=== PATIENT | male | born 1945 | race Caucasian/White ===

== ENCOUNTER → 2016-05-10 | Outpatient (CLI) | payer MEDICARE, MEDICAID ==
[~2016-05-10] MED LIST: BUDE0.5A AEROSOL; DEXT1DRO7 RIGHT EYE; DIVA500T31 PO; DIVA500T4 PO; FLUT16SP EA NOSTRIL; FURO-154 PO; GABA-336 PO; GUAI120015 PO; HYDR-4246 PO; IPRA3AMP AEROSOL; LISI-127 PO; LORA0.5T86 PO; MAGN400O6 DOB; MULT-806 PO; OSEL75CA PO; PROP40TA PO; RISP4TAB PO; ROPI0.252 PO; SERT50TA PO; SIMV40TA73 PO; TRIA-15 PO; WARF4TAB41 PO; [UNRECOGNIZED DRUG - OTHER] PO
[2016-05-10 06:37] LABS: BASOPHILS % (AUTO) 0.4 % (0-2); EOSINOPHILS # (AUTO) 0.1 T/MM3 (0-0.5); EOSINOPHILS % (AUTO) 2.4 % (0-4); HCT - HEMATOCRIT 40.1 % (41-53); HGB - HEMOGLOBIN 12.7 GM/DL (13.5-17.5); IMMATURE GRANULOCYTE # (AUTO) 0.04 T/MM3 (0.00-0.03); IMMATURE GRANULOCYTE % (AUTO) 0.8 % (0.0-0.5); LYMPHOCYTES # (AUTO) 2.3 T/MM3 (1-4.8); LYMPHOCYTES % (AUTO) 46.1 % (23-45); MEAN CORPUSCULAR HGB 29.3 UUG (26-34); MEAN CORPUSCULAR HGB CONC(MCHC 31.7 GM/DL (31-37); MEAN CORPUSCULAR VOLUME 92.6 UM3 (80-100); MEAN PLATELET VOLUME 10.9 UM3 (9.4-12.4); MONOCYTES # (AUTO) 0.5 T/MM3 (0-0.8); MONOCYTES % (AUTO) 9.9 % (0-9.0); NEUTROPHILS % (AUTO) 40.4 % (33-66); RED BLOOD COUNT 4.33 M/MM3 (4.50-5.90)
[2016-05-10 06:41] LABS: INR 3.76 (0.76-1.04)
[2016-05-11 00:42] LABS: LDL CHOLESTEROL,CALCULATED 68.2 (66-159); RISK FACTOR 3.2 RATIO (0-5.0); VLDL CHOLESTEROL 26.8 MG/DL (0-28)
== END ==
LOC: LABNH.AP 00:27
PROVIDERS: ATTEND Family Medicine
DX: I10 Essential (primary) hypertension (principal); E78.5 Hyperlipidemia, unspecified; G40.909 Epilepsy, unspecified, not intractable, without status epilepticus; I48.91 Unspecified atrial fibrillation; Z79.01 Long term (current) use of anticoagulants; Z79.899 Other long term (current) drug therapy
CPT/HCPCS: 36415; 80061; 80164; 85025; 85610; P9604

== ENCOUNTER → 2016-05-11 | Outpatient (CLI) | payer MEDICARE, MEDICAID ==
[2016-05-11 07:19] LABS: INR 3.71 (0.76-1.04); PROTHROMBIN TIME 40.4 SEC (9.31-12.49)
== END ==
LOC: LABNH.AP 00:17
PROVIDERS: ATTEND Nurse Practitioner
DX: I48.91 Unspecified atrial fibrillation (principal); Z79.01 Long term (current) use of anticoagulants
CPT/HCPCS: 36415; 85610; P9604

== ENCOUNTER → 2016-05-12 | Outpatient (CLI) | payer MEDICARE, MEDICAID ==
[2016-05-12 05:57] LABS: INR 2.11 (0.76-1.04)
== END ==
LOC: LABNH.AP 00:32
PROVIDERS: ATTEND Nurse Practitioner
DX: Z79.01 Long term (current) use of anticoagulants (principal); I48.91 Unspecified atrial fibrillation
CPT/HCPCS: 36415; 85610; P9604

== ENCOUNTER → 2016-05-17 | Outpatient (CLI) | payer MEDICARE, MEDICAID ==
[2016-05-17 08:29] LABS: INR 1.85 (0.76-1.04); PROTHROMBIN TIME 20.2 SEC (9.31-12.49)
== END ==
LOC: LABNH.AP 01:45
PROVIDERS: ATTEND Nurse Practitioner
DX: Z79.01 Long term (current) use of anticoagulants (principal); I48.91 Unspecified atrial fibrillation
CPT/HCPCS: 36415; 85610; P9604

== ENCOUNTER → 2016-05-24 | Outpatient (CLI) | payer MEDICARE, MEDICAID ==
[2016-05-24 07:40] LABS: INR 2.61 (0.76-1.04); PROTHROMBIN TIME 28.5 SEC (9.31-12.49)
[2016-05-24 07:51] LABS: ALBUMIN 3.6 G/DL (3.5-5.0); ALBUMIN/GLOBULIN RATIO 1.1 RATIO (1.1-2.2); ALKALINE PHOSPHATASE 90 U/L (38-126); ALT (SGPT) 18 U/L (21-72); ANION GAP 14 MEQ/L (5-15); AST (SGOT) 17 U/L (17-59); BUN/CREATININE RATIO 27 RATIO (6-26); CALCIUM 9.5 MG/DL (8.4-10.2); CHLORIDE 104 MEQ/L (98-107); CO2 - CARBON DIOXIDE 26 MEQ/L (22-30); CREATININE 0.6 MG/DL (0.8-1.5); GLOMERULAR FILTRATION RATE 132; GLUCOSE 171 MG/DL (75-110); POTASSIUM 4.3 MEQ/L (3.6-5); SODIUM 144 MEQ/L (134-144)
[2016-05-24 08:19] LABS: HEMOGLOBIN A1C 8.7 % (6.1-7.9)
== END ==
LOC: LABNH.AP 00:39
PROVIDERS: ATTEND Family Medicine
DX: I48.91 Unspecified atrial fibrillation (principal); E78.5 Hyperlipidemia, unspecified; F20.9 Schizophrenia, unspecified; G40.909 Epilepsy, unspecified, not intractable, without status epilepticus; I10 Essential (primary) hypertension; R60.9 Edema, unspecified; Z79.01 Long term (current) use of anticoagulants; Z79.899 Other long term (current) drug therapy
CPT/HCPCS: 36415; 80053; 83036; 85610; P9604

== ENCOUNTER → 2016-06-21 | Outpatient (CLI) | payer MEDICARE, MEDICAID ==
[2016-06-21 09:33] LABS: INR 3.6 (0.76-1.04); PROTHROMBIN TIME 39.2 SEC (9.31-12.49)
== END ==
LOC: LABNH.AP 00:23
PROVIDERS: ATTEND Family Medicine
DX: Z79.01 Long term (current) use of anticoagulants (principal); I48.91 Unspecified atrial fibrillation
CPT/HCPCS: 36415; 85610; P9604

== ENCOUNTER → 2016-06-22 | Outpatient (CLI) | payer MEDICARE, MEDICAID ==
[2016-06-22 06:21] LABS: INR 3.09 (0.76-1.04); PROTHROMBIN TIME 33.7 SEC (9.31-12.49)
== END ==
LOC: LABNH.AP 00:30
PROVIDERS: ATTEND Nurse Practitioner
DX: I48.91 Unspecified atrial fibrillation (principal); Z79.01 Long term (current) use of anticoagulants
CPT/HCPCS: 36415; 85610; P9604

== ENCOUNTER → 2016-06-28 | Outpatient (CLI) | payer MEDICARE, MEDICAID ==
[2016-06-28 12:56] LABS: INR 1.85 (0.76-1.04); PROTHROMBIN TIME 20.2 SEC (9.31-12.49)
== END ==
LOC: LABNH.AP 00:09
PROVIDERS: ATTEND Nurse Practitioner
DX: I48.91 Unspecified atrial fibrillation (principal); Z79.01 Long term (current) use of anticoagulants
CPT/HCPCS: 36415; 85610; P9604

== ENCOUNTER → 2016-07-05 | Outpatient (CLI) | payer MEDICARE, MEDICAID ==
[2016-07-05 08:29] LABS: INR 1.92 (0.76-1.04); PROTHROMBIN TIME 20.9 SEC (9.31-12.49)
== END ==
LOC: LABNH.AP 00:32
PROVIDERS: ATTEND Family Medicine
DX: I48.91 Unspecified atrial fibrillation (principal); Z79.01 Long term (current) use of anticoagulants
CPT/HCPCS: 36415; 85610; P9604

== ENCOUNTER → 2016-07-12 | Outpatient (CLI) | payer MEDICARE, MEDICAID ==
[2016-07-12 08:04] LABS: INR 1.6 (0.77-1.03); PROTHROMBIN TIME 17.5 SEC (9.48-12.52)
== END ==
LOC: LABNH.AP 00:36
PROVIDERS: ATTEND Family Medicine
DX: I48.91 Unspecified atrial fibrillation (principal); Z79.01 Long term (current) use of anticoagulants
CPT/HCPCS: 36415; 85610

== ENCOUNTER 2016-09-26 14:52 | Inpatient (IN) ==
--- NOTE | 2016-09-26 15:07 | Emergency Department Report ---
General Adult HPI - General Chief complaint: Medical Emergency Stated complaint: Possible Sepsis Time Seen by Provider: 09/26/16 15:07 Source: patient Mode of arrival: EMS Limitations: no limitations - History of Present Illness HPI narrative: 71 YO M brought to ED by EMS with report of "having trouble breathing" per EMS. Patient is a resident at [facility] and nursing staff told EMS patient has not been feeling well for approx. 1 week. Patient had a fever of 103 today. Patient was placed on 3L/NC of O2 by nursing staff at [facility]. Fever was treated with 1000mg of Tylenol this morning. Patient has had generalized weakness, diarrhea and vomiting in the last week. Patient states he developed a cough this morning. Denies chills, nausea, CP or diaphoresis. Patient reports chronic bilateral lower extremity pain with walking. - Related Data Home Medications Medication Instructions Recorded Confirmed Divalproex Sodium [Depakote] 500 mg PO DAILY #3 03/22/11 09/26/16 Lisinopril 10 mg PO DAILY #0 03/22/11 09/26/16 Dextran 70/Hypromellose 1 drop RIGHT EYE TID PRN #0 bottle 03/18/14 09/26/16 [Artificial Tears] Divalproex Sodium [Depakote ER] 500 mg PO HS #0 tab 03/18/14 09/26/16 Furosemide [Lasix] 20 mg PO BID #0 tab 03/18/14 09/26/16 LORazepam [Ativan] 0.5 mg PO Q6H PRN #0 tab 03/18/14 09/26/16 Ropinirole HCl 0.25 mg PO HS #0 tab 03/18/14 09/26/16 Warfarin Sodium [Coumadin] 4 mg PO WS #0 tab 03/18/14 09/26/16 ARIPiprazole [Aripiprazole] 30 mg PO DAILY 09/26/16 09/26/16 Acetaminophen [Acetaminophen Extra 500 mg PO Q6H PRN 09/26/16 09/26/16 Strength] Gabapentin [Gabapentin] 300 mg PO TID 09/26/16 09/26/16 Hydrocodone/Acetaminophen 1 tab PO BID 09/26/16 09/26/16 [Hydrocodon-Acetaminophen 5-325] Insulin Lispro [Humalog Kwikpen 5 unit SQ TIDWM PRN 09/26/16 09/26/16 U-100] Ketotifen Fumarate [Zaditor] 1 drop EACH EYE Q12H PRN 09/26/16 09/26/16 Liraglutide [Victoza 3-Otto] 1.2 mg SQ DAILY 09/26/16 09/26/16 Loperamide [Imodium] 2 mg PO QID PRN 09/26/16 09/26/16 Lurasidone HCl [Latuda] 20 mg PO WS 09/26/16 09/26/16 Magnesium Hydroxide [Milk of 30 ml PO Q12H PRN 09/26/16 09/26/16 Magnesia] Metformin [Glucophage] 500 mg PO WB 09/26/16 09/26/16 Metoprolol Succinate 50 mg PO DAILY 09/26/16 09/26/16 Miconazole Nitrate [Miconazorb AF] 1 applic TP BID 09/26/16 09/26/16 Nystatin Cream [Mycostatin] 1 applic TOP BID 09/26/16 09/26/16 Prazosin HCl [Minipress] 2 mg PO HS 09/26/16 09/26/16 Simvastatin [Simvastatin] 20 mg PO HS 09/26/16 09/26/16 guaiFENesin [Guaifenesin] 100 mg PO Q4H PRN 09/26/16 09/26/16 guaiFENesin [Mucinex] 1,200 mg PO Q12H PRN 09/26/16 09/26/16 Allergies Allergy/AdvReac Type Severity Reaction Status Date / Time No Known Allergies Allergy Verified 09/26/16 17:47 Review of Systems All systems: reviewed and negative except as stated Constitutional: Reports: fever Respiratory: Reports: as per HPI, cough, dyspnea PFSH Patient Stated Medical History Cardiac Arrhythmia Yes: A-FIB Hypertension Yes Diabetes Mellitus Type 2 Yes Hx Incontinence Yes Osteoarthritis Yes Bipolar Disorder Yes Depression Yes CAD Anxiety Atrial fibrillation Per lipidemia Epilepsy Hypothyroidism Morbid obesity Osteoarthritis Psoriasis Restless leg syndrome Lower extremity edema Surgical History: Tonsillectomy Family History: Noncontributory - Social History Housing: skilled nursing Current occupational status: retired Physical Exam - Limitations Limitations: no limitations - General General appearance: alert, in no apparent distress, obese - Normal Exams: Head:: Normocephalic without trauma Eyes:: Pupils are PERRLA w/ EOMI, No scleral icterus ENMT:: No facial trauma, nasal exudates, pharyngeal erythema Neck:: Full range of motion, without adenopathy Abdomen:: Bowel sounds positive, soft, non-tender Neurological:: Patient is alert, and oriented, cranial nerves, motor/sensory/ cerebellar, exams w/o gross deficits, to observation Psychiatric:: Patient exhibits, appropriate attention, emotion and affect - Respiratory Respiratory exam: Present: other (bilbasilar crackles, upper lobes clear) - Cardiovascular Cardiovascular exam: Present: other (regular-irrgular at 120, bilateral lower extremity edema) - Extremities Exam Extremities exam: Present: pedal edema Course - Consultations Consultation #1: I discussed patient's HPI, PMH, labs, VS, EKG, CXR, exam findings and fluids given in the ED. Dr. Razo will accept patient. Time: 16:55 Vital Signs Temperature 101.5 F H 09/26/16 14:55 Pulse Rate 130 H 09/26/16 14:55 Respiratory Rate 20 09/26/16 14:55 Blood Pressure 115/57 09/26/16 14:55 Pulse Oximetry 93 09/26/16 14:55 Temperature 98.3 F 09/29/16 15:17 Pulse Rate 72 09/29/16 15:24 Respiratory Rate 16 09/29/16 19:50 Blood Pressure 152/75 H 09/29/16 15:17 Pulse Oximetry 96 09/29/16 19:50 Medical Decision Making - [facility] Narrative Medical decision making narrative: WBC12.4, Neut 81.4 Chemistries unremarkable except for glucose 216 Troponin 0.053 ProBNP 1240 Lactate 3.8 Procalcitonin 2.34 UA trace ketones, no indication of infection Patient was given 1 liter of fluid with additional NS running. Cefepime started when sepsis established. Radiologist reports stable chest. Patient is admitted in patient for severe sepsis (unknown source) with improving vital signs. - Differential Diagnosis Pneumonia, UTI, Bronchitis, Sepsis - Medical Records Medical records reviewed: Yes: I reviewed the patient's medical records. - Lab Data Result diagrams: 09/29/16 05:07 09/29/16 05:07 Lab Results 09/26/16 09/26/16 09/26/16 Range/Units 15:31 15:31 15:31 WBC 12.4 H (4.5-11.0) T/MM3 RBC 4.75 (4.50-5.90) M/MM3 Hgb 13.9 (13.5-17.5) GM/DL Hct 42.9 (41-53) % MCV 90.3 (80-100) UM3 MCH 29.3 (26-34) UUG MCHC 32.4 (31-37) GM/DL RDW Std Deviation 46.9 (36.9-50.2) FL Plt Count 157 (130-400) T/MM3 MPV 10.3 (9.4-12.4) UM3 Immature Gran % (Auto) 0.4 (0.0-0.5) % Neut % (Auto) 81.4 H (33-66) % Lymph % (Auto) 7.3 L (23-45) % [place]edar % (Auto) 10.6 H (0-9.0) % Eos % (Auto) 0.2 (0-4) % Baso % (Auto) 0.1 (0-2) % Neut # 10.1 H (1.8-7.7) T/MM3 Lymph # 0.9 L (1-4.8) T/MM3 Cedar # 1.3 H (0-0.8) T/MM3 Eos # 0.0 (0-0.5) T/MM3 Baso # 0.0 (0-0.2) T/MM3 Abs Immat Gran (auto) 0.05 H (0.00-0.03) T/MM3 INR (0.99-1.21) Turbidity < 20 (0-20) Sodium 141 (134-144) MEQ/L Potassium 4.0 (3.6-5) MEQ/L Chloride 105 (98-107) MEQ/L Carbon Dioxide 24 (22-30) MEQ/L Anion Gap 12 (5-15) MEQ/L BUN 16.0 (9-20) MG/DL Creatinine 0.9 (0.8-1.5) MG/DL GFR Calculation 83 BUN/Creatinine Ratio 18 (6-26) RATIO Glucose 216 H (75-110) MG/DL Calculated Osmolality 279 (261-280) MOSM/KG Calcium 9.8 (8.4-10.2) MG/DL Total Bilirubin 0.90 (0.20-1.30) MG/DL Icterus Index < 2 (0-7) AST 26 (17-59) U/L ALT 32 (21-72) U/L Alkaline Phosphatase 82 (38-126) U/L Troponin I 0.030 (0-0.12) ng/ml B-Natriuretic Peptide 1240 H (0-175) pg/mL Total Protein 6.9 (6.3-8.2) G/DL Albumin 3.8 (3.5-5.0) G/DL Globulin 3.1 (2.4-3.6) G/DL Albumin/Globulin Ratio 1.2 (1.1-2.2) RATIO Plasma Lactate 3.2 H (0.6-2.2) MMOL/L Procalcitonin 2.34 H* NG/ML Specimen Hemolysis < 15 (0-25) Ur Collection Type Urine Color (YELLOW) Urine Clarity Urine pH (5.0-8.0) Ur Specific [place] (1.015-1.025) Urine Protein (NEGATIVE) Urine Glucose (UA) (NEGATIVE) Urine Ketones (NEGATIVE) Urine Occult Blood (NEGATIVE) Urine Nitrate (NEGATIVE) Urine Bilirubin (NEGATIVE) Urine Urobilinogen (NORMAL) EU/DL Ur Leukocyte Esterase (NEGATIVE) Urinalysis Comment Valproic Acid (50-120) UG/ML 09/26/16 09/26/16 09/26/16 Range/Units 15:31 15:31 17:07 WBC (4.5-11.0) T/MM3 RBC (4.50-5.90) M/MM3 Hgb (13.5-17.5) GM/DL Hct (41-53) % MCV (80-100) UM3 MCH (26-34) UUG MCHC (31-37) GM/DL RDW Std Deviation (36.9-50.2) FL Plt Count (130-400) T/MM3 MPV (9.4-12.4) UM3 Immature Gran % (Auto) (0.0-0.5) % Neut % (Auto) (33-66) % Lymph % (Auto) (23-45) % Cedar % (Auto) (0-9.0) % Eos % (Auto) (0-4) % Baso % (Auto) (0-2) % Neut # (1.8-7.7) T/MM3 Lymph # (1-4.8) T/MM3 Cedar # (0-0.8) T/MM3 Eos # (0-0.5) T/MM3 Baso # (0-0.2) T/MM3 Abs Immat Gran (auto) (0.00-0.03) T/MM3 INR 3.18 H (0.99-1.21) Turbidity (0-20) Sodium (134-144) MEQ/L Potassium (3.6-5) MEQ/L Chloride (98-107) MEQ/L Carbon Dioxide (22-30) MEQ/L Anion Gap (5-15) MEQ/L BUN (9-20) MG/DL Creatinine (0.8-1.5) MG/DL GFR Calculation BUN/Creatinine Ratio (6-26) RATIO Glucose (75-110) MG/DL Calculated Osmolality (261-280) MOSM/KG Calcium (8.4-10.2) MG/DL Total Bilirubin (0.20-1.30) MG/DL Icterus Index (0-7) AST (17-59) U/L ALT (21-72) U/L Alkaline Phosphatase (38-126) U/L Troponin I (0-0.12) ng/ml B-Natriuretic Peptide (0-175) pg/mL Total Protein (6.3-8.2) G/DL Albumin (3.5-5.0) G/DL Globulin (2.4-3.6) G/DL Albumin/Globulin Ratio (1.1-2.2) RATIO Plasma Lactate (0.6-2.2) MMOL/L Procalcitonin NG/ML Specimen Hemolysis (0-25) Ur Collection Type Urine, clean catch Urine Color Yellow (YELLOW) Urine Clarity Clear Urine pH 7.5 (5.0-8.0) Ur Specific [place] 1.015 (1.015-1.025) Urine Protein Negative (NEGATIVE) Urine Glucose (UA) Negative (NEGATIVE) Urine Ketones Trace A (NEGATIVE) Urine Occult Blood Trace-intact (NEGATIVE) Urine Nitrate Negative (NEGATIVE) Urine Bilirubin Negative (NEGATIVE) Urine Urobilinogen 0.2 (NORMAL) EU/DL Ur Leukocyte Esterase Negative (NEGATIVE) Urinalysis Comment Microscopic not ind. Valproic Acid 61.8 (50-120) UG/ML - Radiology Data Radiology results reviewed: Yes: I reviewed the patient's radiology results. Impression: Relatively stable appearance the chest with no acute cardiopulmonary findings. This was called to the ordering ER clinician when study provided. . - EKG Data EKG #1 EKG attestation: Yes: I reviewed and interpreted this EKG. EKG results narrative: Atrial fibrillation with RVR, no STEMI (Dr. Cunningham). Disposition Clinical Impression: Severe sepsis, Chronic atrial fibrillation Disposition: 02 To [facility] Acute Care Condition: Improved - Seen By: midlevel
[2016-09-26] MEDS ORDERED: NS 750 ML IV ONE (15:28)
[2016-09-26] MEDS ORDERED: ACETAMINOPHEN 325 MG TABLET PO ONE (15:29)
[2016-09-26] MEDS ORDERED: SALINE FLUSH 10ml SYRINGE IVF PRN (16:01)
[2016-09-26] MEDS ORDERED: CEFEPIME 1 GM in NS 100 ML IV ONE (16:01)
[2016-09-26] MEDS ORDERED: NS 1,000 ML IV ONE (16:48)
--- NOTE | 2016-09-26 17:02 | XRay Report ---
Indication: cough with fever XR chest 2V: Comparison: 03/17/2014 Technique: Two view chest Findings: Patient should similar cardiac appearance and pulmonary appearance to the old study. The heart is not significantly changed and remains at the upper range of normal. Mildly increased interstitial pulmonary prominence is also stable with no focal parenchymal consolidations or effusions. Patient demonstrates multiple bridging osteophytes throughout the mid and lower thoracic spine which is also stable. No acute new fractures are seen. Impression: Relatively stable appearance the chest with no acute cardiopulmonary findings. This was called to the ordering ER clinician when study provided. .
[2016-09-26 18:22] VITALS: BMI 50.1
[2016-09-26] MEDS ORDERED: GUAIFENESIN 200mg/10ml ORAL LIQUID PO PRN (19:07)
[2016-09-26] MEDS ORDERED: LORazepam 0.5 MG TABLET PO PRN (19:07)
[2016-09-26] MEDS: ALBUTEROL/IPRATROPIUM 2.5mg-0.5mg/3ml NEB AEROSOL SCH (19:12)
[2016-09-26] MEDS: LEVOFLOXACIN PB 750 MG/150 ML BAG IV SCH (19:22)
--- NOTE | 2016-09-26 19:25 | History & Physical Report ---
History of Present Illness Date: 09/26/16 Chief complaint: Difficulty breathing, temperature elevation HPI: 71 y/o male presents to [facility] ED via EMS from [facility] secondary to difficulty breathing and temp elevation. Patient has not been feeling well for the past weak. Yesterday started feeling more SOA. Developed cough this am, productive of this yellow sputum. No pain with breathing. Does note his chest feels uncomfortable and that his hard is beating funny. Temp elevate at 103 at [facility] and given Tylenol 1000mg and EMS activated for transport to ED. Notes his appetite has been stable-denies nausea or vomiting. Reports a loose stool yesterday. Has mild diffuse ab discomfort. Urinating without pain or discomfort. Does feel more tire and weak since he has been feeling ill. Review of Systems Comprehensive ROS: completed and no additional positive findings except those as stated - Constitutional Constitutional: Present: fatigue, weakness - Cardiovascular Cardiovascular: Present: as per HPI - Respiratory Respiratory: Present: as per HPI - Gastrointestinal Gastrointestinal: Present: as per HPI - Genitourinary Genitourinary: Present: as per HPI PFS Patient Stated Medical History Cardiac Arrhythmia Yes: A-FIB Hypertension Yes Diabetes Mellitus Type 2 Yes: pills Hx Incontinence Yes Osteoarthritis Yes Other Musculoskeletal Yes: walker and gait belt up with 1 assist Cellulitis Yes: thinks he has Sepsis Yes: currently Bipolar Disorder Yes Depression Yes Surgical History: Hx Tonsillectomy Family History: Father of heart disease. Mother of stroke. 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 Sees Dr Stafford for PCP Medications Home Medications Medication Instructions Recorded Confirmed Type Divalproex Sodium [Depakote] 500 mg PO DAILY #3 03/22/11 09/26/16 History Lisinopril 10 mg PO DAILY #0 03/22/11 09/26/16 History Dextran 70/Hypromellose 1 drop RIGHT EYE TID PRN #0 bottle 03/18/14 09/26/16 History [Artificial Tears] Divalproex Sodium [Depakote ER] 500 mg PO HS #0 tab 03/18/14 09/26/16 History Furosemide [Lasix] 20 mg PO BID #0 tab 03/18/14 09/26/16 History LORazepam [Ativan] 0.5 mg PO Q6H PRN #0 tab 03/18/14 09/26/16 History Ropinirole HCl 0.25 mg PO HS #0 tab 03/18/14 09/26/16 History Warfarin Sodium [Coumadin] 4 mg PO WS #0 tab 03/18/14 09/26/16 History ARIPiprazole [Aripiprazole] 30 mg PO DAILY 09/26/16 09/26/16 History Acetaminophen [Acetaminophen Extra 500 mg PO Q6H PRN 09/26/16 09/26/16 History Strength] Gabapentin [Gabapentin] 300 mg PO TID 09/26/16 09/26/16 History Hydrocodone/Acetaminophen 1 tab PO BID 09/26/16 09/26/16 History [Hydrocodon-Acetaminophen 5-325] Insulin Lispro [Humalog Kwikpen 5 unit SQ TIDWM PRN 09/26/16 09/26/16 History U-100] Ketotifen Fumarate [Zaditor] 1 drop EACH EYE Q12H PRN 09/26/16 09/26/16 History Liraglutide [Victoza 3-Otto] 1.2 mg SQ DAILY 09/26/16 09/26/16 History Loperamide [Imodium] 2 mg PO QID PRN 09/26/16 09/26/16 History Lurasidone HCl [Latuda] 20 mg PO WS 09/26/16 09/26/16 History Magnesium Hydroxide [Milk of 30 ml PO Q12H PRN 09/26/16 09/26/16 History Magnesia] Metformin [Glucophage] 500 mg PO WB 09/26/16 09/26/16 History Metoprolol Succinate 50 mg PO DAILY 09/26/16 09/26/16 History Miconazole Nitrate [Miconazorb AF] 1 applic TP BID 09/26/16 09/26/16 History Nystatin Cream [Mycostatin] 1 applic TOP BID 09/26/16 09/26/16 History Prazosin HCl [Minipress] 2 mg PO HS 09/26/16 09/26/16 History Simvastatin [Simvastatin] 20 mg PO HS 09/26/16 09/26/16 History guaiFENesin [Guaifenesin] 100 mg PO Q4H PRN 09/26/16 09/26/16 History guaiFENesin [Mucinex] 1,200 mg PO Q12H PRN 09/26/16 09/26/16 History Allergies Allergy/AdvReac Type Severity Reaction Status Date / Time No Known Allergies Allergy Verified 09/26/16 17:47 Exam Vital Signs: Temperature 100.2 F 09/26/16 18:12 Pulse Rate 97 09/26/16 18:12 Respiratory Rate 20 09/26/16 18:12 Blood Pressure 104/62 09/26/16 18:12 Pulse Oximetry 92 09/26/16 18:12 Oxygen Delivery Method Nasal Cannula Oxygen Flow Rate 2 Telemetry Rhythm: A-fib Height: 1.85 m Weight: 172.3 kg Body Mass Index: 50.1 - Constitutional Present: mild distress, well nourished, well developed, morbidly obese, somnolent (But will answer questions) - Routine HEENT Exam Head: Present: normocephalic, atraumatic Eye: Present: EOMI, PERRL. Absent: conjunctival icterus ENT: Present: mucous membranes dry. Absent: dentition normal (Poor dentition) - Routine Neck Exam Present: supple. Absent: JVD - Routine Chest/Breast/Axilla Exam Chest wall: Absent: tenderness - Routine Respiratory Exam Present: distant breath sounds, diminished air movement. Absent: wheezes, crackles - Routine Cardiovascular Exam Present: tachycardia, irregular rhythm, irregularly irregular - Routine Abdominal Exam Present: soft, non distended, non tender. Absent: normoactive bowel sounds ( Decreased ), rebound, guarding - Routine Extremities Exam Present: edema (+3 chronic LE lymphedema). Absent: cyanosis, clubbing - Routine Skin Exam Present: warm, normal turgor. Absent: pallor, mottling - Routine Neurological Exam Present: oriented X3, CN II-XII intact, vision grossly intact, hearing grossly intact. Absent: motor deficit - Routine Psychiatric Exam Present: normal affect, cooperative. Absent: anxious, agitated Results - Labs CBC & Chem 7: 09/26/16 15:31 09/26/16 15:31 Labs: Laboratory Tests 09/26/16 15:31 INR 3.18 H Laboratory Tests 09/26/16 09/26/16 15:31 15:31 Troponin I 0.030 B-Natriuretic Peptide 1240 H Plasma Lactate 3.2 H Procalcitonin 2.34 H* Assessment and Plan (1) Severe sepsis Current visit: Yes Status: Acute (2) Chronic a-fib Current visit: Yes Status: Chronic (3) Anticoagulated on Coumadin Current visit: Yes Status: Chronic (4) Essential hypertension Current visit: Yes Status: Chronic (5) Hyperlipidemia Current visit: Yes Status: Chronic (6) Type II diabetes mellitus Current visit: Yes Status: Chronic (7) Morbid obesity with BMI of 50.0-59.9, adult Current visit: Yes Status: Chronic DVT Prophylaxis: Coumadin Resuscitation Status: Full Code Assessment and Plan: Will admit to inpatient at [facility] for treatment of severe sepsis. Initiate antimicrobial therapy with cefepime, vancomycin, and levofloxacin. Recheck Lactate this evening. IVF bolus of 30ml/kg not given in ED as lactate less than 4. Start 1/2NS at 75cc/hr due to sepsis - monitor for volume overload. Check Respiratory ALLERGIST/PEDIATRIC PULMONOLOGIST panel and MRSA swab. Hold antihypertensives (except Metoprolol due to his afib) due to sepsis. Hold Metformin due to elevated lactic acid. Hold Coumadin due to antibiotic use and INR above three - monitor INR daily and reinstitute as indicated. Supplement O2 to help respiratory status. Initiate Acapella and Mucinex DM to help decrease secretions. Start Neb treatments of DuoNeb-monitoring HR. Monitor blood sugars due to diabetes. Recheck CBC in am due to sepsis. Will check BMP in am due to IVF and medication use. INR repeat warranted due to potential elevation with levofloxacin. Discussed code status with patient - request full resuscitation. Order is written. Care to return to Dr Stafford at time of discharge from [facility]. - Time spent with patient greater than 35 minutes Sepsis Assessment - Evaluation Sepsis screening result: Sepsis Risk Possible source: pulmonary SIRS Criteria: temperature > or equal to 100.4, pulse > or equal to 90 beats/ minute, WBC > or equal to 12,000 Severe Sepsis: lactate > or equal to 2.0 mg/dl Hospital Course Summary Disclaimer: The visit summary below is not to be considered part of the above Progress Note. Hospital Course: 09/26/16 Admit Will admit to inpatient at [facility] for treatment of severe sepsis. Initiate antimicrobial therapy with cefepime, vancomycin, and levofloxacin. Recheck Lactate this evening. IVF bolus of 30ml/kg not given in ED as lactate less than 4. Start 1/2NS at 75cc/hr due to sepsis - monitor for volume overload. Check Respiratory ALLERGIST/PEDIATRIC PULMONOLOGIST panel and MRSA swab. Hold antihypertensives (except Metoprolol due to his afib) due to sepsis. Hold Metformin due to elevated lactic acid. Hold Coumadin due to antibiotic use and INR above three - monitor INR daily and reinstitute as indicated. Supplement O2 to help respiratory status. Initiate Acapella and Mucinex DM to help decrease secretions. Start Neb treatments of DuoNeb-monitoring HR. Monitor blood sugars due to diabetes. Recheck CBC in am due to sepsis. Will check BMP in am due to IVF and medication use. INR repeat warranted due to potential elevation with levofloxacin. Discussed code status with patient - request full resuscitation. Order is written. Care to return to Dr Stafford at time of discharge from [facility].
[2016-09-26] MEDS: 1/2 NS 1,000 ML IV SCH (19:26)
[2016-09-26] MEDS: CEFEPIME 1 GM in NS 100 ML IV SCH (21:36)
[2016-09-26] MEDS: HYDROCODONE/APAP 5mg/325mg TABLET PO SCH (21:46)
[2016-09-26] MEDS: SIMVASTATIN 20 MG TABLET PO SCH (22:11)
[2016-09-26] MEDS: MICONAZOLE 2% POWDER 45gm TP SCH (22:13)
[2016-09-26] MEDS: GABAPENTIN 300 MG CAPSULE PO SCH (22:13)
[2016-09-26] MEDS: ROPINIROLE 0.25 MG TABLET PO SCH (22:14)
[2016-09-26] MEDS: GUAIFENESIN/D-METHORPHAN 600mg/30mg TABLET PO SCH ×2 (23:17)
[2016-09-27] MEDS: CEFEPIME 1 GM in NS 100 ML IV SCH ×4 (03:06→21:39)
[2016-09-27] MEDS: ALBUTEROL/IPRATROPIUM 2.5mg-0.5mg/3ml NEB AEROSOL SCH ×4 (07:58→21:14)
[2016-09-27] MEDS: DIVALPROEX 500 MG TABLET PO SCH (08:50)
[2016-09-27] MEDS: ARIPiprazole 15 MG TABLET PO SCH (08:50)
[2016-09-27] MEDS: GUAIFENESIN/D-METHORPHAN 600mg/30mg TABLET PO SCH ×2 (08:50→21:40)
[2016-09-27] MEDS: GABAPENTIN 300 MG CAPSULE PO SCH ×3 (08:50→21:40)
[2016-09-27] MEDS: LIRAGLUTIDE INJECTABLE PEN SQ SCH (08:52)
[2016-09-27] MEDS: HYDROCODONE/APAP 5mg/325mg TABLET PO SCH ×2 (08:54→21:40)
[2016-09-27] MEDS: MICONAZOLE 2% POWDER 45gm TP SCH ×2 (08:54→21:45)
[2016-09-27] MEDS: 1/2 NS 1,000 ML IV SCH ×2 (08:55→17:51)
--- NOTE | 2016-09-27 13:47 | Pharmacy Consult-Antibiotics ---
Pharmacy Consult-Vancomycin - Laboratory Information WBC 15.2 T/MM3 (4.5-11.0) H 09/27/16 04:28 BUN 26.0 MG/DL (9-20) H D 09/27/16 04:28 Creatinine 1.8 MG/DL (0.8-1.5) H D 09/27/16 04:28 Procalcitonin 8.65 NG/ML H* 09/27/16 04:28 - Consult Information Serum creatinine has jumped since yesterday. Will change vancomycin from 1.5gm q8h to vancomycin 1 gram IV q12h. Will continue to monitor. Thank you.
[2016-09-27] MEDS ORDERED: WARFARIN 4 MG TABLET PO ONE (15:24)
--- NOTE | 2016-09-27 15:29 | Pharmacy Consult ---
Pharmacy Consult-Warfarin - Laboratory Information 09/27/16 04:28 INR 2.64 H - Consult Information COUMADIN CONSULT (Initial): Dx: A. FIB. Baseline INR = 2.64. Will give Warfarin 4mg today. Will continue to monitor and make adjustments accordingly. Thank you.
--- NOTE | 2016-09-27 16:31 | Progress Note ---
Subjective: F/U: Severe sepsis Doing okay today. Notes appetite decreased-not hungry. No ab pain or nausea. Has cough with yellow sputum-thick and hard to clear. Cough not excessive. No sore to chest wall from coughing or having pain with breathing. On O2 at 2L- denies feeling SOA. No chest pressure or pain. Decrease urine output. Feels some chills. Objective Vital signs: Temperature 98.0 F 09/27/16 11:00 Pulse Rate 67 09/27/16 15:52 Respiratory Rate 18 09/27/16 16:04 Blood Pressure 106/63 09/27/16 11:00 Pulse Oximetry 97 09/27/16 16:04 Oxygen Delivery Method Nasal Cannula Oxygen Flow Rate 2 Weight: 176.9 kg - Constitutional Present: mild distress, well nourished, well developed, morbidly obese, cooperative, other (Much more alert than yesterday. ) - Routine HEENT Exam Head: Present: normocephalic, atraumatic Eye: Present: EOMI, PERRL. Absent: conjunctival icterus ENT: Present: mucous membranes moist (No thrush). Absent: dentition normal - Routine Respiratory Exam Present: distant breath sounds, diminished air movement. Absent: respiratory distress, rhonchi, wheezes, crackles - Routine Cardiovascular Exam Present: irregular rhythm, irregularly irregular - Routine Abdominal Exam Present: soft, non distended, non tender. Absent: normoactive bowel sounds ( Decreased bowel sounds) - Routine Extremities Exam Present: cyanosis, clubbing, edema (+3 chronic LE edema ) - Routine Musculoskeletal Exam Musculoskeletal: Present: no clubbing or cyanosis - Routine Skin Exam Present: intact, warm, normal turgor. Absent: mottling - Routine Neurological Exam Present: alert, oriented X3, CN II-XII intact, vision grossly intact, hearing grossly intact, tremors (Upper ext ). Absent: motor deficit - Routine Psychiatric Exam Present: normal affect, normal thought process (Thoughts linear, communicates well. ), cooperative. Absent: anxious, agitated Results - Labs CBC & Chem 7: 09/27/16 04:28 09/27/16 04:28 Assessment and Plan (1) Severe sepsis Current visit: Yes Status: Acute (2) Acute kidney injury Current visit: Yes Status: Acute (3) Chronic a-fib Current visit: Yes Status: Chronic (4) Anticoagulated on Coumadin Current visit: Yes Status: Chronic (5) Essential hypertension Current visit: Yes Status: Chronic (6) Hyperlipidemia Current visit: Yes Status: Chronic (7) Type II diabetes mellitus Current visit: Yes Status: Chronic (8) Morbid obesity with BMI of 50.0-59.9, adult Current visit: Yes Status: Chronic Assessment and Plan: Severe sepsis - source uncertain, suspect pulmonary. Acute kidney injury Chronic a-fib Anticoagulated on Coumadin Essential hypertension Hyperlipidemia Type II diabetes mellitus Morbid obesity with BMI of 50.0-59.9, adult With WBC increasing, will continue cefepime, vancomycin, and levofloxacin. Suspect pulmonary source. Recheck CXR in am. Place PICC line for IV access. IVF bolus given this morning as urine output decreased. Will place almanza to monitor urine output in light of MARY. Continue with 1/2NS at 75. BP in low 100s. Blood pressure medications (Except Metoprolol) on hold. Continue to hold Metformin due to severe sepsis. Coumadin to continue per Pharm protocol-monitor INR. Recheck CBC in am due to sepsis. Recheck BMP in am due to MARY. Case discussed with CM. Time spent with patient care 25 minutes. Sepsis Assessment - Evaluation Sepsis screening result: No Definite Risk Hospital Course Summary Disclaimer: The visit summary below is not to be considered part of the above Progress Note. Hospital Course: 09/26/16 Admit [place] admit [place] [facility] [place]. Initiate antimicrobial therapy with cefepime, vancomycin, and levofloxacin. Recheck Lactate this evening. IVF bolus of 30ml/kg not given in ED as lactate less than 4. Start 1/2NS at 75cc/hr due to sepsis - monitor for volume overload. Check Respiratory PRIVATE DETECTIVE panel and MRSA swab. Hold antihypertensives (except Metoprolol due to his afib) due to sepsis. Hold Metformin due to elevated lactic acid. Hold Coumadin due to antibiotic use and INR above three - monitor INR daily and reinstitute as indicated. Supplement O2 to help respiratory status. Initiate Acapella and Mucinex DM to help decrease secretions. Start Neb treatments of DuoNeb-monitoring HR. Monitor blood sugars due to diabetes. Recheck CBC in am due to sepsis. Will check BMP in am due to IVF and medication use. INR repeat warranted due to potential elevation with levofloxacin. Discussed code status with patient - request full resuscitation. Order is written. Care to return to Dr Stafford at time of discharge from [facility] 09/27/16 With WBC increasing, will continue cefepime, vancomycin, and levofloxacin. Suspect pulmonary source. Recheck CXR in am. Place PICC line for IV access. IVF bolus given this morning as urine output decreased. Will place almanza to monitor urine output in light of MARY. Continue with 1/2NS at 75. BP in low 100s. Blood pressure medications (Except Metoprolol) on hold. Continue to hold Metformin due to severe sepsis. Coumadin to continue per Pharm protocol-monitor INR. Recheck CBC in am due to sepsis. Recheck BMP in am due to MARY.
--- NOTE | 2016-09-27 16:50 | XRay Report ---
Indication: post picc insertion PROCEDURE: XR chest post-procedure 1V: Encounter: Initial Comparison: 09/26/2016 Findings: Frontal chest radiograph is submitted. There is mild hypoventilation. No definite confluent infiltrate or pleural fluid. Trachea midline. No pulmonary vascular engorgement. Right-sided PICC line with its tip in the lower superior vena cava in good position. Degenerative changes of bony elements. Impression: Hypoventilation without acute chest disease. .
[2016-09-27] MEDS: INSULIN ASPART 100unit/ml INJECTION SQ PRN (17:06)
[2016-09-27] MEDS: LURASIDONE 40mg TABLET PO SCH (17:06)
[2016-09-27] MEDS: LEVOFLOXACIN PB 750 MG/150 ML BAG IV SCH (19:17)
[2016-09-27] MEDS: SIMVASTATIN 20 MG TABLET PO SCH (21:40)
[2016-09-27] MEDS: ROPINIROLE 0.25 MG TABLET PO SCH (21:42)
[2016-09-28] MEDS: ACETAMINOPHEN 500 MG TABLET PO PRN (02:57)
[2016-09-28] MEDS: SALINE FLUSH 10ml SYRINGE IVF PRN ×3 (02:58→15:33)
[2016-09-28] MEDS: CEFEPIME 1 GM in NS 100 ML IV SCH ×4 (02:58→21:26)
[2016-09-28] MEDS: ALBUTEROL/IPRATROPIUM 2.5mg-0.5mg/3ml NEB AEROSOL SCH ×4 (07:15→18:52)
[2016-09-28] MEDS: HYDROCODONE/APAP 5mg/325mg TABLET PO SCH ×2 (09:46→21:31)
[2016-09-28] MEDS: GUAIFENESIN/D-METHORPHAN 600mg/30mg TABLET PO SCH ×2 (09:46→21:29)
[2016-09-28] MEDS: ARIPiprazole 15 MG TABLET PO SCH (09:46)
[2016-09-28] MEDS: DIVALPROEX 500 MG TABLET PO SCH (09:47)
[2016-09-28] MEDS: GABAPENTIN 300 MG CAPSULE PO SCH ×3 (09:47→21:29)
[2016-09-28] MEDS: MICONAZOLE 2% POWDER 45gm TP SCH ×2 (09:48→21:28)
[2016-09-28] MEDS: LIRAGLUTIDE INJECTABLE PEN SQ SCH (09:48)
[2016-09-28] MEDS ORDERED: WARFARIN 5 MG TABLET PO SCH (12:00)
[2016-09-28] MEDS: 1/2 NS 1,000 ML IV SCH ×2 (13:16→18:30)
[2016-09-28] MEDS: INSULIN ASPART 100unit/ml INJECTION SQ PRN (13:18)
--- NOTE | 2016-09-28 13:27 | Progress Note ---
<StepahnieMicaela D - Last Filed: 09/28/16 13:24> Subjective: sOcar is feeling better compared to yesterday. He's been working with PT and walked 26 feet with a walker today. He is still weak and does have chronic tremors. No SOA but he is coughing and bringing up clear sputum. No abdominal pain or nausea but doesn't have much of an appetite. He hasn't had a bowel movement for at least a few days - typically has loose stools or diarrhea. Objective Vital signs: Temperature 97.8 F 09/28/16 12:08 Pulse Rate 82 09/28/16 12:08 Respiratory Rate 20 09/28/16 12:08 Blood Pressure 157/81 H 09/28/16 12:08 Pulse Oximetry 94 09/28/16 12:08 Oxygen Delivery Method Room Air Oxygen Flow Rate 2 Rhythm: Atrial Fibrillation with Normal Ventricular Rate Weight: 177.2 kg - Constitutional Present: no acute distress, well nourished, well developed, morbidly obese - Routine HEENT Exam ENT: Present: mucous membranes moist. Absent: dentition normal (decay and mult missing teeth) - Routine Respiratory Exam Present: CTA bilaterally - Routine Cardiovascular Exam Present: S1, S2, irregularly irregular - Routine Abdominal Exam Present: soft, normoactive bowel sounds, non distended, non tender - Routine Extremities Exam Present: edema (3+ b/l) - Routine Skin Exam Present: intact, dry, warm - Routine Neurological Exam Present: alert, oriented X3 - Routine Psychiatric Exam Present: normal affect, normal thought process, cooperative Results - Labs CBC & Chem 7: 09/28/16 04:43 09/28/16 04:43 Labs: Laboratory Tests 09/26/16 09/27/16 15:31 04:28 Procalcitonin 2.34 H* 8.65 H* - Imaging and Cardiology Chest x-ray Status: image reviewed by me (no infiltrates or failure) Assessment and Plan (1) Severe sepsis Current visit: Yes Status: Acute (2) Acute kidney injury Current visit: Yes Status: Acute DVT Prophylaxis: Lovenox, Coumadin Resuscitation Status: Full Code Assessment and Plan: Assessment Severe sepsis - source uncertain, suspect pulmonary. Acute kidney injury and oliguria - resolved. Almanza placed on 09/27/16. Hypotension with underlying essential HTN - hypotension resolved with IVF Thrombocytopenia, not POA Chronic a-fib ; Anticoagulated on Coumadin Hyperlipidemia Type II diabetes mellitus Morbid obesity with BMI of 50.0-59.9, adult Plan Severe sepsis (unknown origin) - WBC decreased to 10.2, but procalcitonin increased to 8.65, raising suspicion for bacterial etiology. Chart reviewed - UA and resp panel were neg. CXR clear. 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 Per RN, unable to get a good sputum spec b/c of saliva mixed with sputum. No BC ordered - will check those now. Another possibility is GI - pt usually has loose stools/diarrhea but has been constipated. However, his abdominal exam was benign, which doesn't quite correlate with GI pathology. Start Senna+ BID and will have PRN MOM and dulcolax supp available. MARY with hypotension - BP and UO have both improved after IVF bolus and then continuous IVF. He's had 900 mL output so far today. Almanza was placed on 09/27/16 to monitor UO. Renal status markedly improved with both BUN and creatinine returning to baseline. Will continue with IVF, but may be able to dc them soon. Monitor for overload. Start bladder retraining; likely DC Almanza tomorrow. Hypoxia improving. Now on room air. Activity level is increasing, which is helpful in many regards towards recovery. BGM elevated (metformin on hold). Schedule insulin 5U with meals & continue Victoza. INR subtherapeutic today - give Lovenox. Thrombocytopenia - plt down to 123 - suspect reactive - recheck in am. Sepsis Assessment - Evaluation Sepsis screening result: No Definite Risk Hospital Course Summary Disclaimer: The visit summary below is not to be considered part of the above Progress Note. Hospital Course: 09/26/16 Admit Will admit to inpatient at [facility] [place] for treatment of severe sepsis. Initiate antimicrobial therapy with cefepime, vancomycin, and levofloxacin. Recheck Lactate this evening. IVF bolus of 30ml/kg not given in ED as lactate less than 4. Start 1/2NS at 75cc/hr due to sepsis - monitor for volume overload. Check Respiratory FUNERAL HOME GENERAL MANAGER panel and MRSA swab. Hold antihypertensives (except Metoprolol due to his afib) due to sepsis. Hold Metformin due to elevated lactic acid. Hold Coumadin due to antibiotic use and INR above three - monitor INR daily and reinstitute as indicated. Supplement O2 to help respiratory status. Initiate Acapella and Mucinex DM to help decrease secretions. Start Neb treatments of DuoNeb-monitoring HR. Monitor blood sugars due to diabetes. Recheck CBC in am due to sepsis. Will check BMP in am due to IVF and medication use. INR repeat warranted due to potential elevation with levofloxacin. Discussed code status with patient - request full resuscitation. Order is written. Care to return to Dr Stafford at time of discharge from [facility]. 09/27/16 With WBC increasing, will continue cefepime, vancomycin, and levofloxacin. Suspect pulmonary source. Recheck CXR in am. Place PICC line for IV access. IVF bolus given this morning as urine output decreased. Will place almanza to monitor urine output in light of MARY. Continue with 1/2NS at 75. BP in low 100s. Blood pressure medications (Except Metoprolol) on hold. Continue to hold Metformin due to severe sepsis. Coumadin to continue per Pharm protocol-monitor INR. Recheck CBC in am due to sepsis. Recheck BMP in am due to MARY. 09/28/16 Severe sepsis (unknown origin) - WBC decreased to 10.2, but procalcitonin increased to 8.65, raising suspicion for bacterial etiology. Chart reviewed - UA and resp panel were neg. CXR clear. 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 Per RN, unable to get a good sputum spec b/c of saliva mixed with sputum. No BC ordered - will check those now. Another possibility is GI - pt usually has loose stools/diarrhea but has been constipated. However, his abdominal exam was benign, which doesn't quite correlate with GI pathology. MARY with hypotension - BP and UO have both improved after IVF bolus and then continuous IVF. He's had 900 mL output so far today. Almanza was placed on 09/27/16 to monitor UO. Renal status markedly improved with both BUN and creatinine returning to baseline. Will continue with IVF, but may be able to dc them soon. Monitor for overload. Start bladder retraining; likely DC Almanza tomorrow. Hypoxia improving. Now on room air. Activity level is increasing, which is helpful in many regards towards recovery. BGM elevated (metformin on hold). Schedule insulin 5U with meals & continue Victoza. INR subtherapeutic today - give Lovenox. Thrombocytopenia - plt down to 123 - suspect reactive <uYriDaysi Mary - Last Filed: 09/28/16 19:21> Objective Vital signs: Temperature 98.6 F 09/28/16 15:33 Pulse Rate 66 09/28/16 16:00 Respiratory Rate 20 09/28/16 18:52 Blood Pressure 135/74 09/28/16 15:33 Pulse Oximetry 94 09/28/16 18:52 Oxygen Delivery Method Nasal Cannula Oxygen Flow Rate 2 Results - Labs CBC & Chem 7: 09/28/16 04:43 09/28/16 04:43 Microbiology Results: Microbiology 09/28/16 14:50 Sputum, Expectorated Gram Stain - Final 09/28/16 14:50 Sputum, Expectorated Sputum Culture - Preliminary Culture Initiated - Results Pending 09/28/16 14:03 Cath/Port/Line/Picc Blood Culture - Preliminary Culture Initiated - Results Pending 09/28/16 14:06 Peripheral/Iv Start Blood Culture - Preliminary Culture Initiated - Results Pending Assessment and Plan (1) Severe sepsis Current visit: Yes Status: Acute (2) Acute kidney injury Current visit: Yes Status: Acute Assessment and Plan: I have independently evaluated and examined this patient. I reviewed the chart, the patient's history, and the CAGE/VAULT SUPERVISOR/PA's documented findings as above. We discussed and formulated the assessment and plan as above with additions as below: Mr. Lee reports that he is feeling better and denied dyspnea or dysuria. He went on to deny any abdominal pain, recent diarrhea, or dysuria. The patient is alert and cooperative. Respirations are nonlabored with good airflow and clear breath sounds Cardiac rhythm regular Abdomen is soft and nontender Bilateral lymphedema lower extremities but no evidence of cellulitis or skin breakdown. Blood cultures pending, sputum culture obtained/pending Data points to sepsis although source unclear. Clinically improving-continue the same pending additional data. Chest x-ray reviewed-no focal infiltrate. Hospital Course Summary Disclaimer: The visit summary below is not to be considered part of the above Progress Note.
[2016-09-28] MEDS ORDERED: BISACODYL 10 MG SUPPOSITORY RECTALLY PRN (13:44)
--- NOTE | 2016-09-28 13:54 | XRay Report ---
Indication: F/U: ? Pneumonia PROCEDURE: XR chest 2V: Encounter: Initial Comparison: 09/27/2016 Findings: There is cardiac megaly and pulmonary vascular congestion with perhaps mild thickening of the minor fissure which suggests some developing interstitial pulmonary edema. There may be a trace left pleural effusion. Trachea is midline. No subdiaphragmatic free air. There is a right arm PICC line in place with its tip in good position. Impression: Possible developing CHF with trace left pleural effusion. .
[2016-09-28] MEDS: ENOXAPARIN 40 MG/0.4 ML INJECTION SQ SCH (14:28)
[2016-09-28] MEDS: LURASIDONE 40mg TABLET PO SCH (17:58)
[2016-09-28] MEDS: INSULIN ASPART 100unit/ml INJECTION SQ SCH (17:59)
[2016-09-28] MEDS ORDERED: FALL RISK - PHARMACY CONSULT MC PRN (18:32)
[2016-09-28] MEDS: LEVOFLOXACIN PB 750 MG/150 ML BAG IV SCH (18:44)
[2016-09-28] MEDS: SIMVASTATIN 20 MG TABLET PO SCH (21:29)
[2016-09-28] MEDS: SENNA + DOCUSATE TABLET PO SCH (21:29)
[2016-09-28] MEDS: ROPINIROLE 0.25 MG TABLET PO SCH (21:30)
[2016-09-29] MEDS: CEFEPIME 1 GM in NS 100 ML IV SCH ×4 (04:11→21:03)
[2016-09-29] MEDS: 1/2 NS 1,000 ML IV SCH (05:15)
--- NOTE | 2016-09-29 07:23 | Pharmacy Consult ---
Pharmacy Consult-Warfarin - Laboratory Information 09/27/16 09/28/16 09/29/16 04:28 04:33 05:07 INR 2.64 H 1.68 H 1.77 H SB is a 71yo M admitted with severe sepsis. Has hx of A. Fib. Home dose of warfarin reported as 4mg po daily. Warfarin therapy continuing while in hospital. Today's INR = 1.77, up from 1.68 yesterday. Will give Warfarin 5mg again today. On Enoxaparin 40mg SQ daily until INR back to therapeutic range again. Thank you
[2016-09-29] MEDS: DIVALPROEX 500 MG TABLET PO SCH (09:00)
[2016-09-29] MEDS: GUAIFENESIN/D-METHORPHAN 600mg/30mg TABLET PO SCH ×2 (09:00→20:55)
[2016-09-29] MEDS: GABAPENTIN 300 MG CAPSULE PO SCH ×3 (09:00→20:54)
[2016-09-29] MEDS: ARIPiprazole 15 MG TABLET PO SCH (09:00)
[2016-09-29] MEDS: MICONAZOLE 2% POWDER 45gm TP SCH ×2 (09:01→21:00)
[2016-09-29] MEDS: ENOXAPARIN 40 MG/0.4 ML INJECTION SQ SCH (09:01)
[2016-09-29] MEDS: HYDROCODONE/APAP 5mg/325mg TABLET PO SCH ×2 (09:10→20:53)
[2016-09-29] MEDS: LIRAGLUTIDE INJECTABLE PEN SQ SCH (09:10)
[2016-09-29] MEDS: SYSTANE EYE DROPS 0.7ml EACH EYE PRN ×2 (09:11→11:57)
[2016-09-29] MEDS: SENNA + DOCUSATE TABLET PO SCH ×2 (09:11→20:58)
[2016-09-29] MEDS: INSULIN ASPART 100unit/ml INJECTION SQ SCH ×3 (09:12→17:34)
[2016-09-29] MEDS: ALBUTEROL/IPRATROPIUM 2.5mg-0.5mg/3ml NEB AEROSOL SCH ×4 (11:05→19:50)
--- NOTE | 2016-09-29 11:14 | Progress Note ---
<StephanieMicaela D - Last Filed: 09/29/16 11:10> Subjective: Oscar was seen resting in bed, he fell asleep waiting on his morning pills to arrive. He awakened easily, and states he feels well today. He rested well last night. He denies any pain. He denies any shortness of breath. He is looking forward to working with physical therapy again today. Objective Vital signs: Temperature 98.5 F 09/29/16 08:00 Pulse Rate 69 09/29/16 08:00 Respiratory Rate 16 09/29/16 08:00 Blood Pressure 140/94 H 09/29/16 08:00 Pulse Oximetry 94 09/29/16 08:00 Oxygen Delivery Method Room Air Oxygen Flow Rate 2 Rhythm: Atrial Fibrillation with Normal Ventricular Rate Weight: 177.2 kg - Constitutional Present: no acute distress, well nourished, well developed, obese - Routine HEENT Exam ENT: Present: mucous membranes moist. Absent: dentition normal (multiple missing teeth with widespread decay) - Routine Respiratory Exam Present: CTA bilaterally - Routine Cardiovascular Exam Present: S1, S2, irregularly irregular. Absent: RRR - Routine Abdominal Exam Present: soft, normoactive bowel sounds, non tender - Routine Extremities Exam Present: edema (chronic bilateral lower extremity lymphedema) - Routine Musculoskeletal Exam Musculoskeletal: Present: moving extremities well - Routine Skin Exam Present: intact, dry, warm - Routine Neurological Exam Present: alert, oriented X3 - Routine Psychiatric Exam Present: normal affect, normal thought process Results - Labs CBC & Chem 7: 09/29/16 05:07 09/29/16 05:07 Microbiology Results: Microbiology 09/28/16 14:50 Sputum, Expectorated Gram Stain - Final 09/28/16 14:50 Sputum, Expectorated Sputum Culture - Preliminary Early growth 09/28/16 14:03 Cath/Port/Line/Picc Blood Culture - Preliminary Culture Initiated - Results Pending 09/28/16 14:06 Peripheral/Iv Start Blood Culture - Preliminary Culture Initiated - Results Pending Assessment and Plan (1) Severe sepsis Current visit: Yes Status: Acute (2) Acute kidney injury Current visit: Yes Status: Acute Resuscitation Status: Full Code Assessment and Plan: Assessment Severe sepsis - source uncertain, suspect pulmonary. BC drawn on 09/28/16. Acute kidney injury and oliguria - resolved. Moffett placed on 09/27/16; removed on 09/29/16. Hypotension with underlying essential HTN - hypotension resolved with IVF. All anti-HTN held except for BB d/t A-fib. Resumed Minipress on 09/29/16 Hypoxia - resolved Thrombocytopenia, not POA Chronic a-fib ; Anticoagulated on Coumadin. INR subtherapeutic occasionally prompting SQ Lovenox. Hyperlipidemia Type II diabetes mellitus with hyperglycemia. Metformin initially held; resume on 09/30/16. Started insulin 5U with meals. Morbid obesity with BMI of 50.0-59.9, adult Plan Severe sepsis (unknown origin) - WBC decreased to 6.8, procalcitonin down to 2.1. BC still pending; sputum culture shows moderate neutrophils so far. Continue abx, day #4. Consider deescalating abx given degree of clinical improvement. MARY with hypotension - Resolved. DC Moffett. DC IVF. Restart Minipress. Continue to hold Lisinopril and Lasix but likely can resume soon. BGM still elevated - started insulin 5U with meals yesterday. Restart Metformin in am. INR subtherapeutic again today - give Lovenox. Thrombocytopenia - plt same as yesterday (123) - suspect reactive - recheck in am. Sepsis Assessment - Evaluation Sepsis screening result: No Definite Risk Hospital Course Summary Disclaimer: The visit summary below is not to be considered part of the above Progress Note. Hospital Course: 09/26/16 Admit Will admit to inpatient at [facility] [place] for treatment of severe sepsis. Initiate antimicrobial therapy with cefepime, vancomycin, and levofloxacin. Recheck Lactate this evening. IVF bolus of 30ml/kg not given in ED as lactate less than 4. Start 1/2NS at 75cc/hr due to sepsis - monitor for volume overload. Check Respiratory RUBBER ROLLER GRINDER OPERATOR panel and MRSA swab. Hold antihypertensives (except Metoprolol due to his afib) due to sepsis. Hold Metformin due to elevated lactic acid. Hold Coumadin due to antibiotic use and INR above three - monitor INR daily and reinstitute as indicated. Supplement O2 to help respiratory status. Initiate Acapella and Mucinex DM to help decrease secretions. Start Neb treatments of DuoNeb-monitoring HR. Monitor blood sugars due to diabetes. Recheck CBC in am due to sepsis. Will check BMP in am due to IVF and medication use. INR repeat warranted due to potential elevation with levofloxacin. Discussed code status with patient - request full resuscitation. Order is written. Care to return to Dr Stafford at time of discharge from [facility] [place]. 09/27/16-09/29/16 Severe sepsis - source uncertain, suspect pulmonary. BC drawn on 09/28/16. Acute kidney injury and oliguria - resolved. Moffett placed on 09/27/16; removed on 09/29/16. Hypotension with underlying essential HTN - hypotension resolved with IVF. All anti-HTN held except for BB d/t A-fib. Resumed Minipress on 09/29/16 Hypoxia - resolved Thrombocytopenia, not POA Chronic a-fib ; Anticoagulated on Coumadin. INR subtherapeutic occasionally prompting SQ Lovenox. Hyperlipidemia Type II diabetes mellitus with hyperglycemia. Metformin initially held; resume on 09/30/16. Started insulin 5U with meals. Morbid obesity with BMI of 50.0-59.9, adult <Daysi Welch - Last Filed: 09/29/16 18:18> Objective Vital signs: Temperature 98.3 F 09/29/16 15:17 Pulse Rate 72 09/29/16 15:24 Respiratory Rate 16 09/29/16 15:30 Blood Pressure 152/75 H 09/29/16 15:17 Pulse Oximetry 98 09/29/16 15:30 Oxygen Delivery Method Room Air Oxygen Flow Rate 1 Results - Labs CBC & Chem 7: 09/29/16 05:07 09/29/16 05:07 Microbiology Results: Microbiology 09/28/16 14:03 Cath/Port/Line/Picc Blood Culture - Preliminary No Growth After 1 Day 09/28/16 14:06 Peripheral/Iv Start Blood Culture - Preliminary No Growth After 1 Day 09/28/16 14:50 Sputum, Expectorated Gram Stain - Final 09/28/16 14:50 Sputum, Expectorated Sputum Culture - Preliminary Early growth Assessment and Plan (1) Severe sepsis Current visit: Yes Status: Acute (2) Acute kidney injury Current visit: Yes Status: Acute Assessment and Plan: I have independently evaluated and examined this patient. I reviewed the chart, the patient's history, and the RUM PROCESSING OPERATOR/PA's documented findings as above. We discussed and formulated the assessment and plan as above with additions as below: Mr. Lee reports feeling well overall although he has mild exertional dyspnea , occasional cough and had some sputum production this morning which she reports was clear. No other symptoms described. Fluid balance has been positive for several days but weight is minimally changed. Respirations are nonlabored with good airflow although breath sounds are diminished at the bases. Dentition is very poor but there is no indication of active dental infection. Abdomen is benign. Moffett being discontinued; INR remains subtherapeutic at 1.77-5 mg warfarin administered earlier today. MRSA swab negative; sputum sample with multiple neutrophils, early growth reported no indication if gram-positive seen on Gram stain or not. Anticipate discontinuing vancomycin tomorrow unless Gram stain/sputum culture suggests staph present in sputum. Hope to descalated antibiotics over the next 48 hours as patient is clinically doing very well. Suspect respiratory source of sepsis despite negative chest x- rays. Repeat blood cultures in a.m. Advised patient that dental follow-up should be obtained. Hospital Course Summary Disclaimer: The visit summary below is not to be considered part of the above Progress Note.
--- NOTE | 2016-09-29 11:17 | Pharmacy Consult-Antibiotics ---
Pharmacy Consult-Vancomycin - Laboratory Information WBC 6.8 T/MM3 (4.5-11.0) 09/29/16 05:07 BUN 15.0 MG/DL (9-20) 09/29/16 05:07 Creatinine 0.6 MG/DL (0.8-1.5) L D 09/29/16 05:07 Procalcitonin 2.10 NG/ML H* 09/29/16 05:08 Vancomycin Trough 14.26 UG/ML (15-20) L 09/29/16 05:07 VANCOMYCIN CONSULT: Vancomycin Trough = 14.26 mcg/ml. Today's Serum Creatinine = 0.6 mg/dL. I changed the Vancomycin to 1,750 mg IV q8hrs, as the procalcitonin was still elevated at 2.10 ng/mL. The new estimated trough should be between 16-17 mcg/ mL. I have ordered a Vancomycin trough before the 1400 dose on 09/30 along with a serum creatinine to make sure the adjustment is accurate. The pharmacy will continue to monitor and make adjustments accordingly. Thank you for the Vancomycin Protocol, Jai Mcknight, Pharmacist
[2016-09-29] MEDS ORDERED: WARFARIN 5 MG TABLET PO SCH (12:00)
[2016-09-29] MEDS: SALINE FLUSH 10ml SYRINGE IVF PRN (14:38)
[2016-09-29] MEDS ORDERED: NS FLUSH BAG 500ml IV PRN (14:55)
[2016-09-29] MEDS: LEVOFLOXACIN PB 750 MG/150 ML BAG IV SCH (17:34)
[2016-09-29] MEDS: LURASIDONE 40mg TABLET PO SCH (17:34)
[2016-09-29] MEDS: ROPINIROLE 0.25 MG TABLET PO SCH (21:05)
[2016-09-29] MEDS: PRAZOSIN 1 MG CAPSULE PO SCH (21:05)
[2016-09-29] MEDS: SIMVASTATIN 20 MG TABLET PO SCH (21:05)
[2016-09-30] MEDS: CEFEPIME 1 GM in NS 100 ML IV SCH ×4 (02:06→20:57)
[2016-09-30] MEDS: METFORMIN 500 MG TABLET PO SCH (10:29)
[2016-09-30] MEDS: ARIPiprazole 15 MG TABLET PO SCH (10:30)
[2016-09-30] MEDS: DIVALPROEX 500 MG TABLET PO SCH (10:30)
[2016-09-30] MEDS: INSULIN ASPART 100unit/ml INJECTION SQ SCH ×3 (10:30→17:14)
[2016-09-30] MEDS: ENOXAPARIN 40 MG/0.4 ML INJECTION SQ SCH (10:31)
[2016-09-30] MEDS: MICONAZOLE 2% POWDER 45gm TP SCH ×2 (10:31→21:00)
[2016-09-30] MEDS: GABAPENTIN 300 MG CAPSULE PO SCH ×3 (10:32→20:59)
[2016-09-30] MEDS: SENNA + DOCUSATE TABLET PO SCH ×2 (10:32→20:57)
[2016-09-30] MEDS: GUAIFENESIN/D-METHORPHAN 600mg/30mg TABLET PO SCH ×2 (10:32→20:59)
[2016-09-30] MEDS: HYDROCODONE/APAP 5mg/325mg TABLET PO SCH ×2 (10:32→20:58)
[2016-09-30] MEDS: LIRAGLUTIDE INJECTABLE PEN SQ SCH (10:33)
[2016-09-30] MEDS ORDERED: WARFARIN 4 MG TABLET PO SCH (12:00)
[2016-09-30] MEDS: SALINE FLUSH 10ml SYRINGE IVF PRN ×2 (13:35→14:41)
[2016-09-30] MEDS: ALBUTEROL/IPRATROPIUM 2.5mg-0.5mg/3ml NEB AEROSOL SCH ×3 (13:59→20:35)
--- NOTE | 2016-09-30 14:37 | Progress Note ---
<Dayanna Gaspar - Last Filed: 09/30/16 14:34> Subjective: Malik is seen in follow up. He is resting, arouses easily. On the phone frequently throughout the day visiting with friends. Reports he remains tired with activity. Continues to report a cough. Denies any abdominal or leg pain. Chart reviewed for collateral information Objective Vital signs: Temperature 97.6 F 09/30/16 07:57 Pulse Rate 64 09/30/16 08:00 Respiratory Rate 18 09/30/16 11:47 Blood Pressure 144/71 H 09/30/16 07:57 Pulse Oximetry 96 09/30/16 11:47 Oxygen Delivery Method Room Air Oxygen Flow Rate 1 Weight: 180.3 kg - Constitutional Present: no acute distress, well nourished, well developed, obese, disheveled, cooperative - Routine HEENT Exam Head: Present: normocephalic, atraumatic Eye: Present: EOMI, PERRL, normal accommodation. Absent: conjunctival icterus ENT: Present: mucous membranes dry - Routine Respiratory Exam Present: decreased breath sounds, rhonchi, crackles (Very faint crackles. Mild SOA at rest. ) - Routine Cardiovascular Exam Present: S1, S2, irregular rhythm, irregularly irregular. Absent: RRR - Routine Abdominal Exam Present: soft, normoactive bowel sounds, non distended, non tender - Routine Extremities Exam Present: edema (2+ LE edema. Some chronic discoloration, does not appear acutely infected. ) - Routine Musculoskeletal Exam Musculoskeletal: Present: limited range of motion. Absent: normal strength - Routine Skin Exam Present: dry, warm - Routine Neurological Exam Present: alert, oriented X3 - Routine Psychiatric Exam Present: normal thought process, cooperative Results - Labs CBC & Chem 7: 09/30/16 04:25 09/30/16 04:26 Microbiology Results: Microbiology 09/28/16 14:03 Cath/Port/Line/Picc Blood Culture - Preliminary No Growth After 2 Days 09/28/16 14:06 Peripheral/Iv Start Blood Culture - Preliminary No Growth After 2 Days 09/28/16 14:50 Sputum, Expectorated Gram Stain - Final 09/28/16 14:50 Sputum, Expectorated Sputum Culture - Final Normal Respiratory Leyla including Yeast Present 09/30/16 04:25 Cath/Port/Line/Picc Blood Culture - Preliminary Culture Initiated - Results Pending 09/30/16 04:27 Cath/Port/Line/Picc Blood Culture - Preliminary Culture Initiated - Results Pending - Imaging and Cardiology Chest x-ray Status: image reviewed by me Additional comments: Impression: Possible developing CHF with trace left pleural effusion. . Assessment and Plan (1) Severe sepsis Current visit: Yes Status: Acute (2) Acute kidney injury Current visit: Yes Status: Acute DVT Prophylaxis: Coumadin Resuscitation Status: Full Code Assessment and Plan: Assessment: Severe sepsis - source uncertain, suspect pulmonary. BC drawn on 09/28/16. Acute kidney injury and oliguria - resolved. Moffett placed on 09/27/16; removed on 09/29/16. Hypotension with underlying essential HTN - hypotension resolved with IVF. All anti-HTN held except for BB d/t A-fib. Resumed Minipress on 09/29/16 Hypoxia - resolved Thrombocytopenia, not POA Chronic a-fib ; Anticoagulated on Coumadin. INR subtherapeutic occasionally prompting SQ Lovenox. Hyperlipidemia Type II diabetes mellitus with hyperglycemia. Metformin initially held; resume on 09/30/16. Started insulin 5U with meals. Morbid obesity with BMI of 50.0-59.9, adult Plan: 09/30/16 Infectious source is not certain- Cefepime/Levaquin/Vanco- Could potentially narrow to oral medications and monitor. Cultures so far have been negative. Dental source? - Change to Augmentin? MARY- Resolved. Moffett out. CHF concern- resume home Lasix. Repeat labs in AM Fluid overload/Atrial fib- resume remainder of home cardiac meds. Monitor HR- controlled. Warfarin per pharmacy. T2DM- BG is fairly stable. Continue Metformin/Insulin with meals. Deconditioning- Continue working with PT. Slow improvement. Continue current. - Time spent with patient 25 - 35 minutes Sepsis Assessment - Evaluation Sepsis screening result: No Definite Risk Hospital Course Summary Disclaimer: The visit summary below is not to be considered part of the above Progress Note. Hospital Course: 09/26/16 Admit Will admit to inpatient at [facility] for treatment of severe sepsis. Initiate antimicrobial therapy with cefepime, vancomycin, and levofloxacin. Recheck Lactate this evening. IVF bolus of 30ml/kg not given in ED as lactate less than 4. Start 1/2NS at 75cc/hr due to sepsis - monitor for volume overload. Check Respiratory CLINICAL RESEARCH ANALYST panel and MRSA swab. Hold antihypertensives (except Metoprolol due to his afib) due to sepsis. Hold Metformin due to elevated lactic acid. Hold Coumadin due to antibiotic use and INR above three - monitor INR daily and reinstitute as indicated. Supplement O2 to help respiratory status. Initiate Acapella and Mucinex DM to help decrease secretions. Start Neb treatments of DuoNeb-monitoring HR. Monitor blood sugars due to diabetes. Recheck CBC in am due to sepsis. Will check BMP in am due to IVF and medication use. INR repeat warranted due to potential elevation with levofloxacin. Discussed code status with patient - request full resuscitation. Order is written. Care to return to Dr Stafford at time of discharge from [facility]. 09/27/16-09/29/16 Severe sepsis - source uncertain, suspect pulmonary. BC drawn on 09/28/16. Acute kidney injury and oliguria - resolved. Moffett placed on 09/27/16; removed on 09/29/16. Hypotension with underlying essential HTN - hypotension resolved with IVF. All anti-HTN held except for BB d/t A-fib. Resumed Minipress on 09/29/16 Hypoxia - resolved Thrombocytopenia, not POA Chronic a-fib ; Anticoagulated on Coumadin. INR subtherapeutic occasionally prompting SQ Lovenox. Hyperlipidemia Type II diabetes mellitus with hyperglycemia. Metformin initially held; resume on 09/30/16. Started insulin 5U with meals. Morbid obesity with BMI of 50.0-59.9, adult 09/30/16 14:46 Infectious source is not certain- Cefepime/Levaquin/Vanco- Could potentially narrow to oral medications and monitor. Cultures so far have been negative. Dental source? - Change to Augmentin? MARY- Resolved. Moffett out. CHF concern- resume home Lasix. Repeat labs in AM Fluid overload/Atrial fib- resume remainder of home cardiac meds. Monitor HR- controlled. Warfarin per pharmacy. T2DM- BG is fairly stable. Continue Metformin/Insulin with meals. Deconditioning- Continue working with PT. Slow improvement. Continue current. <Daysi Welch - Last Filed: 09/30/16 17:14> Objective Vital signs: Temperature 97.9 F 09/30/16 15:57 Pulse Rate 70 09/30/16 16:00 Respiratory Rate 20 09/30/16 15:57 Blood Pressure 135/73 09/30/16 15:57 Pulse Oximetry 96 09/30/16 15:57 Oxygen Delivery Method Room Air Oxygen Flow Rate 1 Results - Labs CBC & Chem 7: 09/30/16 04:25 09/30/16 04:26 Microbiology Results: Microbiology 09/28/16 14:03 Cath/Port/Line/Picc Blood Culture - Preliminary No Growth After 2 Days 09/28/16 14:06 Peripheral/Iv Start Blood Culture - Preliminary No Growth After 2 Days 09/28/16 14:50 Sputum, Expectorated Gram Stain - Final 09/28/16 14:50 Sputum, Expectorated Sputum Culture - Final Normal Respiratory Leyla including Yeast Present 09/30/16 04:25 Cath/Port/Line/Picc Blood Culture - Preliminary Culture Initiated - Results Pending 09/30/16 04:27 Cath/Port/Line/Picc Blood Culture - Preliminary Culture Initiated - Results Pending Assessment and Plan (1) Severe sepsis Current visit: Yes Status: Acute (2) Acute kidney injury Current visit: Yes Status: Acute Assessment and Plan: I have independently evaluated and examined this patient. I reviewed the chart, the patient's history, and the PHOTOGRAPHIC DOUBLE/PA's documented findings as above. We discussed and formulated the assessment and plan as above with additions as below: Continues to improve progressively. Slept well overnight but reports that he was worn out this morning. Denies dyspnea, nausea, pain, or fevers. No new findings on exam-patient is alert and speech is fluent. Respirations nonlabored but airflow diminished. Breath sounds clear. Regular cardiac rhythm, no murmur appreciated. Bilateral lower extremity edema without evidence of cellulitis. Laboratory data as noted. Vancomycin discontinued, anticipate discontinuing cefepime tomorrow and either converting to oral Levaquin or Augmentin subsequently. Tentatively anticipate return to [place] in 2 days. Plans discussed with the patient. Hospital Course Summary Disclaimer: The visit summary below is not to be considered part of the above Progress Note.
[2016-09-30] MEDS: LEVOFLOXACIN PB 750 MG/150 ML BAG IV SCH (17:15)
[2016-09-30] MEDS: FUROSEMIDE 20 MG TABLET PO SCH (17:16)
[2016-09-30] MEDS: LURASIDONE 40mg TABLET PO SCH (17:16)
[2016-09-30] MEDS: ACETAMINOPHEN 500 MG TABLET PO PRN (17:17)
[2016-09-30] MEDS: PRAZOSIN 1 MG CAPSULE PO SCH (21:00)
[2016-09-30] MEDS: SIMVASTATIN 20 MG TABLET PO SCH (21:01)
[2016-09-30] MEDS: ROPINIROLE 0.25 MG TABLET PO SCH (21:01)
[2016-10-01] MEDS: CEFEPIME 1 GM in NS 100 ML IV SCH ×2 (03:20→09:10)
--- NOTE | 2016-10-01 07:09 | Pharmacy Consult ---
Pharmacy Consult-Warfarin - Laboratory Information 09/27/16 09/28/16 09/29/16 04:28 04:33 05:07 INR 2.64 H 1.68 H 1.77 H 09/30/16 10/01/16 04:26 04:34 INR 2.35 H 3.01 H - Consult Information Will give warfarin 3.5mg po today. Thank you.
[2016-10-01] MEDS: ALBUTEROL/IPRATROPIUM 2.5mg-0.5mg/3ml NEB AEROSOL SCH ×3 (07:58→18:50)
[2016-10-01] MEDS: INSULIN ASPART 100unit/ml INJECTION SQ SCH ×3 (08:58→17:28)
[2016-10-01] MEDS: HYDROCODONE/APAP 5mg/325mg TABLET PO SCH ×2 (09:00→21:10)
[2016-10-01] MEDS: GUAIFENESIN/D-METHORPHAN 600mg/30mg TABLET PO SCH ×2 (09:01→21:09)
[2016-10-01] MEDS: METFORMIN 500 MG TABLET PO SCH ×2 (09:02→17:25)
[2016-10-01] MEDS: ARIPiprazole 15 MG TABLET PO SCH (09:02)
[2016-10-01] MEDS: LISINOPRIL 10 MG TABLET PO SCH (09:02)
[2016-10-01] MEDS: FUROSEMIDE 20 MG TABLET PO SCH ×2 (09:02→17:26)
[2016-10-01] MEDS: DIVALPROEX 500 MG TABLET PO SCH (09:02)
[2016-10-01] MEDS: GABAPENTIN 300 MG CAPSULE PO SCH ×3 (09:03→21:11)
[2016-10-01] MEDS: LIRAGLUTIDE INJECTABLE PEN SQ SCH (09:05)
[2016-10-01] MEDS: SENNA + DOCUSATE TABLET PO SCH ×2 (09:09→21:14)
[2016-10-01] MEDS: MICONAZOLE 2% POWDER 45gm TP SCH ×2 (09:16→21:12)
[2016-10-01] MEDS ORDERED: WARFARIN 3 MG TABLET PO SCH (12:00)
[2016-10-01] MEDS ORDERED: WARFARIN 1 MG TABLET PO SCH (12:00)
--- NOTE | 2016-10-01 12:24 | Progress Note ---
<Micaela Brown - Last Filed: 10/01/16 12:15> Subjective: Oscar was seen after breakfast., He states he is feeling better. He has no acute complaints, but apologizes because he believes that he had an incontinent bowel movement just before I arrived. He denies feeling short of breath. He denies any cough or congestion. No abdominal pain or GI complaints. He is looking forward to discharge, hopefully tomorrow. Objective Vital signs: Temperature 98.0 F 10/01/16 07:43 Pulse Rate 82 10/01/16 08:00 Respiratory Rate 18 10/01/16 11:24 Blood Pressure 195/96 H 10/01/16 07:43 Pulse Oximetry 95 10/01/16 11:24 Oxygen Delivery Method Room Air Oxygen Flow Rate 1 Weight: 180.3 kg - Constitutional Present: no acute distress, well nourished, well developed, morbidly obese - Routine HEENT Exam ENT: Absent: oropharynx clear (thrush noted), dentition normal (widespread decay ) - Routine Respiratory Exam Present: CTA bilaterally - Routine Cardiovascular Exam Present: S1, S2, irregularly irregular - Routine Abdominal Exam Present: soft, normoactive bowel sounds, non distended, non tender - Routine Extremities Exam Present: edema (chronic 2-3+ bilateral lower extremity edema) - Routine Musculoskeletal Exam Musculoskeletal: Present: limited range of motion - Routine Skin Exam Present: intact, dry, warm - Routine Neurological Exam Present: alert, oriented X3, CN II-XII intact - Routine Psychiatric Exam Present: normal affect, normal thought process, cooperative Results - Labs CBC & Chem 7: 10/01/16 04:34 10/01/16 04:34 Microbiology Results: Microbiology 09/30/16 04:25 Cath/Port/Line/Picc Blood Culture - Preliminary No Growth After 1 Day 09/30/16 04:27 Cath/Port/Line/Picc Blood Culture - Preliminary No Growth After 1 Day 09/28/16 14:03 Cath/Port/Line/Picc Blood Culture - Preliminary No Growth After 2 Days 09/28/16 14:06 Peripheral/Iv Start Blood Culture - Preliminary No Growth After 2 Days 09/28/16 14:50 Sputum, Expectorated Gram Stain - Final 09/28/16 14:50 Sputum, Expectorated Sputum Culture - Final Normal Respiratory Leyla including Yeast Present Assessment and Plan (1) Severe sepsis Current visit: Yes Status: Acute (2) Acute kidney injury Current visit: Yes Status: Acute DVT Prophylaxis: Coumadin Resuscitation Status: Full Code Assessment and Plan: ASSESSMENT Severe sepsis - source uncertain. BC NGTD. Acute kidney injury and oliguria - resolved. Moffett placed on 09/27/16; removed on 09/29/16. Hypotension with underlying essential HTN - hypotension resolved with IVF. All anti-HTN held except for BB d/t A-fib. Resumed Minipress on 09/29/16 Hypoxia - resolved Thrombocytopenia, not POA, resolved Rash, nystatin started on 10/01/16 Chronic a-fib ; Anticoagulated on Coumadin. INR subtherapeutic occasionally prompting SQ Lovenox. Hyperlipidemia Type 2 diabetes mellitus with hyperglycemia. Metformin initially held; resumed on 09/30/16. Started insulin 5U with meals. Morbid obesity with BMI of 50.0-59.9, adult PLAN. Vancomycin was discontinued yesterday. Will discontinue cefepime. Today, and continue Levaquin. Excellent antibiotic. Blood cultures remain negative to date. Likely will be able to discharge home on Levaquin or Augmentin. Thrush - start Nystatin HTN - Lasix and lisinopril were resumed since renal status has remained stable. Type 2 diabetes with hyperglycemia - may need to discharge back to [place] on mealtime insulin Thrombocytopenia - resolved; PLT 146 INR therapeutic. Lovenox has been dc'd. Sepsis Assessment - Evaluation Sepsis screening result: No Definite Risk Hospital Course Summary Disclaimer: The visit summary below is not to be considered part of the above Progress Note. Hospital Course: 09/26/16 Admit Will admit to inpatient at [facility] for treatment of severe sepsis. Initiate antimicrobial therapy with cefepime, vancomycin, and levofloxacin. Recheck Lactate this evening. IVF bolus of 30ml/kg not given in ED as lactate less than 4. Start 1/2NS at 75cc/hr due to sepsis - monitor for volume overload. Check Respiratory TRAVEL OT panel and MRSA swab. Hold antihypertensives (except Metoprolol due to his afib) due to sepsis. Hold Metformin due to elevated lactic acid. Hold Coumadin due to antibiotic use and INR above three - monitor INR daily and reinstitute as indicated. Supplement O2 to help respiratory status. Initiate Acapella and Mucinex DM to help decrease secretions. Start Neb treatments of DuoNeb-monitoring HR. Monitor blood sugars due to diabetes. Recheck CBC in am due to sepsis. Will check BMP in am due to IVF and medication use. INR repeat warranted due to potential elevation with levofloxacin. Discussed code status with patient - request full resuscitation. Order is written. Care to return to Dr Stafford at time of discharge from [facility]. 09/27/16-09/29/16 Severe sepsis - source uncertain, suspect pulmonary. BC drawn on 09/28/16. Acute kidney injury and oliguria - resolved. Moffett placed on 09/27/16; removed on 09/29/16. Hypotension with underlying essential HTN - hypotension resolved with IVF. All anti-HTN held except for BB d/t A-fib. Resumed Minipress on 09/29/16 Hypoxia - resolved Thrombocytopenia, not POA Chronic a-fib ; Anticoagulated on Coumadin. INR subtherapeutic occasionally prompting SQ Lovenox. Type II diabetes mellitus with hyperglycemia. Metformin initially held; resume on 09/30/16. Started insulin 5U with meals. 09/30/16 Infectious source is not certain (possible dental) - Jan[facility] long'howie. CHF concern- resume home Lasix. 10/01/16 Vancomycin was discontinued yesterday. Will discontinue cefepime. Today, and continue Levaquin. Excellent antibiotic. Blood cultures remain negative to date. Likely will be able to discharge home on Levaquin or Augmentin. Thrush - start Nystatin HTN - Lasix and lisinopril were resumed since renal status has remained stable. Type 2 diabetes with hyperglycemia - may need to discharge back to [place] on mealtime insulin Thrombocytopenia - resolved; PLT 146 INR therapeutic. Lovenox has been dc'd. <Daysi Welch - Last Filed: 10/01/16 14:55> Objective Vital signs: Temperature 98.0 F 10/01/16 07:43 Pulse Rate 75 10/01/16 08:00 Respiratory Rate 18 10/01/16 11:24 Blood Pressure 195/96 H 10/01/16 07:43 Pulse Oximetry 95 10/01/16 11:24 Oxygen Delivery Method Room Air Oxygen Flow Rate 1 Results - Labs CBC & Chem 7: 10/01/16 04:34 10/01/16 04:34 Microbiology Results: Microbiology 09/28/16 14:03 Cath/Port/Line/Picc Blood Culture - Preliminary No Growth After 3 Days 09/28/16 14:06 Peripheral/Iv Start Blood Culture - Preliminary No Growth After 3 Days 09/30/16 04:25 Cath/Port/Line/Picc Blood Culture - Preliminary No Growth After 1 Day 09/30/16 04:27 Cath/Port/Line/Picc Blood Culture - Preliminary No Growth After 1 Day 09/28/16 14:50 Sputum, Expectorated Gram Stain - Final 09/28/16 14:50 Sputum, Expectorated Sputum Culture - Final Normal Respiratory Leyla including Yeast Present Assessment and Plan (1) Severe sepsis Current visit: Yes Status: Acute (2) Acute kidney injury Current visit: Yes Status: Acute Assessment and Plan: I have independently evaluated and examined this patient. I reviewed the chart, the patient's history, and the NURSING ASSOCIATE/PA's documented findings as above. We discussed and formulated the assessment and plan as above with additions as below: Continues to do well. Patient reports that his "feeling pretty good". He's using the urinal following removal of Moffett catheter 2 days ago and denies cough or abdominal pain. Overall he feels his pretty much back to baseline other than weakness. Alert, NAD, morbidly obese Respirations nonlabored, decreased airflow throughout, breath sounds clear Abdomen benign Labs reviewed, as noted Convert Levaquin to oral administration. Discharge to [place] anticipated tomorrow. Increase metformin to 500 mg twice a day (A1C 8.5 in late August). Hospital Course Summary Disclaimer: The visit summary below is not to be considered part of the above Progress Note.
[2016-10-01] MEDS: NYSTATIN 500,000 units/5 ml ORAL LIQUID PO SCH ×4 (12:39→21:13)
[2016-10-01] MEDS: ACETAMINOPHEN 500 MG TABLET PO PRN ×2 (13:34→19:44)
[2016-10-01] MEDS: LEVOFLOXACIN 750 MG TABLET PO SCH (15:06)
[2016-10-01] MEDS: LURASIDONE 40mg TABLET PO SCH (17:26)
[2016-10-01] MEDS: SIMVASTATIN 20 MG TABLET PO SCH (21:09)
[2016-10-01] MEDS: PRAZOSIN 1 MG CAPSULE PO SCH (21:11)
[2016-10-01] MEDS: ROPINIROLE 0.25 MG TABLET PO SCH (21:12)
[2016-10-02] MEDS: LEVOFLOXACIN 750 MG TABLET PO SCH (05:35)
[2016-10-02] MEDS: ACETAMINOPHEN 500 MG TABLET PO PRN ×2 (05:35→11:27)
[2016-10-02] MEDS: SALINE FLUSH 10ml SYRINGE IVF PRN (05:42)
[2016-10-02 07:33] VITALS: RESP 18
[2016-10-02] MEDS: ALBUTEROL/IPRATROPIUM 2.5mg-0.5mg/3ml NEB AEROSOL SCH ×3 (07:33→18:12)
[2016-10-02 07:48] VITALS: BP 159/94; PULSE 82; TEMP 98.1
--- NOTE | 2016-10-02 08:05 | Pharmacy Consult ---
Pharmacy Consult-Warfarin - Laboratory Information 09/27/16 09/28/16 09/29/16 04:28 04:33 05:07 INR 2.64 H 1.68 H 1.77 H 09/30/16 10/01/16 10/02/16 04:26 04:34 04:25 INR 2.35 H 3.01 H 3.09 H - Consult Information COUMADIN CONSULT (Recurring): Today's INR = 3.09. Will give Warfarin 2.5mg today. Will continue to monitor & make adjustments accordingly. Thank you.
[2016-10-02] MEDS: GUAIFENESIN/D-METHORPHAN 600mg/30mg TABLET PO SCH (08:44)
[2016-10-02] MEDS: LISINOPRIL 10 MG TABLET PO SCH (08:45)
[2016-10-02] MEDS: FUROSEMIDE 20 MG TABLET PO SCH (08:45)
[2016-10-02] MEDS: ARIPiprazole 15 MG TABLET PO SCH (08:45)
[2016-10-02] MEDS: GABAPENTIN 300 MG CAPSULE PO SCH ×2 (08:45→14:15)
[2016-10-02] MEDS: METFORMIN 500 MG TABLET PO SCH (08:46)
[2016-10-02] MEDS: SENNA + DOCUSATE TABLET PO SCH (08:46)
[2016-10-02] MEDS: MICONAZOLE 2% POWDER 45gm TP SCH (08:47)
[2016-10-02] MEDS: NYSTATIN 500,000 units/5 ml ORAL LIQUID PO SCH ×2 (08:47→12:17)
[2016-10-02] MEDS: HYDROCODONE/APAP 5mg/325mg TABLET PO SCH (08:59)
[2016-10-02] MEDS: DIVALPROEX 500 MG TABLET PO SCH (08:59)
[2016-10-02] MEDS: INSULIN ASPART 100unit/ml INJECTION SQ SCH ×2 (09:00→12:17)
[2016-10-02] MEDS: LIRAGLUTIDE INJECTABLE PEN SQ SCH (09:00)
[2016-10-02 11:10] VITALS: O2SAT 95
--- NOTE | 2016-10-02 11:16 | Discharge Instructions ---
Discharge Plan - Med Rec/Dispo Referrals/Follow Up: Bernie Stafford MD [Family Provider] - 1 Week [place] Instructions: Sepsis (GEN) Prescriptions: New Senna + Docusate [Senna Plus Tablet] 1 tab PO BID PRN 30 Days tablet PRN Reason: Constipation Levofloxacin [Levaquin] 750 mg PO ACB #3 tablet Nystatin Oral Liq. [Mycostatin] 5 ml PO QID 7 Days udc Warfarin [Coumadin] 2.5 mg PO NOON #5 tablet Continue Lisinopril 10 mg PO DAILY #0 LORazepam [Ativan] 0.5 mg PO Q6H PRN #0 tab PRN Reason: Anxiety Acetaminophen [Acetaminophen Extra Strength] 500 mg PO Q6H PRN 30 Days #0 PRN Reason: Pain ARIPiprazole [Aripiprazole] 30 mg PO DAILY 30 Days #0 Divalproex Sodium [Depakote] 500 mg PO DAILY 30 Days guaiFENesin [Guaifenesin] 100 mg PO Q4H PRN 30 Days #0 PRN Reason: Cough Hydrocodone/Acetaminophen [Hydrocodon-Acetaminophen 5-325] 1 tab PO BID #20 Ketotifen Fumarate [Zaditor] 1 drop EACH EYE Q12H PRN 30 Days #0 PRN Reason: Allergy Symptoms Loperamide [Imodium] 2 mg PO QID PRN 30 Days #0 PRN Reason: Diarrhea Magnesium Hydroxide [Milk of Magnesia] 30 ml PO Q12H PRN 30 Days #0 PRN Reason: Constipation Miconazole Nitrate [Miconazorb AF] 1 applic TP BID 30 Days #0 Ropinirole HCl 0.25 mg PO HS 30 Days tab Simvastatin 20 mg PO HS 30 Days #0 Furosemide [Lasix] 20 mg PO BID #0 tab Dextran 70/Hypromellose [Artificial Tears] 1 drop RIGHT EYE TID PRN #0 bottle PRN Reason: DRY EYES Divalproex Sodium [Depakote ER] 500 mg PO HS #0 tab Gabapentin 300 mg PO TID 30 Days #0 guaiFENesin [Mucinex] 1,200 mg PO Q12H PRN 30 Days #0 PRN Reason: Congestion Liraglutide [Victoza 3-Otto] 1.2 mg SQ DAILY 30 Days #0 Lurasidone HCl [Latuda] 20 mg PO WS 30 Days #0 Metoprolol Succinate 50 mg PO DAILY 30 Days #0 Prazosin HCl [Minipress] 2 mg PO HS 30 Days #0 Changed Insulin Lispro [Humalog Kwikpen U-100] 5 unit SQ TIDWM 30 Days #0 Metformin [Glucophage] 500 mg PO BIDWM 30 Days #0 Discontinued Warfarin Sodium [Coumadin] 4 mg PO WS #0 tab No Action Nystatin Cream [Mycostatin] 1 applic TOP BID - Disposition 03 To SNU Not [facility] ([facility])
--- NOTE | 2016-10-02 11:22 | Extended Care Facility Orders ---
Admission Orders Admit to:: [facility] Allergies/Adverse Reactions: Allergies No Known Allergies Allergy (Verified 09/26/16 17:47) ALLERGY VERIFIED Admitting Diagnosis: Severe Sepsis Admitting Physician: Daysi Welch MD Attending Physician: Daysi Welch MD Code Status: Full Code Anticiapted Length of Stay: 30 days or less Rehab Potential: good Rehab Prognosis: good Diet: Consistent carbohydrate, 2000 kcal per day May use Facility Protocol or Standing Orders: Yes May have flu vaccine: Yes Evaluations/Treatment: PT, OT [facility] Certification: I certify that SNF services are required to be given on an Inpatient basis because of the patient's need for usp care on a continuing basis for the condition(s) for which he received inpatient hospital services prior to his transfer to the SNF. SNF inpatient care is necessary for the following reasons Indication for [facility]: Other (PT/OT) - Additional Information In Event of Arrest: Start CPR,call 911,send patient to the ER Resident is Aware of Diagnosis: Yes Laboratory/Radiology: Please draw BMP to follow up on kidney function and INR to manage Coumadin dose on 10/04/16. Results to Dr. Stafford, who will manage Coumadin dose. Referrals: Bernie Stafford MD [Family Provider] - 1 Week (please follow INR. ) Additional Orders: Metformin was increased from once daily to twice a day. Nystatin has been added for thrush. Recommend f/u with dentist [email or web address].
--- NOTE | 2016-10-02 11:27 | Discharge Summary ---
<StephanieMicaela D - Last Filed: 10/02/16 11:24> Discharge Information Date of admission: 09/26/16 17:49 Anticipated date of discharge: 10/02/16 Attending Physician: Daysi Welch MD Primary care physician: Bernie Stafford MD - Discharge Diagnosis Discharge Diagnosis: Severe sepsis MARY - resolved - Procedures Procedures: Moffett catheter from 09/27/16 through 09/29/16. - Laboratory Labs: 10/02/16 04:25 10/02/16 04:25 - Microbiology Microbiology 09/30/16 04:25 Cath/Port/Line/Picc Blood Culture - Preliminary No Growth After 2 Days 09/30/16 04:27 Cath/Port/Line/Picc Blood Culture - Preliminary No Growth After 2 Days 09/28/16 14:03 Cath/Port/Line/Picc Blood Culture - Preliminary No Growth After 3 Days 09/28/16 14:06 Peripheral/Iv Start Blood Culture - Preliminary No Growth After 3 Days 09/28/16 14:50 Sputum, Expectorated Gram Stain - Final 09/28/16 14:50 Sputum, Expectorated Sputum Culture - Final Normal Respiratory Leyla including Yeast Present - Radiology Radiology: Chest x-ray on 09/26/16 was stable. Repeat chest x-ray on 09/27/16 showed hypoventilation. Repeat chest x-ray on 09/28/16 showed possible developing CHF with trace left pleural effusion. History of Present Illness HPI: 71 y/o male [place] [facility] via EMS from secondary to difficulty breathing and temp elevation. Patient has not been feeling well for the past weak. Yesterday started feeling more SOA. Developed cough this am, productive of this yellow sputum. No pain with breathing. Does note his chest feels uncomfortable and that his hard is beating funny. Temp elevate at 103 at AP and given Tylenol 1000mg and EMS activated for transport to ED. Notes his appetite has been stable-denies nausea or vomiting. Reports a loose stool yesterday. Has mild diffuse ab discomfort. Urinating without pain or discomfort. Does feel more tire and weak since he has been feeling ill. Objective Vital signs: Temperature 98.1 F 10/02/16 07:00 Pulse Rate 82 10/02/16 07:00 Respiratory Rate 18 10/02/16 11:09 Blood Pressure 159/94 H 10/02/16 07:00 Pulse Oximetry 95 10/02/16 11:09 Oxygen Delivery Method Room Air Oxygen Flow Rate 1 Weight: 177.9 kg - Constitutional Present: no acute distress, well nourished, well developed, obese - Routine HEENT Exam ENT: Present: mucous membranes moist. Absent: oropharynx clear (thrush improving), dentition normal (widespread decay) - Routine Respiratory Exam Present: CTA bilaterally - Routine Cardiovascular Exam Present: irregularly irregular - Routine Abdominal Exam Present: soft, normoactive bowel sounds, non distended, non tender - Routine Extremities Exam Present: edema (chronic lymphedema b/l) - Routine Skin Exam Present: intact, dry, warm - Routine Neurological Exam Present: alert, oriented X3 - Routine Psychiatric Exam Present: normal affect, normal thought process, cooperative Hospital Course This is a general summary of the patient's hospital course. For more details refer to the complete medical record. Hospital course: Admit Date: 09/26/16 Date of Discharge: 10/02/16 Severe sepsis: Initially thought to be pulmonary source because of hypoxia, but ultimately no source was identified. Its possible that his severe sepsis with result of dental decay, and for this reason, dental follow-up is recommended. He was treated with triple antibiotic therapy including cefepime, vancomycin and Levaquin from 09/26/16 through 09/30/16. Vancomycin was discontinued on 09/30/16 , and cefepime was discontinued on 10/01/16. He was continued on Levaquin and will continue this to complete a 10 day course. His hypoxia resolved and he was able to be discharged on room air. He developed thrush and nystatin was started on 10/01/16. He received IV fluids because of sepsis, and developed an acute kidney injury. He also had oliguria and hypotension. A Moffett was placed on 09/27/16. With additional IV fluids, these symptoms resolved and his Moffett catheter was removed on 09/29/16. Metformin and Antihypertensives (except for beta ness) were held because of acute kidney injury, but these were all able to be resumed by time of discharge. A. fib, anticoagulated on Coumadin: Pharmacy managed INRs and Coumadin dosing. Coumadin dose was adjusted since he was on Levaquin. He occasionally required bridging with Lovenox. He had mild reactive thrombocytopenia, which resolved. Platelets were 170 on day of discharge. Question a possible relationship with Lovenox. Type 2 diabetes: Hyperglycemia was noted, and metformin was actually increased to twice a day. Mealtime Insulin was scheduled. Discharge plan: Changes to medication list: Metformin was increased to twice a day. Scheduled 5U of insulin with meals instead of PRN. Added nystatin swish and swallow for thrush (7 days). Levaquin for 3 more days to complete a 10-day course. Coumadin dose was decreased to 2.5 mg daily. Recheck BMP and INR on 10/04/16. Fax results to Dr. Stafford - she will follow INR and adjust Coumadin dose accordingly. F/U with Dr. Stafford in 1 week. F/U with Dentist MCKAYLA. DC to [facility]. Time spent with patient: discharge greater than 30 minutes DVT Prophylaxis: Coumadin Discharge Plan - Med Rec/Dispo Referrals/Follow Up: Bernie Stafford MD [Family Provider] - 1 Week (please follow INR. ) Betsy Instructions: Sepsis (GEN) Prescriptions: New Senna + Docusate [Senna Plus Tablet] 1 tab PO BID PRN 30 Days tablet PRN Reason: Constipation Levofloxacin [Levaquin] 750 mg PO ACB #3 tablet Nystatin Oral Liq. [Mycostatin] 5 ml PO QID 7 Days udc Warfarin [Coumadin] 2.5 mg PO NOON #5 tablet Continue Lisinopril 10 mg PO DAILY #0 LORazepam [Ativan] 0.5 mg PO Q6H PRN #0 tab PRN Reason: Anxiety Acetaminophen [Acetaminophen Extra Strength] 500 mg PO Q6H PRN 30 Days #0 PRN Reason: Pain ARIPiprazole [Aripiprazole] 30 mg PO DAILY 30 Days #0 Divalproex Sodium [Depakote] 500 mg PO DAILY 30 Days guaiFENesin [Guaifenesin] 100 mg PO Q4H PRN 30 Days #0 PRN Reason: Cough Hydrocodone/Acetaminophen [Hydrocodon-Acetaminophen 5-325] 1 tab PO BID #20 Ketotifen Fumarate [Zaditor] 1 drop EACH EYE Q12H PRN 30 Days #0 PRN Reason: Allergy Symptoms Loperamide [Imodium] 2 mg PO QID PRN 30 Days #0 PRN Reason: Diarrhea Magnesium Hydroxide [Milk of Magnesia] 30 ml PO Q12H PRN 30 Days #0 PRN Reason: Constipation Miconazole Nitrate [Miconazorb AF] 1 applic TP BID 30 Days #0 Ropinirole HCl 0.25 mg PO HS 30 Days tab Simvastatin 20 mg PO HS 30 Days #0 Furosemide [Lasix] 20 mg PO BID #0 tab Dextran 70/Hypromellose [Artificial Tears] 1 drop RIGHT EYE TID PRN #0 bottle PRN Reason: DRY EYES Divalproex Sodium [Depakote ER] 500 mg PO HS #0 tab Gabapentin 300 mg PO TID 30 Days #0 guaiFENesin [Mucinex] 1,200 mg PO Q12H PRN 30 Days #0 PRN Reason: Congestion Liraglutide [Victoza 3-Otto] 1.2 mg SQ DAILY 30 Days #0 Lurasidone HCl [Latuda] 20 mg PO WS 30 Days #0 Metoprolol Succinate 50 mg PO DAILY 30 Days #0 Prazosin HCl [Minipress] 2 mg PO HS 30 Days #0 Changed Insulin Lispro [Humalog Kwikpen U-100] 5 unit SQ TIDWM 30 Days #0 Metformin [Glucophage] 500 mg PO BIDWM 30 Days #0 Discontinued Warfarin Sodium [Coumadin] 4 mg PO WS #0 tab No Action Nystatin Cream [Mycostatin] 1 applic TOP BID - Disposition 03 To SNU Not [facility] <Daysi Welch - Last Filed: 10/02/16 19:32> Discharge Information Date of admission: 09/26/16 17:49 Attending Physician: Daysi Welch MD Primary care physician: Bernie Stafford MD Consults: 09/27/16 Pharmacy Consult [CONS] Routine Pharmacy Consult: Coumadin/Warfarin Comment: On at home. 09/28/16 11:50 Physician Consult [CONS] Routine Consulting Provider: Levar Chavira Reason For Exam: CONTINUED CARE Ordering Provider has Notified Wharf Tender Helper: Yes Comment: OPEN PORTAL 10/02/16 10:50 Doctor [Physician Consult] [CONS] Routine Consulting Provider: Levar Chavira Reason For Exam: continued care Ordering Provider has Notified Wharf Tender Helper: Yes - Laboratory Labs: 10/02/16 04:25 10/02/16 04:25 - Microbiology Microbiology 09/28/16 14:03 Cath/Port/Line/Picc Blood Culture - Preliminary No Growth After 4 Days 09/28/16 14:06 Peripheral/Iv Start Blood Culture - Preliminary No Growth After 4 Days 09/30/16 04:25 Cath/Port/Line/Picc Blood Culture - Preliminary No Growth After 2 Days 09/30/16 04:27 Cath/Port/Line/Picc Blood Culture - Preliminary No Growth After 2 Days 09/28/16 14:50 Sputum, Expectorated Gram Stain - Final 09/28/16 14:50 Sputum, Expectorated Sputum Culture - Final Normal Respiratory Leyla including Yeast Present Objective Vital signs: Temperature 98.1 F 10/02/16 07:00 Pulse Rate 82 10/02/16 07:00 Respiratory Rate 18 10/02/16 11:09 Blood Pressure 159/94 H 10/02/16 07:00 Pulse Oximetry 95 10/02/16 11:09 Oxygen Delivery Method Room Air Oxygen Flow Rate 1 Hospital Course This is a general summary of the patient's hospital course. For more details refer to the complete medical record. Hospital course: I have independently evaluated and examined this patient. I reviewed the chart, the patient's history, and the LARD MIXER/PA's documented findings as above. We discussed and formulated the assessment and plan as above with additions as below: Mr. Lee was in good spirits today and reported no concerns. He denied ongoing dyspnea and indicated his appetite was good. Respirations were nonlabored and airflow was good with clear breath sounds. Patient was alert and cooperative. Stable for discharge at this time. He is aware that he had evidence of significant infection on admission but that source of the infection was not definitively identified. Nonetheless he has improved progressively throughout the hospitalization and will complete antibiotics in several days. Dental follow -up recommended as noted above. I anticipate that warfarin dose will require readjustment after Levaquin is discontinued.
[2016-10-02] MEDS ORDERED: WARFARIN 2.5 MG TABLET PO SCH (12:00)
[2016-10-02] MEDS ORDERED: NEOMYCIN/POLYMYXIN/BACITRACIN OINT PACKET TP ONE (13:24)
== END 2016-10-02 15:00 | DRG 872 ==
LOC: ED 14:52 → MED 17:49
PROVIDERS: ADMIT Hospitalist; ATTEND Internal Medicine

== ENCOUNTER 2016-11-13 18:15 | Inpatient (IN) ==
[2016-11-13] MEDS ORDERED: SALINE FLUSH 10ml SYRINGE IVF PRN (18:35)
--- NOTE | 2016-11-13 18:51 | Emergency Department Report ---
Medical Clearance HPI - General Chief complaint: Medical Clearance Stated complaint: EVAL Time Seen by Provider: 11/13/16 18:25 Source: patient Limitations: altered mental status - History of Present Illness HPI Narrative: Pt dropped off from [facility] with very limited information. Pt is to be medically cleared for [facility] admission. Pt has displayed increased delusional thinking an apparently has had some suicidal and even homicidal thoughts MD complaint: medical clearance requested Onset (ago): day(s) Place: other (PR) Alleged Intoxication: No Compliant with Home Medications: Yes Associated Symptoms: denies other symptoms Treatments Prior to Arrival: none Home medications: Home Medications Medication Instructions Recorded Confirmed Lisinopril 10 mg PO DAILY #0 03/22/11 11/13/16 Dextran 70/Hypromellose 1 drop RIGHT EYE TID PRN #0 bottle 03/18/14 11/13/16 [Artificial Tears] Furosemide [Lasix] 20 mg PO BIDBL #0 tab 03/18/14 11/13/16 LORazepam [Ativan] 0.5 mg PO Q6H PRN #0 tab 03/18/14 11/13/16 Nystatin Cream [Mycostatin] 1 applic TOP BID 09/26/16 11/13/16 Divalproex Sodium [Depakote] 500 mg PO BID 11/13/16 11/13/16 Gabapentin 300 mg PO TIDWM 11/13/16 11/13/16 Insulin Aspart [Novolog Flexpen] 5 unit SQ TIDWM 11/13/16 11/13/16 Metformin [Glucophage] 500 mg PO QAM 11/13/16 11/13/16 Miconazole Nitrate [Miconazorb AF] 1 applic TP BID 11/13/16 11/13/16 Warfarin [Coumadin] 2.5 mg PO WS 11/13/16 11/13/16 guaiFENesin [Mucinex] 600 mg PO BID 11/13/16 11/13/16 guaiFENesin [Mucinex] 600 mg PO BID PRN 11/13/16 11/13/16 Previous Rx's Medication Instructions Recorded ARIPiprazole [Aripiprazole] 30 mg PO DAILY 30 Days #0 10/02/16 Acetaminophen [Acetaminophen Extra 500 mg PO Q6H PRN 30 Days #0 10/02/16 Strength] Hydrocodone/Acetaminophen 1 tab PO BID #20 10/02/16 [Hydrocodon-Acetaminophen 5-325] Ketotifen Fumarate [Zaditor] 1 drop EACH EYE Q12H PRN 30 Days #0 10/02/16 Liraglutide [Victoza 3-Otto] 1.2 mg SQ DAILY 30 Days #0 10/02/16 Loperamide [Imodium] 2 mg PO QID PRN 30 Days #0 10/02/16 Lurasidone HCl [Latuda] 20 mg PO WS 30 Days #0 10/02/16 Magnesium Hydroxide [Milk of 30 ml PO Q12H PRN 30 Days #0 10/02/16 Magnesia] Metoprolol Succinate 50 mg PO DAILY 30 Days #0 10/02/16 Prazosin HCl [Minipress] 2 mg PO HS 30 Days #0 10/02/16 Ropinirole HCl 0.25 mg PO HS 30 Days tab 10/02/16 Senna + Docusate [Senna Plus 1 tab PO BID PRN 30 Days tablet 10/02/16 Tablet] Simvastatin 20 mg PO HS 30 Days #0 10/02/16 guaiFENesin [Guaifenesin] 100 mg PO Q4H PRN 30 Days #0 10/02/16 guaiFENesin [Mucinex] 1,200 mg PO Q12H PRN 30 Days #0 10/02/16 Allergies/Adverse reactions: Allergies Allergy/AdvReac Type Severity Reaction Status Date / Time No Known Allergies Allergy Verified 11/13/16 19:56 Review of Systems All systems: reviewed and negative except as stated Constitutional: Reports: weakness Respiratory: Reports: cough, dyspnea Integumentary: Reports: non-healing lesions, wounds Neurological: Reports: weakness Psychiatric: Reports: anxiety, depression, suicidal thoughts, homicidal thoughts PFSH Patient Stated Medical History Dementia Yes Cardiac Arrhythmia Yes: A-FIB Hypertension Yes Diabetes Mellitus Type 1 Yes Diabetes Mellitus Type 2 Yes: pills Hx Incontinence Yes Hx Renal Disease Yes Osteoarthritis Yes Other Musculoskeletal Yes: walker and gait belt up with 1 assist Cellulitis Yes: thinks he has Sepsis Yes: currently Bipolar Disorder Yes Depression Yes Surgical History: Tonsillectomy - Social History Current residence: [place]term Physical Exam - Limitations Limitations: altered mental status, physical limitation - General General appearance: alert, in no apparent distress - Normal Exams: Eyes:: Pupils are PERRLA w/ EOMI Neck:: Full range of motion, without adenopathy Chest/Respirations:: Clear all ferrara, with good airflow, and symmetry bilaterally Cardiovascular:: Regular rate and rhythm Abdomen:: Bowel sounds positive, soft, non-tender, non-distended Musculoskeletal:: No tenderness (extensive pedal edema, dressings intact) Integumentary:: No rashes Neurological:: Patient is alert (oriented to self) Course Vital Signs Temperature 97.4 F 11/13/16 18:20 Pulse Rate 73 11/13/16 18:20 Respiratory Rate 16 11/13/16 18:20 Blood Pressure 187/80 H 11/13/16 18:20 Pulse Oximetry 96 11/13/16 18:20 Temperature 97.4 F 11/13/16 18:20 Pulse Rate 73 11/13/16 18:20 Respiratory Rate 16 11/13/16 18:20 Blood Pressure 187/80 H 11/13/16 18:20 Pulse Oximetry 96 11/13/16 18:20 Medical Clearance - MDM Narrative Medical decision making narrative: Pt remains calm and cooperative with care throughout stay. All labs reviewed without any acute findings. Pt ok to transfer to [facility] unit - Differential Diagnosis Differential Diagnosis Narrative: anxiety, depression, UTI, Bi polar disorder - Lab Data Attestation: I reviewed the patient's lab results. Result diagrams: 11/13/16 19:17 11/13/16 19:17 Lab Results 11/13/16 11/13/16 11/13/16 Range/Units 19:17 19:17 19:26 WBC 7.1 (4.5-11.0) T/MM3 RBC 4.84 (4.50-5.90) M/MM3 Hgb 14.3 (13.5-17.5) GM/DL Hct 43.3 (41-53) % MCV 89.5 (80-100) UM3 MCH 29.5 (26-34) UUG MCHC 33.0 (31-37) GM/DL RDW Std Deviation 45.8 (36.9-50.2) FL Plt Count 226 (130-400) T/MM3 MPV 9.9 (9.4-12.4) UM3 Immature Gran % (Auto) 0.3 (0.0-0.5) % Neut % (Auto) 52.3 (33-66) % Lymph % (Auto) 35.3 (23-45) % Cottle % (Auto) 9.3 H (0-9.0) % Eos % (Auto) 2.1 (0-4) % Baso % (Auto) 0.7 (0-2) % Neut # 3.7 (1.8-7.7) T/MM3 Lymph # 2.5 (1-4.8) T/MM3 Cottle # 0.7 (0-0.8) T/MM3 Eos # 0.2 (0-0.5) T/MM3 Baso # 0.1 (0-0.2) T/MM3 Abs Immat Gran (auto) 0.02 (0.00-0.03) T/MM3 Turbidity < 20 (0-20) Sodium 142 (134-144) MEQ/L Potassium 4.2 (3.6-5) MEQ/L Chloride 101 (98-107) MEQ/L Carbon Dioxide 28 (22-30) MEQ/L Anion Gap 13 (5-15) MEQ/L BUN 13.0 (9-20) MG/DL Creatinine 0.7 L (0.8-1.5) MG/DL GFR Calculation 111 BUN/Creatinine Ratio 19 (6-26) RATIO Glucose 142 H (75-110) MG/DL Calculated Osmolality 275 (261-280) MOSM/KG Calcium 10.2 (8.4-10.2) MG/DL Total Bilirubin 0.80 (0.20-1.30) MG/DL Icterus Index < 2 (0-7) AST 29 (17-59) U/L ALT 36 (21-72) U/L Alkaline Phosphatase 104 (38-126) U/L Total Protein 8.0 (6.3-8.2) G/DL Albumin 4.2 (3.5-5.0) G/DL Globulin 3.8 H (2.4-3.6) G/DL Albumin/Globulin Ratio 1.1 (1.1-2.2) RATIO TSH 2.02 (0.47-4.68) MIU/L Specimen Hemolysis < 15 (0-25) Ur Collection Type Urine, catheter Urine Color Yellow (YELLOW) Urine Clarity Clear Urine pH 5.5 (5.0-8.0) Ur Specific Parthenon 1.010 L (1.015-1.025) Urine Protein Negative (NEGATIVE) Urine Glucose (UA) Negative (NEGATIVE) Urine Ketones Negative (NEGATIVE) Urine Occult Blood Trace-intact (NEGATIVE) Urine Nitrate Negative (NEGATIVE) Urine Bilirubin Negative (NEGATIVE) Urine Urobilinogen 0.2 (NORMAL) EU/DL Ur Leukocyte Esterase Negative (NEGATIVE) Urinalysis Comment Microscopic not ind. Salicylates < 1.0 L (2-20) MG/DL Urine Opiates Screen ng/mL Ur Oxycodone Screen ng/mL Urine Methadone Screen ng/mL Ur Propoxyphene Screen ng/mL Acetaminophen < 10 L (10-30) UG/ML Ur Barbiturates Screen ng/mL U Tricyclic Antidepress ng/mL Ur Phencyclidine Scrn ng/mL Ur Amphetamines Screen ng/mL U Methamphetamines Scrn ng/mL U Benzodiazepines Scrn ng/mL Urine Cocaine Screen ng/mL U Cannabinoids Screen ng/mL Ur Drug Screen Confirm 11/13/16 11/13/16 Range/Units 19:26 19:26 WBC (4.5-11.0) T/MM3 RBC (4.50-5.90) M/MM3 Hgb (13.5-17.5) GM/DL Hct (41-53) % MCV (80-100) UM3 MCH (26-34) UUG MCHC (31-37) GM/DL RDW Std Deviation (36.9-50.2) FL Plt Count (130-400) T/MM3 MPV (9.4-12.4) UM3 Immature Gran % (Auto) (0.0-0.5) % Neut % (Auto) (33-66) % Lymph % (Auto) (23-45) % Cottle % (Auto) (0-9.0) % Eos % (Auto) (0-4) % Baso % (Auto) (0-2) % Neut # (1.8-7.7) T/MM3 Lymph # (1-4.8) T/MM3 Cottle # (0-0.8) T/MM3 Eos # (0-0.5) T/MM3 Baso # (0-0.2) T/MM3 Abs Immat Gran (auto) (0.00-0.03) T/MM3 Turbidity (0-20) Sodium (134-144) MEQ/L Potassium (3.6-5) MEQ/L Chloride (98-107) MEQ/L Carbon Dioxide (22-30) MEQ/L Anion Gap (5-15) MEQ/L BUN (9-20) MG/DL Creatinine (0.8-1.5) MG/DL GFR Calculation BUN/Creatinine Ratio (6-26) RATIO Glucose (75-110) MG/DL Calculated Osmolality (261-280) MOSM/KG Calcium (8.4-10.2) MG/DL Total Bilirubin (0.20-1.30) MG/DL Icterus Index (0-7) AST (17-59) U/L ALT (21-72) U/L Alkaline Phosphatase (38-126) U/L Total Protein (6.3-8.2) G/DL Albumin (3.5-5.0) G/DL Globulin (2.4-3.6) G/DL Albumin/Globulin Ratio (1.1-2.2) RATIO TSH (0.47-4.68) MIU/L Specimen Hemolysis (0-25) Ur Collection Type Urine Color (YELLOW) Urine Clarity Urine pH (5.0-8.0) Ur Specific Parthenon (1.015-1.025) Urine Protein (NEGATIVE) Urine Glucose (UA) (NEGATIVE) Urine Ketones (NEGATIVE) Urine Occult Blood (NEGATIVE) Urine Nitrate (NEGATIVE) Urine Bilirubin (NEGATIVE) Urine Urobilinogen (NORMAL) EU/DL Ur Leukocyte Esterase (NEGATIVE) Urinalysis Comment Salicylates (2-20) MG/DL Urine Opiates Screen Positive ng/mL Ur Oxycodone Screen Negative ng/mL Urine Methadone Screen Negative ng/mL Ur Propoxyphene Screen Negative ng/mL Acetaminophen (10-30) UG/ML Ur Barbiturates Screen Negative ng/mL U Tricyclic Antidepress Negative ng/mL Ur Phencyclidine Scrn Negative ng/mL Ur Amphetamines Screen Negative ng/mL U Methamphetamines Scrn Negative ng/mL U Benzodiazepines Scrn Negative ng/mL Urine Cocaine Screen Negative ng/mL U Cannabinoids Screen Negative ng/mL Ur Drug Screen Confirm Sent out - Radiology Data Attestation: I reviewed the patient's radiology results. per Dr Noble Disposition Clinical Impression: Dementia Disposition: 63 To [facility] Condition: Stable Additional Instructions: per [facility] Prescriptions: No Action Lisinopril 10 mg PO DAILY #0 LORazepam [Ativan] 0.5 mg PO Q6H PRN #0 tab PRN Reason: Anxiety Senna + Docusate [Senna Plus Tablet] 1 tab PO BID PRN 30 Days tablet PRN Reason: Constipation Acetaminophen [Acetaminophen Extra Strength] 500 mg PO Q6H PRN 30 Days #0 PRN Reason: Pain ARIPiprazole [Aripiprazole] 30 mg PO DAILY 30 Days #0 guaiFENesin [Guaifenesin] 100 mg PO Q4H PRN 30 Days #0 PRN Reason: Cough Hydrocodone/Acetaminophen [Hydrocodon-Acetaminophen 5-325] 1 tab PO BID #20 Ketotifen Fumarate [Zaditor] 1 drop EACH EYE Q12H PRN 30 Days #0 PRN Reason: Allergy Symptoms Loperamide [Imodium] 2 mg PO QID PRN 30 Days #0 PRN Reason: Diarrhea Magnesium Hydroxide [Milk of Magnesia] 30 ml PO Q12H PRN 30 Days #0 PRN Reason: Constipation Ropinirole HCl 0.25 mg PO HS 30 Days tab Simvastatin 20 mg PO HS 30 Days #0 Divalproex Sodium [Depakote] 500 mg PO BID guaiFENesin [Mucinex] 600 mg PO BID guaiFENesin [Mucinex] 600 mg PO BID PRN PRN Reason: Allergy Symptoms Miconazole Nitrate [Miconazorb AF] 1 applic TP BID Warfarin [Coumadin] 2.5 mg PO WS Furosemide [Lasix] 20 mg PO BIDBL #0 tab Dextran 70/Hypromellose [Artificial Tears] 1 drop RIGHT EYE TID PRN #0 bottle PRN Reason: DRY EYES Nystatin Cream [Mycostatin] 1 applic TOP BID guaiFENesin [Mucinex] 1,200 mg PO Q12H PRN 30 Days #0 PRN Reason: Congestion Liraglutide [Victoza 3-Otto] 1.2 mg SQ DAILY 30 Days #0 Lurasidone HCl [Latuda] 20 mg PO WS 30 Days #0 Metoprolol Succinate 50 mg PO DAILY 30 Days #0 Prazosin HCl [Minipress] 2 mg PO HS 30 Days #0 Metformin [Glucophage] 500 mg PO QAM Insulin Aspart [Novolog Flexpen] 5 unit SQ TIDWM Gabapentin 300 mg PO TIDWM Referrals: Bernie Stafford MD [Family Provider] - Time of Disposition: 20:30 - Seen By: lisbeth
[2016-11-13] MEDS ORDERED: HALOPERIDOL 0.5 MG TABLET PO PRN (19:36)
[2016-11-13] MEDS ORDERED: HALOPERIDOL 5 MG/ML INJECTION IM PRN (19:36)
[2016-11-13] MEDS ORDERED: SENNA + DOCUSATE TABLET PO PRN (19:38)
[2016-11-13] MEDS ORDERED: GUAIFENESIN 200mg/10ml ORAL LIQUID PO PRN (19:38)
--- OUTSIDE RECORDS SUMMARY | 2016-11-13 19:59 | External Medical Summary | Continuity of Care Document ---
:1945 Author Organization [facility] Allergies Active Description Code Type Severity Reaction Onset Reported/ Identified Relationship Clinical to Patient Status Yes No Known NKMA N/A N/A 07/22/2013 Allergies Medications Problems Procedures Results Encounters ACCT No. Visit Discharge Status Pt. Type Provider Facility Loc./Unit Complaint Date/Time [id number] 03/13/2013 03/13/2013 CLS Outpatient 14:42:00 23:59:59 [id number] 01/14/2013 01/14/2013 CLS Outpatient 13:38:00 23:59:59 [id number] 08/28/2013 ACT Unknown [id number] 08:54:00 [id number] 08/28/2013 ACT Unknown [id number] 08:54:00 [id number] 08/28/2013 ACT Unknown [id number] 08:54:00 [id number] 06/23/2013 ACT Unknown [id number] 08:16:00 [id number] 05/22/2013 ACT Unknown [id number] 14:04:00 [id number] 05/05/2013 ACT Unknown [id number] 07:12:00 [id number] 04/29/2013 ACT Unknown [id number] 11:52:00 [id number] 03/27/2013 ACT Unknown [id number] 10:28:00 [id number] 03/10/2013 ACT Unknown [id number] 09:26:00 [id number] 01/24/2013 ACT Unknown [id number] 09:08:00 [id number] 01/14/2013 ACT Unknown [id number] 09:06:00 [id number] 12/25/2012 ACT Unknown [id number] 08:55:00 [id number] 12/18/2012 ACT Unknown [id number] 09:33:00 [id number] 12/11/2012 ACT Unknown [id number] 13:33:00 [id number] 09/24/2014 09/24/2014 DIS Outpatient Oni [facility] Sleep REF DR Lopez 61 08:32:00 23:59:00 Tavo PETERSON [facility] SL APNEA
[2016-11-14 00:01] VITALS: BMI 46.7
[2016-11-14] MEDS: DIVALPROEX 500 MG TABLET PO SCH ×3 (04:33→20:08)
[2016-11-14] MEDS: SIMVASTATIN 20 MG TABLET PO SCH ×2 (04:34→20:08)
[2016-11-14] MEDS: ROPINIROLE 0.25 MG TABLET PO SCH ×2 (04:34→20:08)
[2016-11-14] MEDS ORDERED: OLANZapine INJ 10 MG VIAL IM ONE (05:12)
--- NOTE | 2016-11-14 08:34 | History & Physical Report ---
<Jaimie Fortune V - Last Filed: 11/14/16 08:31> History of Present Illness Date: 11/14/16 Chief complaint: Increased behaviors and hallucinations HPI: Mr Lee is a 71-year-old male who is well-known to the Hospital services as he was recently admitted last month for acute sepsis and acute kidney injury. Patient had been admitted on 09/26/16 and was discharged on 10/02/16. [facility] to [facility] under the care of Dr. Stafford. It is reported by the emergency room staff that he was having increased hallucinations and was brought to the emergency room last evening for acute medical evaluation. He does have a known history of bipolar disorder. Medical laboratory studies from the emergency room are reviewed, CBC and CMP are both unremarkable. TSH is normal at 2.02. Urinalysis is negative. Urine drug screen positive for opiates. Twelve-lead EKG is obtained that reveals a rate controlled atrial fibrillation in the 70s. Patient was medically cleared and accepted to the [facility] unit for further inpatient evaluation, treatment. Malik seen this morning for initial medical consultation. He is alert, oriented and pleasant. He proceeds to speak in a Uz[place] accent during the initial part of the examination and then return to normal conversation. He denies having any pain or shortness of breath. [facility] Patient Stated Medical History Bipolar disorder Atrial fibrillation Hypertension Type II diabetes Hyperlipidemia Depression Osteoarthritis Chronic anticoagulation Morbid obesity Surgical History: Tonsillectomy Family History: Father- from heart disease. 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) Social history: PCP Dr Stafford Medications Home Medications Medication Instructions Recorded Confirmed Type Lisinopril 10 mg PO DAILY #0 03/22/11 11/13/16 History Dextran 70/Hypromellose 1 drop RIGHT EYE TID PRN #0 bottle 03/18/14 11/13/16 History [Artificial Tears] Furosemide [Lasix] 20 mg PO BIDBL #0 tab 03/18/14 11/13/16 History LORazepam [Ativan] 0.5 mg PO Q6H PRN #0 tab 03/18/14 11/13/16 History Nystatin Cream [Mycostatin] 1 applic TOP BID 09/26/16 11/13/16 History Divalproex Sodium [Depakote] 500 mg PO BID 11/13/16 11/13/16 History Gabapentin 300 mg PO TIDWM 11/13/16 11/13/16 History Insulin Aspart [Novolog Flexpen] 5 unit SQ TIDWM 11/13/16 11/13/16 History Metformin [Glucophage] 500 mg PO QAM 11/13/16 11/13/16 History Miconazole Nitrate [Miconazorb AF] 1 applic TP BID 11/13/16 11/13/16 History Warfarin [Coumadin] 2.5 mg PO WS 11/13/16 11/13/16 History guaiFENesin [Mucinex] 600 mg PO BID 11/13/16 11/13/16 History guaiFENesin [Mucinex] 600 mg PO BID PRN 11/13/16 11/13/16 History Allergies Allergy/AdvReac Type Severity Reaction Status Date / Time No Known Allergies Allergy Verified 11/13/16 19:56 Exam Vital Signs: Temperature 97.1 F 11/13/16 20:56 Pulse Rate 83 11/13/16 20:56 Respiratory Rate 16 11/13/16 20:56 Blood Pressure 146/64 H 11/13/16 20:56 Pulse Oximetry 96 11/13/16 20:56 Height/Weight/BMI: Height 1.85 m Weight 160.8 kg Body Mass Index 46.7 - Constitutional Present: no acute distress, well nourished, well developed - Routine HEENT Exam Head: Present: normocephalic Eye: Present: EOMI ENT: Present: mucous membranes moist, dentition normal - Routine Neck Exam Present: full ROM - Routine Respiratory Exam Present: CTA bilaterally. Absent: wheezes - Routine Cardiovascular Exam Present: RRR, S1, S2. Absent: murmur - Routine Abdominal Exam Present: soft, normoactive bowel sounds, non distended. Absent: tenderness - Routine Extremities Exam Present: normal capillary refill - Routine Back/Spine/Pelvis Exam Back/Spine: Present: full ROM - Routine Skin Exam Present: intact, dry, warm - Routine Neurological Exam Present: alert, oriented X3, CN II-XII intact - Routine Psychiatric Exam Present: normal affect, normal thought process, cooperative Results - Labs CBC & Chem 7: 11/13/16 19:17 11/13/16 19:17 Assessment and Plan (1) Abnormal behavior Current visit: Yes Status: Acute (2) Chronic a-fib Current visit: No Status: Chronic (3) Anticoagulated on Coumadin Current visit: No Status: Chronic (4) Hyperlipidemia Current visit: No Status: Chronic (5) Bipolar disorder Current visit: Yes Status: Chronic Assessment and Plan: Impression Abnormal behaviors Bipolar disorder Type II diabetes Chronic atrial fibrillation Hyperlipidemia Osteoarthritis Chronic anticoagulation Obesity Plan Agree with admission to the [facility] unit for further psychiatric evaluation and treatment. Monitor blood sugars and continue on current regimen Victoza, Metformin, and Novolog 5 units with meals. Nystatin powder for rash to groin Asked nursing staff to place mame wraps to bilateral lower ext to help with edema. Monitor blood pressure and pulse. Appears to chronically be in A-fibulation Chronic anticoagulation on Coumadin- Check INR now and consult pharmacy for Coumadin dosing. Encourage her just patient in unit activities and provide a safe environment. Hospital services will continue to follow patient and manage his medical comorbidities. At time of discharge his medical care is to return to his primary care provider Dr Stafford - Time spent with patient Coordination of Care: >50% of visit spent providing counseling/coordination of care (old records and chart reviewed) Hospital Course Summary Disclaimer: The visit summary below is not to be considered part of the above Progress Note. Hospital Course: 11/14/16 Impression Abnormal behaviors Bipolar disorder Type II diabetes Chronic atrial fibrillation Hyperlipidemia Osteoarthritis Chronic anticoagulation Obesity Plan Agree with admission to the [facility] unit for further psychiatric evaluation and treatment. Monitor blood sugars and continue on current regimen Victoza, Metformin, and Novolog 5 units with meals. Nystatin powder for rash to groin Asked nursing staff to place mame wraps to bilateral lower ext to help with edema. Monitor blood pressure and pulse. Appears to chronically be in A-fibulation Chronic anticoagulation on Coumadin- Check INR now and consult pharmacy for Coumadin dosing. Encourage her just patient in unit activities and provide a safe environment. Hospital services will continue to follow patient and manage his medical comorbidities. At time of discharge his medical care is to return to his primary care provider Dr Stafford <Daysi Welch - Last Filed: 11/14/16 17:38> History of Present Illness Date: 11/14/16 Exam Vital Signs: Temperature 97.6 F 11/14/16 08:00 Pulse Rate 81 09/26/17 08:00 Respiratory Rate 16 11/14/16 08:00 Blood Pressure 128/72 11/14/16 08:00 Pulse Oximetry 93 11/14/16 08:00 Height/Weight/BMI: Height 1.85 m Weight 160.8 kg Body Mass Index 46.7 Results - Labs CBC & Chem 7: 11/13/16 19:17 11/13/16 19:17 Assessment and Plan (1) Chronic a-fib Current visit: No Status: Chronic (2) Anticoagulated on Coumadin Current visit: No Status: Chronic (3) Hyperlipidemia Current visit: No Status: Chronic (4) Abnormal behavior Current visit: Yes Status: Acute (5) Bipolar disorder Current visit: Yes Status: Chronic Assessment and Plan: I have independently evaluated and examined this patient. I reviewed the chart, the patient's history, and the MOLD BURNER/PA's documented findings as above. We discussed and formulated the assessment and plan as above with additions as below: Mr. Lee is known from prior visits. When seen he reported that there is a conspiracy to blow up the [place] in [facility]. He denied chest pain or dyspnea. Bowels are functioning well and he denied nausea. He additionally advised me that his blood sugars have been perfect. On examination the patient was alert and cooperative. Facial structures are symmetric, EOMI, conjunctiva clear Respirations nonlabored with good airflow and clear breath sounds Irregular cardiac rhythm, heart tones diminished Abdomen is obese, soft, and nontender Patient acknowledges sensation in all 4 extremities to light touch and moves all 4 extremities well, rest tremor is present in the left upper extremity. INR 2.5, CBC and chemistries unremarkable other than postprandial hyperglycemia. UDS positive for opiates-no opiates noted on home medication list. EKG reviewed by myself-atrial fibrillation. List of medications appearing above as home medications is incomplete-please refer to updated list in the medical record. Will continue to monitor cautiously. Continue home regimen for chronic medical problems. Carb-controlled diet. Hospital Course Summary Disclaimer: The visit summary below is not to be considered part of the above Progress Note.
[2016-11-14] MEDS: INSULIN ASPART 100unit/ml INJECTION SQ SCH ×3 (10:22→17:31)
[2016-11-14] MEDS: METFORMIN 500 MG TABLET PO SCH (10:23)
[2016-11-14] MEDS: FUROSEMIDE 20 MG TABLET PO SCH ×2 (10:23→11:54)
[2016-11-14] MEDS: LISINOPRIL 10 MG TABLET PO SCH (10:23)
[2016-11-14] MEDS: LIRAGLUTIDE INJECTABLE PEN SQ SCH (10:24)
[2016-11-14] MEDS: GABAPENTIN 300 MG CAPSULE PO SCH ×3 (10:45→17:32)
--- NOTE | 2016-11-14 11:40 | Pharmacy Consult ---
Pharmacy Consult-Warfarin - Laboratory Information 11/14/16 09:23 INR 2.50 H SB, a 69 yo male was admitted to [facility], having exhibiting delusional behavior suicidal or homicidal ideas. The patient has a history of A Fib with anticoagulation therapy with warfarin. He currently takes warfarin 2.5 mg PO @ 1700. Date INR Dose 11/14 2.50 Plan 2.5 mg The patient normally takes his warfarin @ 1700 but while here it will be given at 1200. Today's INR is 2.50 so I will give him his home dose of 2.5 mg. Thanks for the Warfarin Dosing Protocol, Jai Mcknight, Pharmacist.l
[2016-11-14] MEDS ORDERED: WARFARIN 2.5 MG TABLET PO SCH ×2 (12:00→17:30)
[2016-11-14] MEDS: PRAZOSIN 1 MG CAPSULE PO SCH ×2 (16:24→20:08)
[2016-11-14] MEDS ORDERED: LURASIDONE 40mg TABLET PO SCH (17:30)
--- NOTE | 2016-11-14 22:05 | 24 Hour Neuropsychiatic Eval ---
Date of Admission: 11/13/16 20:26 Chief complaint: "I am God" History of Present Illness: HPI: 71 Y/O CM with a hx of Bipolar D/O sent here from senior care for bizarre behavior. Nursing staff reports the pt was paranoid and believed the [employer]OMATIC TRIMMING SE[employer] of the [place] was tryintg to murder him. On face to face the pt is tangential and disorganized and very grandiose. He states Rubens Renee put him here" because of the theater". He believes he put a force field over the hospital to protect it. He denies S/I. STRESSORS: Unclear at this time. PSYCH ROS: PT denies feeling depressed. He is paranoid and grandiose. He reports some AH. Staff have reported poor sleep and increased energy. He denies S/I. PAST PSYCH: PT has a long hx of Bipolar D/O. He states he has had five previous psych hospitalizations. His first was in his 20's but this is not corroborated. It is unclear who his psychiatrist is. He was taking Abilify, Latuda and Depakote. He denies ever trying to harm himself. [facility] Patient Stated Medical History Dementia Yes Dental Problems Yes Cardiac Arrhythmia Yes: A-FIB Hypertension Yes Diabetes Mellitus Type 1 Yes Diabetes Mellitus Type 2 Yes: pills Hx Incontinence Yes Hx Renal Disease Yes Osteoarthritis Yes Other Musculoskeletal Yes: walker and gait belt up with 1 assist Cellulitis Yes: thinks he has Sepsis Yes: currently Bipolar Disorder Yes Depression Yes Surgical History: Tonsillectomy - Social History Smoking status: Former smoker (quit smoking in 2011) Review of Systems - Psychiatric Psychiatric: Present: abnormal sleep pattern, auditory hallucinations, behavioral changes, hallucinations, mood swings, paranoia Mental Status Exam Vitals: Last Vital Signs Temp 97.0 F 11/14/16 20:12 Pulse 67 11/14/16 20:12 Resp 16 11/14/16 20:12 BP 130/60 11/14/16 20:12 Pulse Ox 95 11/14/16 20:12 Height: 1.85 m Weight: 160.8 kg - Mental Status Exam Muscle Strength/Tone: Normal Dressing: Casual Grooming: Fair Attitude: Guarded Motor Activity: Agitation Eye Contact: Fair Speech: Rapid Volume: Loud Rhythm: Appropriate Rhythm Orientation: Oriented X4 Mood: Euphoric Affect: Bright Rate of Thoughts: Pressured Thought Organization: Disorganized Associations: Flight of Ideas Abstract Reasoning: Poor abstract reasoning Thought Content: Grandeur Perception/Psychotic: Psychotic Language: Naming Impaired Fund of Knowledge: Poor fund of knowledge Memory: Grossly Intact Suicidal Ideation: None Homicidal Ideation: None Insight: Poor Judgement: Poor Impulse Control: Poor - Laboratory Result Diagrams: 11/13/16 19:17 11/13/16 19:17 Laboratory Results - last 24 hr 11/14/16 11/14/16 11/14/16 06:50 09:23 11:37 INR 2.50 H Glucometer 132 237 11/14/16 21:18 INR Glucometer 174 Assessment and Plan (1) Bipolar 1 disorder Problem details: MRE manic with psychosis Current visit: Yes Status: Acute Continue mediical managemet. Will D/C Abilify and maximize use of Latuda. Continue Depakote
[2016-11-15] MEDS: LORazepam 0.5 MG TABLET PO PRN (02:26)
[2016-11-15] MEDS: ACETAMINOPHEN 325 MG TABLET PO PRN (02:26)
--- NOTE | 2016-11-15 08:46 | Pharmacy Consult ---
Pharmacy Consult-Warfarin - Laboratory Information 11/14/16 11/15/16 09:23 08:12 INR 2.50 H 2.62 H SB, a 69 yo male was admitted to [facility], having exhibiting delusional behavior suicidal or homicidal ideas. The patient has a history of A Fib with anticoagulation therapy with warfarin. He currently takes warfarin 2.5 mg PO @ 1700. Date INR Dose 11/14 2.50 2.5 mg 11/15 2.62 Plan 2.5 mg The patient normally takes his warfarin @ 1700 but while here it will be given at 1200. Today's INR is 2.62 so I will give him his home dose of 2.5 mg. Thanks for the Warfarin Dosing Protocol, Jai Mcknight, Pharmacist.l
[2016-11-15] MEDS: FUROSEMIDE 20 MG TABLET PO SCH ×2 (09:51→11:53)
[2016-11-15] MEDS: DIVALPROEX 500 MG TABLET PO SCH ×2 (09:51→20:01)
[2016-11-15] MEDS: METFORMIN 500 MG TABLET PO SCH (09:51)
[2016-11-15] MEDS: INSULIN ASPART 100unit/ml INJECTION SQ SCH ×3 (09:52→17:03)
[2016-11-15] MEDS: GABAPENTIN 300 MG CAPSULE PO SCH ×3 (09:52→17:03)
[2016-11-15] MEDS: LISINOPRIL 10 MG TABLET PO SCH (09:53)
[2016-11-15] MEDS: LIRAGLUTIDE INJECTABLE PEN SQ SCH (09:55)
[2016-11-15] MEDS: MAG-AL + SIM ORAL LIQUID 30ml PO PRN (10:34)
[2016-11-15] MEDS ORDERED: WARFARIN 2.5 MG TABLET PO SCH (12:00)
[2016-11-15] MEDS: LURASIDONE 40mg TABLET PO SCH (17:03)
--- NOTE | 2016-11-15 18:05 | Neuropsych Progress Note ---
[facility] Subjective Date: 11/15/16 - Sujective/Severity of Illness Medications: Acetaminophen (Tylenol) 325 - 650 mg PO Q5H PRN PRN Reason: Discomfort Last Admin: 11/15/16 02:26 Dose: 650 mg Al Hydroxide/Mg Hydroxide (Maalox Plus) 30 ml PO Q4H PRN PRN Reason: Indigestion Last Admin: 11/15/16 10:34 Dose: 30 ml Divalproex Sodium (Depakote) 500 mg PO BID [facility] Last Admin: 11/15/16 09:51 Dose: 500 mg [facility] Last Admin: 11/15/16 11:53 Dose: 20 mg Gabapentin (Neurontin) 300 mg PO TIDWM [facility] Last Admin: 11/15/16 17:03 Dose: 300 mg Guaifenesin (Robitussin Liq) 100 mg PO Q4H PRN PRN Reason: Cough Haloperidol (Haldol) 0.5 mg PO Q6H PRN PRN Reason: Extreme agitation Haloperidol Lactate (Haldol) 0.5 mg IM Q6H PRN PRN Reason: Extreme agitation Insulin Aspart (Novolog) 5 unit SQ TIDWM [facility] Last Admin: 11/15/16 17:03 Dose: 5 unit Liraglutide (Victoza) 1.2 mg SQ DAILY [facility] Last Admin: 11/15/16 09:55 Dose: 1.2 mg Lisinopril (Prinivil) 10 mg PO DAILY [facility] Last Admin: 11/15/16 09:53 Dose: 10 mg Loperamide HCl (Imodium) 2 mg PO QID PRN; Protocol PRN Reason: Diarrhea Lorazepam (Ativan) 0.5 mg PO Q6H PRN PRN Reason: Extreme agitation Last Admin: 11/15/16 02:26 Dose: 0.5 mg Lorazepam (Ativan Inj) 0.5 mg IM Q6H PRN PRN Reason: Extreme agitation Lurasidone HCl (Latuda) 40 mg PO WS [facility] Last Admin: 11/15/16 17:03 Dose: 40 mg Metformin HCl (Glucophage) 500 mg PO WB [facility] Last Admin: 11/15/16 09:51 Dose: 500 mg Metoprolol Succinate (Toprol Xl) 50 mg PO DAILY [facility] Last Admin: 11/15/16 09:54 Dose: 50 mg Nystatin (Mycostatin) 1 applic TP TID [facility] Last Admin: 11/15/16 14:25 Dose: 1 applic Prazosin HCl (Minipress) 2 mg PO [facility] Last Admin: 11/14/16 20:08 Dose: 2 mg Ropinirole HCl (Requip) 0.25 mg PO [facility] Last Admin: 11/14/16 20:08 Dose: 0.25 mg Senna/Docusate Sodium (Senna Plus Tablet) 1 tab PO BID PRN PRN Reason: Constipation Simvastatin (Zocor) 20 mg PO [facility] Last Admin: 11/14/16 20:08 Dose: 20 mg Sodium Chloride (Iv Flush) 10 - 80 ml IVF PRN PRN PRN Reason: Flushing Last Admin: 11/13/16 19:15 Dose: 10 ml Warfarin Sodium (Coumadin Protocol) 0 [facility] NOTE [facility] Warfarin Sodium (Coumadin) 2.5 mg PO NOON [facility] Stop: 11/15/16 23:59 Last Admin: 11/15/16 11:53 Dose: 2.5 mg Subjective: Pt seen and chart examined. Nursing reports pt did not sleep well last night and remains hyperverbal and paranoid. No aggression. On face to face the pt is pleasant. He is tangential and grandiose and paranoid about the [employer] wanting to harm him. He reports his mood is stable and he denies any S/I. Tolerating meds Start Time: 17:15 Stop Time: 17:30 Mental Status Exam Vitals: Last Vital Signs Temp 98.0 F 11/15/16 08:00 Pulse 78 11/15/16 08:00 Resp 16 11/15/16 08:00 BP 121/62 11/15/16 08:00 Pulse Ox 92 11/15/16 08:00 Height: 1.85 m Weight: 160.8 kg - Mental Status Exam Muscle Strength/Tone: Normal Dressing: Casual Grooming: Fair Attitude: Guarded Motor Activity: Agitation Eye Contact: Fair Speech: Rapid Volume: Loud Rhythm: Appropriate Rhythm Orientation: Oriented X4 Mood: Euphoric Rate of Thoughts: Pressured Thought Organization: Disorganized Associations: Flight of Ideas Abstract Reasoning: Poor abstract reasoning Thought Content: Grandeur Perception/Psychotic: Psychotic Language: Naming Impaired Fund of Knowledge: Poor fund of knowledge Memory: Grossly Intact Suicidal Ideation: None Homicidal Ideation: None Insight: Poor Judgement: Poor Impulse Control: Poor - Laboratory Result Diagrams: 11/13/16 19:17 11/13/16 19:17 Laboratory Results - last 24 hr 11/14/16 11/15/16 11/15/16 21:18 05:21 08:12 INR 2.62 H Glucometer 174 141 11/15/16 11/15/16 11:04 14:39 INR Glucometer 228 159 Assessment and Plan (1) Bipolar 1 disorder Problem details: MRE manic with psychosis Current visit: Yes Status: Acute Hospital Course Summary Disclaimer: The visit summary below is not to be considered part of the above Progress Note. Hospital Course: 11/14/16 Impression Abnormal behaviors Bipolar disorder Type II diabetes Chronic atrial fibrillation Hyperlipidemia Osteoarthritis Chronic anticoagulation Obesity Plan Agree with admission to the [facility] unit for further psychiatric evaluation and treatment. Monitor blood sugars and continue on current regimen Victoza, Metformin, and Novolog 5 units with meals. Nystatin powder for rash to groin Asked nursing staff to place mame wraps to bilateral lower ext to help with edema. Monitor blood pressure and pulse. Appears to chronically be in A-fibulation Chronic anticoagulation on Coumadin- Check INR now and consult pharmacy for Coumadin dosing. Encourage her just patient in unit activities and provide a safe environment. Hospital services will continue to follow patient and manage his medical comorbidities. At time of discharge his medical care is to return to his primary care provider Dr Stafford 11/15/16 18:05 Remains paranoid and pressured. Ativan 0.5mg at HS for sleep. Depakote level in AM
[2016-11-15] MEDS: ROPINIROLE 0.25 MG TABLET PO SCH (20:01)
[2016-11-15] MEDS: PRAZOSIN 1 MG CAPSULE PO SCH (20:01)
[2016-11-15] MEDS: SIMVASTATIN 20 MG TABLET PO SCH (20:01)
[2016-11-15] MEDS ORDERED: LORazepam 0.5 MG TABLET PO SCH (21:00)
[2016-11-16] MEDS: ACETAMINOPHEN 325 MG TABLET PO PRN ×2 (01:18→21:05)
[2016-11-16] MEDS: LORazepam 0.5 MG TABLET PO PRN (01:20)
--- NOTE | 2016-11-16 07:23 | Pharmacy Consult ---
Pharmacy Consult-Warfarin - Laboratory Information 11/14/16 11/15/16 11/16/16 09:23 08:12 04:56 INR 2.50 H 2.62 H 2.57 H - Consult Information We will give warfarin 2.5mg today at noon. We will consider changing order to warfarin 2.5mg po daily at noon with INR on Mondays and . Thanks
[2016-11-16] MEDS: INSULIN ASPART 100unit/ml INJECTION SQ SCH ×3 (07:50→17:28)
[2016-11-16] MEDS: FUROSEMIDE 20 MG TABLET PO SCH ×2 (08:09→11:54)
[2016-11-16] MEDS: DIVALPROEX 500 MG TABLET PO SCH ×2 (08:09→20:36)
[2016-11-16] MEDS: GABAPENTIN 300 MG CAPSULE PO SCH ×3 (08:09→17:29)
[2016-11-16] MEDS: LIRAGLUTIDE INJECTABLE PEN SQ SCH (08:09)
[2016-11-16] MEDS: LISINOPRIL 10 MG TABLET PO SCH (08:09)
[2016-11-16] MEDS: METFORMIN 500 MG TABLET PO SCH (08:46)
[2016-11-16] MEDS: LOPERAMIDE 2 MG CAPSULE PO PRN (11:55)
--- NOTE | 2016-11-16 11:59 | Progress Note ---
Subjective: Patient seen today eating lunch. He has no current concerns. The nursing staff has reported that he's had a few loose stools this morning. They're not completely watery. They report he also had several loose stools yesterday as well. In asking him about this, he does report that he has had problems with loose stools in the past. He does not have any abdominal pain at present. He reports his bowels have been "gurgly." He did have some Maalox yesterday which has magnesium in it which could loosen the bowels. He also has a standing PRN order for Imodium, which makes me think he is prone to loose stools. He also takes metformin. Objective Vital signs: Temperature 96.6 F L 11/16/16 07:30 Pulse Rate 64 11/16/16 07:30 Respiratory Rate 16 11/16/16 07:30 Blood Pressure 160/74 H 11/16/16 07:30 Pulse Oximetry 95 11/16/16 07:30 Height/Weight/BMI: Height 1.85 m Weight 160.8 kg Body Mass Index 46.7 - Constitutional Present: no acute distress, well nourished, well developed, obese - Routine HEENT Exam Head: Present: normocephalic, atraumatic - Routine Respiratory Exam Present: CTA bilaterally. Absent: wheezes - Routine Cardiovascular Exam Present: irregular rhythm. Absent: murmur - Routine Abdominal Exam Present: soft, normoactive bowel sounds, non distended. Absent: tenderness - Routine Extremities Exam Present: edema (lower extremities are wrapped in Stas wraps), normal capillary refill - Routine Skin Exam Present: dry, warm - Routine Neurological Exam Present: alert, normal speech - Routine Lymphatic Exam Lymphatic: Absent: adenopathy - Routine Psychiatric Exam Present: normal affect, cooperative Results - Labs CBC & Chem 7: 11/13/16 19:17 11/13/16 19:17 Assessment and Plan (1) Chronic a-fib Current visit: No Status: Chronic (2) Anticoagulated on Coumadin Current visit: No Status: Chronic (3) Hyperlipidemia Current visit: No Status: Chronic (4) Abnormal behavior Current visit: Yes Status: Acute (5) Bipolar disorder Current visit: Yes Status: Chronic Assessment and Plan: Impression Abnormal behaviors Diarrhea Bipolar disorder Type II diabetes Chronic atrial fibrillation Hyperlipidemia Osteoarthritis Chronic anticoagulation Obesity Plan Recommend the nurses go ahead with PRN Imodium which is already ordered. If he continues to have loose stools despite the Imodium, will go ahead with GI panel. He has no other symptoms such as fever. Vital signs, labs, psychiatric notes, and nurse's notes reviewed. Hospital Course Summary Disclaimer: The visit summary below is not to be considered part of the above Progress Note. Hospital Course: 11/14/16 Impression Abnormal behaviors Bipolar disorder Type II diabetes Chronic atrial fibrillation Hyperlipidemia Osteoarthritis Chronic anticoagulation Obesity Plan Agree with admission to the [facility] unit for further psychiatric evaluation and treatment. Monitor blood sugars and continue on current regimen Victoza, Metformin, and Novolog 5 units with meals. Nystatin powder for rash to groin Asked nursing staff to place stas wraps to bilateral lower ext to help with edema. Monitor blood pressure and pulse. Appears to chronically be in A-fibulation Chronic anticoagulation on Coumadin- Check INR now and consult pharmacy for Coumadin dosing. Encourage her just patient in unit activities and provide a safe environment. Hospital services will continue to follow patient and manage his medical comorbidities. At time of discharge his medical care is to return to his primary care provider Dr Stafford 11/15/16 18:05 Remains paranoid and pressured. Ativan 0.5mg at HS for sleep. Depakote level in AM
[2016-11-16] MEDS ORDERED: WARFARIN 2.5 MG TABLET PO SCH (12:00)
[2016-11-16] MEDS: LURASIDONE 40mg TABLET PO SCH ×2 (17:29→21:43)
--- NOTE | 2016-11-16 18:25 | Neuropsych Progress Note ---
[facility] Subjective Date: 11/16/16 - Sujective/Severity of Illness Medications: Acetaminophen (Tylenol) 325 - 650 mg PO Q5H PRN PRN Reason: Discomfort Last Admin: 11/16/16 01:18 Dose: 650 mg Al Hydroxide/Mg Hydroxide (Maalox Plus) 30 ml PO Q4H PRN PRN Reason: Indigestion Last Admin: 11/15/16 10:34 Dose: 30 ml Divalproex Sodium (Depakote) 500 mg PO BID [facility] Last Admin: 11/16/16 08:09 Dose: 500 mg Furosemide (Lasix) 20 mg PO BIDBL [facility] Last Admin: 11/16/16 11:54 Dose: 20 mg Gabapentin (Neurontin) 300 mg PO TIDWM [facility] Last Admin: 11/16/16 17:29 Dose: 300 mg Guaifenesin (Robitussin Liq) 100 mg PO Q4H PRN PRN Reason: Cough Haloperidol (Haldol) 0.5 mg PO Q6H PRN PRN Reason: Extreme agitation Haloperidol Lactate (Haldol) 0.5 mg IM Q6H PRN PRN Reason: Extreme agitation Insulin Aspart (Novolog) 5 unit SQ TIDWM [facility] Last Admin: 11/16/16 17:28 Dose: 5 unit Liraglutide (Victoza) 1.2 mg SQ DAILY [facility] Last Admin: 11/16/16 08:09 Dose: 1.2 mg Lisinopril (Prinivil) 10 mg PO DAILY [facility] Last Admin: 11/16/16 08:09 Dose: 10 mg Loperamide HCl (Imodium) 2 mg PO QID PRN; Protocol PRN Reason: Diarrhea Last Admin: 11/16/16 11:55 Dose: 2 mg Lorazepam (Ativan) 0.5 mg PO Q6H PRN PRN Reason: Extreme agitation Last Admin: 11/16/16 01:20 Dose: 0.5 mg Lorazepam (Ativan Inj) 0.5 mg IM Q6H PRN PRN Reason: Extreme agitation Lorazepam (Ativan) 0.5 mg PO HS [facility] Last Admin: 11/15/16 20:01 Dose: 0.5 mg Lurasidone HCl (Latuda) 40 mg PO WS [facility] Last Admin: 11/16/16 17:29 Dose: 40 mg Metformin HCl (Glucophage) 500 mg PO WB [facility] Last Admin: 11/16/16 08:46 Dose: 500 mg Metoprolol Succinate (Toprol Xl) 50 mg PO DAILY [facility] Last Admin: 11/16/16 08:09 Dose: 50 mg Nystatin (Mycostatin) 1 applic TP TID [facility] Last Admin: 11/16/16 16:17 Dose: 1 applic Prazosin HCl (Minipress) 2 mg PO [facility] Last Admin: 11/15/16 20:01 Dose: 2 mg Ropinirole HCl (Requip) 0.25 mg PO [facility] Last Admin: 11/15/16 20:01 Dose: 0.25 mg Senna/Docusate Sodium (Senna Plus Tablet) 1 tab PO BID PRN PRN Reason: Constipation Simvastatin (Zocor) 20 mg PO [facility] Last Admin: 11/15/16 20:01 Dose: 20 mg Sodium Chloride (Iv Flush) 10 - 80 ml IVF PRN PRN PRN Reason: Flushing Last Admin: 11/13/16 19:15 Dose: 10 ml Warfarin Sodium (Coumadin Protocol) 0 [facility] NOTE [facility] Subjective: Pt seen and chart examined. Nursing reports pt remains some what tangential and paranoid. He did not sleep well last night but it was better. On face to face the pt states he is doing well. He remains tangential and paranoid but less pressured. He reports some AH at times. He reports tolerating his medication well. Start Time: 17:15 Stop Time: 17:30 Mental Status Exam Vitals: Last Vital Signs Temp 96.8 F 11/16/16 16:00 Pulse 88 11/16/16 16:00 Resp 16 11/16/16 16:00 BP 154/85 H 11/16/16 16:00 Pulse Ox 96 11/16/16 16:00 Height: 1.85 m Weight: 160.8 kg - Mental Status Exam Muscle Strength/Tone: Normal Dressing: Casual Grooming: Fair Attitude: Guarded Motor Activity: Agitation Eye Contact: Fair Speech: Rapid Volume: Loud Rhythm: Appropriate Rhythm Orientation: Oriented X4 Mood: Euphoric Rate of Thoughts: Pressured Thought Organization: Disorganized Associations: Flight of Ideas Abstract Reasoning: Poor abstract reasoning Thought Content: Grandeur Perception/Psychotic: Psychotic Language: Naming Impaired Fund of Knowledge: Poor fund of knowledge Memory: Grossly Intact Suicidal Ideation: None Homicidal Ideation: None Insight: Poor Judgement: Poor Impulse Control: Poor - Laboratory Result Diagrams: 11/13/16 19:17 11/13/16 19:17 Laboratory Results - last 24 hr 11/15/16 11/16/16 11/16/16 20:42 04:56 04:56 INR 2.57 H Glucometer 132 Valproic Acid 49.2 L 11/16/16 11/16/16 11/16/16 06:10 10:21 14:10 INR Glucometer 160 147 198 Valproic Acid Assessment and Plan (1) Bipolar 1 disorder Problem details: MRE manic with psychosis Current visit: Yes Status: Acute Hospital Course Summary Disclaimer: The visit summary below is not to be considered part of the above Progress Note. Hospital Course: 11/14/16 Impression Abnormal behaviors Bipolar disorder Type II diabetes Chronic atrial fibrillation Hyperlipidemia Osteoarthritis Chronic anticoagulation Obesity Plan Agree with admission to the [facility] unit for further psychiatric evaluation and treatment. Monitor blood sugars and continue on current regimen Victoza, Metformin, and Novolog 5 units with meals. Nystatin powder for rash to groin Asked nursing staff to place mame wraps to bilateral lower ext to help with edema. Monitor blood pressure and pulse. Appears to chronically be in A-fibulation Chronic anticoagulation on Coumadin- Check INR now and consult pharmacy for Coumadin dosing. Encourage her just patient in unit activities and provide a safe environment. Hospital services will continue to follow patient and manage his medical comorbidities. At time of discharge his medical care is to return to his primary care provider Dr Stafford 11/15/16 18:05 Remains paranoid and pressured. Ativan 0.5mg at HS for sleep. Depakote level in AM 11/16/16 18:25 Remains paranoid and delusional. Increase Depakote to 1000mg at HS, Increase Latuda to 80mg, and increase Ativan to 1mg at HS
[2016-11-16] MEDS: LORazepam 1 MG TABLET PO SCH (20:36)
[2016-11-16] MEDS: PRAZOSIN 1 MG CAPSULE PO SCH (20:37)
[2016-11-16] MEDS: SIMVASTATIN 20 MG TABLET PO SCH (20:38)
[2016-11-16] MEDS: ROPINIROLE 0.25 MG TABLET PO SCH (20:38)
[2016-11-17] MEDS: GABAPENTIN 300 MG CAPSULE PO SCH ×3 (10:05→17:19)
[2016-11-17] MEDS: METFORMIN 500 MG TABLET PO SCH (10:05)
[2016-11-17] MEDS: FUROSEMIDE 20 MG TABLET PO SCH ×2 (10:05→12:21)
[2016-11-17] MEDS: INSULIN ASPART 100unit/ml INJECTION SQ SCH ×3 (10:06→17:19)
[2016-11-17] MEDS: DIVALPROEX 500 MG TABLET PO SCH ×2 (10:08→20:57)
[2016-11-17] MEDS: LISINOPRIL 10 MG TABLET PO SCH (10:08)
[2016-11-17] MEDS: LIRAGLUTIDE INJECTABLE PEN SQ SCH (10:10)
--- NOTE | 2016-11-17 10:51 | Pharmacy Consult ---
Pharmacy Consult-Warfarin - Laboratory Information 11/14/16 11/15/16 11/16/16 09:23 08:12 04:56 INR 2.50 H 2.62 H 2.57 H - Consult Information INR was not ordered for today but will give warfarin 2.5mg p.o. today at noon. Resume INR on Sunday11/17/16. We will adjust dose if needed at that time. We will consider making warfarin 2.5mg p.o. daily a routine order if INR stays in range. Thanks
[2016-11-17] MEDS ORDERED: WARFARIN 2.5 MG TABLET PO SCH (12:00)
[2016-11-17] MEDS: LOPERAMIDE 2 MG CAPSULE PO PRN (13:26)
--- NOTE | 2016-11-17 16:47 | Neuropsych Progress Note ---
[facility] Subjective Date: 11/17/16 - Sujective/Severity of Illness Medications: Acetaminophen (Tylenol) 325 - 650 mg PO Q5H PRN PRN Reason: Discomfort Last Admin: 11/16/16 21:05 Dose: 650 mg Al Hydroxide/Mg Hydroxide (Maalox Plus) 30 ml PO Q4H PRN PRN Reason: Indigestion Last Admin: 11/15/16 10:34 Dose: 30 ml Divalproex Sodium (Depakote) 500 mg PO DAILY [facility] Last Admin: 11/17/16 10:08 Dose: 500 mg Divalproex Sodium (Depakote) 1,000 mg PO HS [facility] Last Admin: 11/16/16 20:36 Dose: 1,000 mg Furosemide (Lasix) 20 mg PO BIDBL [facility] Last Admin: 11/17/16 12:21 Dose: 20 mg Gabapentin (Neurontin) 300 mg PO TIDWM [facility] Last Admin: 11/17/16 12:22 Dose: 300 mg Guaifenesin (Robitussin Liq) 100 mg PO Q4H PRN PRN Reason: Cough Haloperidol (Haldol) 0.5 mg PO Q6H PRN PRN Reason: Extreme agitation Last Admin: 11/17/16 00:15 Dose: 0.5 mg Haloperidol Lactate (Haldol) 0.5 mg IM Q6H PRN PRN Reason: Extreme agitation Insulin Aspart (Novolog) 5 unit SQ TIDWM [facility] Last Admin: 11/17/16 12:22 Dose: 5 unit Liraglutide (Victoza) 1.2 mg SQ DAILY [facility] Last Admin: 11/17/16 10:10 Dose: 1.2 mg Lisinopril (Prinivil) 10 mg PO DAILY [facility] Last Admin: 11/17/16 10:08 Dose: 10 mg Loperamide HCl (Imodium) 2 mg PO QID PRN; Protocol PRN Reason: Diarrhea Last Admin: 11/17/16 13:26 Dose: 2 mg Lorazepam (Ativan) 0.5 mg PO Q6H PRN PRN Reason: Extreme agitation Last Admin: 11/16/16 01:20 Dose: 0.5 mg Lorazepam (Ativan Inj) 0.5 mg IM Q6H PRN PRN Reason: Extreme agitation Lorazepam (Ativan) 1 mg PO [facility] Last Admin: 11/16/16 20:36 Dose: 1 mg Lurasidone HCl (Latuda) 80 mg PO WS [facility] Last Admin: 11/16/16 21:43 Dose: 40 mg Metformin HCl (Glucophage) 500 mg PO WB [facility] Last Admin: 11/17/16 10:05 Dose: 500 mg Metoprolol Succinate (Toprol Xl) 50 mg PO DAILY [facility] Last Admin: 11/17/16 10:08 Dose: 50 mg Nystatin (Mycostatin) 1 applic TP TID [facility] Last Admin: 11/17/16 16:05 Dose: 1 applic Prazosin HCl (Minipress) 2 mg PO HS [facility] Last Admin: 11/16/16 20:37 Dose: 2 mg Ropinirole HCl (Requip) 0.25 mg PO HS [facility] Last Admin: 11/16/16 20:38 Dose: 0.25 mg Senna/Docusate Sodium (Senna Plus Tablet) 1 tab PO BID PRN PRN Reason: Constipation Simvastatin (Zocor) 20 mg PO HS [facility] Last Admin: 11/16/16 20:38 Dose: 20 mg Sodium Chloride (Iv Flush) 10 - 80 ml IVF PRN PRN PRN Reason: Flushing Last Admin: 11/13/16 19:15 Dose: 10 ml Warfarin Sodium (Coumadin Protocol) 0 [facility] NOTE [facility] Subjective: Pt seen and chart examined. Nursing reports pt had some issues with sleep last night and was given Haldol at 12:15PM. On face to face the pt states he is doing well. He is resting in bed. He remains grandiose and delusional but his speech is less pressured. He denies any pain. Mood stable. Tolerating meds Start Time: 16:00 Stop Time: 16:15 Mental Status Exam Vitals: Last Vital Signs Temp 97.0 F 11/17/16 16:00 Pulse 74 11/17/16 16:00 Resp 18 11/17/16 16:00 BP 120/72 11/17/16 16:00 Pulse Ox 95 11/17/16 16:00 Height: 1.85 m Weight: 160.8 kg - Mental Status Exam Muscle Strength/Tone: Normal Dressing: Casual Grooming: Fair Attitude: Guarded Motor Activity: Agitation Eye Contact: Fair Speech: Rapid Volume: Loud Rhythm: Appropriate Rhythm Orientation: Oriented X4 Mood: Euphoric Rate of Thoughts: Pressured Thought Organization: Disorganized Associations: Flight of Ideas Abstract Reasoning: Poor abstract reasoning Thought Content: Grandeur Perception/Psychotic: Psychotic Language: Naming Impaired Fund of Knowledge: Poor fund of knowledge Memory: Grossly Intact Suicidal Ideation: None Homicidal Ideation: None Insight: Poor Judgement: Poor Impulse Control: Poor - Laboratory Result Diagrams: 11/13/16 19:17 11/13/16 19:17 Laboratory Results - last 24 hr 11/16/16 11/17/16 11/17/16 20:36 04:44 12:02 Glucometer 110 109 149 Stl C. diff Tox B Gene 11/17/16 11/17/16 14:01 14:42 Glucometer 143 Stl C. diff Tox B Gene Negative Assessment and Plan (1) Bipolar 1 disorder Problem details: MRE manic with psychosis Current visit: Yes Status: Acute Hospital Course Summary Disclaimer: The visit summary below is not to be considered part of the above Progress Note. Hospital Course: 11/14/16 Impression Abnormal behaviors Bipolar disorder Type II diabetes Chronic atrial fibrillation Hyperlipidemia Osteoarthritis Chronic anticoagulation Obesity Plan Agree with admission to the [facility] unit for further psychiatric evaluation and treatment. Monitor blood sugars and continue on current regimen Victoza, Metformin, and Novolog 5 units with meals. Nystatin powder for rash to groin Asked nursing staff to place mame wraps to bilateral lower ext to help with edema. Monitor blood pressure and pulse. Appears to chronically be in A-fibulation Chronic anticoagulation on Coumadin- Check INR now and consult pharmacy for Coumadin dosing. Encourage her just patient in unit activities and provide a safe environment. Hospital services will continue to follow patient and manage his medical comorbidities. At time of discharge his medical care is to return to his primary care provider Dr Stafford 11/15/16 18:05 Remains paranoid and pressured. Ativan 0.5mg at HS for sleep. Depakote level in AM 11/16/16 18:25 Remains paranoid and delusional. Increase Depakote to 1000mg at HS, Increase Latuda to 80mg, and increase Ativan to 1mg at HS 11/17/16 16:47 Remains paranoid and delusional but improved. Continue current care
[2016-11-17] MEDS: LURASIDONE 40mg TABLET PO SCH (17:19)
[2016-11-17] MEDS: ACETAMINOPHEN 325 MG TABLET PO PRN (18:19)
[2016-11-17] MEDS: LORazepam 1 MG TABLET PO SCH (20:53)
[2016-11-17] MEDS: ROPINIROLE 0.25 MG TABLET PO SCH (20:54)
[2016-11-17] MEDS: SIMVASTATIN 20 MG TABLET PO SCH (20:55)
[2016-11-17] MEDS: PRAZOSIN 1 MG CAPSULE PO SCH (21:14)
[2016-11-18] MEDS: ACETAMINOPHEN 325 MG TABLET PO PRN (02:41)
[2016-11-18] MEDS: INSULIN ASPART 100unit/ml INJECTION SQ SCH ×3 (08:49→17:18)
[2016-11-18] MEDS: FUROSEMIDE 20 MG TABLET PO SCH ×2 (08:49→12:04)
[2016-11-18] MEDS: METFORMIN 500 MG TABLET PO SCH (08:49)
[2016-11-18] MEDS: GABAPENTIN 300 MG CAPSULE PO SCH ×3 (08:49→17:18)
[2016-11-18] MEDS: LISINOPRIL 10 MG TABLET PO SCH (08:52)
[2016-11-18] MEDS: DIVALPROEX 500 MG TABLET PO SCH ×2 (08:52→20:06)
[2016-11-18] MEDS: LIRAGLUTIDE INJECTABLE PEN SQ SCH (08:53)
--- NOTE | 2016-11-18 09:34 | Pharmacy Consult ---
Pharmacy Consult-Warfarin - Laboratory Information 11/14/16 11/15/16 11/16/16 09:23 08:12 04:56 INR 2.50 H 2.62 H 2.57 H 11/18/16 07:56 INR 2.72 H - Consult Information Ordered warfarin 2.5mg po today at noon. Will continue to monitor. Thank you.
[2016-11-18] MEDS ORDERED: WARFARIN 2.5 MG TABLET PO SCH (12:00)
--- NOTE | 2016-11-18 12:20 | Neuropsych Progress Note ---
[facility] Subjective Date: 11/18/16 - Sujective/Severity of Illness Medications: Acetaminophen (Tylenol) 325 - 650 mg PO Q5H PRN PRN Reason: Discomfort Last Admin: 11/18/16 02:41 Dose: 650 mg Al Hydroxide/Mg Hydroxide (Maalox Plus) 30 ml PO Q4H PRN PRN Reason: Indigestion Last Admin: 11/15/16 10:34 Dose: 30 ml Divalproex Sodium (Depakote) 500 mg PO DAILY [facility] Last Admin: 11/18/16 08:52 Dose: 500 mg Divalproex Sodium (Depakote) 1,000 mg PO HS [facility] Last Admin: 11/17/16 20:57 Dose: 1,000 mg Furosemide (Lasix) 20 mg PO BIDBL [facility] Last Admin: 11/18/16 12:04 Dose: 20 mg Gabapentin (Neurontin) 300 mg PO TIDWM [facility] Last Admin: 11/18/16 12:04 Dose: 300 mg Guaifenesin (Robitussin Liq) 100 mg PO Q4H PRN PRN Reason: Cough Haloperidol (Haldol) 0.5 mg PO Q6H PRN PRN Reason: Extreme agitation Last Admin: 11/17/16 00:15 Dose: 0.5 mg Haloperidol Lactate (Haldol) 0.5 mg IM Q6H PRN PRN Reason: Extreme agitation Insulin Aspart (Novolog) 5 unit SQ TIDWM [facility] Last Admin: 11/18/16 08:49 Dose: 5 unit Liraglutide (Victoza) 1.2 mg SQ DAILY [facility] Last Admin: 11/18/16 08:53 Dose: 1.2 mg Lisinopril (Prinivil) 10 mg PO DAILY [facility] Last Admin: 11/18/16 08:52 Dose: 10 mg Loperamide HCl (Imodium) 2 mg PO QID PRN; Protocol PRN Reason: Diarrhea Last Admin: 11/17/16 13:26 Dose: 2 mg Lorazepam (Ativan) 0.5 mg PO Q6H PRN PRN Reason: Extreme agitation Last Admin: 11/16/16 01:20 Dose: 0.5 mg Lorazepam (Ativan Inj) 0.5 mg IM Q6H PRN PRN Reason: Extreme agitation Lorazepam (Ativan) 1 mg PO [facility] Last Admin: 11/17/16 20:53 Dose: 1 mg Lurasidone HCl (Latuda) 80 mg PO WS [facility] Last Admin: 11/17/16 17:19 Dose: 80 mg Metformin HCl (Glucophage) 500 mg PO WB [facility] Last Admin: 11/18/16 08:49 Dose: 500 mg Metoprolol Succinate (Toprol Xl) 50 mg PO DAILY [facility] Last Admin: 11/18/16 08:52 Dose: 50 mg Nystatin (Mycostatin) 1 applic TP TID [facility] Last Admin: 11/17/16 21:03 Dose: 1 applic Prazosin HCl (Minipress) 2 mg PO HS [facility] Last Admin: 11/17/16 21:14 Dose: 2 mg Ropinirole HCl (Requip) 0.25 mg PO HS [facility] Last Admin: 11/17/16 20:54 Dose: 0.25 mg Senna/Docusate Sodium (Senna Plus Tablet) 1 tab PO BID PRN PRN Reason: Constipation Simvastatin (Zocor) 20 mg PO HS [facility] Last Admin: 11/17/16 20:55 Dose: 20 mg Sodium Chloride (Iv Flush) 10 - 80 ml IVF PRN PRN PRN Reason: Flushing Last Admin: 11/13/16 19:15 Dose: 10 ml Warfarin Sodium (Coumadin Protocol) 0 [facility] NOTE [facility] Warfarin Sodium (Coumadin) 2.5 mg PO NOON [facility] Stop: 11/18/16 12:30 Last Admin: 11/18/16 12:05 Dose: 2.5 mg Subjective: Pt seen and chart examined. Nursing reports pt continues to have some issues with sleep but is more organized and less tangential and pressured. On face to face the pt is more organized. He remains a little delusional but again this is improved. Tolerating meds. Voices no concerns at this time Start Time: 11:00 Stop Time: 11:15 Mental Status Exam Vitals: Last Vital Signs Temp 96.9 F 11/18/16 08:00 Pulse 85 11/18/16 08:00 Resp 16 11/18/16 08:00 BP 130/79 11/18/16 08:00 Pulse Ox 94 11/18/16 08:00 Height: 1.85 m Weight: 160.8 kg - Mental Status Exam Muscle Strength/Tone: Normal Dressing: Casual Grooming: Fair Attitude: Guarded Motor Activity: Agitation Eye Contact: Fair Speech: Rapid Volume: Loud Rhythm: Appropriate Rhythm Orientation: Oriented X4 Mood: Euphoric Rate of Thoughts: Pressured Thought Organization: Disorganized Associations: Flight of Ideas Abstract Reasoning: Poor abstract reasoning Thought Content: Grandeur Perception/Psychotic: Psychotic Language: Naming Impaired Fund of Knowledge: Poor fund of knowledge Memory: Grossly Intact Suicidal Ideation: None Homicidal Ideation: None Insight: Poor Judgement: Poor Impulse Control: Poor - Laboratory Result Diagrams: 11/13/16 19:17 11/13/16 19:17 Laboratory Results - last 24 hr 11/17/16 11/17/16 11/17/16 12:02 14:01 14:42 INR Glucometer 149 143 Stl C. diff Tox B Gene Negative 11/17/16 11/18/16 11/18/16 21:35 05:19 07:56 INR 2.72 H Glucometer 106 140 Stl C. diff Tox B Gene 11/18/16 11:01 INR Glucometer 154 Stl C. diff Tox B Gene Assessment and Plan (1) Bipolar 1 disorder Problem details: MRE manic with psychosis Current visit: Yes Status: Acute Hospital Course Summary Disclaimer: The visit summary below is not to be considered part of the above Progress Note. Hospital Course: 11/14/16 Impression Abnormal behaviors Bipolar disorder Type II diabetes Chronic atrial fibrillation Hyperlipidemia Osteoarthritis Chronic anticoagulation Obesity Plan Agree with admission to the [facility] unit for further psychiatric evaluation and treatment. Monitor blood sugars and continue on current regimen Victoza, Metformin, and Novolog 5 units with meals. Nystatin powder for rash to groin Asked nursing staff to place mame wraps to bilateral lower ext to help with edema. Monitor blood pressure and pulse. Appears to chronically be in A-fibulation Chronic anticoagulation on Coumadin- Check INR now and consult pharmacy for Coumadin dosing. Encourage her just patient in unit activities and provide a safe environment. Hospital services will continue to follow patient and manage his medical comorbidities. At time of discharge his medical care is to return to his primary care provider Dr Stafford 11/15/16 18:05 Remains paranoid and pressured. Ativan 0.5mg at HS for sleep. Depakote level in AM 11/16/16 18:25 Remains paranoid and delusional. Increase Depakote to 1000mg at HS, Increase Latuda to 80mg, and increase Ativan to 1mg at HS 11/17/16 16:47 Remains paranoid and delusional but improved. Continue current care 11/18/16 12:20 Some paranoia and delusions but improving. Continue current care
[2016-11-18] MEDS: LURASIDONE 40mg TABLET PO SCH (17:18)
[2016-11-18] MEDS: LORazepam 1 MG TABLET PO SCH (20:06)
[2016-11-18] MEDS: PRAZOSIN 1 MG CAPSULE PO SCH (20:07)
[2016-11-18] MEDS: SIMVASTATIN 20 MG TABLET PO SCH (20:09)
[2016-11-18] MEDS: ROPINIROLE 0.25 MG TABLET PO SCH (20:09)
[2016-11-19] MEDS: INSULIN ASPART 100unit/ml INJECTION SQ SCH ×3 (09:39→17:11)
[2016-11-19] MEDS: LIRAGLUTIDE INJECTABLE PEN SQ SCH (09:40)
[2016-11-19] MEDS: DIVALPROEX 500 MG TABLET PO SCH ×2 (09:41→20:35)
[2016-11-19] MEDS: LISINOPRIL 10 MG TABLET PO SCH (09:41)
[2016-11-19] MEDS: GABAPENTIN 300 MG CAPSULE PO SCH ×3 (09:41→17:09)
[2016-11-19] MEDS: FUROSEMIDE 20 MG TABLET PO SCH ×2 (09:41→12:10)
[2016-11-19] MEDS: METFORMIN 500 MG TABLET PO SCH (09:41)
--- NOTE | 2016-11-19 09:58 | Pharmacy Consult ---
Pharmacy Consult-Warfarin - Laboratory Information 11/14/16 11/15/16 11/16/16 09:23 08:12 04:56 INR 2.50 H 2.62 H 2.57 H 11/18/16 11/19/16 07:56 07:27 INR 2.72 H 2.97 H - Consult Information Warfarin 2mg is ordered for noon today. Thank you.
--- NOTE | 2016-11-19 11:37 | Neuropsych Progress Note ---
[facility] Subjective Date: 11/19/16 - Sujective/Severity of Illness Medications: Acetaminophen (Tylenol) 325 - 650 mg PO Q5H PRN PRN Reason: Discomfort Last Admin: 11/18/16 02:41 Dose: 650 mg Al Hydroxide/Mg Hydroxide (Maalox Plus) 30 ml PO Q4H PRN PRN Reason: Indigestion Last Admin: 11/15/16 10:34 Dose: 30 ml Divalproex Sodium (Depakote) 500 mg PO DAILY [facility] Last Admin: 11/19/16 09:41 Dose: 500 mg Divalproex Sodium (Depakote) 1,000 mg PO HS [facility] Last Admin: 11/18/16 20:06 Dose: 1,000 mg Furosemide (Lasix) 20 mg PO BIDBL [facility] Last Admin: 11/19/16 09:41 Dose: 20 mg Gabapentin (Neurontin) 300 mg PO TIDWM [facility] Last Admin: 11/19/16 09:41 Dose: 300 mg Guaifenesin (Robitussin Liq) 100 mg PO Q4H PRN PRN Reason: Cough Haloperidol (Haldol) 0.5 mg PO Q6H PRN PRN Reason: Extreme agitation Last Admin: 11/17/16 00:15 Dose: 0.5 mg Haloperidol Lactate (Haldol) 0.5 mg IM Q6H PRN PRN Reason: Extreme agitation Insulin Aspart (Novolog) 5 unit SQ TIDWM [facility] Last Admin: 11/19/16 09:39 Dose: 5 unit Liraglutide (Victoza) 1.2 mg SQ DAILY [facility] Last Admin: 11/19/16 09:40 Dose: 1.2 mg Lisinopril (Prinivil) 10 mg PO DAILY [facility] Last Admin: 11/19/16 09:41 Dose: 10 mg Loperamide HCl (Imodium) 2 mg PO QID PRN; Protocol PRN Reason: Diarrhea Last Admin: 11/17/16 13:26 Dose: 2 mg Lorazepam (Ativan) 0.5 mg PO Q6H PRN PRN Reason: Extreme agitation Last Admin: 11/16/16 01:20 Dose: 0.5 mg Lorazepam (Ativan Inj) 0.5 mg IM Q6H PRN PRN Reason: Extreme agitation Lorazepam (Ativan) 1 mg PO [facility] Last Admin: 11/18/16 20:06 Dose: 1 mg Lurasidone HCl (Latuda) 80 mg PO WS [facility] Last Admin: 11/18/16 17:18 Dose: 80 mg Metformin HCl (Glucophage) 500 mg PO WB [facility] Last Admin: 11/19/16 09:41 Dose: 500 mg Metoprolol Succinate (Toprol Xl) 50 mg PO DAILY [facility] Last Admin: 11/19/16 09:41 Dose: 50 mg Nystatin (Mycostatin) 1 applic TP TID [facility] Last Admin: 11/19/16 09:41 Dose: 1 applic Prazosin HCl (Minipress) 2 mg PO HS [facility] Last Admin: 11/18/16 20:07 Dose: 2 mg Ropinirole HCl (Requip) 0.25 mg PO HS [facility] Last Admin: 11/18/16 20:09 Dose: 0.25 mg Senna/Docusate Sodium (Senna Plus Tablet) 1 tab PO BID PRN PRN Reason: Constipation Simvastatin (Zocor) 20 mg PO HS [facility] Last Admin: 11/18/16 20:09 Dose: 20 mg Sodium Chloride (Iv Flush) 10 - 80 ml IVF PRN PRN PRN Reason: Flushing Last Admin: 11/13/16 19:15 Dose: 10 ml Warfarin Sodium (Coumadin Protocol) 0 [facility] NOTE [facility] Warfarin Sodium (Coumadin) 2 mg PO NOON [facility] Stop: 11/19/16 12:30 Subjective: Pt seen and chart examined. Nursing reports pt can be irritable and impulsive at night and was focused on the number five last night. Slept 4 hours. Eating well. On face to face the pt states he is doing well. He is resting quietly in bed. He is more organized and less pressured. He remains some what delusional. He denies any S/I. Tolerating meds Start Time: 10:15 Stop Time: 10:30 Mental Status Exam Vitals: Last Vital Signs Temp 97.6 F 11/18/16 19:10 Pulse 73 11/18/16 19:10 Resp 20 11/18/16 19:10 BP 137/69 11/18/16 19:10 Pulse Ox 94 11/18/16 19:10 Height: 1.85 m Weight: 160.8 kg - Mental Status Exam Muscle Strength/Tone: Normal Dressing: Casual Grooming: Fair Attitude: Cooperative Motor Activity: Normal Eye Contact: Fair Speech: Normal Volume: Normal Rhythm: Appropriate Rhythm Orientation: Oriented X4 Mood: Euthymic Rate of Thoughts: Appropriate Rate Thought Organization: Disorganized Associations: Intact Abstract Reasoning: Poor abstract reasoning Thought Content: Grandeur Perception/Psychotic: Psychotic Language: Naming Impaired Fund of Knowledge: Poor fund of knowledge Memory: Grossly Intact Suicidal Ideation: None Homicidal Ideation: None Insight: Poor Judgement: Poor Impulse Control: Poor - Laboratory Result Diagrams: 11/13/16 19:17 11/13/16 19:17 Laboratory Results - last 24 hr 11/18/16 11/18/16 11/19/16 14:02 19:38 05:48 INR Glucometer 125 148 123 11/19/16 11/19/16 07:27 10:08 INR 2.97 H Glucometer 182 Assessment and Plan (1) Bipolar 1 disorder Problem details: MRE manic with psychosis Current visit: Yes Status: Acute Hospital Course Summary Disclaimer: The visit summary below is not to be considered part of the above Progress Note. Hospital Course: 11/14/16 Impression Abnormal behaviors Bipolar disorder Type II diabetes Chronic atrial fibrillation Hyperlipidemia Osteoarthritis Chronic anticoagulation Obesity Plan Agree with admission to the [facility] unit for further psychiatric evaluation and treatment. Monitor blood sugars and continue on current regimen Victoza, Metformin, and Novolog 5 units with meals. Nystatin powder for rash to groin Asked nursing staff to place mame wraps to bilateral lower ext to help with edema. Monitor blood pressure and pulse. Appears to chronically be in A-fibulation Chronic anticoagulation on Coumadin- Check INR now and consult pharmacy for Coumadin dosing. Encourage her just patient in unit activities and provide a safe environment. Hospital services will continue to follow patient and manage his medical comorbidities. At time of discharge his medical care is to return to his primary care provider Dr Stafford 11/15/16 18:05 Remains paranoid and pressured. Ativan 0.5mg at HS for sleep. Depakote level in AM 11/16/16 18:25 Remains paranoid and delusional. Increase Depakote to 1000mg at HS, Increase Latuda to 80mg, and increase Ativan to 1mg at HS 11/17/16 16:47 Remains paranoid and delusional but improved. Continue current care 11/18/16 12:20 Some paranoia and delusions but improving. Continue current care 10/01/17 11:37 Poor sleep. [place] improving. Continue current care
[2016-11-19] MEDS ORDERED: WARFARIN 2 MG TABLET PO SCH (12:00)
--- NOTE | 2016-11-19 12:39 | Progress Note ---
<Dayanna Gaspar - Last Filed: 11/19/16 12:36> Subjective: Malik is seen today in follow up. Nursing is helping him dress and get into wheelchair for lunch. He allowed me to examine him- reports a cough "coughing up green stuff". Denies SOA. Denies fever. Denies any other pain. RN reports fecal incontinence. When completing the exam, patient requested that this marketing underwriter "stand by while I rise." Objective Vital signs: Temperature 97.6 F 11/18/16 19:10 Pulse Rate 73 11/18/16 19:10 Respiratory Rate 20 11/18/16 19:10 Blood Pressure 137/69 11/18/16 19:10 Pulse Oximetry 94 11/18/16 19:10 Height/Weight/BMI: Height 1.85 m Weight 160.8 kg Body Mass Index 46.7 - Constitutional Present: no acute distress, morbidly obese, cooperative - Routine HEENT Exam Head: Present: normocephalic, atraumatic Eye: Present: EOMI, PERRL ENT: Present: mucous membranes moist - Routine Respiratory Exam Present: decreased breath sounds, CTA bilaterally. Absent: rhonchi, wheezes, crackles - Routine Cardiovascular Exam Present: S1, S2, irregular rhythm, irregularly irregular - Routine Abdominal Exam Present: soft, normoactive bowel sounds, non distended, non tender - Routine Rectal Exam Comments: Chronic fecal incontinence - Routine Musculoskeletal Exam Musculoskeletal: Present: limited range of motion, other (Uses wheelchair- can stand to transfer to wheelchair. ). Absent: normal strength, normal gait, moving extremities well - Routine Skin Exam Present: intact, dry, warm - Routine Neurological Exam Present: alert, moving all extremities - Routine Psychiatric Exam Present: cooperative. Absent: good insight, good judgment Comments: Wearing headphones when I enter room. Removes them to talk with me. Results - Labs CBC & Chem 7: 11/13/16 19:17 11/13/16 19:17 Assessment and Plan (1) Chronic a-fib Current visit: No Status: Chronic (2) Anticoagulated on Coumadin Current visit: No Status: Chronic (3) Hyperlipidemia Current visit: No Status: Chronic (4) Abnormal behavior Current visit: Yes Status: Acute (5) Bipolar disorder Current visit: Yes Status: Chronic DVT Prophylaxis: Coumadin Resuscitation Status: Full Code Assessment and Plan: Impression Abnormal behaviors Diarrhea/Fecal incontinence Bipolar disorder Type II diabetes Chronic atrial fibrillation Hyperlipidemia Osteoarthritis Chronic anticoagulation Obesity Plan *Loose stool/Incontinence RN reports loose stool is better, but incontinence ongoing. Will add metamucil and probiotics to bulk up stools. *Cough Pt reports productive cough- No fever or chills. No SOA, but recent pneumonia a concern. Will add Mucinex and check CXR for now. Repeat labs in AM. Check BNP. Continue medications for HF. *Atrial fib/Chronic warfarin Continue rate control/Pharmacy managing warfarin. Could consider change to NOAC for ongoing anticoagulation. *DM Well controlled. If loose stools continue, may need to DC the metformin. Continue medications and monitor. Hospital Course Summary Disclaimer: The visit summary below is not to be considered part of the above Progress Note. Hospital Course: 11/14/16 Impression Abnormal behaviors Bipolar disorder Type II diabetes Chronic atrial fibrillation Hyperlipidemia Osteoarthritis Chronic anticoagulation Obesity Plan Agree with admission to the [facility] unit for further psychiatric evaluation and treatment. Monitor blood sugars and continue on current regimen Victoza, Metformin, and Novolog 5 units with meals. Nystatin powder for rash to groin Asked nursing staff to place mame wraps to bilateral lower ext to help with edema. Monitor blood pressure and pulse. Appears to chronically be in A-fibulation Chronic anticoagulation on Coumadin- Check INR now and consult pharmacy for Coumadin dosing. Encourage her just patient in unit activities and provide a safe environment. Hospital services will continue to follow patient and manage his medical comorbidities. At time of discharge his medical care is to return to his primary care provider Dr Stafford 11/15/16 18:05 Remains paranoid and pressured. Ativan 0.5mg at HS for sleep. Depakote level in AM 11/16/16 18:25 Remains paranoid and delusional. Increase Depakote to 1000mg at HS, Increase Latuda to 80mg, and increase Ativan to 1mg at HS 11/17/16 16:47 Remains paranoid and delusional but improved. Continue current care 11/18/16 12:20 Some paranoia and delusions but improving. Continue current care 11/19/16 11:37 Poor sleep. Florence improving. Continue current care 11/19/16 12:49 *Loose stool/Incontinence RN reports loose stool is better, but incontinence ongoing. Will add metamucil and probiotics to bulk up stools. *Cough Pt reports productive cough- No fever or chills. No SOA, but recent pneumonia a concern. Will add Mucinex and check CXR for now. Repeat labs in AM. Check BNP. Continue medications for HF. *Atrial fib/Chronic warfarin Continue rate control/Pharmacy managing warfarin. Could consider change to NOAC for ongoing anticoagulation. *DM Well controlled. If loose stools continue, may need to DC the metformin. Continue medications and monitor. <Daysi Welch - Last Filed: 11/19/16 15:50> Objective Vital signs: Temperature 97.6 F 11/18/16 19:10 Pulse Rate 73 11/18/16 19:10 Respiratory Rate 20 11/18/16 19:10 Blood Pressure 137/69 11/18/16 19:10 Pulse Oximetry 94 11/18/16 19:10 Height/Weight/BMI: Height 1.85 m Weight 160.8 kg Body Mass Index 46.7 Results - Labs CBC & Chem 7: 11/13/16 19:17 11/13/16 19:17 Assessment and Plan (1) Chronic a-fib Current visit: No Status: Chronic (2) Anticoagulated on Coumadin Current visit: No Status: Chronic (3) Hyperlipidemia Current visit: No Status: Chronic (4) Abnormal behavior Current visit: Yes Status: Acute (5) Bipolar disorder Current visit: Yes Status: Chronic Assessment and Plan: I have independently evaluated and examined this patient. I reviewed the chart, the patient's history, and the SPEECH AND LANGUAGE CLINICIAN/PA's documented findings as above. We discussed and formulated the assessment and plan as above with additions as below: Oscar was resting in bed when evaluated. He reports he has a cough with phlegm occasionally slightly yellow colored but no fever. 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 [place] accent present Nontender to palpation over sinuses, oropharynx grossly clear although only visualized anterior aspect Respirations nonlabored, fair airflow, breath sounds clear Irregular rhythm. Afebrile, oxygenating well. Symptomatic management of URI symptoms. Patient describes long history of sinus symptoms year-round. Has history CHF-if cough worsens will repeat chest x-ray. Blood sugars well controlled. INR 2.97. Patient typically lives at [facility]-medications are administered by staff at the facility. Please add "cough" to list of diagnoses above. Hospital Course Summary Disclaimer: The visit summary below is not to be considered part of the above Progress Note.
[2016-11-19] MEDS: LOPERAMIDE 2 MG CAPSULE PO PRN (15:16)
[2016-11-19] MEDS: GUAIFENESIN 400MG TABLET PO SCH ×2 (15:16→20:36)
[2016-11-19] MEDS: LACTOBACILLUS (15B cfu) CAPSULE PO SCH (17:09)
[2016-11-19] MEDS: LURASIDONE 40mg TABLET PO SCH (17:09)
[2016-11-19] MEDS: SIMVASTATIN 20 MG TABLET PO SCH (20:34)
[2016-11-19] MEDS: LORazepam 1 MG TABLET PO SCH (20:34)
[2016-11-19] MEDS: ROPINIROLE 0.25 MG TABLET PO SCH (20:37)
[2016-11-19] MEDS: PRAZOSIN 1 MG CAPSULE PO SCH (20:45)
[2016-11-19] MEDS: ACETAMINOPHEN 325 MG TABLET PO PRN (23:43)
--- NOTE | 2016-11-20 07:36 | XRay Report ---
Indication: Cough, hx pneumonia PROCEDURE: XR chest 1V: Encounter: Initial Comparison: September 28, 2016 Findings: The lungs are stable in appearance without new focal airspace consolidation. There is no pleural effusion or pneumothorax. The heart size, pulmonary vascularity and mediastinal contours are unchanged. IMPRESSION: No pneumonia .
[2016-11-20] MEDS: LACTOBACILLUS (15B cfu) CAPSULE PO SCH ×2 (08:10→17:11)
[2016-11-20] MEDS: FUROSEMIDE 20 MG TABLET PO SCH ×2 (08:10→12:07)
[2016-11-20] MEDS: METFORMIN 500 MG TABLET PO SCH (08:10)
[2016-11-20] MEDS: GUAIFENESIN 400MG TABLET PO SCH ×3 (08:11→20:16)
[2016-11-20] MEDS: LISINOPRIL 10 MG TABLET PO SCH (08:11)
[2016-11-20] MEDS: GABAPENTIN 300 MG CAPSULE PO SCH ×3 (08:11→17:11)
[2016-11-20] MEDS: PSYLLIUM PACKET PO SCH (08:11)
[2016-11-20] MEDS: INSULIN ASPART 100unit/ml INJECTION SQ SCH ×3 (08:12→17:13)
[2016-11-20] MEDS: DIVALPROEX 500 MG TABLET PO SCH ×2 (08:13→20:15)
[2016-11-20] MEDS: LIRAGLUTIDE INJECTABLE PEN SQ SCH (08:14)
--- NOTE | 2016-11-20 08:34 | Pharmacy Consult ---
Pharmacy Consult-Warfarin - Laboratory Information 11/14/16 11/15/16 11/16/16 09:23 08:12 04:56 INR 2.50 H 2.62 H 2.57 H 11/18/16 11/19/16 11/20/16 07:56 07:27 06:39 INR 2.72 H 2.97 H 3.04 H SB, a 69 yo male was admitted to [facility], having exhibiting delusional behavior suicidal or homicidal ideas. Pt has hx of chronic A Fib. Home doseof warfarin reported as 2.5mg. Takes with supper. Noted drug - drug interactions with Ropinirole 0.25mg and Simvistatin 20mg hs. But these are home doses as well so should be at steady state with them. Date INR Dose 11/14 2.50 2.5 mg 11/15 2.62 2.5 mg 11/16 2.57 2.5 mg 11/17 -- 2.5 mg 11/18 2.72 2.5mg 11/19 2.97 2 mg 11/20 3.04 Will give 1mg today. Goal INR = 2-3 thank you
[2016-11-20] MEDS ORDERED: INFLUENZA VAC High Dose 2017-18 (Fluzone HD*) (>=65yo) 0.5ml IM ONE (08:52)
[2016-11-20] MEDS ORDERED: INFLUENZA VAC. INJ. ADMIN CHARGE INJ ONE (10:00)
[2016-11-20] MEDS ORDERED: WARFARIN 1 MG TABLET PO SCH (12:00)
[2016-11-20] MEDS: LURASIDONE 40mg TABLET PO SCH (17:11)
[2016-11-20] MEDS: SIMVASTATIN 20 MG TABLET PO SCH ×2 (20:14→20:16)
[2016-11-20] MEDS: ROPINIROLE 0.25 MG TABLET PO SCH (20:14)
[2016-11-20] MEDS: LORazepam 1 MG TABLET PO SCH (20:16)
[2016-11-20] MEDS: PRAZOSIN 1 MG CAPSULE PO SCH (20:17)
[2016-11-20] MEDS ORDERED: HydrOXYzine 50 MG TABLET PO SCH (21:00)
--- NOTE | 2016-11-20 22:39 | Neuropsych Progress Note ---
[facility] Subjective Date: 11/20/16 - Sujective/Severity of Illness Medications: Acetaminophen (Tylenol) 325 - 650 mg PO Q5H PRN PRN Reason: Discomfort Last Admin: 11/19/16 23:43 Dose: 650 mg Al Hydroxide/Mg Hydroxide (Maalox Plus) 30 ml PO Q4H PRN PRN Reason: Indigestion Last Admin: 11/15/16 10:34 Dose: 30 ml Divalproex Sodium (Depakote) 500 mg PO DAILY [facility] Last Admin: 11/20/16 08:13 Dose: 500 mg Divalproex Sodium (Depakote) 1,000 mg PO HS [facility] Last Admin: 11/20/16 20:15 Dose: 1,000 mg Furosemide (Lasix) 20 mg PO BIDBL [facility] Last Admin: 11/20/16 12:07 Dose: 20 mg Gabapentin (Neurontin) 300 mg PO TIDWM [facility] Last Admin: 11/20/16 17:11 Dose: 300 mg Guaifenesin (Robitussin Liq) 100 mg PO Q4H PRN PRN Reason: Cough Guaifenesin (Mucinex) 400 mg PO TID [facility] Stop: 11/24/16 14:59 Last Admin: 11/20/16 20:16 Dose: 400 mg Haloperidol (Haldol) 0.5 mg PO Q6H PRN PRN Reason: Extreme agitation Last Admin: 11/17/16 00:15 Dose: 0.5 mg Haloperidol Lactate (Haldol) 0.5 mg IM Q6H PRN PRN Reason: Extreme agitation Hydroxyzine HCl (Atarax) 50 mg PO [facility] Insulin Aspart (Novolog) 5 unit SQ TIDWM [facility] Last Admin: 11/20/16 17:13 Dose: 5 unit Lactobacillus Acidophilus (Culturelle) 2 cap PO BIDWM [facility] Last Admin: 11/20/16 17:11 Dose: 2 cap Liraglutide (Victoza) 1.2 mg SQ DAILY [facility] Last Admin: 11/20/16 08:14 Dose: 1.2 mg Lisinopril (Prinivil) 10 mg PO DAILY [facility] Last Admin: 11/20/16 08:11 Dose: 10 mg Loperamide HCl (Imodium) 2 mg PO QID PRN; Protocol PRN Reason: Diarrhea Last Admin: 10/01/17 15:16 Dose: 2 mg Lorazepam (Ativan) 0.5 mg PO Q6H PRN PRN Reason: Extreme agitation Last Admin: 11/16/16 01:20 Dose: 0.5 mg Lorazepam (Ativan Inj) 0.5 mg IM Q6H PRN PRN Reason: Extreme agitation Lorazepam (Ativan) 1 mg PO HS [facility] Last Admin: 11/20/16 20:16 Dose: 1 mg Lurasidone HCl (Latuda) 80 mg PO WS [facility] Last Admin: 11/20/16 17:11 Dose: 80 mg Metformin HCl (Glucophage) 500 mg PO WB [facility] Last Admin: 11/20/16 08:10 Dose: 500 mg Metoprolol Succinate (Toprol Xl) 50 mg PO DAILY [facility] Last Admin: 11/20/16 08:12 Dose: 50 mg Nystatin (Mycostatin) 1 applic TP TID [facility] Last Admin: 11/20/16 20:17 Dose: 1 applic Prazosin HCl (Minipress) 2 mg PO [facility] Last Admin: 11/20/16 20:17 Dose: 2 mg Psyllium Hydrophilic Mucilloid (Metamucil) 1 packet PO DAILY [facility] Last Admin: 11/20/16 08:11 Dose: 1 packet Ropinirole HCl (Requip) 0.25 mg PO [facility] Last Admin: 11/20/16 20:14 Dose: 0.25 mg Senna/Docusate Sodium (Senna Plus Tablet) 1 tab PO BID PRN PRN Reason: Constipation Simvastatin (Zocor) 20 mg PO [facility] Last Admin: 11/20/16 20:16 Dose: 20 mg Sodium Chloride (Iv Flush) 10 - 80 ml IVF PRN PRN PRN Reason: Flushing Last Admin: 11/13/16 19:15 Dose: 10 ml Warfarin Sodium (Coumadin Protocol) 0 [facility] NOTE MYRIAM Subjective: Patient seen and chart reviewed. Case discussed with treatment team. On interview, patient speaks with a [place] accent as if he were in a play but is being somewhat silly and will not even tell me his real name ("Herman Enriquez"). It is not clear whether he truly does not have insight as to why he is in the hospital, or if he is trying to remain in character. Patient reports that his mood is "great" but complains of a "phlegmatic cough." He states he is sleeping poorly because "he enjoys listening to classical music as well as pop tunes from the 1930s and 1940s" - somewhat illogical in his explanation. He also complains of "sore right buttocks and a scarred scrotum," which he reports nursing staff has been addressing. Patient denies any SI or AVH. However, when asked about HI, he states that he has not had thoughts of hurting Americans or [place], but has thought of harming people from other countries/nationalities. Patient denies any adverse side effects related to psychotropic medications. Nursing staff report patient has been speaking in his [place] accent throughout the day. Patient slept only 4 hours overnight. VSS. Patient is eating well. Psychotropic PRNs required in the past 24 hours: none. Start Time: 16:20 Stop Time: 16:40 Mental Status Exam Vitals: Last Vital Signs Temp 97.1 F 11/20/16 20:33 Pulse 80 11/20/16 20:33 Resp 16 11/20/16 20:33 BP 119/58 11/20/16 20:33 Pulse Ox 95 11/20/16 20:33 Height: 1.85 m Weight: 160.8 kg - Mental Status Exam Muscle Strength/Tone: Normal Dressing: Casual Grooming: Poor Attitude: Uncooperative Motor Activity: Other (Normal during interview, observed clapping on the unit for no obvious reason) Eye Contact: Fair Speech: Normal, Other (Speaks with a [place] accent (not baseline)) Volume: Loud Rhythm: Appropriate Rhythm Orientation: Oriented X4 Mood: Other ("Excellent" mood, expansive affect) Rate of Thoughts: Appropriate Rate Thought Organization: Disorganized Associations: Illogical (at times) Abstract Reasoning: Poor abstract reasoning Thought Content: Grandeur Perception/Psychotic: Psychotic Language: Naming Impaired Fund of Knowledge: Poor fund of knowledge Memory: Grossly Intact Suicidal Ideation: Denies Homicidal Ideation: Other (Reports thoughts of hurting others who are not Citizen Of [place] or [place]) Insight: Poor Judgement: Poor Impulse Control: Poor - Laboratory Result Diagrams: 11/20/16 06:39 11/20/16 06:39 Laboratory Results - last 24 hr 11/20/16 11/20/16 11/20/16 04:57 06:39 06:39 WBC 5.5 RBC 4.75 Hgb 13.8 Hct 42.8 MCV 90.1 MCH 29.1 MCHC 32.2 RDW Std Deviation 45.1 Plt Count 200 MPV 10.3 Immature Gran % (Auto) 0.5 Neut % (Auto) 52.1 Lymph % (Auto) 34.1 Glynn % (Auto) 9.1 H Eos % (Auto) 3.8 Baso % (Auto) 0.4 Neut # (Auto) 2.9 Lymph # (Auto) 1.9 Glynn # (Auto) 0.5 Eos # (Auto) 0.2 Baso # (Auto) 0.0 Abs Immat Gran (auto) 0.03 INR 3.04 H Turbidity Sodium Potassium Chloride Carbon Dioxide Anion Gap BUN Creatinine GFR Calculation BUN/Creatinine Ratio Glucose Glucometer 131 Calculated Osmolality Calcium Icterus Index B-Natriuretic Peptide Specimen Hemolysis 11/20/16 11/20/16 11/20/16 06:39 14:34 20:39 WBC RBC Hgb Hct MCV MCH MCHC RDW Std Deviation Plt Count MPV Immature Gran % (Auto) Neut % (Auto) Lymph % (Auto) Glynn % (Auto) Eos % (Auto) Baso % (Auto) Neut # (Auto) Lymph # (Auto) Glynn # (Auto) Eos # (Auto) Baso # (Auto) Abs Immat Gran (auto) INR Turbidity < 20 Sodium 140 Potassium 3.7 Chloride 100 Carbon Dioxide 28 Anion Gap 12 BUN 9.0 Creatinine 0.7 L GFR Calculation 111 BUN/Creatinine Ratio 13 Glucose 156 H Glucometer 146 190 Calculated Osmolality 271 Calcium 10.4 H Icterus Index < 2 B-Natriuretic Peptide 353 H Specimen Hemolysis < 15 Assessment and Plan (1) Bipolar 1 disorder Problem details: MRE manic with psychosis Current visit: Yes Status: Acute Hospital Course Summary Disclaimer: The visit summary below is not to be considered part of the above Progress Note. Hospital Course: 11/14/16 Impression Abnormal behaviors Bipolar disorder Type II diabetes Chronic atrial fibrillation Hyperlipidemia Osteoarthritis Chronic anticoagulation Obesity Plan Agree with admission to the [facility] unit for further psychiatric evaluation and treatment. Monitor blood sugars and continue on current regimen Victoza, Metformin, and Novolog 5 units with meals. Nystatin powder for rash to groin Asked nursing staff to place mame wraps to bilateral lower ext to help with edema. Monitor blood pressure and pulse. Appears to chronically be in A-fibulation Chronic anticoagulation on Coumadin- Check INR now and consult pharmacy for Coumadin dosing. Encourage her just patient in unit activities and provide a safe environment. Hospital services will continue to follow patient and manage his medical comorbidities. At time of discharge his medical care is to return to his primary care provider Dr Stafford 11/15/16 18:05 Remains paranoid and pressured. Ativan 0.5mg at HS for sleep. Depakote level in AM 11/16/16 18:25 Remains paranoid and delusional. Increase Depakote to 1000mg at HS, Increase Latuda to 80mg, and increase Ativan to 1mg at HS 11/17/16 16:47 Remains paranoid and delusional but improved. Continue current care 11/18/16 12:20 Some paranoia and delusions but improving. Continue current care 11/19/16 11:37 Poor sleep. Florence improving. Continue current care 11/19/16 12:49 *Loose stool/Incontinence RN reports loose stool is better, but incontinence ongoing. Will add metamucil and probiotics to bulk up stools. *Cough Pt reports productive cough- No fever or chills. No SOA, but recent pneumonia a concern. Will add Mucinex and check CXR for now. Repeat labs in AM. Check BNP. Continue medications for HF. *Atrial fib/Chronic warfarin Continue rate control/Pharmacy managing warfarin. Could consider change to NOAC for ongoing anticoagulation. *DM Well controlled. If loose stools continue, may need to DC the metformin. Continue medications and monitor. 11/20/16 Psych: Check VPA Level in AM since increased dose; will adjust accordingly as patient continues to be manic, uncooperative, and endorse thoughts of hurting others. Added hydroxyzine 50mg PO q HS to target insomnia. Continue current dose of Latuda and HS Ativan.
[2016-11-21] MEDS: ACETAMINOPHEN 325 MG TABLET PO PRN (00:25)
[2016-11-21] MEDS ORDERED: ROPINIROLE 0.25 MG TABLET PO PRN ×2 (02:11→06:00)
[2016-11-21] MEDS: HYDROCODONE/APAP 5mg/325mg TABLET PO PRN (02:45)
--- NOTE | 2016-11-21 09:05 | Pharmacy Consult ---
Pharmacy Consult-Warfarin - Laboratory Information 11/14/16 11/15/16 11/16/16 09:23 08:12 04:56 INR 2.50 H 2.62 H 2.57 H 11/18/16 11/19/16 11/20/16 07:56 07:27 06:39 INR 2.72 H 2.97 H 3.04 H 11/21/16 06:00 INR 2.95 H SB, a 69 yo male was admitted to [facility], having exhibiting delusional behavior suicidal or homicidal ideas. Pt has history of chronic A Fib. Home dose of warfarin reported as 2.5mg. Takes with supper. Noted drug - drug interactions with Ropinirole 0.25mg and Simvastatin 20mg at bedtime. Goal INR = 2-3 Date INR Dose 11/14 2.50 2.5 mg 11/15 2.62 2.5 mg 11/16 2.57 2.5 mg 11/17 -- 2.5 mg 11/18 2.72 2.5mg 11/19 2.97 2 mg 11/20 3.04 1mg 11/21 2.95 Plan 1 mg The patient is therapeutic but I am giving 1 mg today. The pharmacy will continue to monitor the INR's and adjust the warfarin accordingly. Thank you for the Warfarin Dosing Protocol, Jai Mcknight, Pharmacist.
[2016-11-21] MEDS: LISINOPRIL 10 MG TABLET PO SCH (10:06)
[2016-11-21] MEDS: METFORMIN 500 MG TABLET PO SCH (10:06)
[2016-11-21] MEDS: DIVALPROEX 500 MG TABLET PO SCH ×2 (10:06→20:58)
[2016-11-21] MEDS: FUROSEMIDE 20 MG TABLET PO SCH ×2 (10:07→11:27)
[2016-11-21] MEDS: GABAPENTIN 300 MG CAPSULE PO SCH ×3 (10:07→16:57)
[2016-11-21] MEDS: LACTOBACILLUS (15B cfu) CAPSULE PO SCH ×2 (10:07→16:57)
[2016-11-21] MEDS: PSYLLIUM PACKET PO SCH (10:08)
[2016-11-21] MEDS: GUAIFENESIN 400MG TABLET PO SCH ×3 (10:08→20:58)
[2016-11-21] MEDS: LIRAGLUTIDE INJECTABLE PEN SQ SCH (10:09)
[2016-11-21] MEDS: INSULIN ASPART 100unit/ml INJECTION SQ SCH ×3 (10:48→16:58)
[2016-11-21] MEDS ORDERED: WARFARIN 1 MG TABLET PO SCH (12:00)
[2016-11-21] MEDS: LURASIDONE 40mg TABLET PO SCH (16:57)
--- NOTE | 2016-11-21 17:36 | Neuropsych Progress Note ---
[facility] Subjective Date: 11/21/16 - Sujective/Severity of Illness Medications: Acetaminophen (Tylenol) 325 - 650 mg PO Q5H PRN PRN Reason: Discomfort Last Admin: 11/21/16 00:25 Dose: 650 mg Hydrocodone Bitart/Acetaminophen (Norman 5/325) 1 tab PO Q4H PRN PRN Reason: Pain Last Admin: 11/21/16 02:45 Dose: 1 tab Al Hydroxide/Mg Hydroxide (Maalox Plus) 30 ml PO Q4H PRN PRN Reason: Indigestion Last Admin: 11/15/16 10:34 Dose: 30 ml Divalproex Sodium (Depakote) 500 mg PO DAILY [facility] Last Admin: 11/21/16 10:06 Dose: 500 mg Divalproex Sodium (Depakote) 1,000 mg PO [facility] Last Admin: 11/20/16 20:15 Dose: 1,000 mg Furosemide (Lasix) 20 mg PO BIDBL [facility] Last Admin: 11/21/16 11:27 Dose: 20 mg Gabapentin (Neurontin) 300 mg PO TIDWM [facility] Last Admin: 11/21/16 16:57 Dose: 300 mg Guaifenesin (Robitussin Liq) 100 mg PO Q4H PRN PRN Reason: Cough Guaifenesin (Mucinex) 400 mg PO TID [facility] Stop: 11/24/16 14:59 Last Admin: 11/21/16 16:55 Dose: 400 mg Haloperidol (Haldol) 0.5 mg PO Q6H PRN PRN Reason: Extreme agitation Last Admin: 11/17/16 00:15 Dose: 0.5 mg Haloperidol Lactate (Haldol) 0.5 mg IM Q6H PRN PRN Reason: Extreme agitation Hydroxyzine HCl (Atarax) 50 mg PO [facility] Last Admin: 11/20/16 23:35 Dose: 50 mg Insulin Aspart (Novolog) 5 unit SQ TIDWM [facility] Last Admin: 11/21/16 16:58 Dose: 5 unit Lactobacillus Acidophilus (Culturelle) 2 cap PO BIDWM [facility] Last Admin: 11/21/16 16:57 Dose: 2 cap Liraglutide (Victoza) 1.2 mg SQ DAILY [facility] Last Admin: 11/21/16 10:09 Dose: 1.2 mg Lisinopril (Prinivil) 10 mg PO DAILY [facility] Last Admin: 11/21/16 10:06 Dose: 10 mg Loperamide HCl (Imodium) 2 mg PO QID PRN; Protocol PRN Reason: Diarrhea Last Admin: 11/19/16 15:16 Dose: 2 mg Lorazepam (Ativan) 0.5 mg PO Q6H PRN PRN Reason: Extreme agitation Last Admin: 11/16/16 01:20 Dose: 0.5 mg Lorazepam (Ativan Inj) 0.5 mg IM Q6H PRN PRN Reason: Extreme agitation Lorazepam (Ativan) 1 mg PO HS [facility] Last Admin: 11/20/16 20:16 Dose: 1 mg Lurasidone HCl (Latuda) 80 mg PO WS [facility] Last Admin: 11/21/16 16:57 Dose: 80 mg Metformin HCl (Glucophage) 500 mg PO WB [facility] Last Admin: 11/21/16 10:06 Dose: 500 mg Metoprolol Succinate (Toprol Xl) 50 mg PO DAILY [facility] Last Admin: 11/21/16 10:06 Dose: 50 mg Nystatin (Mycostatin) 1 applic TP TID [facility] Last Admin: 11/21/16 14:08 Dose: 1 applic Prazosin HCl (Minipress) 2 mg PO HS [facility] Last Admin: 11/20/16 20:17 Dose: 2 mg Psyllium Hydrophilic Mucilloid (Metamucil) 1 packet PO DAILY [facility] Last Admin: 11/21/16 10:08 Dose: 1 packet Ropinirole HCl (Requip) 0.25 mg PO [facility] Last Admin: 11/20/16 20:14 Dose: 0.25 mg Ropinirole HCl (Requip) 0.25 mg PO Q8H PRN Senna/Docusate Sodium (Senna Plus Tablet) 1 tab PO BID PRN PRN Reason: Constipation Simvastatin (Zocor) 20 mg PO HS [facility] Last Admin: 11/20/16 20:16 Dose: 20 mg Sodium Chloride (Iv Flush) 10 - 80 ml IVF PRN PRN PRN Reason: Flushing Last Admin: 11/13/16 19:15 Dose: 10 ml Warfarin Sodium (Coumadin Protocol) 0 [facility] NOTE MYRIAM Warfarin Sodium (Coumadin) 1 mg PO NOON [facility] Stop: 11/21/16 23:59 Last Admin: 11/21/16 11:27 Dose: 1 mg Subjective: Patient seen and chart reviewed. Case discussed with treatment team. On interview, patient is more appropriate in that he tells me his real name and does not speak with a [place] accent throughout the interview today. SW reports he was more appropriate during group today as well. He does continue to have some odd and grandiose beliefs -- that all the living ex-Presidents are planning to visit him to "explain some things," and that God is putting thoughts in his mind. He speaks about how God is in his mind, heart, body and soul. He then goes on to say he was told that the entire world other than the [place] and [place] have been destroyed. Redirectable when reassured and states that he would like some reality testing. He states that he is hearing the 50 most intelligent men/women in the world via voices in his feet. He admits this makes no sense but says it feels real to him. Patient denies any SI, HI or AVH. Patient denies any adverse side effects related to psychotropic medications. Nursing staff report patient was using the call button frequently for small requests/demands and yelling out frequently overnight. The hospitalist gave him PRN Norman and Requip last night. Patient slept only 3.25 hours overnight, interrupted. VSS. Patient is eating well. Psychotropic PRNs required in the past 24 hours: none. VPA level this morning was 82.6. Start Time: 15:20 Stop Time: 15:40 Mental Status Exam Vitals: Last Vital Signs Temp 98.0 F 11/21/16 16:00 Pulse 68 11/21/16 16:00 Resp 20 11/21/16 16:00 BP 128/65 11/21/16 16:00 Pulse Ox 68 L 11/21/16 16:00 Height: 1.85 m Weight: 160.8 kg - Mental Status Exam Muscle Strength/Tone: Normal Dressing: Casual Grooming: Poor Attitude: Cooperative Motor Activity: Normal, Other Eye Contact: Good Speech: Normal Volume: Normal, Loud Rhythm: Appropriate Rhythm Orientation: Oriented X4 Mood: Other ("Good" mood, expansive affect but less manic than yesterday) Rate of Thoughts: Appropriate Rate Thought Organization: Disorganized Associations: Loose-associations, Illogical (at times) Abstract Reasoning: Poor abstract reasoning Thought Content: Delusions (Thought insertion), Grandeur, Hyper-religiosity Perception/Psychotic: Psychotic Language: Naming Intact Fund of Knowledge: Poor fund of knowledge Memory: Grossly Intact Suicidal Ideation: Denies Homicidal Ideation: Denies Insight: Poor (improved from yesterday) Judgement: Poor (improved from yesterday) Impulse Control: Poor - Laboratory Result Diagrams: 11/20/16 06:39 11/20/16 06:39 Laboratory Results - last 24 hr 11/20/16 11/21/16 11/21/16 20:39 06:00 06:00 INR 2.95 H Glucometer 190 Valproic Acid 82.6 11/21/16 10:45 INR Glucometer 138 Valproic Acid Assessment and Plan (1) Bipolar 1 disorder Problem details: MRE manic with psychosis Current visit: Yes Status: Acute Hospital Course Summary Disclaimer: The visit summary below is not to be considered part of the above Progress Note. Hospital Course: 11/14/16 Impression Abnormal behaviors Bipolar disorder Type II diabetes Chronic atrial fibrillation Hyperlipidemia Osteoarthritis Chronic anticoagulation Obesity Plan Agree with admission to the [facility] unit for further psychiatric evaluation and treatment. Monitor blood sugars and continue on current regimen Victoza, Metformin, and Novolog 5 units with meals. Nystatin powder for rash to groin Asked nursing staff to place mame wraps to bilateral lower ext to help with edema. Monitor blood pressure and pulse. Appears to chronically be in A-fibulation Chronic anticoagulation on Coumadin- Check INR now and consult pharmacy for Coumadin dosing. Encourage her just patient in unit activities and provide a safe environment. Hospital services will continue to follow patient and manage his medical comorbidities. At time of discharge his medical care is to return to his primary care provider Dr Stafford 11/15/16 18:05 Remains paranoid and pressured. Ativan 0.5mg at HS for sleep. Depakote level in AM 11/16/16 18:25 Remains paranoid and delusional. Increase Depakote to 1000mg at HS, Increase Latuda to 80mg, and increase Ativan to 1mg at HS 11/17/16 16:47 Remains paranoid and delusional but improved. Continue current care 11/18/16 12:20 Some paranoia and delusions but improving. Continue current care 11/19/16 11:37 Poor sleep. Florence improving. Continue current care 11/19/16 12:49 *Loose stool/Incontinence RN reports loose stool is better, but incontinence ongoing. Will add metamucil and probiotics to bulk up stools. *Cough Pt reports productive cough- No fever or chills. No SOA, but recent pneumonia a concern. Will add Mucinex and check CXR for now. Repeat labs in AM. Check BNP. Continue medications for HF. *Atrial fib/Chronic warfarin Continue rate control/Pharmacy managing warfarin. Could consider change to NOAC for ongoing anticoagulation. *DM Well controlled. If loose stools continue, may need to DC the metformin. Continue medications and monitor. 11/20/16 Psych: Check VPA Level in AM since increased dose; will adjust accordingly as patient continues to be manic, uncooperative, and endorse thoughts of hurting others. Added hydroxyzine 50mg PO q HS to target insomnia. Continue current dose of Latuda and HS Ativan. 11/21/16 Psych: VPA level within therapeutic limits. Patient continues to be acutely psychotic and manic but I do believe he is somewhat improved from yesterday and will continue to improve on current medication regimen given time. Is on max dose of Latuda indicated for [place]orence. I do not believe patient is safe for management outside of the hospital in this state but is improving overall. Will increase hydroxyzine to 100mg tonight to target insomnia; continue current dose of Depakote, Latuda and Ativan.
[2016-11-21] MEDS: PRAZOSIN 1 MG CAPSULE PO SCH (20:57)
[2016-11-21] MEDS: ROPINIROLE 0.25 MG TABLET PO SCH (20:58)
[2016-11-21] MEDS: SIMVASTATIN 20 MG TABLET PO SCH (20:59)
[2016-11-21] MEDS: LORazepam 1 MG TABLET PO SCH (21:00)
[2016-11-21] MEDS: HydrOXYzine 50 MG TABLET PO SCH (21:05)
--- NOTE | 2016-11-22 07:32 | Pharmacy Consult ---
Pharmacy Consult-Warfarin - Laboratory Information 11/14/16 11/15/16 11/16/16 09:23 08:12 04:56 INR 2.50 H 2.62 H 2.57 H 11/18/16 11/19/16 11/20/16 07:56 07:27 06:39 INR 2.72 H 2.97 H 3.04 H 11/21/16 11/22/16 06:00 04:53 INR 2.95 H 2.54 H - Consult Information Warfarin 1mg po ordered for noon today. Thank you.
[2016-11-22] MEDS: LACTOBACILLUS (15B cfu) CAPSULE PO SCH ×2 (08:27→17:20)
[2016-11-22] MEDS: FUROSEMIDE 20 MG TABLET PO SCH ×2 (08:28→12:04)
[2016-11-22] MEDS: INSULIN ASPART 100unit/ml INJECTION SQ SCH ×3 (08:28→17:21)
[2016-11-22] MEDS: GABAPENTIN 300 MG CAPSULE PO SCH ×3 (08:28→17:21)
[2016-11-22] MEDS: METFORMIN 500 MG TABLET PO SCH (08:28)
[2016-11-22] MEDS: DIVALPROEX 500 MG TABLET PO SCH (08:30)
[2016-11-22] MEDS: PSYLLIUM PACKET PO SCH (08:30)
[2016-11-22] MEDS: GUAIFENESIN 400MG TABLET PO SCH ×3 (08:30→20:11)
[2016-11-22] MEDS: LISINOPRIL 10 MG TABLET PO SCH (08:31)
[2016-11-22] MEDS: LIRAGLUTIDE INJECTABLE PEN SQ SCH (08:31)
[2016-11-22] MEDS ORDERED: WARFARIN 1 MG TABLET PO SCH (12:00)
[2016-11-22] MEDS: LURASIDONE 40mg TABLET PO SCH (17:20)
[2016-11-22] MEDS: HydrOXYzine 50 MG TABLET PO SCH (20:09)
[2016-11-22] MEDS: HYDROCODONE/APAP 5mg/325mg TABLET PO PRN (20:09)
[2016-11-22] MEDS: ROPINIROLE 0.25 MG TABLET PO SCH (20:10)
[2016-11-22] MEDS: LORazepam 1 MG TABLET PO SCH (20:10)
[2016-11-22] MEDS: PRAZOSIN 1 MG CAPSULE PO SCH (20:11)
[2016-11-22] MEDS: SIMVASTATIN 20 MG TABLET PO SCH (20:12)
--- NOTE | 2016-11-22 20:38 | Neuropsych Progress Note ---
[facility] Subjective Date: 11/22/16 - Sujective/Severity of Illness Medications: Acetaminophen (Tylenol) 325 - 650 mg PO Q5H PRN PRN Reason: Discomfort Last Admin: 11/21/16 00:25 Dose: 650 mg Hydrocodone Bitart/Acetaminophen (Stanley 5/325) 1 tab PO Q4H PRN PRN Reason: Pain Last Admin: 11/22/16 20:09 Dose: 1 tab Al Hydroxide/Mg Hydroxide (Maalox Plus) 30 ml PO Q4H PRN PRN Reason: Indigestion Last Admin: 11/15/16 10:34 Dose: 30 ml Divalproex Sodium (Depakote Er) 1,500 mg PO [facility] Last Admin: 11/22/16 20:10 Dose: 1,500 mg Furosemide (Lasix) 20 mg PO BIDBL [facility] Last Admin: 11/22/16 12:04 Dose: 20 mg Gabapentin (Neurontin) 300 mg PO TIDWM [facility] Last Admin: 11/22/16 17:21 Dose: 300 mg Guaifenesin (Robitussin Liq) 100 mg PO Q4H PRN PRN Reason: Cough Guaifenesin (Mucinex) 400 mg PO TID [facility] Stop: 11/24/16 14:59 Last Admin: 11/22/16 20:11 Dose: 400 mg Haloperidol (Haldol) 0.5 mg PO Q6H PRN PRN Reason: Extreme agitation Last Admin: 11/17/16 00:15 Dose: 0.5 mg Haloperidol Lactate (Haldol) 0.5 mg IM Q6H PRN PRN Reason: Extreme agitation Hydroxyzine HCl (Atarax) 100 mg PO [facility] Last Admin: 11/22/16 20:09 Dose: 100 mg Insulin Aspart (Novolog) 5 unit SQ TIDWM [facility] Last Admin: 11/22/16 17:21 Dose: 5 unit Lactobacillus Acidophilus (Culturelle) 2 cap PO BIDWM [facility] Last Admin: 11/22/16 17:20 Dose: 2 cap Liraglutide (Victoza) 1.2 mg SQ DAILY [facility] Last Admin: 11/22/16 08:31 Dose: 1.2 mg Lisinopril (Prinivil) 10 mg PO DAILY [facility] Last Admin: 11/22/16 08:31 Dose: 10 mg Loperamide HCl (Imodium) 2 mg PO QID PRN; Protocol PRN Reason: Diarrhea Last Admin: 11/19/16 15:16 Dose: 2 mg Lorazepam (Ativan) 0.5 mg PO Q6H PRN PRN Reason: Extreme agitation Last Admin: 11/16/16 01:20 Dose: 0.5 mg Lorazepam (Ativan Inj) 0.5 mg IM Q6H PRN PRN Reason: Extreme agitation Lorazepam (Ativan) 1 mg PO HS [facility] Last Admin: 11/22/16 20:10 Dose: 1 mg Lurasidone HCl (Latuda) 80 mg PO WS [facility] Last Admin: 11/22/16 17:20 Dose: 80 mg Metformin HCl (Glucophage) 500 mg PO WB [facility] Last Admin: 11/22/16 08:28 Dose: 500 mg Metoprolol Succinate (Toprol Xl) 50 mg PO DAILY [facility] Last Admin: 11/22/16 08:31 Dose: 50 mg Nystatin (Mycostatin) 1 applic TP TID [facility] Last Admin: 11/22/16 20:12 Dose: 1 applic Prazosin HCl (Minipress) 2 mg PO HS [facility] Last Admin: 11/22/16 20:11 Dose: 2 mg Psyllium Hydrophilic Mucilloid (Metamucil) 1 packet PO DAILY [facility] Last Admin: 11/22/16 08:30 Dose: 1 packet Ropinirole HCl (Requip) 0.25 mg PO [facility] Last Admin: 11/22/16 20:10 Dose: 0.25 mg Ropinirole HCl (Requip) 0.25 mg PO Q8H PRN Last Admin: 11/22/16 02:53 Dose: 0.25 mg Senna/Docusate Sodium (Senna Plus Tablet) 1 tab PO BID PRN PRN Reason: Constipation Simvastatin (Zocor) 20 mg PO HS [facility] Last Admin: 11/22/16 20:12 Dose: 20 mg Sodium Chloride (Iv Flush) 10 - 80 ml IVF PRN PRN PRN Reason: Flushing Last Admin: 11/13/16 19:15 Dose: 10 ml Warfarin Sodium (Coumadin Protocol) 0 [facility] NOTE MYRIAM Subjective: Patient seen and chart reviewed. Case discussed with treatment team. On interview, patient is relatively appropriate in his interactions with me and asks questions about his medications, what they are for, etc. He reports that his mood is "good" but also that he feels "disturbed" by things that have happened to him. He says that he hasn't felt manic "but needs a few more things cleared up for him." He has continued to make some bizarre statements to other staff members about mind control via his feet, the 50 most intelligent men/women , etc. through the day today. He says that sometimes he naps during the day but has difficulty sleeping at night because he does not feel tired. Patient denies any SI, HI or AVH. Patient denies any adverse side effects related to psychotropic medications. Nursing staff report patient was using the call button frequently for small requests/demands overnight. He was able to calmly participate in group today. Patient slept only 4.5 hours overnight, interrupted. VSS. Patient is eating well. Psychotropic PRNs required in the past 24 hours: none. Start Time: 16:20 Stop Time: 16:40 Mental Status Exam Vitals: Last Vital Signs Temp 97.2 F 11/22/16 16:00 Pulse 81 11/22/16 16:00 Resp 16 11/22/16 16:00 BP 123/62 11/22/16 16:00 Pulse Ox 94 11/22/16 16:00 Height: 1.85 m Weight: 160.8 kg - Mental Status Exam Muscle Strength/Tone: Normal Dressing: Casual Grooming: Poor Attitude: Cooperative Motor Activity: Normal Eye Contact: Good Speech: Normal Volume: Normal Rhythm: Appropriate Rhythm Orientation: Oriented X4 Mood: Other ("Good" mood, affect calmer and more stable than on previous days) Rate of Thoughts: Appropriate Rate Thought Organization: Disorganized Associations: Loose-associations, Illogical (at times) Abstract Reasoning: Poor abstract reasoning Thought Content: Delusions (Thought insertion), Grandeur Perception/Psychotic: Psychotic Language: Naming Intact Fund of Knowledge: Poor fund of knowledge Memory: Grossly Intact Suicidal Ideation: Denies Homicidal Ideation: Denies Insight: Poor (improved from yesterday) Judgement: Poor (improved from yesterday) Impulse Control: Fair - Laboratory Result Diagrams: 11/20/16 06:39 11/20/16 06:39 Laboratory Results - last 24 hr 11/21/16 11/22/16 11/22/16 21:39 04:53 05:52 INR 2.54 H Glucometer 169 133 11/22/16 11/22/16 10:55 14:14 INR Glucometer 196 145 Assessment and Plan (1) Bipolar 1 disorder Problem details: MRE manic with psychosis Current visit: Yes Status: Acute Hospital Course Summary Disclaimer: The visit summary below is not to be considered part of the above Progress Note. Hospital Course: 11/14/16 Impression Abnormal behaviors Bipolar disorder Type II diabetes Chronic atrial fibrillation Hyperlipidemia Osteoarthritis Chronic anticoagulation Obesity Plan Agree with admission to the [facility] for further psychiatric evaluation and treatment. Monitor blood sugars and continue on current regimen Victoza, Metformin, and Novolog 5 units with meals. Nystatin powder for rash to groin Asked nursing staff to place mame wraps to bilateral lower ext to help with edema. Monitor blood pressure and pulse. Appears to chronically be in A-fibulation Chronic anticoagulation on Coumadin- Check INR now and consult pharmacy for Coumadin dosing. Encourage her just patient in unit activities and provide a safe environment. Hospital services will continue to follow patient and manage his medical comorbidities. At time of discharge his medical care is to return to his primary care provider Dr Stafford 11/15/16 18:05 Remains paranoid and pressured. Ativan 0.5mg at HS for sleep. Depakote level in AM 11/16/16 18:25 Remains paranoid and delusional. Increase Depakote to 1000mg at HS, Increase Latuda to 80mg, and increase Ativan to 1mg at HS 11/17/16 16:47 Remains paranoid and delusional but improved. Continue current care 11/18/16 12:20 Some paranoia and delusions but improving. Continue current care 11/19/16 11:37 Poor sleep. Florence improving. Continue current care 11/19/16 12:49 *Loose stool/Incontinence RN reports loose stool is better, but incontinence ongoing. Will add metamucil and probiotics to bulk up stools. *Cough Pt reports productive cough- No fever or chills. No SOA, but recent pneumonia a concern. Will add Mucinex and check CXR for now. Repeat labs in AM. Check BNP. Continue medications for HF. *Atrial fib/Chronic warfarin Continue rate control/Pharmacy managing warfarin. Could consider change to NOAC for ongoing anticoagulation. *DM Well controlled. If loose stools continue, may need to DC the metformin. Continue medications and monitor. 11/20/16 Psych: Check VPA Level in AM since increased dose; will adjust accordingly as patient continues to be manic, uncooperative, and endorse thoughts of hurting others. Added hydroxyzine 50mg PO q HS to target insomnia. Continue current dose of Latuda and HS Ativan. 11/21/16 Psych: VPA level within therapeutic limits. Patient continues to be acutely psychotic and manic but I do believe he is somewhat improved from yesterday and will continue to improve on current medication regimen given time. Is on max dose of Latuda indicated for [place]. I do not believe patient is safe for management outside of the hospital in this state but is improving overall. Will increase hydroxyzine to 100mg tonight to target insomnia; continue current dose of Depakote, Latuda and Ativan. 11/22/16 Psych: Patient's florence is improving though continues to have poor nighttime sleep and make bizarre statements - speech more normal, calmer affect , able to participate in group now. Will switch Depakote to Depakote ER 1500mg PO q HS tonight and may increase slightly tomorrow (received daytime dose of DR this morning which he will not tomorrow). Hopefully this may help him sleep more at night and have less sedation during the day.
--- NOTE | 2016-11-23 09:02 | Pharmacy Consult ---
Pharmacy Consult-Warfarin - Laboratory Information 11/14/16 11/15/16 11/16/16 09:23 08:12 04:56 INR 2.50 H 2.62 H 2.57 H 11/18/16 11/19/16 11/20/16 07:56 07:27 06:39 INR 2.72 H 2.97 H 3.04 H 11/21/16 11/22/16 11/23/16 06:00 04:53 08:29 INR 2.95 H 2.54 H 2.18 H - Consult Information We will give warfarin 1.5mg (1/2 tab of 3mg) p.o. at noon today. Thanks
[2016-11-23] MEDS: FUROSEMIDE 20 MG TABLET PO SCH ×2 (10:08→12:07)
[2016-11-23] MEDS: GABAPENTIN 300 MG CAPSULE PO SCH ×3 (10:09→17:23)
[2016-11-23] MEDS: LACTOBACILLUS (15B cfu) CAPSULE PO SCH ×2 (10:09→17:23)
[2016-11-23] MEDS: GUAIFENESIN 400MG TABLET PO SCH ×3 (10:10→20:40)
[2016-11-23] MEDS: METFORMIN 500 MG TABLET PO SCH (10:10)
[2016-11-23] MEDS: LISINOPRIL 10 MG TABLET PO SCH (10:11)
[2016-11-23] MEDS: PSYLLIUM PACKET PO SCH (10:11)
[2016-11-23] MEDS: INSULIN ASPART 100unit/ml INJECTION SQ SCH ×3 (10:12→17:24)
[2016-11-23] MEDS: LIRAGLUTIDE INJECTABLE PEN SQ SCH (10:13)
[2016-11-23] MEDS: ACETAMINOPHEN 325 MG TABLET PO PRN (11:39)
[2016-11-23] MEDS: MAG-AL + SIM ORAL LIQUID 30ml PO PRN (11:45)
[2016-11-23] MEDS ORDERED: WARFARIN 3 MG TABLET PO SCH (12:00)
[2016-11-23] MEDS: LURASIDONE 40mg TABLET PO SCH (17:23)
--- NOTE | 2016-11-23 20:11 | Neuropsych Progress Note ---
[facility] Subjective Date: 11/23/16 - Sujective/Severity of Illness Medications: Acetaminophen (Tylenol) 325 - 650 mg PO Q5H PRN PRN Reason: Discomfort Last Admin: 11/23/16 11:39 Dose: 650 mg Hydrocodone Bitart/Acetaminophen ([place] 5/325) 1 tab PO Q4H PRN PRN Reason: Pain Last Admin: 11/22/16 20:09 Dose: 1 tab Al Hydroxide/Mg Hydroxide (Maalox Plus) 30 ml PO Q4H PRN PRN Reason: Indigestion Last Admin: 11/23/16 11:45 Dose: 30 ml Divalproex Sodium (Depakote Er) 1,750 mg PO [facility] Furosemide (Lasix) 20 mg PO BIDBL [facility] Last Admin: 11/23/16 12:07 Dose: 20 mg Gabapentin (Neurontin) 300 mg PO TIDWM [facility] Last Admin: 11/23/16 17:23 Dose: 300 mg Guaifenesin (Robitussin Liq) 100 mg PO Q4H PRN PRN Reason: Cough Guaifenesin (Mucinex) 400 mg PO TID [facility] Stop: 11/24/16 14:59 Last Admin: 11/23/16 16:15 Dose: 400 mg Haloperidol (Haldol) 0.5 mg PO Q6H PRN PRN Reason: Extreme agitation Last Admin: 11/17/16 00:15 Dose: 0.5 mg Haloperidol Lactate (Haldol) 0.5 mg IM Q6H PRN PRN Reason: Extreme agitation Hydroxyzine HCl (Atarax) 100 mg PO [facility] Last Admin: 11/22/16 20:09 Dose: 100 mg Insulin Aspart (Novolog) 5 unit SQ TIDWM [facility] Last Admin: 11/23/16 17:24 Dose: 5 unit Lactobacillus Acidophilus (Culturelle) 2 cap PO BIDWM [facility] Last Admin: 11/23/16 17:23 Dose: 2 cap Liraglutide (Victoza) 1.2 mg SQ DAILY [facility] Last Admin: 11/23/16 10:13 Dose: 1.2 mg Lisinopril (Prinivil) 10 mg PO DAILY [facility] Last Admin: 11/23/16 10:11 Dose: 10 mg Loperamide HCl (Imodium) 2 mg PO QID PRN; Protocol PRN Reason: Diarrhea Last Admin: 11/19/16 15:16 Dose: 2 mg Lorazepam (Ativan) 0.5 mg PO Q6H PRN PRN Reason: Extreme agitation Last Admin: 11/16/16 01:20 Dose: 0.5 mg Lorazepam (Ativan Inj) 0.5 mg IM Q6H PRN PRN Reason: Extreme agitation Lorazepam (Ativan) 1 mg PO HS [facility] Last Admin: 11/22/16 20:10 Dose: 1 mg Lurasidone HCl (Latuda) 80 mg PO WS [facility] Last Admin: 11/23/16 17:23 Dose: 80 mg Metformin HCl (Glucophage) 500 mg PO WB [facility] Last Admin: 11/23/16 10:10 Dose: 500 mg Metoprolol Succinate (Toprol Xl) 50 mg PO DAILY [facility] Last Admin: 11/23/16 10:11 Dose: 50 mg Nystatin (Mycostatin) 1 applic TP TID [facility] Last Admin: 11/23/16 10:11 Dose: 1 applic Prazosin HCl (Minipress) 2 mg PO [facility] Last Admin: 11/22/16 20:11 Dose: 2 mg Psyllium Hydrophilic Mucilloid (Metamucil) 1 packet PO DAILY [facility] Last Admin: 11/23/16 10:11 Dose: 1 packet Ropinirole HCl (Requip) 0.25 mg PO [facility] Last Admin: 11/22/16 20:10 Dose: 0.25 mg Ropinirole HCl (Requip) 0.25 mg PO Q8H PRN Last Admin: 11/22/16 02:53 Dose: 0.25 mg Senna/Docusate Sodium (Senna Plus Tablet) 1 tab PO BID PRN PRN Reason: Constipation Simvastatin (Zocor) 20 mg PO [facility] Last Admin: 11/22/16 20:12 Dose: 20 mg Sodium Chloride (Iv Flush) 10 - 80 ml IVF PRN PRN PRN Reason: Flushing Last Admin: 11/13/16 19:15 Dose: 10 ml Warfarin Sodium (Coumadin Protocol) 0 [facility] NOTE [facility] Subjective: Patient seen and chart reviewed. Case discussed with treatment team. On interview, patient is relatively appropriate in his interactions with me. He shows me he is able to use his [place] accent but speaks mostly [place] French through conversation and is not acting silly. He denies any concern for bizarre things such as mind control today and says now that he thinks those things were just in his head. He was saying bizarre things earlier in the day per staff. Patient reports that he is tolerating his medications well. He has not been napping today which will hopefully help his sleep tonight. Patient denies any SI, HI or AVH. Patient denies any adverse side effects related to psychotropic medications. Nursing staff report patient was more cooperative and participated in own care today more than previously. He did become upset with staff last night and make the comment that "he really could commit suicide." -- Will continue to monitor behavior tonight. Patient again had interrupted sleep overnight, though it was not clearly documented how much total. VSS. Patient is eating well. Psychotropic PRNs required in the past 24 hours: none. Start Time: 16:20 Stop Time: 16:40 Mental Status Exam Vitals: Last Vital Signs Temp 96.7 F L 11/23/16 16:00 Pulse 76 11/23/16 16:00 Resp 18 11/23/16 16:00 BP 127/78 11/23/16 16:00 Pulse Ox 98 11/23/16 16:00 Height: 1.85 m Weight: 160.8 kg - Mental Status Exam Muscle Strength/Tone: Normal Dressing: Casual Grooming: Poor Attitude: Cooperative Motor Activity: Normal Eye Contact: Good Speech: Normal Volume: Normal Rhythm: Appropriate Rhythm Orientation: Oriented X4 Mood: Euthymic (Calm, appropriate affect) Rate of Thoughts: Appropriate Rate Thought Organization: Organized Associations: Intact Abstract Reasoning: Intact, able to abstract Thought Content: Delusions (improving but still present today) Perception/Psychotic: Hx psychosis, not current Language: Naming Intact Fund of Knowledge: Grady aware current events Memory: Grossly Intact Suicidal Ideation: Denies (though made suicidal comment last night) Homicidal Ideation: Denies Insight: Limited (improving) Judgement: Limited Impulse Control: Other (Limited) - Laboratory Result Diagrams: 11/20/16 06:39 11/20/16 06:39 Laboratory Results - last 24 hr 11/22/16 11/23/16 11/23/16 21:50 05:45 08:29 INR 2.18 H Glucometer 149 145 11/23/16 11/23/16 11:47 15:47 INR Glucometer 228 134 Assessment and Plan (1) Bipolar 1 disorder Problem details: MRE manic with psychosis Current visit: Yes Status: Acute Hospital Course Summary Disclaimer: The visit summary below is not to be considered part of the above Progress Note. Hospital Course: 11/14/16 Impression Abnormal behaviors Bipolar disorder Type II diabetes Chronic atrial fibrillation Hyperlipidemia Osteoarthritis Chronic anticoagulation Obesity Plan Agree with admission to [facility] for further psychiatric evaluation and treatment. Monitor blood sugars and continue on current regimen Victoza, Metformin, and Novolog 5 units with meals. Nystatin powder for rash to groin Asked nursing staff to place mame wraps to bilateral lower ext to help with edema. Monitor blood pressure and pulse. Appears to chronically be in A-fibulation Chronic anticoagulation on Coumadin- Check INR now and consult pharmacy for Coumadin dosing. Encourage her just patient in unit activities and provide a safe environment. Hospital services will continue to follow patient and manage his medical comorbidities. At time of discharge his medical care is to return to his primary care provider Dr Stafford 11/15/16 18:05 Remains paranoid and pressured. Ativan 0.5mg at HS for sleep. Depakote level in AM 11/16/16 18:25 Remains paranoid and delusional. Increase Depakote to 1000mg at HS, Increase Latuda to 80mg, and increase Ativan to 1mg at HS 11/17/16 16:47 Remains paranoid and delusional but improved. Continue current care 11/18/16 12:20 Some paranoia and delusions but improving. Continue current care 11/19/16 11:37 Poor sleep. Javi improving. Continue current care 11/19/16 12:49 *Loose stool/Incontinence RN reports loose stool is better, but incontinence ongoing. Will add metamucil and probiotics to bulk up stools. *Cough Pt reports productive cough- No fever or chills. No SOA, but recent pneumonia a concern. Will add Mucinex and check CXR for now. Repeat labs in AM. Check BNP. Continue medications for HF. *Atrial fib/Chronic warfarin Continue rate control/Pharmacy managing warfarin. Could consider change to NOAC for ongoing anticoagulation. *DM Well controlled. If loose stools continue, may need to DC the metformin. Continue medications and monitor. 11/20/16 Psych: Check VPA Level in AM since increased dose; will adjust accordingly as patient continues to be manic, uncooperative, and endorse thoughts of hurting others. Added hydroxyzine 50mg PO q HS to target insomnia. Continue current dose of Latuda and HS Ativan. 11/21/16 Psych: VPA level within therapeutic limits. Patient continues to be acutely psychotic and manic but I do believe he is somewhat improved from yesterday and will continue to improve on current medication regimen given time. Is on max dose of Latuda indicated for javi. I do not believe patient is safe for management outside of the hospital in this state but is improving overall. Will increase hydroxyzine to 100mg tonight to target insomnia; continue current dose of Depakote, Latuda and Ativan. 11/22/16 Psych: Patient's javi is improving though continues to have poor nighttime sleep and make bizarre statements - speech more normal, calmer affect , able to participate in group now. Will switch Depakote to Depakote ER 1500mg PO q HS tonight and may increase slightly tomorrow (received daytime dose of DR this morning which he will not tomorrow). Hopefully this may help him sleep more at night and have less sedation during the day. 11/23/16 Psych: Patient improving overall - will increase Depakote ER to 1750mg PO q HS as patient did not receive AM dose today. Continuing to target insomnia - refrained from daytime nap today so may help sleep at night. Continue to monitor.
[2016-11-23] MEDS: HydrOXYzine 50 MG TABLET PO SCH (20:41)
[2016-11-23] MEDS: PRAZOSIN 1 MG CAPSULE PO SCH (20:42)
[2016-11-23] MEDS: ROPINIROLE 0.25 MG TABLET PO SCH (20:43)
[2016-11-23] MEDS: SIMVASTATIN 20 MG TABLET PO SCH (20:43)
[2016-11-23] MEDS: LORazepam 1 MG TABLET PO SCH (20:46)
[2016-11-23] MEDS: HYDROCODONE/APAP 5mg/325mg TABLET PO PRN (22:47)
[2016-11-24] MEDS: FUROSEMIDE 20 MG TABLET PO SCH ×2 (09:26→11:53)
[2016-11-24] MEDS: LACTOBACILLUS (15B cfu) CAPSULE PO SCH ×2 (09:27→17:17)
[2016-11-24] MEDS: GABAPENTIN 300 MG CAPSULE PO SCH ×3 (09:27→17:16)
[2016-11-24] MEDS: INSULIN ASPART 100unit/ml INJECTION SQ SCH ×3 (09:27→17:17)
[2016-11-24] MEDS: LIRAGLUTIDE INJECTABLE PEN SQ SCH (09:28)
[2016-11-24] MEDS: GUAIFENESIN 400MG TABLET PO SCH (09:28)
[2016-11-24] MEDS: METFORMIN 500 MG TABLET PO SCH (09:28)
[2016-11-24] MEDS: PSYLLIUM PACKET PO SCH (09:29)
[2016-11-24] MEDS: LISINOPRIL 10 MG TABLET PO SCH (09:35)
--- NOTE | 2016-11-24 10:00 | Pharmacy Consult ---
Pharmacy Consult-Warfarin - Laboratory Information 11/14/16 11/15/16 11/16/16 09:23 08:12 04:56 INR 2.50 H 2.62 H 2.57 H 11/18/16 11/19/16 11/20/16 07:56 07:27 06:39 INR 2.72 H 2.97 H 3.04 H 11/21/16 11/22/16 11/23/16 06:00 04:53 08:29 INR 2.95 H 2.54 H 2.18 H 11/24/16 05:53 INR 2.00 H SB, a 69 yo male was admitted to [facility], having exhibiting delusional behavior suicidal or homicidal ideas. Pt has history of chronic A Fib. Home dose of warfarin reported as 2.5mg. Takes with supper. Noted drug - drug interactions with Ropinirole 0.25mg and Simvastatin 20mg at bedtime. Goal INR = 2-3 Date INR Dose 11/14 2.50 2.5 mg 11/15 2.62 2.5 mg 11/16 2.57 2.5 mg 11/17 -- 2.5 mg 11/18 2.72 2.5mg 11/19 2.97 2 mg 11/20 3.04 1mg 11/21 2.95 1 mg 11/22 2.54 1 mg 11/23 2.18 1.5 mg 11/24 2.00 Plan 2 mg The patient is therapeutic but I am giving 2 mg today as the INR is dropping with the 1 mg dose. . The pharmacy will continue to monitor the INR's and adjust the warfarin accordingly. Thank you for the Warfarin Dosing Protocol, Jai Mcknight, Pharmacist.
[2016-11-24] MEDS ORDERED: WARFARIN 2 MG TABLET PO SCH (12:00)
[2016-11-24] MEDS: LURASIDONE 40mg TABLET PO SCH (17:17)
[2016-11-24] MEDS: MAG-AL + SIM ORAL LIQUID 30ml PO PRN (17:24)
--- NOTE | 2016-11-24 19:07 | Neuropsych Progress Note ---
[facility] Subjective Date: 11/24/16 - Sujective/Severity of Illness Medications: Acetaminophen (Tylenol) 325 - 650 mg PO Q5H PRN PRN Reason: Discomfort Last Admin: 11/23/16 11:39 Dose: 650 mg Hydrocodone Bitart/Acetaminophen ([place] 5/325) 1 tab PO Q4H PRN PRN Reason: Pain Last Admin: 11/23/16 22:47 Dose: 1 tab Al Hydroxide/Mg Hydroxide (Maalox Plus) 30 ml PO Q4H PRN PRN Reason: Indigestion Last Admin: 11/24/16 17:24 Dose: 30 ml Divalproex Sodium (Depakote Er) 1,500 mg PO HS [facility] Divalproex Sodium (Depakote Er) 250 mg PO HS [facility] Furosemide (Lasix) 20 mg PO BIDBL [facility] Last Admin: 11/24/16 11:53 Dose: 20 mg Gabapentin (Neurontin) 300 mg PO TIDWM [facility] Last Admin: 11/24/16 17:16 Dose: 300 mg Guaifenesin (Robitussin Liq) 100 mg PO Q4H PRN PRN Reason: Cough Haloperidol (Haldol) 0.5 mg PO Q6H PRN PRN Reason: Extreme agitation Last Admin: 11/17/16 00:15 Dose: 0.5 mg Haloperidol Lactate (Haldol) 0.5 mg IM Q6H PRN PRN Reason: Extreme agitation Hydroxyzine HCl (Atarax) 100 mg PO HS [facility] Last Admin: 11/23/16 20:41 Dose: 100 mg Insulin Aspart (Novolog) 5 unit SQ TIDWM [facility] Last Admin: 11/24/16 17:17 Dose: 5 unit Lactobacillus Acidophilus (Culturelle) 2 cap PO BIDWM [facility] Last Admin: 11/24/16 17:17 Dose: 2 cap Liraglutide (Victoza) 1.2 mg SQ DAILY [facility] Last Admin: 11/24/16 09:28 Dose: 1.2 mg Lisinopril (Prinivil) 10 mg PO DAILY [facility] Last Admin: 11/24/16 09:35 Dose: 10 mg Loperamide HCl (Imodium) 2 mg PO QID PRN; Protocol PRN Reason: Diarrhea Last Admin: 11/19/16 15:16 Dose: 2 mg Lorazepam (Ativan) 0.5 mg PO Q6H PRN PRN Reason: Extreme agitation Last Admin: 11/16/16 01:20 Dose: 0.5 mg Lorazepam (Ativan Inj) 0.5 mg IM Q6H PRN PRN Reason: Extreme agitation Lorazepam (Ativan) 1 mg PO HS [facility] Last Admin: 11/23/16 20:46 Dose: 1 mg Lurasidone HCl (Latuda) 80 mg PO WS [facility] Last Admin: 11/24/16 17:17 Dose: 80 mg Magnesium Hydroxide (Mom) 30 ml PO DAILY PRN PRN Reason: Constipation Last Admin: 11/24/16 13:47 Dose: 30 ml Metformin HCl (Glucophage) 500 mg PO WB [facility] Last Admin: 11/24/16 09:28 Dose: 500 mg Metoprolol Succinate (Toprol Xl) 50 mg PO DAILY [facility] Last Admin: 11/24/16 09:28 Dose: 50 mg Nystatin (Mycostatin) 1 applic TP TID [facility] Last Admin: 11/24/16 15:49 Dose: 1 applic Prazosin HCl (Minipress) 2 mg PO [facility] Last Admin: 11/23/16 20:42 Dose: 2 mg Psyllium Hydrophilic Mucilloid (Metamucil) 1 packet PO DAILY [facility] Last Admin: 11/24/16 09:29 Dose: 1 packet Ropinirole HCl (Requip) 0.25 mg PO [facility] Last Admin: 11/23/16 20:43 Dose: 0.25 mg Ropinirole HCl (Requip) 0.25 mg PO Q8H PRN Last Admin: 11/22/16 02:53 Dose: 0.25 mg Senna/Docusate Sodium (Senna Plus Tablet) 1 tab PO BID PRN PRN Reason: Constipation Simvastatin (Zocor) 20 mg PO [facility] Last Admin: 11/23/16 20:43 Dose: 20 mg Sodium Chloride (Iv Flush) 10 - 80 ml IVF PRN PRN PRN Reason: Flushing Last Admin: 11/13/16 19:15 Dose: 10 ml Warfarin Sodium (Coumadin Protocol) 0 [facility] NOTE [facility] Warfarin Sodium (Coumadin) 2 mg PO NOON [facility] Stop: 11/24/16 23:59 Last Admin: 11/24/16 11:59 Dose: 2 mg Subjective: Patient seen and chart reviewed. Case discussed with treatment team. On interview, patient is relatively appropriate in his interactions with me. He reports that his mood is good. He does not mention any bizarre thoughts/beliefs but does make odd comments occasionally per staff. Patient reports that he is tolerating his medications well. He has been less tired during the daytime. Patient denies any SI, HI or AVH. Patient denies any adverse side effects related to psychotropic medications. Nursing staff report patient was more cooperative and participated in own care today more than previously. He did not use the call light excessively last night. He was demanding at one point today but changed his tone of voice when redirected. Patient slept 5.5 hours overnight, which is an improvement. VSS. Patient is eating well. Psychotropic PRNs required in the past 24 hours: none. Start Time: 15:20 Stop Time: 15:40 Mental Status Exam Vitals: Last Vital Signs Temp 97.1 F 11/24/16 16:00 Pulse 65 11/24/16 16:00 Resp 16 11/24/16 16:00 BP 111/50 11/24/16 16:00 Pulse Ox 96 11/24/16 16:00 Height: 1.85 m Weight: 160.8 kg - Mental Status Exam Muscle Strength/Tone: Normal Dressing: Casual Grooming: Poor Attitude: Cooperative Motor Activity: Normal Eye Contact: Good Speech: Normal Volume: Normal Rhythm: Appropriate Rhythm Orientation: Oriented X4 Mood: Euthymic (Calm, appropriate affect) Rate of Thoughts: Appropriate Rate Thought Organization: Organized Associations: Intact Abstract Reasoning: Intact, able to abstract Thought Content: Normal Perception/Psychotic: Hx psychosis, not current Language: Naming Intact Fund of Knowledge: Grady aware current events Memory: Grossly Intact Suicidal Ideation: Denies (though made suicidal comment last night) Homicidal Ideation: Denies Insight: Limited (improving) Judgement: Limited Impulse Control: Fair - Laboratory Result Diagrams: 11/20/16 06:39 11/20/16 06:39 Laboratory Results - last 24 hr 11/24/16 11/24/16 11/24/16 05:53 06:14 11:20 INR 2.00 H Glucometer 146 243 11/24/16 14:51 INR Glucometer 196 Assessment and Plan (1) Bipolar 1 disorder Problem details: MRE manic with psychosis Current visit: Yes Status: Acute Hospital Course Summary Disclaimer: The visit summary below is not to be considered part of the above Progress Note. Hospital Course: 11/14/16 Impression Abnormal behaviors Bipolar disorder Type II diabetes Chronic atrial fibrillation Hyperlipidemia Osteoarthritis Chronic anticoagulation Obesity Plan Agree with admission to the [facility] for further psychiatric evaluation and treatment. Monitor blood sugars and continue on current regimen Victoza, Metformin, and Novolog 5 units with meals. Nystatin powder for rash to groin Asked nursing staff to place mame wraps to bilateral lower ext to help with edema. Monitor blood pressure and pulse. Appears to chronically be in A-fibulation Chronic anticoagulation on Coumadin- Check INR now and consult pharmacy for Coumadin dosing. Encourage her just patient in unit activities and provide a safe environment. Hospital services will continue to follow patient and manage his medical comorbidities. At time of discharge his medical care is to return to his primary care provider Dr Stafford 11/15/16 18:05 Remains paranoid and pressured. Ativan 0.5mg at HS for sleep. Depakote level in AM 11/16/16 18:25 Remains paranoid and delusional. Increase Depakote to 1000mg at HS, Increase Latuda to 80mg, and increase Ativan to 1mg at HS 11/17/16 16:47 Remains paranoid and delusional but improved. Continue current care 11/18/16 12:20 Some paranoia and delusions but improving. Continue current care 11/19/16 11:37 Poor sleep. Javi improving. Continue current care 11/19/16 12:49 *Loose stool/Incontinence RN reports loose stool is better, but incontinence ongoing. Will add metamucil and probiotics to bulk up stools. *Cough Pt reports productive cough- No fever or chills. No SOA, but recent pneumonia a concern. Will add Mucinex and check CXR for now. Repeat labs in AM. Check BNP. Continue medications for HF. *Atrial fib/Chronic warfarin Continue rate control/Pharmacy managing warfarin. Could consider change to NOAC for ongoing anticoagulation. *DM Well controlled. If loose stools continue, may need to DC the metformin. Continue medications and monitor. 11/20/16 Psych: Check VPA Level in AM since increased dose; will adjust accordingly as patient continues to be manic, uncooperative, and endorse thoughts of hurting others. Added hydroxyzine 50mg PO q HS to target insomnia. Continue current dose of Latuda and HS Ativan. 11/21/16 Psych: VPA level within therapeutic limits. Patient continues to be acutely psychotic and manic but I do believe he is somewhat improved from yesterday and will continue to improve on current medication regimen given time. Is on max dose of Latuda indicated for javi. I do not believe patient is safe for management outside of the hospital in this state but is improving overall. Will increase hydroxyzine to 100mg tonight to target insomnia; continue current dose of Depakote, Latuda and Ativan. 11/22/16 Psych: Patient's javi is improving though continues to have poor nighttime sleep and make bizarre statements - speech more normal, calmer affect , able to participate in group now. Will switch Depakote to Depakote ER 1500mg PO q HS tonight and may increase slightly tomorrow (received daytime dose of DR this morning which he will not tomorrow). Hopefully this may help him sleep more at night and have less sedation during the day. 11/23/16 Psych: Patient improving overall - will increase Depakote ER to 1750mg PO q HS as patient did not receive AM dose today. Continuing to target insomnia - refrained from daytime nap today so may help sleep at night. Continue to monitor. 11/24/16 Psych: Patient continues to improve though would like for him to sleep longer at night if possible. Tolerating medication changes well. Continue to monitor and SW to begin arrangements for discharge. Patient has expressed hesitance in returning to his placement as he likes our unit.
[2016-11-24] MEDS ORDERED: ONDANSETRON ODT 4 MG TABLET PO PRN (19:27)
[2016-11-24] MEDS: LORazepam 1 MG TABLET PO SCH (20:40)
[2016-11-24] MEDS: HydrOXYzine 50 MG TABLET PO SCH (20:40)
[2016-11-24] MEDS: PRAZOSIN 1 MG CAPSULE PO SCH (20:41)
[2016-11-24] MEDS: SIMVASTATIN 20 MG TABLET PO SCH (20:42)
[2016-11-24] MEDS: ROPINIROLE 0.25 MG TABLET PO SCH (20:42)
[2016-11-24] MEDS: HYDROCODONE/APAP 5mg/325mg TABLET PO PRN (21:02)
[2016-11-25] MEDS: ACETAMINOPHEN 325 MG TABLET PO PRN (05:42)
--- NOTE | 2016-11-25 08:52 | Pharmacy Consult ---
Pharmacy Consult-Warfarin - Laboratory Information 11/14/16 11/15/16 11/16/16 09:23 08:12 04:56 INR 2.50 H 2.62 H 2.57 H 11/18/16 11/19/16 11/20/16 07:56 07:27 06:39 INR 2.72 H 2.97 H 3.04 H 11/21/16 11/22/16 11/23/16 06:00 04:53 08:29 INR 2.95 H 2.54 H 2.18 H 11/24/16 11/25/16 05:53 06:56 INR 2.00 H 2.01 H - Consult Information SB, a 69 yo male with history of chronic A Fib. Home dose of warfarin reported as 2.5mg. Goal INR = 2-3 Date INR Dose 11/14 2.50 2.5 mg 11/15 2.62 2.5 mg 11/16 2.57 2.5 mg 11/17 -- 2.5 mg 11/18 2.72 2.5mg 11/19 2.97 2 mg 11/20 3.04 1mg 11/21 2.95 1 mg 11/22 2.54 1 mg 11/23 2.18 1.5 mg 11/24 2.00 2 mg 11/25 2.01 plan: 2 mg Will give warfarin 2 m g po today. The pharmacy will continue to monitor the INR 's and adjust the warfarin accordingly. Thank you for the Warfarin Dosing Protocol, Cira Rutherford RPh
[2016-11-25] MEDS: FUROSEMIDE 20 MG TABLET PO SCH ×2 (08:56→12:09)
[2016-11-25] MEDS: GABAPENTIN 300 MG CAPSULE PO SCH ×3 (08:56→17:16)
[2016-11-25] MEDS: LACTOBACILLUS (15B cfu) CAPSULE PO SCH ×2 (08:57→17:16)
[2016-11-25] MEDS: LIRAGLUTIDE INJECTABLE PEN SQ SCH (08:57)
[2016-11-25] MEDS: METFORMIN 500 MG TABLET PO SCH (08:57)
[2016-11-25] MEDS: INSULIN ASPART 100unit/ml INJECTION SQ SCH ×3 (08:58→17:17)
[2016-11-25] MEDS: LISINOPRIL 10 MG TABLET PO SCH (08:58)
[2016-11-25] MEDS: PSYLLIUM PACKET PO SCH (08:59)
--- NOTE | 2016-11-25 10:37 | Neuropsych Progress Note ---
[facility] Subjective Date: 11/26/16 - Sujective/Severity of Illness Medications: Acetaminophen (Tylenol) 325 - 650 mg PO Q5H PRN PRN Reason: Discomfort Last Admin: 11/25/16 05:42 Dose: 650 mg Hydrocodone Bitart/Acetaminophen ([place] 5/325) 1 tab PO Q4H PRN PRN Reason: Pain Last Admin: 11/24/16 21:02 Dose: 1 tab Al Hydroxide/Mg Hydroxide (Maalox Plus) 30 ml PO Q4H PRN PRN Reason: Indigestion Last Admin: 11/24/16 17:24 Dose: 30 ml Divalproex Sodium (Depakote Er) 1,500 mg PO [facility] Last Admin: 11/24/16 20:39 Dose: 1,500 mg Divalproex Sodium (Depakote Er) 250 mg PO [facility] Last Admin: 11/24/16 20:40 Dose: 250 mg Furosemide (Lasix) 20 mg PO BIDBL [facility] Last Admin: 11/25/16 08:56 Dose: 20 mg Gabapentin (Neurontin) 300 mg PO TIDWM [facility] Last Admin: 11/25/16 08:56 Dose: 300 mg Guaifenesin (Robitussin Liq) 100 mg PO Q4H PRN PRN Reason: Cough Haloperidol (Haldol) 0.5 mg PO Q6H PRN PRN Reason: Extreme agitation Last Admin: 11/17/16 00:15 Dose: 0.5 mg Haloperidol Lactate (Haldol) 0.5 mg IM Q6H PRN PRN Reason: Extreme agitation Hydroxyzine HCl (Atarax) 100 mg PO [facility] Last Admin: 11/24/16 20:40 Dose: 100 mg Insulin Aspart (Novolog) 5 unit SQ TIDWM [facility] Last Admin: 11/25/16 08:58 Dose: 5 unit Lactobacillus Acidophilus (Culturelle) 2 cap PO BIDWM [facility] Last Admin: 11/25/16 08:57 Dose: 2 cap Liraglutide (Victoza) 1.2 mg SQ DAILY [facility] Last Admin: 11/25/16 08:57 Dose: 1.2 mg Lisinopril (Prinivil) 10 mg PO DAILY [facility] Last Admin: 11/25/16 08:58 Dose: 10 mg Loperamide HCl (Imodium) 2 mg PO QID PRN; Protocol PRN Reason: Diarrhea Last Admin: 11/19/16 15:16 Dose: 2 mg Lorazepam (Ativan) 0.5 mg PO Q6H PRN PRN Reason: Extreme agitation Last Admin: 11/16/16 01:20 Dose: 0.5 mg Lorazepam (Ativan Inj) 0.5 mg IM Q6H PRN PRN Reason: Extreme agitation Lorazepam (Ativan) 1 mg PO [facility] Last Admin: 11/24/16 20:40 Dose: 1 mg Lurasidone HCl (Latuda) 80 mg PO WS [facility] Last Admin: 11/24/16 17:17 Dose: 80 mg Magnesium Hydroxide (Mom) 30 ml PO DAILY PRN PRN Reason: Constipation Last Admin: 11/24/16 13:47 Dose: 30 ml Metformin HCl (Glucophage) 500 mg PO WB [facility] Last Admin: 11/25/16 08:57 Dose: 500 mg Metoprolol Succinate (Toprol Xl) 50 mg PO DAILY [facility] Last Admin: 11/25/16 08:58 Dose: 50 mg Nystatin (Mycostatin) 1 applic TP TID [facility] Last Admin: 11/25/16 08:59 Dose: 1 applic Ondansetron HCl (Zofran Po) 4 mg PO Q6H PRN PRN Reason: Nausea &/or vomiting Prazosin HCl (Minipress) 2 mg PO [facility] Last Admin: 11/24/16 20:41 Dose: 2 mg Psyllium Hydrophilic Mucilloid (Metamucil) 1 packet PO DAILY [facility] Last Admin: 11/25/16 08:59 Dose: 1 packet Ropinirole HCl (Requip) 0.25 mg PO [facility] Last Admin: 11/24/16 20:42 Dose: 0.25 mg Ropinirole HCl (Requip) 0.25 mg PO Q8H PRN Last Admin: 11/22/16 02:53 Dose: 0.25 mg Senna/Docusate Sodium (Senna Plus Tablet) 1 tab PO BID PRN PRN Reason: Constipation Simvastatin (Zocor) 20 mg PO [facility] Last Admin: 11/24/16 20:42 Dose: 20 mg Sodium Chloride (Iv Flush) 10 - 80 ml IVF PRN PRN PRN Reason: Flushing Last Admin: 11/13/16 19:15 Dose: 10 ml Warfarin Sodium (Coumadin Protocol) 0 [facility] NOTE MYRIAM Warfarin Sodium (Coumadin) 2 mg PO NOON [facility] Stop: 11/25/16 12:01 Subjective: Patient seen and chart reviewed. Case discussed with treatment team. On interview, patient is relatively appropriate in his interactions with me. He reports that his mood is good. He does not mention any bizarre thoughts/ beliefs. Patient reports that he is tolerating his medications well. He has been less tired during the daytime. Patient denies any SI, HI or AVH. Patient denies any adverse side effects related to psychotropic medications. Nursing staff report patient was more cooperative and participated in own care today more than previously. He did not use the call light excessively last night. Patient slept 4 hours overnight, which would be the biggest target symptom at this point. VSS. Patient is eating well. Psychotropic PRNs required in the past 24 hours: none. Start Time: 09:30 Stop Time: 09:50 Mental Status Exam Vitals: Last Vital Signs Temp 97.3 F 11/25/16 08:00 Pulse 72 11/25/16 08:00 Resp 16 11/25/16 08:00 BP 121/65 11/25/16 08:00 Pulse Ox 98 11/25/16 08:00 Height: 1.85 m Weight: 160.8 kg - Mental Status Exam Muscle Strength/Tone: Normal Dressing: Casual Grooming: Poor Attitude: Cooperative Motor Activity: Normal Eye Contact: Good Speech: Normal Volume: Normal Rhythm: Appropriate Rhythm Orientation: Oriented X4 Mood: Euthymic (Calm, appropriate affect) Rate of Thoughts: Appropriate Rate Thought Organization: Organized Associations: Intact Abstract Reasoning: Intact, able to abstract Thought Content: Normal Perception/Psychotic: Hx psychosis, not current Language: Naming Intact Fund of Knowledge: Grady aware current events Memory: Grossly Intact Suicidal Ideation: Denies (though made suicidal comment last night) Homicidal Ideation: Denies Insight: Limited (improving) Judgement: Limited Impulse Control: Fair - Laboratory Result Diagrams: 11/20/16 06:39 11/20/16 06:39 Laboratory Results - last 24 hr 11/24/16 11/24/16 11/24/16 11:20 14:51 22:09 INR Glucometer 243 196 169 11/25/16 11/25/16 05:05 06:56 INR 2.01 H Glucometer 142 Assessment and Plan (1) Bipolar 1 disorder Problem details: MRE manic with psychosis Current visit: Yes Status: Acute Hospital Course Summary Disclaimer: The visit summary below is not to be considered part of the above Progress Note. Hospital Course: 11/14/16 Impression Abnormal behaviors Bipolar disorder Type II diabetes Chronic atrial fibrillation Hyperlipidemia Osteoarthritis Chronic anticoagulation Obesity Plan Agree with admission to the [facility] for further psychiatric evaluation and treatment. Monitor blood sugars and continue on current regimen Victoza, Metformin, and Novolog 5 units with meals. Nystatin powder for rash to groin Asked nursing staff to place mame wraps to bilateral lower ext to help with edema. Monitor blood pressure and pulse. Appears to chronically be in A-fibulation Chronic anticoagulation on Coumadin- Check INR now and consult pharmacy for Coumadin dosing. Encourage her just patient in unit activities and provide a safe environment. Hospital services will continue to follow patient and manage his medical comorbidities. At time of discharge his medical care is to return to his primary care provider Dr Stafford 11/15/16 18:05 Remains paranoid and pressured. Ativan 0.5mg at HS for sleep. Depakote level in AM 11/16/16 18:25 Remains paranoid and delusional. Increase Depakote to 1000mg at HS, Increase Latuda to 80mg, and increase Ativan to 1mg at HS 11/17/16 16:47 Remains paranoid and delusional but improved. Continue current care 11/18/16 12:20 Some paranoia and delusions but improving. Continue current care 11/19/16 11:37 Poor sleep. Javi improving. Continue current care 11/19/16 12:49 *Loose stool/Incontinence RN reports loose stool is better, but incontinence ongoing. Will add metamucil and probiotics to bulk up stools. *Cough Pt reports productive cough- No fever or chills. No SOA, but recent pneumonia a concern. Will add Mucinex and check CXR for now. Repeat labs in AM. Check BNP. Continue medications for HF. *Atrial fib/Chronic warfarin Continue rate control/Pharmacy managing warfarin. Could consider change to NOAC for ongoing anticoagulation. *DM Well controlled. If loose stools continue, may need to DC the metformin. Continue medications and monitor. 11/20/16 Psych: Check VPA Level in AM since increased dose; will adjust accordingly as patient continues to be manic, uncooperative, and endorse thoughts of hurting others. Added hydroxyzine 50mg PO q HS to target insomnia. Continue current dose of Latuda and HS Ativan. 11/21/16 Psych: VPA level within therapeutic limits. Patient continues to be acutely psychotic and manic but I do believe he is somewhat improved from yesterday and will continue to improve on current medication regimen given time. Is on max dose of Latuda indicated for javi. I do not believe patient is safe for management outside of the hospital in this state but is improving overall. Will increase hydroxyzine to 100mg tonight to target insomnia; continue current dose of Depakote, Latuda and Ativan. 11/22/16 Psych: Patient's javi is improving though continues to have poor nighttime sleep and make bizarre statements - speech more normal, calmer affect , able to participate in group now. Will switch Depakote to Depakote ER 1500mg PO q HS tonight and may increase slightly tomorrow (received daytime dose of DR this morning which he will not tomorrow). Hopefully this may help him sleep more at night and have less sedation during the day. 11/23/16 Psych: Patient improving overall - will increase Depakote ER to 1750mg PO q HS as patient did not receive AM dose today. Continuing to target insomnia - refrained from daytime nap today so may help sleep at night. Continue to monitor. 11/24/16 Psych: Patient continues to improve though would like for him to sleep longer at night if possible. Tolerating medication changes well. Continue to monitor and SW to begin arrangements for discharge. Patient has expressed hesitance in returning to his placement as he likes our unit. 11/25/16: Patient doing well overall - would like patient to be sleeping longer through night so will focus on this; otherwise SW to begin arrangements with facility to discharge patient soon.
[2016-11-25] MEDS ORDERED: WARFARIN 2 MG TABLET PO SCH (12:00)
[2016-11-25] MEDS: HYDROCODONE/APAP 5mg/325mg TABLET PO PRN ×2 (17:16→20:58)
[2016-11-25] MEDS: LURASIDONE 40mg TABLET PO SCH (17:16)
[2016-11-25] MEDS: SIMVASTATIN 20 MG TABLET PO SCH (20:56)
[2016-11-25] MEDS: LORazepam 1 MG TABLET PO SCH (20:58)
[2016-11-25] MEDS: ROPINIROLE 0.25 MG TABLET PO SCH (20:58)
[2016-11-25] MEDS: HydrOXYzine 50 MG TABLET PO SCH (20:59)
[2016-11-25] MEDS: PRAZOSIN 1 MG CAPSULE PO SCH (21:02)
[2016-11-26] MEDS: ACETAMINOPHEN 325 MG TABLET PO PRN (00:24)
[2016-11-26] MEDS: GABAPENTIN 300 MG CAPSULE PO SCH ×3 (08:01→17:34)
[2016-11-26] MEDS: METFORMIN 500 MG TABLET PO SCH (08:01)
[2016-11-26] MEDS: FUROSEMIDE 20 MG TABLET PO SCH ×2 (08:01→12:03)
[2016-11-26] MEDS: LACTOBACILLUS (15B cfu) CAPSULE PO SCH ×2 (08:02→17:34)
[2016-11-26] MEDS: INSULIN ASPART 100unit/ml INJECTION SQ SCH ×3 (08:02→17:36)
[2016-11-26] MEDS: PSYLLIUM PACKET PO SCH (08:03)
[2016-11-26] MEDS: LISINOPRIL 10 MG TABLET PO SCH (08:03)
[2016-11-26] MEDS: LIRAGLUTIDE INJECTABLE PEN SQ SCH (08:04)
--- NOTE | 2016-11-26 08:44 | Pharmacy Consult ---
Pharmacy Consult-Warfarin - Laboratory Information 11/14/16 11/15/16 11/16/16 09:23 08:12 04:56 INR 2.50 H 2.62 H 2.57 H 11/18/16 11/19/16 11/20/16 07:56 07:27 06:39 INR 2.72 H 2.97 H 3.04 H 11/21/16 11/22/16 11/23/16 06:00 04:53 08:29 INR 2.95 H 2.54 H 2.18 H 11/24/16 11/25/16 11/26/16 05:53 06:56 06:01 INR 2.00 H 2.01 H 2.22 H - Consult Information SB, a 69 yo male with history of chronic A Fib. Home dose of warfarin reported as 2.5mg. Goal INR = 2-3 Date INR Dose 11/14 2.50 2.5 mg 11/15 2.62 2.5 mg 11/16 2.57 2.5 mg 11/17 -- 2.5 mg 11/18 2.72 2.5mg 11/19 2.97 2 mg 11/20 3.04 1mg 11/21 2.95 1 mg 11/22 2.54 1 mg 11/23 2.18 1.5 mg 11/24 2.00 2 mg 11/25 2.01 2 mg 11/26 2.22 plan: 2 mg po daily Will give warfarin 2 m g po daily. The pharmacy will continue to monitor the INR 's and adjust the warfarin accordingly. Thank you for the Warfarin Dosing Protocol, Cira Rutherford RPh
[2016-11-26] MEDS: WARFARIN 2 MG TABLET PO SCH (12:03)
[2016-11-26] MEDS: MAG-AL + SIM ORAL LIQUID 30ml PO PRN (13:19)
[2016-11-26] MEDS: LORazepam 0.5 MG TABLET PO PRN (13:21)
--- NOTE | 2016-11-26 15:08 | Neuropsych Progress Note ---
[facility] Subjective Date: 11/26/16 - Sujective/Severity of Illness Medications: Acetaminophen (Tylenol) 325 - 650 mg PO Q5H PRN PRN Reason: Discomfort Last Admin: 11/26/16 00:24 Dose: 650 mg Hydrocodone Bitart/Acetaminophen ([place] 5/325) 1 tab PO Q4H PRN PRN Reason: Pain Last Admin: 11/25/16 20:58 Dose: 1 tab Al Hydroxide/Mg Hydroxide (Maalox Plus) 30 ml PO Q4H PRN PRN Reason: Indigestion Last Admin: 11/26/16 13:19 Dose: 30 ml Divalproex Sodium (Depakote Er) 1,500 mg PO [facility] Last Admin: 11/25/16 20:56 Dose: 1,500 mg Divalproex Sodium (Depakote Er) 250 mg PO [facility] Last Admin: 11/25/16 21:16 Dose: 250 mg Furosemide (Lasix) 20 mg PO BIDBL [facility] Last Admin: 11/26/16 12:03 Dose: 20 mg Gabapentin (Neurontin) 300 mg PO TIDWM [facility] Last Admin: 11/26/16 12:03 Dose: 300 mg Guaifenesin (Robitussin Liq) 100 mg PO Q4H PRN PRN Reason: Cough Haloperidol (Haldol) 0.5 mg PO Q6H PRN PRN Reason: Extreme agitation Last Admin: 11/17/16 00:15 Dose: 0.5 mg Haloperidol Lactate (Haldol) 0.5 mg IM Q6H PRN PRN Reason: Extreme agitation Hydroxyzine HCl (Atarax) 100 mg PO [facility] Last Admin: 11/25/16 20:59 Dose: 100 mg Insulin Aspart (Novolog) 5 unit SQ TIDWM [facility] Last Admin: 11/26/16 12:02 Dose: 5 unit Lactobacillus Acidophilus (Culturelle) 2 cap PO BIDWM [facility] Last Admin: 11/26/16 08:02 Dose: 2 cap Liraglutide (Victoza) 1.2 mg SQ DAILY [facility] Last Admin: 11/26/16 08:04 Dose: 1.2 mg Lisinopril (Prinivil) 10 mg PO DAILY [facility] Last Admin: 11/26/16 08:03 Dose: 10 mg Loperamide HCl (Imodium) 2 mg PO QID PRN; Protocol PRN Reason: Diarrhea Last Admin: 11/19/16 15:16 Dose: 2 mg Lorazepam (Ativan) 0.5 mg PO Q6H PRN PRN Reason: Extreme agitation Last Admin: 11/26/16 13:21 Dose: 0.5 mg Lorazepam (Ativan Inj) 0.5 mg IM Q6H PRN PRN Reason: Extreme agitation Lorazepam (Ativan) 1 mg PO [facility] Last Admin: 11/25/16 20:58 Dose: 1 mg Lurasidone HCl (Latuda) 80 mg PO WS [facility] Last Admin: 11/25/16 17:16 Dose: 80 mg Magnesium Hydroxide (Mom) 30 ml PO DAILY PRN PRN Reason: Constipation Last Admin: 11/24/16 13:47 Dose: 30 ml Metformin HCl (Glucophage) 500 mg PO WB [facility] Last Admin: 11/26/16 08:01 Dose: 500 mg Metoprolol Succinate (Toprol Xl) 50 mg PO DAILY [facility] Last Admin: 11/26/16 08:03 Dose: 50 mg Nystatin (Mycostatin) 1 applic TP TID [facility] Last Admin: 11/26/16 14:40 Dose: 1 applic Ondansetron HCl (Zofran Po) 4 mg PO Q6H PRN PRN Reason: Nausea &/or vomiting Last Admin: 11/26/16 13:21 Dose: 4 mg Prazosin HCl (Minipress) 2 mg PO [facility] Last Admin: 11/25/16 21:02 Dose: 2 mg Psyllium Hydrophilic Mucilloid (Metamucil) 1 packet PO DAILY [facility] Last Admin: 11/26/16 08:03 Dose: 1 packet Ropinirole HCl (Requip) 0.25 mg PO [facility] Last Admin: 11/25/16 20:58 Dose: 0.25 mg Ropinirole HCl (Requip) 0.25 mg PO Q8H PRN Last Admin: 11/22/16 02:53 Dose: 0.25 mg Senna/Docusate Sodium (Senna Plus Tablet) 1 tab PO BID PRN PRN Reason: Constipation Simvastatin (Zocor) 20 mg PO [facility] Last Admin: 11/25/16 20:56 Dose: 20 mg Sodium Chloride (Iv Flush) 10 - 80 ml IVF PRN PRN PRN Reason: Flushing Last Admin: 11/13/16 19:15 Dose: 10 ml Warfarin Sodium (Coumadin Protocol) 0 [facility] NOTE MYRIAM Warfarin Sodium (Coumadin) 2 mg PO NOON [facility] Last Admin: 11/26/16 12:03 Dose: 2 mg Subjective: Patient seen and chart reviewed. Case discussed with treatment team. On interview, patient is appropriate in his interactions with me. He reports that his mood is good. He does not mention any bizarre thoughts/beliefs. Patient reports that he is tolerating his medications well. He has been less tired during the daytime but still not sleeping more than 4-5 hours at night. Patient denies any SI, HI or AVH. Patient denies any adverse side effects related to psychotropic medications. Nursing staff report patient has been more cooperative and participated in own care more than previously. He did not use the call light excessively last night. He can be demanding rarely but is redirectable. Patient slept 5 hours overnight, which would be the biggest target symptom at this point. VSS. Patient is eating well. Psychotropic PRNs required in the past 24 hours: none. Start Time: 12:00 Stop Time: 12:20 Mental Status Exam Vitals: Last Vital Signs Temp 97.8 F 11/26/16 14:44 Pulse 77 11/26/16 14:44 Resp 16 11/26/16 14:44 BP 125/57 11/26/16 14:44 Pulse Ox 95 11/26/16 14:44 Height: 1.85 m Weight: 160.8 kg - Mental Status Exam Muscle Strength/Tone: Normal Dressing: Casual Grooming: Fair Attitude: Cooperative Motor Activity: Normal Eye Contact: Good Speech: Normal Volume: Normal Rhythm: Appropriate Rhythm Orientation: Oriented X4 Mood: Euthymic (Calm, appropriate affect) Rate of Thoughts: Appropriate Rate Thought Organization: Organized Associations: Intact Abstract Reasoning: Intact, able to abstract Thought Content: Normal Perception/Psychotic: Hx psychosis, not current Language: Naming Intact Fund of Knowledge: Grady aware current events Memory: Grossly Intact Suicidal Ideation: Denies (though made suicidal comment last night) Homicidal Ideation: Denies Insight: Fair Judgement: Fair Impulse Control: Fair - Laboratory Result Diagrams: 11/20/16 06:39 11/20/16 06:39 Laboratory Results - last 24 hr 11/25/16 11/26/16 11/26/16 20:21 06:01 06:01 INR 2.22 H Glucometer 157 148 11/26/16 11/26/16 10:02 14:29 INR Glucometer 231 195 Assessment and Plan (1) Bipolar 1 disorder Problem details: MRE manic with psychosis Current visit: Yes Status: Acute Hospital Course Summary Disclaimer: The visit summary below is not to be considered part of the above Progress Note. Hospital Course: 11/14/16 Impression Abnormal behaviors Bipolar disorder Type II diabetes Chronic atrial fibrillation Hyperlipidemia Osteoarthritis Chronic anticoagulation Obesity Plan Agree with admission to the [facility] for further psychiatric evaluation and treatment. Monitor blood sugars and continue on current regimen Victoza, Metformin, and Novolog 5 units with meals. Nystatin powder for rash to groin Asked nursing staff to place mame wraps to bilateral lower ext to help with edema. Monitor blood pressure and pulse. Appears to chronically be in A-fibulation Chronic anticoagulation on Coumadin- Check INR now and consult pharmacy for Coumadin dosing. Encourage her just patient in unit activities and provide a safe environment. Hospital services will continue to follow patient and manage his medical comorbidities. At time of discharge his medical care is to return to his primary care provider Dr Stafford 11/15/16 18:05 Remains paranoid and pressured. Ativan 0.5mg at HS for sleep. Depakote level in AM 11/16/16 18:25 Remains paranoid and delusional. Increase Depakote to 1000mg at HS, Increase Latuda to 80mg, and increase Ativan to 1mg at HS 11/17/16 16:47 Remains paranoid and delusional but improved. Continue current care 11/18/16 12:20 Some paranoia and delusions but improving. Continue current care 11/19/16 11:37 Poor sleep. Javi improving. Continue current care 11/19/16 12:49 *Loose stool/Incontinence RN reports loose stool is better, but incontinence ongoing. Will add metamucil and probiotics to bulk up stools. *Cough Pt reports productive cough- No fever or chills. No SOA, but recent pneumonia a concern. Will add Mucinex and check CXR for now. Repeat labs in AM. Check BNP. Continue medications for HF. *Atrial fib/Chronic warfarin Continue rate control/Pharmacy managing warfarin. Could consider change to NOAC for ongoing anticoagulation. *DM Well controlled. If loose stools continue, may need to DC the metformin. Continue medications and monitor. 11/20/16 Psych: Check VPA Level in AM since increased dose; will adjust accordingly as patient continues to be manic, uncooperative, and endorse thoughts of hurting others. Added hydroxyzine 50mg PO q HS to target insomnia. Continue current dose of Latuda and HS Ativan. 11/21/16 Psych: VPA level within therapeutic limits. Patient continues to be acutely psychotic and manic but I do believe he is somewhat improved from yesterday and will continue to improve on current medication regimen given time. Is on max dose of Latuda indicated for javi. I do not believe patient is safe for management outside of the hospital in this state but is improving overall. Will increase hydroxyzine to 100mg tonight to target insomnia; continue current dose of Depakote, Latuda and Ativan. 11/22/16 Psych: Patient's javi is improving though continues to have poor nighttime sleep and make bizarre statements - speech more normal, calmer affect , able to participate in group now. Will switch Depakote to Depakote ER 1500mg PO q HS tonight and may increase slightly tomorrow (received daytime dose of DR this morning which he will not tomorrow). Hopefully this may help him sleep more at night and have less sedation during the day. 11/23/16 Psych: Patient improving overall - will increase Depakote ER to 1750mg PO q HS as patient did not receive AM dose today. Continuing to target insomnia - refrained from daytime nap today so may help sleep at night. Continue to monitor. 11/24/16 Psych: Patient continues to improve though would like for him to sleep longer at night if possible. Tolerating medication changes well. Continue to monitor and SW to begin arrangements for discharge. Patient has expressed hesitance in returning to his placement as he likes our unit. 11/25/16 Psych: Patient doing well overall - would like patient to be sleeping longer through night so will focus on this; otherwise SW to begin arrangements with facility to discharge patient soon. 11/26/16 Psych: Patient doing well overall but still sleeping only 4-5 hours per night. Will increase Ativan to 2mg PO q HS. Ideally once completely stable and into better sleep routine, could cut back on HS Hydroxyzine and then possibly Ativan. Monitor sleep tonight.
[2016-11-26] MEDS: LURASIDONE 40mg TABLET PO SCH (17:34)
[2016-11-26] MEDS: PRAZOSIN 1 MG CAPSULE PO SCH (21:15)
[2016-11-26] MEDS: LORazepam 2 MG TABLET PO SCH (21:15)
[2016-11-26] MEDS: SIMVASTATIN 20 MG TABLET PO SCH (21:16)
[2016-11-26] MEDS: HydrOXYzine 50 MG TABLET PO SCH ×2 (21:16→21:17)
[2016-11-26] MEDS: ROPINIROLE 0.25 MG TABLET PO SCH (21:16)
[2016-11-27] MEDS: HYDROCODONE/APAP 5mg/325mg TABLET PO PRN ×2 (02:49→19:48)
[2016-11-27] MEDS: FUROSEMIDE 20 MG TABLET PO SCH ×2 (10:05→12:50)
[2016-11-27] MEDS: GABAPENTIN 300 MG CAPSULE PO SCH ×3 (10:05→17:33)
[2016-11-27] MEDS: LACTOBACILLUS (15B cfu) CAPSULE PO SCH ×2 (10:06→17:33)
[2016-11-27] MEDS: INSULIN ASPART 100unit/ml INJECTION SQ SCH ×3 (10:06→17:34)
[2016-11-27] MEDS: LISINOPRIL 10 MG TABLET PO SCH (10:07)
[2016-11-27] MEDS: LIRAGLUTIDE INJECTABLE PEN SQ SCH (10:07)
[2016-11-27] MEDS: METFORMIN 500 MG TABLET PO SCH (10:07)
[2016-11-27] MEDS: PSYLLIUM PACKET PO SCH (10:08)
[2016-11-27] MEDS: WARFARIN 2 MG TABLET PO SCH (12:51)
[2016-11-27 16:30] VITALS: RESP 20
[2016-11-27] MEDS: LURASIDONE 40mg TABLET PO SCH (17:34)
[2016-11-27] MEDS: ROPINIROLE 0.25 MG TABLET PO SCH ×2 (19:47→23:47)
[2016-11-27] MEDS: HydrOXYzine 50 MG TABLET PO SCH ×2 (19:47→23:46)
[2016-11-27] MEDS: SIMVASTATIN 20 MG TABLET PO SCH ×2 (19:49→23:48)
[2016-11-27] MEDS: LORazepam 2 MG TABLET PO SCH ×2 (19:55→23:46)
[2016-11-27] MEDS: PRAZOSIN 1 MG CAPSULE PO SCH ×2 (19:55→23:47)
--- NOTE | 2016-11-27 21:36 | Neuropsych Progress Note ---
[facility] Subjective Date: 11/28/16 - Sujective/Severity of Illness Medications: Acetaminophen (Tylenol) 325 - 650 mg PO Q5H PRN PRN Reason: Discomfort Last Admin: 11/26/16 00:24 Dose: 650 mg Hydrocodone Bitart/Acetaminophen ([place] 5/325) 1 tab PO Q4H PRN PRN Reason: Pain Last Admin: 11/27/16 19:48 Dose: 1 tab Al Hydroxide/Mg Hydroxide (Maalox Plus) 30 ml PO Q4H PRN PRN Reason: Indigestion Last Admin: 11/26/16 13:19 Dose: 30 ml Divalproex Sodium (Depakote Er) 1,500 mg PO [facility] Last Admin: 11/27/16 19:48 Dose: 1,500 mg Divalproex Sodium (Depakote Er) 250 mg PO [facility] Last Admin: 11/27/16 19:52 Dose: 250 mg Furosemide (Lasix) 20 mg PO BIDBL [facility] Last Admin: 11/27/16 12:50 Dose: 20 mg Gabapentin (Neurontin) 300 mg PO TIDWM [facility] Last Admin: 11/27/16 17:33 Dose: 300 mg Guaifenesin (Robitussin Liq) 100 mg PO Q4H PRN PRN Reason: Cough Haloperidol (Haldol) 0.5 mg PO Q6H PRN PRN Reason: Extreme agitation Last Admin: 11/17/16 00:15 Dose: 0.5 mg Haloperidol Lactate (Haldol) 0.5 mg IM Q6H PRN PRN Reason: Extreme agitation Hydroxyzine HCl (Atarax) 100 mg PO [facility] Last Admin: 11/27/16 19:47 Dose: 100 mg Insulin Aspart (Novolog) 5 unit SQ TIDWM [facility] Last Admin: 11/27/16 17:34 Dose: 5 unit Lactobacillus Acidophilus (Culturelle) 2 cap PO BIDWM [facility] Last Admin: 11/27/16 17:33 Dose: 2 cap Liraglutide (Victoza) 1.2 mg SQ DAILY [facility] Last Admin: 11/27/16 10:07 Dose: 1.2 mg Lisinopril (Prinivil) 10 mg PO DAILY [facility] Last Admin: 11/27/16 10:07 Dose: 10 mg Loperamide HCl (Imodium) 2 mg PO QID PRN; Protocol PRN Reason: Diarrhea Last Admin: 11/19/16 15:16 Dose: 2 mg Lorazepam (Ativan) 0.5 mg PO Q6H PRN PRN Reason: Extreme agitation Last Admin: 11/26/16 13:21 Dose: 0.5 mg Lorazepam (Ativan Inj) 0.5 mg IM Q6H PRN PRN Reason: Extreme agitation Lorazepam (Ativan) 2 mg PO HS [facility] Last Admin: 11/27/16 19:55 Dose: 2 mg Lurasidone HCl (Latuda) 80 mg PO WS [facility] Last Admin: 11/27/16 17:34 Dose: 80 mg Magnesium Hydroxide (Mom) 30 ml PO DAILY PRN PRN Reason: Constipation Last Admin: 11/24/16 13:47 Dose: 30 ml Metformin HCl (Glucophage) 500 mg PO WB [facility] Last Admin: 11/27/16 10:07 Dose: 500 mg Metoprolol Succinate (Toprol Xl) 50 mg PO DAILY [facility] Last Admin: 11/27/16 10:09 Dose: 50 mg Nystatin (Mycostatin) 1 applic TP TID [facility] Last Admin: 11/27/16 15:12 Dose: 1 applic Ondansetron HCl (Zofran Po) 4 mg PO Q6H PRN PRN Reason: Nausea &/or vomiting Last Admin: 11/26/16 13:21 Dose: 4 mg Prazosin HCl (Minipress) 2 mg PO [facility] Last Admin: 11/27/16 19:55 Dose: 2 mg Psyllium Hydrophilic Mucilloid (Metamucil) 1 packet PO DAILY [facility] Last Admin: 11/27/16 10:08 Dose: 1 packet Ropinirole HCl (Requip) 0.25 mg PO [facility] Last Admin: 11/27/16 19:47 Dose: 0.25 mg Ropinirole HCl (Requip) 0.25 mg PO Q8H PRN Last Admin: 11/22/16 02:53 Dose: 0.25 mg Senna/Docusate Sodium (Senna Plus Tablet) 1 tab PO BID PRN PRN Reason: Constipation Simvastatin (Zocor) 20 mg PO [facility] Last Admin: 11/27/16 19:49 Dose: 20 mg Sodium Chloride (Iv Flush) 10 - 80 ml IVF PRN PRN PRN Reason: Flushing Last Admin: 11/13/16 19:15 Dose: 10 ml Warfarin Sodium (Coumadin Protocol) 0 MC NOTE MYRIAM Warfarin Sodium (Coumadin) 2 mg PO NOON [facility] Last Admin: 11/27/16 12:51 Dose: 2 mg Subjective: Patient seen and chart reviewed. Case discussed with treatment team. On interview, patient is appropriate in his interactions with me. He reports that his mood is good. He does not mention any bizarre thoughts/beliefs. Patient reports that he is tolerating his medications well. He has been less tired during they daytime but I would still prefer that he would be able to sleep for more than 5 hours/night. Patient denies any SI, HI or AVH. Patient denies any adverse side effects related to psychotropic medications. Nursing staff report patient has been more cooperative and participated in own care more than previously. He did not use the call light excessively last night. He can be demanding rarely but is redirectable. Patient slept 5 hours overnight, which would be the biggest target symptom at this point. VSS. Patient is eating well. Psychotropic PRNs required in the past 24 hours: none. Start Time: 16:20 Stop Time: 16:40 Mental Status Exam Vitals: Last Vital Signs Temp 99 F 11/27/16 16:00 Pulse 69 11/27/16 16:00 Resp 20 11/27/16 16:00 BP 125/66 11/27/16 16:00 Pulse Ox 96 11/27/16 16:00 Height: 1.85 m Weight: 160.8 kg - Mental Status Exam Muscle Strength/Tone: Normal Dressing: Casual Grooming: Fair Attitude: Cooperative Motor Activity: Normal Eye Contact: Good Speech: Normal Volume: Normal Rhythm: Appropriate Rhythm Orientation: Oriented X4 Mood: Euthymic (Calm, appropriate affect) Rate of Thoughts: Appropriate Rate Thought Organization: Organized Associations: Intact Abstract Reasoning: Intact, able to abstract Thought Content: Normal Perception/Psychotic: Hx psychosis, not current Language: Naming Intact Fund of Knowledge: Grady aware current events Memory: Grossly Intact Suicidal Ideation: Denies (though made suicidal comment last night) Homicidal Ideation: Denies Insight: Fair Judgement: Fair Impulse Control: Fair - Laboratory Result Diagrams: 11/20/16 06:39 11/20/16 06:39 Laboratory Results - last 24 hr 10/08/17 10/09/17 10/09/17 21:28 06:13 06:13 INR 2.23 H Glucometer 186 156 11/27/16 11/27/16 14:23 20:20 INR Glucometer 226 163 Assessment and Plan (1) Bipolar 1 disorder Problem details: MRE manic with psychosis - resolved by time of discharge Status: Acute Hospital Course Summary Disclaimer: The visit summary below is not to be considered part of the above Progress Note. Hospital Course: 11/14/16 Impression Abnormal behaviors Bipolar disorder Type II diabetes Chronic atrial fibrillation Hyperlipidemia Osteoarthritis Chronic anticoagulation Obesity Plan Agree with admission to the [facility] for further psychiatric evaluation and treatment. Monitor blood sugars and continue on current regimen Victoza, Metformin, and Novolog 5 units with meals. Nystatin powder for rash to groin Asked nursing staff to place mame wraps to bilateral lower ext to help with edema. Monitor blood pressure and pulse. Appears to chronically be in A-fibulation Chronic anticoagulation on Coumadin- Check INR now and consult pharmacy for Coumadin dosing. Encourage her just patient in unit activities and provide a safe environment. Hospital services will continue to follow patient and manage his medical comorbidities. At time of discharge his medical care is to return to his primary care provider Dr Stafford 11/15/16 18:05 Remains paranoid and pressured. Ativan 0.5mg at HS for sleep. Depakote level in AM 11/16/16 18:25 Remains paranoid and delusional. Increase Depakote to 1000mg at HS, Increase Latuda to 80mg, and increase Ativan to 1mg at HS 11/17/16 16:47 Remains paranoid and delusional but improved. Continue current care 11/18/16 12:20 Some paranoia and delusions but improving. Continue current care 11/19/16 11:37 Poor sleep. Javi improving. Continue current care 11/19/16 12:49 *Loose stool/Incontinence RN reports loose stool is better, but incontinence ongoing. Will add metamucil and probiotics to bulk up stools. *Cough Pt reports productive cough- No fever or chills. No SOA, but recent pneumonia a concern. Will add Mucinex and check CXR for now. Repeat labs in AM. Check BNP. Continue medications for HF. *Atrial fib/Chronic warfarin Continue rate control/Pharmacy managing warfarin. Could consider change to NOAC for ongoing anticoagulation. *DM Well controlled. If loose stools continue, may need to DC the metformin. Continue medications and monitor. 11/20/16 Psych: Check VPA Level in AM since increased dose; will adjust accordingly as patient continues to be manic, uncooperative, and endorse thoughts of hurting others. Added hydroxyzine 50mg PO q HS to target insomnia. Continue current dose of Latuda and HS Ativan. 11/21/16 Psych: VPA level within therapeutic limits. Patient continues to be acutely psychotic and manic but I do believe he is somewhat improved from yesterday and will continue to improve on current medication regimen given time. Is on max dose of Latuda indicated for javi. I do not believe patient is safe for management outside of the hospital in this state but is improving overall. Will increase hydroxyzine to 100mg tonight to target insomnia; continue current dose of Depakote, Latuda and Ativan. 11/22/16 Psych: Patient's javi is improving though continues to have poor nighttime sleep and make bizarre statements - speech more normal, calmer affect , able to participate in group now. Will switch Depakote to Depakote ER 1500mg PO q HS tonight and may increase slightly tomorrow (received daytime dose of DR this morning which he will not tomorrow). Hopefully this may help him sleep more at night and have less sedation during the day. 11/23/16 Psych: Patient improving overall - will increase Depakote ER to 1750mg PO q HS as patient did not receive AM dose today. Continuing to target insomnia - refrained from daytime nap today so may help sleep at night. Continue to monitor. 11/24/16 Psych: Patient continues to improve though would like for him to sleep longer at night if possible. Tolerating medication changes well. Continue to monitor and SW to begin arrangements for discharge. Patient has expressed hesitance in returning to his placement as he likes our unit. 11/25/16 Psych: Patient doing well overall - would like patient to be sleeping longer through night so will focus on this; otherwise SW to begin arrangements with facility to discharge patient soon. 11/26/16 Psych: Patient doing well overall but still sleeping only 4-5 hours per night. Will increase Ativan to 2mg PO q HS. Ideally once completely stable and into better sleep routine, could cut back on HS Hydroxyzine and then possibly Ativan. Monitor sleep tonight. 11/27/16 Psych: Patient doing well. Sleep would be biggest target symptom at this point but is appropriate for management from LTC facility also. Plan to discharge back to facility on 11/28.
--- NOTE | 2016-11-27 21:36 | Discharge Instructions ---
Discharge Plan - Med Rec/Dispo Referrals/Follow Up: Bernie Stafford MD [Family Provider] - (Dr. Sofi Stafford will see patient on rounds at the facility for Hosp. follow-up. [phone]. Patient will be seen on rounds at the facility for Mental Health follow-up. ) Additional Instructions: Discharge Diagnosis: Bipolar 1 disorder, MRE manic Reasons for Admission: Extreme exacerbation of javi symptoms, not sleeping, and is responding to grandiose delusions that compromise his safety and general health. IN CASE OF PSYCHIATRIC EMERGENCY, CONTACT [facility] STAFF AT [phone] ( available 24 hrs daily). [facility] facility to provide medication management and supervise patient for safety. Prescriptions: New Divalproex ER [Depakote ER] 1,500 mg PO HS tablet HydrOXYzine [Atarax] 100 mg PO HS tablet Divalproex ER [Depakote ER] 250 mg PO HS tablet Continue Gabapentin 300 mg PO TIDWM Discontinued ARIPiprazole [Aripiprazole] 30 mg PO DAILY 30 Days #0 Divalproex Sodium [Depakote] 500 mg PO BID No Action Lisinopril 10 mg PO DAILY #0 LORazepam [Ativan] 0.5 mg PO Q6H PRN #0 tab PRN Reason: Anxiety Senna + Docusate [Senna Plus Tablet] 1 tab PO BID PRN 30 Days tablet PRN Reason: Constipation Acetaminophen [Acetaminophen Extra Strength] 500 mg PO Q6H PRN 30 Days #0 PRN Reason: Pain guaiFENesin [Guaifenesin] 100 mg PO Q4H PRN 30 Days #0 PRN Reason: Cough Hydrocodone/Acetaminophen [Hydrocodon-Acetaminophen 5-325] 1 tab PO BID #20 Ketotifen Fumarate [Zaditor] 1 drop EACH EYE Q12H PRN 30 Days #0 PRN Reason: Allergy Symptoms Loperamide [Imodium] 2 mg PO QID PRN 30 Days #0 PRN Reason: Diarrhea Magnesium Hydroxide [Milk of Magnesia] 30 ml PO Q12H PRN 30 Days #0 PRN Reason: Constipation Ropinirole HCl 0.25 mg PO HS 30 Days tab Simvastatin 20 mg PO HS 30 Days #0 guaiFENesin [Mucinex] 600 mg PO BID guaiFENesin [Mucinex] 600 mg PO BID PRN PRN Reason: Allergy Symptoms Miconazole Nitrate [Miconazorb AF] 1 applic TP BID Warfarin [Coumadin] 2.5 mg PO WS Furosemide [Lasix] 20 mg PO BIDBL #0 tab Dextran 70/Hypromellose [Artificial Tears] 1 drop RIGHT EYE TID PRN #0 bottle PRN Reason: DRY EYES Nystatin Cream [Mycostatin] 1 applic TOP BID guaiFENesin [Mucinex] 1,200 mg PO Q12H PRN 30 Days #0 PRN Reason: Congestion Liraglutide [Victoza 3-Otto] 1.2 mg SQ DAILY 30 Days #0 Lurasidone HCl [Latuda] 20 mg PO WS 30 Days #0 Metoprolol Succinate 50 mg PO DAILY 30 Days #0 Prazosin HCl [Minipress] 2 mg PO HS 30 Days #0 Metformin [Glucophage] 500 mg PO QAM Insulin Aspart [Novolog Flexpen] 5 unit SQ TIDWM - Disposition 04 To [facility] Home/Facility
[2016-11-27 22:10] VITALS: PULSE 71
--- NOTE | 2016-11-28 08:50 | Pharmacy Consult ---
Pharmacy Consult-Warfarin - Laboratory Information 11/14/16 11/15/16 11/16/16 09:23 08:12 04:56 INR 2.50 H 2.62 H 2.57 H 11/18/16 11/19/16 11/20/16 07:56 07:27 06:39 INR 2.72 H 2.97 H 3.04 H 11/21/16 11/22/16 11/23/16 06:00 04:53 08:29 INR 2.95 H 2.54 H 2.18 H 11/24/16 11/25/16 11/26/16 05:53 06:56 06:01 INR 2.00 H 2.01 H 2.22 H 11/27/16 11/28/16 06:13 06:18 INR 2.23 H 2.10 H - Consult Information SB, a 69 yo male with history of chronic A Fib. Home dose of warfarin reported as 2.5mg. Goal INR = 2-3 Date INR Dose 11/14 2.50 2.5 mg 11/15 2.62 2.5 mg 11/16 2.57 2.5 mg 11/17 -- 2.5 mg 11/18 2.72 2.5mg 11/19 2.97 2 mg 11/20 3.04 1mg 11/21 2.95 1 mg 11/22 2.54 1 mg 11/23 2.18 1.5 mg 11/24 2.00 2 mg 11/25 2.01 2 mg 11/26 2.22 2 mg po daily 11/27 2.23 2 mg po daily 11/28 2.10 continue 2 mg po daily Will give warfarin 2 m g po daily. INR on Sunday and Sunday. The pharmacy will continue to monitor the INR's and adjust the warfarin accordingly. Thank you for the Warfarin Dosing Protocol, Cira Rutherford RP
[2016-11-28] MEDS: LIRAGLUTIDE INJECTABLE PEN SQ SCH (08:53)
[2016-11-28] MEDS: INSULIN ASPART 100unit/ml INJECTION SQ SCH ×2 (08:53→12:19)
[2016-11-28] MEDS: METFORMIN 500 MG TABLET PO SCH (08:54)
[2016-11-28] MEDS: GABAPENTIN 300 MG CAPSULE PO SCH ×2 (08:54→12:18)
[2016-11-28] MEDS: LISINOPRIL 10 MG TABLET PO SCH (08:54)
[2016-11-28] MEDS: FUROSEMIDE 20 MG TABLET PO SCH ×2 (08:54→12:17)
[2016-11-28] MEDS: LACTOBACILLUS (15B cfu) CAPSULE PO SCH (08:54)
--- NOTE | 2016-11-28 08:54 | Discharge Instructions ---
Discharge Plan - Med Rec/Dispo Referrals/Follow Up: Bernie Stafford MD [Family Provider] - (Dr. Sofi Stafford will see patient on rounds at the facility for Hosp. follow-up. . Patient will be seen on rounds at the facility for Mental Health follow-up. [phone]) Additional Instructions: Discharge Diagnosis: Bipolar 1 disorder, MRE manic Reasons for Admission: Extreme exacerbation of javi symptoms, not sleeping, and is responding to grandiose delusions that compromise his safety and general health. IN CASE OF PSYCHIATRIC EMERGENCY, CONTACT GENERATIONS STAFF AT [phone] ( available 24 hrs daily). [facility] facility to provide medication management and supervise patient for safety. BMP in 1 month to follow electrolytes and renal function. INR in 2 weeks. Prescriptions: New Divalproex ER [Depakote ER] 1,500 mg PO HS tablet HydrOXYzine [Atarax] 100 mg PO HS tablet Psyllium [Metamucil] 1 packet PO DAILY packet Ropinirole [Requip] 0.25 mg PO Q8H PRN #30 tablet PRN Reason: restless legs Divalproex ER [Depakote ER] 250 mg PO HS tablet Hydrocodone/APAP 5/325 [[place] 5/325] 1 tab PO Q8H PRN #30 tab PRN Reason: Pain Nystatin Powder [Mycostatin] 1 applic TP TID bottle Continue Lisinopril 10 mg PO DAILY #0 Ketotifen Fumarate [Zaditor] 1 drop EACH EYE Q12H PRN 30 Days #0 PRN Reason: Allergy Symptoms Loperamide [Imodium] 2 mg PO QID PRN 30 Days #0 PRN Reason: Diarrhea Ropinirole HCl 0.25 mg PO HS 30 Days tab Simvastatin 20 mg PO HS 30 Days #0 Warfarin [Coumadin] 2.5 mg PO WS Furosemide [Lasix] 20 mg PO BIDBL #0 tab Dextran 70/Hypromellose [Artificial Tears] 1 drop RIGHT EYE TID PRN #0 bottle PRN Reason: DRY EYES Liraglutide [Victoza 3-Otto] 1.2 mg SQ DAILY 30 Days #0 Metoprolol Succinate 50 mg PO DAILY 30 Days #0 Metformin [Glucophage] 500 mg PO QAM Insulin Aspart [Novolog Flexpen] 5 unit SQ TIDWM Gabapentin 300 mg PO TIDWM Discontinued Senna + Docusate [Senna Plus Tablet] 1 tab PO BID PRN 30 Days tablet PRN Reason: Constipation Acetaminophen [Acetaminophen Extra Strength] 500 mg PO Q6H PRN 30 Days #0 PRN Reason: Pain ARIPiprazole [Aripiprazole] 30 mg PO DAILY 30 Days #0 guaiFENesin [Guaifenesin] 100 mg PO Q4H PRN 30 Days #0 PRN Reason: Cough Hydrocodone/Acetaminophen [Hydrocodon-Acetaminophen 5-325] 1 tab PO BID #20 Magnesium Hydroxide [Milk of Magnesia] 30 ml PO Q12H PRN 30 Days #0 PRN Reason: Constipation Divalproex Sodium [Depakote] 500 mg PO BID guaiFENesin [Mucinex] 600 mg PO BID guaiFENesin [Mucinex] 600 mg PO BID PRN PRN Reason: Allergy Symptoms Miconazole Nitrate [Miconazorb AF] 1 applic TP BID Nystatin Cream [Mycostatin] 1 applic TOP BID guaiFENesin [Mucinex] 1,200 mg PO Q12H PRN 30 Days #0 PRN Reason: Congestion No Action LORazepam [Ativan] 0.5 mg PO Q6H PRN #0 tab PRN Reason: Anxiety Lurasidone HCl [Latuda] 20 mg PO WS 30 Days #0 Prazosin HCl [Minipress] 2 mg PO HS 30 Days #0 - Disposition 04 To [facility] Home/Facility
[2016-11-28] MEDS: PSYLLIUM PACKET PO SCH (08:55)
[2016-11-28 08:56] VITALS: BP 147/69; TEMP 97.8; O2SAT 94
[2016-11-28] MEDS: WARFARIN 2 MG TABLET PO SCH (12:17)
--- NOTE | 2016-12-18 11:22 | Neuropsychiatric Disch Summary ---
Discharge Information Date of admission: 11/13/16 20:26 Attending Physician: Stefanie Briseno MD Primary care physician: Bernie Stafford MD Consults: 11/14/16 Pharmacy Consult [CONS] Routine Pharmacy Consult: Coumadin/Warfarin 11/23/16 13:41 [facility] Consult [CONS] Routine Reason for consultation: pannus breakdown and excoriation - Discharge Diagnosis (1) Bipolar 1 disorder Status: Acute - Laboratory Labs: 11/20/16 06:39 11/20/16 06:39 Date of Admission: 11/13/16 20:26 History of Present Illness: HPI: 71 Y/O CM with a hx of Bipolar D/O sent here from jail for bizarre behavior. Nursing staff reports the pt was paranoid and believed the [employer] of the [place] was tryintg to murder him. On face to face the pt is tangential and disorganized and very grandiose. He states Rubens Renee put him here" because of the theater". He believes he put a force field over the hospital to protect it. He denies S/I. STRESSORS: Unclear at this time. PSYCH ROS: PT denies feeling depressed. He is paranoid and grandiose. He reports some AH. Staff have reported poor sleep and increased energy. He denies S/I. PAST PSYCH: PT has a long hx of Bipolar D/O. He states he has had five previous psych hospitalizations. His first was in his 20's but this is not corroborated. It is unclear who his psychiatrist is. He was taking Abilify, Latuda and Depakote. He denies ever trying to harm himself. Hospital Course This is a general summary of the patient's hospital course. For more details refer to the complete medical record. Hospital course: 11/14/16 Impression Abnormal behaviors Bipolar disorder Type II diabetes Chronic atrial fibrillation Hyperlipidemia Osteoarthritis Chronic anticoagulation Obesity Plan Agree with admission to the [facility] unit for further psychiatric evaluation and treatment. Monitor blood sugars and continue on current regimen Victoza, Metformin, and Novolog 5 units with meals. Nystatin powder for rash to groin Asked nursing staff to place mame wraps to bilateral lower ext to help with edema. Monitor blood pressure and pulse. Appears to chronically be in A-fibulation Chronic anticoagulation on Coumadin- Check INR now and consult pharmacy for Coumadin dosing. Encourage her just patient in unit activities and provide a safe environment. Hospital services will continue to follow patient and manage his medical comorbidities. At time of discharge his medical care is to return to his primary care provider Dr Stafford 11/15/16 18:05 Remains paranoid and pressured. Ativan 0.5mg at HS for sleep. Depakote level in AM 11/16/16 18:25 Remains paranoid and delusional. Increase Depakote to 1000mg at HS, Increase Latuda to 80mg, and increase Ativan to 1mg at HS 11/17/16 16:47 Remains paranoid and delusional but improved. Continue current care 11/18/16 12:20 Some paranoia and delusions but improving. Continue current care 11/19/16 11:37 Poor sleep. Javi improving. Continue current care 11/19/16 12:49 *Loose stool/Incontinence RN reports loose stool is better, but incontinence ongoing. Will add metamucil and probiotics to bulk up stools. *Cough Pt reports productive cough- No fever or chills. No SOA, but recent pneumonia a concern. Will add Mucinex and check CXR for now. Repeat labs in AM. Check BNP. Continue medications for HF. *Atrial fib/Chronic warfarin Continue rate control/Pharmacy managing warfarin. Could consider change to NOAC for ongoing anticoagulation. *DM Well controlled. If loose stools continue, may need to DC the metformin. Continue medications and monitor. 11/20/16 Psych: Check VPA Level in AM since increased dose; will adjust accordingly as patient continues to be manic, uncooperative, and endorse thoughts of hurting others. Added hydroxyzine 50mg PO q HS to target insomnia. Continue current dose of Latuda and HS Ativan. 11/21/16 Psych: VPA level within therapeutic limits. Patient continues to be acutely psychotic and manic but I do believe he is somewhat improved from yesterday and will continue to improve on current medication regimen given time. Is on max dose of Latuda indicated for javi. I do not believe patient is safe for management outside of the hospital in this state but is improving overall. Will increase hydroxyzine to 100mg tonight to target insomnia; continue current dose of Depakote, Latuda and Ativan. 11/22/16 Psych: Patient's javi is improving though continues to have poor nighttime sleep and make bizarre statements - speech more normal, calmer affect , able to participate in group now. Will switch Depakote to Depakote ER 1500mg PO q HS tonight and may increase slightly tomorrow (received daytime dose of DR this morning which he will not tomorrow). Hopefully this may help him sleep more at night and have less sedation during the day. 11/23/16 Psych: Patient improving overall - will increase Depakote ER to 1750mg PO q HS as patient did not receive AM dose today. Continuing to target insomnia - refrained from daytime nap today so may help sleep at night. Continue to monitor. 11/24/16 Psych: Patient continues to improve though would like for him to sleep longer at night if possible. Tolerating medication changes well. Continue to monitor and SW to begin arrangements for discharge. Patient has expressed hesitance in returning to his placement as he likes our unit. 11/25/16 Psych: Patient doing well overall - would like patient to be sleeping longer through night so will focus on this; otherwise SW to begin arrangements with facility to discharge patient soon. 11/26/16 Psych: Patient doing well overall but still sleeping only 4-5 hours per night. Will increase Ativan to 2mg PO q HS. Ideally once completely stable and into better sleep routine, could cut back on HS Hydroxyzine and then possibly Ativan. Monitor sleep tonight. 11/27/16 Psych: Patient doing well. Sleep would be biggest target symptom at this point but is appropriate for management from LTC facility also. Plan to discharge back to facility on 11/28. Discharge Plan - Med Rec/Dispo Referrals/Follow Up: Bernie Stafford MD [Family Provider] - (Dr. Sofi Stafford will see patient on rounds at the facility for Hosp. follow-up. . Patient will be seen on rounds at the facility for Mental Health follow-up. ) Additional Instructions: Discharge Diagnosis: Bipolar 1 disorder, MRE manic Reasons for Admission: Extreme exacerbation of javi symptoms, not sleeping, and is responding to grandiose delusions that compromise his safety and general health. IN CASE OF PSYCHIATRIC EMERGENCY, CONTACT GENER[facility] STAFF AT [phone] ( available 24 hrs daily). LTC facility to provide medication management and supervise patient for safety. BMP in 1 month to follow electrolytes and renal function. INR in 2 weeks. Prescriptions: New Divalproex ER [Depakote ER] 1,500 mg PO HS tablet HydrOXYzine [Atarax] 100 mg PO HS tablet Psyllium [Metamucil] 1 packet PO DAILY packet Ropinirole [Requip] 0.25 mg PO Q8H PRN #30 tablet PRN Reason: restless legs Divalproex ER [Depakote ER] 250 mg PO HS tablet Hydrocodone/APAP 5/325 [[place] 5/325] 1 tab PO Q8H PRN #30 tab PRN Reason: Pain Nystatin Powder [Mycostatin] 1 applic TP TID bottle Continue Lisinopril 10 mg PO DAILY #0 Ketotifen Fumarate [Zaditor] 1 drop EACH EYE Q12H PRN 30 Days #0 PRN Reason: Allergy Symptoms Loperamide [Imodium] 2 mg PO QID PRN 30 Days #0 PRN Reason: Diarrhea Ropinirole HCl 0.25 mg PO HS 30 Days tab Simvastatin 20 mg PO HS 30 Days #0 Warfarin [Coumadin] 2.5 mg PO WS Furosemide [Lasix] 20 mg PO BIDBL #0 tab Dextran 70/Hypromellose [Artificial Tears] 1 drop RIGHT EYE TID PRN #0 bottle PRN Reason: DRY EYES Liraglutide [Victoza 3-Otto] 1.2 mg SQ DAILY 30 Days #0 Metoprolol Succinate 50 mg PO DAILY 30 Days #0 Metformin [Glucophage] 500 mg PO QAM Insulin Aspart [Novolog Flexpen] 5 unit SQ TIDWM Gabapentin 300 mg PO TIDWM Discontinued Senna + Docusate [Senna Plus Tablet] 1 tab PO BID PRN 30 Days tablet PRN Reason: Constipation Acetaminophen [Acetaminophen Extra Strength] 500 mg PO Q6H PRN 30 Days #0 PRN Reason: Pain ARIPiprazole [Aripiprazole] 30 mg PO DAILY 30 Days #0 guaiFENesin [Guaifenesin] 100 mg PO Q4H PRN 30 Days #0 PRN Reason: Cough Hydrocodone/Acetaminophen [Hydrocodon-Acetaminophen 5-325] 1 tab PO BID #20 Magnesium Hydroxide [Milk of Magnesia] 30 ml PO Q12H PRN 30 Days #0 PRN Reason: Constipation Divalproex Sodium [Depakote] 500 mg PO BID guaiFENesin [Mucinex] 600 mg PO BID guaiFENesin [Mucinex] 600 mg PO BID PRN PRN Reason: Allergy Symptoms Miconazole Nitrate [Miconazorb AF] 1 applic TP BID Nystatin Cream [Mycostatin] 1 applic TOP BID guaiFENesin [Mucinex] 1,200 mg PO Q12H PRN 30 Days #0 PRN Reason: Congestion No Action LORazepam [Ativan] 0.5 mg PO Q6H PRN #0 tab PRN Reason: Anxiety Lurasidone HCl [Latuda] 20 mg PO WS 30 Days #0 Prazosin HCl [Minipress] 2 mg PO HS 30 Days #0 - Disposition 04 To [facility] Home/Facility
== END 2016-11-28 14:35 | DRG 885 ==
LOC: ED 18:15 → GEN 20:26
PROVIDERS: ADMIT Psychiatry & Neurology Psychiatry; ATTEND Psychiatry & Neurology Psychiatry

== ENCOUNTER 2017-02-07 22:35 | Inpatient (IN) ==
[2017-02-07] MEDS ORDERED: LEVOFLOXACIN PB 750 MG/150 ML BAG IV ONE (22:55)
[2017-02-07] MEDS ORDERED: NS 1,000 ML IV ONE (22:55)
--- OUTSIDE RECORDS SUMMARY | 2017-02-07 23:00 | External Medical Summary | Continuity of Care Document ---
:1945 Author Organization [facility] Allergies Active Description Code Type Severity Reaction Onset Reported/ Identified Relationship Clinical to Patient Status Yes No Known NKMA N/A N/A 07/22/2013 Allergies Medications There is no data. Problems There is no data. Procedures There is no data. Results There is no data. Encounters ACCT No. Visit Discharge Status Pt. Type Provider Facility Loc./Unit Complaint Date/Time [id number] 03/13/2013 03/13/2013 CLS Outpatient 14:42:00 23:59:59 [id number] 01/14/2013 01/14/2013 CLS Outpatient 13:38:00 23:59:59 [id number] 08/28/2013 ACT Unknown [id number] 08:54:00 [id number] 08/28/2013 ACT Unknown [id number] 08:54:00 [id number] 08/28/2013 ACT Unknown [id number] 08:54:00 [id number] 06/23/2013 ACT Unknown [id number] 08:16:00 [id number] 05/22/2013 ACT Unknown [id number] 14:04:00 [id number] 05/05/2013 ACT Unknown [id number] 07:12:00 [id number] 04/29/2013 ACT Unknown [id number] 11:52:00 [id number] 03/27/2013 ACT Unknown [id number] 10:28:00 [id number] 03/10/2013 ACT Unknown [id number] 09:26:00 [id number] 01/24/2013 ACT Unknown [id number] 09:08:00 [id number] 01/14/2013 ACT Unknown [id number] 09:06:00 [id number] 12/25/2012 ACT Unknown [id number] 08:55:00 [id number] 12/18/2012 ACT Unknown [id number] 09:33:00 [id number] 12/11/2012 ACT Unknown [id number] 13:33:00 [id number] 09/24/2014 09/24/2014 DIS Outpatient Oni [facility] Sleep REF DR Lopez 61 08:32:00 23:59:00 T[facility] APNEA
[2017-02-08] MEDS: SALINE FLUSH 10ml SYRINGE IVF PRN (00:12)
--- NOTE | 2017-02-08 00:26 | Emergency Department Report ---
Fever HPI - General Chief Complaint: Fever Stated Complaint: Fever Time Seen by Provider: 02/07/17 22:53 Source: EMS, RN notes reviewed, old records reviewed Mode of arrival: EMS Limitations: altered mental status - History of Present Illness HPI Narrative: 71yo man presented to the ER by EMS for a fever. Pt had a temp of 101.5'F at his senior living. Nrsing home was concerned about 'sepsis', so they called for EMS transport. Pt arrives in the ER. He is awake and alert, but answers slowly and in a low voice for nursing staff (responses to physician were incoherent and did not address questions asked). Temp here was 102'+F axillary. complaint: fever Onset (ago): hour(s) Maximum Temperature: 102 F Temperature Source: axillary Associated symptoms: chills Relieving factors: nothing Exacerbating factors: nothing Treatments prior to arrival fever: acetaminophen, ibuprofen - Related Data Home Medications Medication Instructions Recorded Confirmed Lisinopril 10 mg PO DAILY #0 03/22/11 02/08/17 Dextran 70/Hypromellose 1 drop RIGHT EYE TID PRN #0 bottle 03/18/14 02/08/17 [Artificial Tears] Furosemide [Lasix] 20 mg PO BIDBL #0 tab 03/18/14 02/08/17 LORazepam [Ativan] 0.5 mg PO Q6H PRN #0 tab 03/18/14 02/08/17 Gabapentin 300 mg PO TIDWM 11/13/16 02/08/17 Insulin Aspart [Novolog Flexpen] 5 unit SQ TIDWM 11/13/16 02/08/17 Metformin [Glucophage] 500 mg PO QAM 11/13/16 11/13/16 Lurasidone HCl [Latuda] 120 mg PO WS 02/08/17 02/08/17 Ropinirole [Requip] 0.25 mg PO HS 02/08/17 02/08/17 Warfarin [Coumadin] 4 mg PO 1700 02/08/17 02/08/17 Previous Rx's Medication Instructions Recorded Ketotifen Fumarate [Zaditor] 1 drop EACH EYE Q12H PRN 30 Days #0 10/02/16 Liraglutide [Victoza 3-Otto] 1.2 mg SQ DAILY 30 Days #0 10/02/16 Loperamide [Imodium] 2 mg PO QID PRN 30 Days #0 10/02/16 Metoprolol Succinate 50 mg PO DAILY 30 Days #0 10/02/16 Prazosin HCl [Minipress] 2 mg PO HS 30 Days #0 10/02/16 Simvastatin 20 mg PO HS 30 Days #0 10/02/16 Divalproex ER [Depakote ER] 1,500 mg PO HS tab 11/27/16 Divalproex ER [Depakote ER] 250 mg PO HS tab 11/27/16 HydrOXYzine [Atarax] 100 mg PO HS tab 11/27/16 Hydrocodone/APAP 5/325 [Bouse 1 tab PO Q8H PRN #30 tab 11/28/16 5/325] Nystatin Powder [Mycostatin] 1 applicatio TP TID bottle 11/28/16 Psyllium [Metamucil] 1 packet PO DAILY packet 11/28/16 Allergies Allergy/AdvReac Type Severity Reaction Status Date / Time No Known Allergies Allergy Verified 02/07/17 23:01 Review of Systems All systems: reviewed and negative except as stated Constitutional: Reports: as per HPI, fever, chills. Denies: weakness, weight change, night sweats PFSH Patient Stated Medical History Dementia Yes Dental Problems Yes Cardiac Arrhythmia Yes: A-FIB Hypertension Yes Bronchitis Yes Diabetes Mellitus Type 1 Yes Diabetes Mellitus Type 2 Yes: pills Hx Incontinence Yes Hx Renal Disease Yes Clotting Problems Yes: CHRONIC ANTICOAGULATION Osteoarthritis Yes Other Musculoskeletal Yes: walker and gait belt up with 1 assist Cellulitis Yes: thinks he has Sepsis Yes Bipolar Disorder Yes Depression Yes Surgical History: Tonsillectomy - Social History Smoking status: Former smoker (quit smoking in 2011) Physical Exam - Limitations Limitations: other - General General appearance: alert, in no apparent distress, obese (Morbid) - Normal Exams: Head:: Normocephalic without trauma Eyes:: Pupils are PERRLA w/ EOMI, No scleral icterus, irritation, or foreign bodies noted ENMT:: No facial trauma, nasal exudates, pharyngeal erythema, or exudates are noted Neck:: Full range of motion, without adenopathy Chest/Respirations:: Clear all ferrara, with good airflow Cardiovascular:: Regular rate and rhythm, without murmur or gallop, Pulses 2+ all extremities, capillary refill Lymphatic:: No lymphadenopathy Musculoskeletal:: No tenderness, or deformity noted Neurological:: Patient is alert, and oriented Psychiatric:: Patient exhibits, appropriate attention - Skin Skin exam: Present: warm, dry, intact, rash (Venous stasis dermatitis; b/l LE edema) Course - Consultations Consultation #1: [place] Telemed: Will admit to CCU. Requests addition of zosyn and almanza + UA. Vital Signs Temperature 102.5 F H 02/07/17 22:35 Pulse Rate 106 H 02/07/17 22:35 Respiratory Rate 24 02/07/17 22:35 Blood Pressure 136/94 H 02/07/17 22:35 Pulse Oximetry 90 02/07/17 22:35 Temperature 102.5 F H 02/07/17 22:35 Pulse Rate 137 H 02/08/17 00:10 Respiratory Rate 24 02/07/17 22:35 Blood Pressure 136/94 H 02/07/17 22:35 Pulse Oximetry 90 02/07/17 22:35 Fever - Differential Diagnosis Likely: cellulitis, fever of unknown origin, gastroenteritis, community acquired pneumonia, sepsis, influenza - Medical Records Attestation: I reviewed the patient's medical records. - Lab Data Attestation: I reviewed the patient's lab results. Result diagrams: 02/07/17 23:15 02/07/17 23:15 Lab Results 02/07/17 02/07/17 02/07/17 Range/Units 23:15 23:15 23:15 WBC 13.1 H (4.5-11.0) T/MM3 RBC 4.61 (4.50-5.90) M/MM3 Hgb 13.6 (13.5-17.5) GM/DL Hct 41.6 (41-53) % MCV 90.2 (80-100) UM3 MCH 29.5 (26-34) UUG MCHC 32.7 (31-37) GM/DL RDW Std Deviation 47.6 (36.9-50.2) FL Plt Count 204 (130-400) T/MM3 MPV 9.7 (9.4-12.4) UM3 Immature Gran % (Auto) 0.2 (0.0-0.5) % Neut % (Auto) 79.0 H (33-66) % Lymph % (Auto) 9.0 L (23-45) % [place] % (Auto) 11.2 H (0-9.0) % Eos % (Auto) 0.5 (0-4) % Baso % (Auto) 0.1 (0-2) % Neut # (Auto) 10.3 H (1.8-7.7) T/MM3 Lymph # (Auto) 1.2 (1-4.8) T/MM3 [place] # (Auto) 1.5 H (0-0.8) T/MM3 Eos # (Auto) 0.1 (0-0.5) T/MM3 Baso # (Auto) 0.0 (0-0.2) T/MM3 Abs Immat Gran (auto) 0.03 (0.00-0.03) T/MM3 Turbidity < 20 (0-20) Sodium 142 (134-144) MEQ/L Potassium 3.7 (3.6-5) MEQ/L Chloride 105 (98-107) MEQ/L Carbon Dioxide 25 (22-30) MEQ/L Anion Gap 12 (5-15) MEQ/L BUN 15.0 (9-20) MG/DL Creatinine 0.9 (0.8-1.5) MG/DL GFR Calculation 83 BUN/Creatinine Ratio 17 (6-26) RATIO Glucose 210 H (75-110) MG/DL Calculated Osmolality 280 (261-280) MOSM/KG Calcium 9.0 (8.4-10.2) MG/DL Total Bilirubin 0.50 (0.20-1.30) MG/DL Icterus Index < 2 (0-7) AST 17 (17-59) U/L ALT 21 (21-72) U/L Alkaline Phosphatase 77 (38-126) U/L Troponin I < 0.012 (0-0.12) ng/ml Total Protein 6.4 (6.3-8.2) G/DL Albumin 3.2 L (3.5-5.0) G/DL Globulin 3.2 (2.4-3.6) G/DL Albumin/Globulin Ratio 1.0 L (1.1-2.2) RATIO Lipase 85 (23-300) U/L Plasma Lactate 3.8 H (0.6-2.2) MMOL/L Procalcitonin NG/ML Specimen Hemolysis < 15 < 15 (0-25) Ur Collection Type Urine Color (YELLOW) Urine Clarity Urine pH (5.0-8.0) Ur Specific [place] (1.015-1.025) Urine Protein (NEGATIVE) Urine Glucose (UA) (NEGATIVE) Urine Ketones (NEGATIVE) Urine Occult Blood (NEGATIVE) Urine Nitrate (NEGATIVE) Urine Bilirubin (NEGATIVE) Urine Urobilinogen (NORMAL) EU/DL Ur Leukocyte Esterase (NEGATIVE) Urinalysis Comment 02/07/17 02/08/17 Range/Units 23:15 01:45 WBC (4.5-11.0) T/MM3 RBC (4.50-5.90) M/MM3 Hgb (13.5-17.5) GM/DL Hct (41-53) % MCV (80-100) UM3 MCH (26-34) UUG MCHC (31-37) GM/DL RDW Std Deviation (36.9-50.2) FL Plt Count (130-400) T/MM3 MPV (9.4-12.4) UM3 Immature Gran % (Auto) (0.0-0.5) % Neut % (Auto) (33-66) % Lymph % (Auto) (23-45) % [place] % (Auto) (0-9.0) % Eos % (Auto) (0-4) % Baso % (Auto) (0-2) % Neut # (Auto) (1.8-7.7) T/MM3 Lymph # (Auto) (1-4.8) T/MM3 [place] # (Auto) (0-0.8) T/MM3 Eos # (Auto) (0-0.5) T/MM3 Baso # (Auto) (0-0.2) T/MM3 Abs Immat Gran (auto) (0.00-0.03) T/MM3 Turbidity (0-20) Sodium (134-144) MEQ/L Potassium (3.6-5) MEQ/L Chloride (98-107) MEQ/L Carbon Dioxide (22-30) MEQ/L Anion Gap (5-15) MEQ/L BUN (9-20) MG/DL Creatinine (0.8-1.5) MG/DL GFR Calculation BUN/Creatinine Ratio (6-26) RATIO Glucose (75-110) MG/DL Calculated Osmolality (261-280) MOSM/KG Calcium (8.4-10.2) MG/DL Total Bilirubin (0.20-1.30) MG/DL Icterus Index (0-7) AST (17-59) U/L ALT (21-72) U/L Alkaline Phosphatase (38-126) U/L Troponin I (0-0.12) ng/ml Total Protein (6.3-8.2) G/DL Albumin (3.5-5.0) G/DL Globulin (2.4-3.6) G/DL Albumin/Globulin Ratio (1.1-2.2) RATIO Lipase (23-300) U/L Plasma Lactate (0.6-2.2) MMOL/L Procalcitonin 2.01 NG/ML Specimen Hemolysis (0-25) Ur Collection Type Urine, clean catch Urine Color Yellow (YELLOW) Urine Clarity Clear Urine pH 7.0 (5.0-8.0) Ur Specific [place] 1.010 L (1.015-1.025) Urine Protein Negative (NEGATIVE) Urine Glucose (UA) Negative (NEGATIVE) Urine Ketones Negative (NEGATIVE) Urine Occult Blood Negative (NEGATIVE) Urine Nitrate Negative (NEGATIVE) Urine Bilirubin Negative (NEGATIVE) Urine Urobilinogen 0.2 (NORMAL) EU/DL Ur Leukocyte Esterase Trace A (NEGATIVE) Urinalysis Comment Microscopic not ind. - Radiology Data Attestation: I reviewed the patient's radiology results. CXR: Stable chest; No acute CT pathology. Disposition Clinical Impression: Sepsis Qualifiers: Sepsis type: sepsis due to unspecified organism Qualified Code(s): A41.9 - Sepsis, unspecified organism Disposition: 02 To [facility] Acute Care Condition: Stable Prescriptions: No Action Lisinopril 10 mg PO DAILY #0 LORazepam [Ativan] 0.5 mg PO Q6H PRN #0 tab PRN Reason: Anxiety Ketotifen Fumarate [Zaditor] 1 drop EACH EYE Q12H PRN 30 Days #0 PRN Reason: Allergy Symptoms Loperamide [Imodium] 2 mg PO QID PRN 30 Days #0 PRN Reason: Diarrhea Simvastatin 20 mg PO HS 30 Days #0 Divalproex ER [Depakote ER] 1,500 mg PO HS tab HydrOXYzine [Atarax] 100 mg PO HS tab Psyllium [Metamucil] 1 packet PO DAILY packet Lurasidone HCl [Latuda] 120 mg PO WS Ropinirole [Requip] 0.25 mg PO HS Furosemide [Lasix] 20 mg PO BIDBL #0 tab Dextran 70/Hypromellose [Artificial Tears] 1 drop RIGHT EYE TID PRN #0 bottle PRN Reason: DRY EYES Liraglutide [Victoza 3-Otto] 1.2 mg SQ DAILY 30 Days #0 Metoprolol Succinate 50 mg PO DAILY 30 Days #0 Prazosin HCl [Minipress] 2 mg PO HS 30 Days #0 Metformin [Glucophage] 500 mg PO QAM Insulin Aspart [Novolog Flexpen] 5 unit SQ TIDWM Gabapentin 300 mg PO TIDWM Divalproex ER [Depakote ER] 250 mg PO HS tab Hydrocodone/APAP 5/325 [Bouse 5/325] 1 tab PO Q8H PRN #30 tab PRN Reason: Pain Nystatin Powder [Mycostatin] 1 applicatio TP TID bottle Warfarin [Coumadin] 4 mg PO 1700 Referrals: Bernie Stafford MD [Family Provider] - Time of Disposition: 01:00 - Seen By: physician
[2017-02-08] MEDS ORDERED: PIPERACILLIN/TAZOBACTAM 3.375 GM in NS 100 ML IV ONE ×2 (01:29→04:19)
[2017-02-08 03:24] VITALS: BMI 45.8
[2017-02-08] MEDS ORDERED: GLUCOSE ORAL GEL 40% 37.5gm PO PRN (04:19)
[2017-02-08] MEDS ORDERED: ONDANSETRON 4 MG/2 ML INJECTION IVP PRN (04:19)
[2017-02-08] MEDS ORDERED: MORPHINE SULFATE 2mg INJECTION IVP PRN (04:19)
[2017-02-08] MEDS ORDERED: HEPARIN 5,000unit/ml 1ml INJECTION SUB-Q SCH (04:19)
[2017-02-08] MEDS ORDERED: NS 1,000 ML IV ONE (04:19)
[2017-02-08] MEDS: NS 1,000 ML IV SCH ×3 (04:30→23:41)
--- NOTE | 2017-02-08 04:31 | History & Physical Report ---
History of Present Illness Date: 02/08/17 Chief complaint: fever HPI: This is a 71 y/o male who has a history of bipolar disease. He is currently a resident at a local care home. The patient was noted to have a fever today with decreased energy. The patient is brought to the ED and a detailed evaluation demonstrated a LA elevated @ 3.8 but a benign appearing CXR and urine. The patient at this time gives no signs of meningeal symptoms but was definitely febrile with borderline blood pressure. The patient states that he has a chronic cough and has worsened over the past 2 days and is productive of a yellow sputum. he denies ross, he denies short of breath. he denies abdomen pain and had a bm yesterday that was normal without blood The patient states his arms and legs move okay just a little more weak. Review of Systems Review of systems: no headache, no change in vision, no ear pain, no sore throat, no neck pain ( very carefullly asked this), no chest pain, cough as noted above, fever, chills and sweats today, no abdomen pain, no nausea or vomiting, no urine sx, no change in bm, nofocal motor complaints, no skin rashes. apparently have been treated for tinea in his gu region, no other skin issues. 12 point ROS was otherwise neg except for outlined above. [facility] Patient Stated Medical History Dementia Yes Dental Problems Yes Cardiac Arrhythmia Yes: A-FIB Hypertension Yes Bronchitis Yes Diabetes Mellitus Type 1 Yes Diabetes Mellitus Type 2 Yes: pills Hx Incontinence Yes Hx Renal Disease Yes Clotting Problems Yes: CHRONIC ANTICOAGULATION Osteoarthritis Yes Other Musculoskeletal Yes: walker and gait belt up with 1 assist Cellulitis Yes: thinks he has Sepsis Yes Bipolar Disorder Yes Depression Yes Surgical History: Tonsillectomy - Social History Smoking status: Former smoker Substance use type: does not use Alcohol intake frequency: does not drink Housing: care home Household members: caregiver Current occupational status: retired Current occupational exposures/hazards: No Does patient use chewing tobacco?: No [facility] Medications Home Medications Medication Instructions Recorded Confirmed Type Lisinopril 10 mg PO DAILY #0 03/22/11 02/08/17 History Dextran 70/Hypromellose 1 drop RIGHT EYE TID PRN #0 bottle 03/18/14 02/08/17 History [Artificial Tears] Furosemide [Lasix] 20 mg PO BIDBL #0 tab 03/18/14 02/08/17 History LORazepam [Ativan] 0.5 mg PO Q6H PRN #0 tab 03/18/14 02/08/17 History Gabapentin 300 mg PO TIDWM 11/13/16 02/08/17 History Insulin Aspart [Novolog Flexpen] 5 unit SQ TIDWM 11/13/16 02/08/17 History Metformin [Glucophage] 500 mg PO QAM 11/13/16 02/08/17 History Lurasidone HCl [Latuda] 120 mg PO WS 02/08/17 02/08/17 History Ropinirole [Requip] 0.25 mg PO HS 02/08/17 02/08/17 History Warfarin [Coumadin] 4 mg PO 1700 02/08/17 02/08/17 History Allergies Allergy/AdvReac Type Severity Reaction Status Date / Time No Known Allergies Allergy Verified 02/07/17 23:01 Exam Vital Signs: Temperature 102.5 F H 02/07/17 22:35 Pulse Rate 108 H 02/08/17 03:35 Respiratory Rate 24 02/08/17 03:35 Blood Pressure 136/94 H 02/07/17 22:35 Pulse Oximetry 94 02/08/17 03:35 Telemetry Rhythm: Sinus Rhythm Height/Weight/BMI: Height 1.85 m Weight 157.4 kg Body Mass Index 45.8 - Constitutional Present: mild distress, well nourished, well developed, average body habitus, cooperative - Routine HEENT Exam Head: Present: normocephalic, atraumatic Eye: Present: EOMI, conjunctivae pink ENT: Present: mucous membranes dry - Routine Neck Exam Present: supple, full ROM (patient with rhonchi bases bilaterally) - Routine Respiratory Exam Comments: pateint with rhonchi in bases bilaterally - Routine Cardiovascular Exam Present: RRR, no murmur. Absent: S3 - Routine Abdominal Exam Present: soft, non distended, non tender - Routine Back/Spine/Pelvis Exam Back/Spine: Present: full ROM - Routine Skin Exam Present: intact, dry - Routine Neurological Exam Present: alert, normal tone, vision grossly intact, hearing grossly intact, normal speech. Absent: altered mental status - Routine Psychiatric Exam Present: normal affect, normal thought process Results - Labs CBC & Chem 7: 02/08/17 07:07 02/08/17 07:07 Microbiology Results: Microbiology 02/08/17 01:45 Urine, Voided (Cc/notcc) Urine Culture - Preliminary Culture Initiated - Results Pending - ABG Interpretation Additional comments: CXR without acute process Assessment and Plan (1) Severe sepsis Current visit: No Status: Acute (2) Chronic a-fib Current visit: No Status: Chronic (3) Anticoagulated on Coumadin Current visit: No Status: Chronic (4) Essential hypertension Current visit: No Status: Chronic (5) Type II diabetes mellitus Current visit: No Status: Chronic (6) Bronchitis Current visit: Yes Status: Acute (7) Septic shock Current visit: Yes Status: Acute Assessment and Plan: 1. bronchitis acute POA: patient's cxr so far not look too concerning. sputum productive. only identified source for fever at this time. zosyn, levaquin. since no obvious infiltrate will not add vanco for HCAP at this time. 2. severe sepsis acute POA; blood pressure was low in ed, now not, will not call septic shock now. patient fluid resucitated with cycle LA, clinically improved with tx. repeat markers in am 3. atrial fib chronic POA; check INR, rate controlled currently, on metoprolol for rate control. with soft blood pressure to start with will hold b ness acutely. appreciate need to restart soonest safe due to rate control issues. hold coumadin until inr known 4. dm 2 chronic POA: correctional plan 5. hx of Bipolar disease chronic POA: restart depakote when vitals are stable 6. dvt ppx; scd, coumadin 7. hx of HTN chronic not POA: hold any antihypertensive meds acutely 02/08/2017-Dr. Vasquez I have seen and examined the patient and have reviewed the H&P above and agree. Please see my additions below. Chief complaint is fever and cough History of present illness: The patient is a 71-year-old care home patient. He is not a good historian at this time. He was brought in because of fever and decreased energy. He had a chronic cough that had recently worsened with yellow sputum. On questioning this morning, he only complains of being fatigued and also sad because it is [place] time and he won't be with his family. He does not recall having an increased cough. He denies any headache, chest pain or abdominal pain. He does have some nausea. Agree with comprehensive review of systems as above. Past medical history is reviewed and agree. Please add coronary artery disease, epilepsy, depression, osteoarthritis, morbid obesity, a Chris-Tacos dermatitis, hyperlipidemia, hypothyroidism, restless legs Family history significant for his mother dying of a stroke at age 76 and father dying of CHF also at age 76 Updated med list is reviewed. No known drug allergies Physical exam Blood pressure 110/55, O2 sat 95% on room air, respirations 18, recent temp 98 9 , MAXIMUM TEMPERATURE 102.5 I&O 2250/180 Gen.-Alert, mildly somnolent, no acute distress HEENT-sclera anicteric, pupils small, oropharynx is mildly dry, multiple missing teeth Neck-supple Chest-clear to auscultation anteriorly, difficult to listen to his chest from the posterior because of morbid obesity, mild rhonchi noted in the left base Cardiovascular-irregularly irregular, rate controlled Abdomen-obese, soft, nontender, patient has a large pannus, normal bowel sounds Extremities-on the left hip patient has a large area of erythema with increased warmth, no tenderness, mild swelling and induration. He also has induration of the bilateral medial thighs (likely from chronic edema) with some redness in the right medial thigh. The right medial thigh is not warmer than the left. Patient has bilateral pedal edema and bilateral dry skin of the legs. Skin-please see above. No mottling of skin. Capillary refill on toes is 2 sections Psychiatric-the patient is calm and in no distress Lab Lactate was 3.8 on admission, 4.2 on recheck, and 3.4 on following recheck Magnesium is 1.3 Recheck basic metabolic profile is essentially normal other than glucose of 186 INR is 4.06 White count is 15.6 up from 13.1. Neutrophils are 74 and bands are 11 Hemoglobin is down to 12 from 13.6 which is likely dilutional Chest x-ray on my read shows no obvious infiltrates-await radiology interpretation and recheck chest x-ray not that the patient is hydrated Impression Septic shock based on elevated lactate Possible pneumonia-he received a one-time dose of Levaquin and Zosyn was initiated Cellulitis left hip-continue Zosyn and will add Vanco Decreased urine output Supratherapeutic INR Chronic A. fib-rate controlled Type 2 diabetes mellitus Hypertension History of seizures Bipolar disorder/schizophrenia Chronic lower extremity edema Hypomagnesemia Plan Continue to monitor closely in ICU Zosyn and vancomycin for cellulitis/possible pneumonia. Discontinue Levaquin because of history of seizures Repeat lab work tomorrow Replace magnesium IV One-time dose of Lasix to help with urine output, patient is chronically on Lasix Restart beta ness if blood pressure is stable Monitor Accu-Cheks and continue sliding scale insulin Hold metformin due to sepsis Greater than 1 hour of critical care time spent seeing and evaluating the patient and reviewing the chart, and determining care plan. DVT Prophylaxis: SCD's, Coumadin Resuscitation Status: Full Code - Time spent with patient Time with patient PN: 35 minutes - Physician Narrative Narrative: Date: 02/08/17 Time: 424 Hospital Course Summary Disclaimer: The visit summary below is not to be considered part of the above Progress Note.
[2017-02-08] MEDS: INSULIN ASPART 100unit/ml INJECTION SQ PRN ×4 (06:00→19:57)
--- NOTE | 2017-02-08 08:11 | XRay Report ---
Indication: Fever PROCEDURE: XR chest 1V: Encounter: Initial Comparison: November 19, 2016 Findings: The lungs are stable in appearance without new focal airspace consolidation. There is no pleural effusion or pneumothorax. The heart size, pulmonary vascularity and mediastinal contours are unchanged. IMPRESSION: Stable appearance of the chest without acute cardiopulmonary disease. .
[2017-02-08] MEDS ORDERED: WARFARIN - PHARMACY CONSULT MC ONE (08:16)
[2017-02-08] MEDS ORDERED: VANCOMYCIN - PHARMACY CONSULT MC ONE (08:16)
[2017-02-08] MEDS ORDERED: LORazepam 0.5 MG TABLET PO PRN (08:17)
[2017-02-08] MEDS ORDERED: SYSTANE EYE DROPS 0.7ml EACH EYE PRN (08:17)
[2017-02-08] MEDS ORDERED: HYDROCODONE/APAP 5mg/325mg TABLET PO PRN (08:17)
[2017-02-08] MEDS ORDERED: KETOTIFEN 0.025% EYE DROPS 5ml EACH EYE PRN (08:17)
--- NOTE | 2017-02-08 09:37 | XRay Report ---
Indication: fever, rule out pneumonia PROCEDURE: XR chest 1V: Encounter: Initial Comparison: February 08, 2017 at 0014 Findings: Lungs are stable and grossly clear. No focal consolidative pneumonia, pleural effusion or pneumothorax. Cardiac silhouette is mildly enlarged but unchanged. Mediastinal contours are stable. Pulmonary vascularity is normal. Impression: Stable chest without focal pneumonia. .
[2017-02-08] MEDS: PIPERACILLIN/TAZOBACTAM 3.375 GM in NS 100 ML IV SCH ×3 (09:45→20:01)
[2017-02-08] MEDS ORDERED: LACRI-LUBE EYE OINT 3.5gm EACH EYE PRN (09:48)
[2017-02-08] MEDS ORDERED: FUROSEMIDE 20 MG/2 ML INJECTION IVP ONE (09:49)
[2017-02-08] MEDS: MAGNESIUM SULFATE 1gm PREMIX 1 GM/100 ML BAG IV SCH ×2 (10:47→11:20)
--- NOTE | 2017-02-08 11:14 | Pharmacy Consult ---
Pharmacy Consult-Warfarin - Laboratory Information 02/08/17 07:07 INR 4.06 H - Consult Information COUMADIN CONSULT (Initial): Dx: A. FIB Baseline INR = 4.06. Will give NO Warfarin today. Thank you.
[2017-02-08] MEDS: FUROSEMIDE 20 MG TABLET PO SCH (11:24)
[2017-02-08] MEDS ORDERED: FUROSEMIDE 40 MG/4 ML INJECTION IVP ONE (11:30)
--- NOTE | 2017-02-08 15:17 | Pharmacy Consult-Antibiotics ---
Pharmacy Consult-Vancomycin - Laboratory Information WBC 15.6 T/MM3 (4.5-11.0) H 02/08/17 07:07 BUN 19.0 MG/DL (9-20) 02/08/17 07:07 Creatinine 1.0 MG/DL (0.8-1.5) 02/08/17 07:07 Procalcitonin 2.01 NG/ML 02/07/17 23:15 - Consult Information 71 y.o. Male admitted with symptoms of fever, chills, sweats and cough. Zosyn and Vancomycin protocol ordered for empiric coverage of sepsis. goal trough range= 15 to 20 mcg/ml Will give Vancomycin 2 gm IV Q12H. Pharmacy will monitor and adjust as needed. Thank you for the Vanco protocol, Cira Rutherford [facility]
[2017-02-08] MEDS: LURASIDONE 40mg TABLET PO SCH (18:11)
[2017-02-08] MEDS: ROPINIROLE 0.25 MG TABLET PO SCH (20:05)
[2017-02-08] MEDS: SIMVASTATIN 20 MG TABLET PO SCH (20:05)
[2017-02-09] MEDS: PIPERACILLIN/TAZOBACTAM 3.375 GM in NS 100 ML IV SCH ×2 (03:02→09:53)
--- NOTE | 2017-02-09 07:41 | Pharmacy Consult ---
Pharmacy Consult-Warfarin - Laboratory Information 02/08/17 02/09/17 07:07 04:13 INR 4.06 H 3.34 H - Consult Information We will give 1mg of warfarin p.o. today at noon. INR decreased to 3.34 today after 4.06 yesterday. Thanks,
--- NOTE | 2017-02-09 10:00 | Progress Note ---
- Date 02/09/17 Subjective: The patient was seen this morning in his room in CCU. He states he is feeling well. He did well last night and vital signs stable, he has had no further fever. He did have some left knee pain that improved with position change. He denies any specific left hip pain where he is noted to have an acute cellulitis. He denies any oral, jaw or sinus pain. He was able to eat a soft diet without difficulties. He denies any chest pain or shortness of breath. Doesn't occasional chronic cough. Phlegm is not yellow. He denies abdominal pain , nausea or vomiting. He said he had recent diarrhea but none here in the hospital. He has chronic incontinence of urine. Moffett is currently in place with good urine output overnight. Objective Vital signs: Temperature 99.1 F 02/09/17 04:00 Pulse Rate 83 02/09/17 05:00 Respiratory Rate 17 02/09/17 05:00 Blood Pressure 112/59 02/09/17 05:00 Pulse Oximetry 92 02/09/17 05:00 Height/Weight/BMI: Height 1.85 m Weight 165.7 kg Body Mass Index 45.8 Comments: Cumulative I&O 6790/3505 Weight 162.2 on admission and 165.7 now GEN-alert, oriented, no acute distress HEENT-sclera anicteric, pupils are equal, oropharynx reveals multiple missing teeth and multiple right and tooth roots which are rarely visible above the gumline. No obvious swelling or infection. There is no tenderness of his jaw or noted adenopathy or swelling in the head or neck. NECK-supple, no adenopathy CV-irregularly irregular, rate controlled CHEST-minimal crackles in the bases ABD-soft, obese, nontender with positive bowel sounds -Moffett in place with good urine output EXT-chronic lower extremity edema with firm chronic lymphedema in the medial thighs. Area of erythema on the left hip and low back reveals some mild improvement compared to yesterday with decreased erythema and decreased area of erythema NEURO-chronic lower extremity edema SKIN-as noted above Results - Labs CBC & Chem 7: 02/09/17 04:13 02/09/17 04:13 Labs: Magnesium has improved to 1.9. Liver enzymes are okay. Bands have improved to 3 down from 11. INR is 3.34. Microbiology Results: Microbiology 02/08/17 01:45 Urine, Voided (Cc/notcc) Urine Culture - Preliminary No Growth After 1 Day Blood cultures 2 negative after 1 day Assessment and Plan (1) Severe sepsis Current visit: No Status: Acute (2) Chronic a-fib Current visit: No Status: Chronic (3) Anticoagulated on Coumadin Current visit: No Status: Chronic (4) Essential hypertension Current visit: No Status: Chronic (5) Type II diabetes mellitus Current visit: No Status: Chronic (6) Bronchitis Current visit: Yes Status: Acute (7) Septic shock Current visit: Yes Status: Acute Assessment and Plan: 02/09/2017 Impression Septic shock based on elevated lactate-resolved Doubt pneumonia-chest x-ray negative 2 Cellulitis left hip and left low back-currently on day 2 of Zosyn and vancomycin Decreased urine output-resolved Supratherapeutic INR-improved Chronic A. fib-rate controlled Type 2 diabetes mellitus-bgm elevated 192-279 Hypertension History of seizures Bipolar disorder/schizophrenia Chronic lower extremity lymph edema-especially in the medial thighs Hypomagnesemia-resolved was IV magnesium Hypokalemia Plan Overall, the patient appears to be doing well and will transfer to the floor. DC IV fluids Keep Moffett catheter in place and diuresis as tolerated. Possible DC Moffett tomorrow.invn Replace potassium orally. DC Zosyn and start Invanz. Continue vancomycin. Repeat CBC and basic metabolic profile tomorrow IV Lasix today. Likely start oral Lasix tomorrow. Restart metoprolol 50 mg once daily and monitor blood pressure Restart Victoza and insulin with meals. Continue off of metformin due to recent sepsis. - Physician Narrative Narrative: Date: 02/09/17 Time: 0953 Hospital Course Summary Disclaimer: The visit summary below is not to be considered part of the above Progress Note. Hospital Course: 02/08/2017 Impression Septic shock based on elevated lactate Possible pneumonia-he received a one-time dose of Levaquin and Zosyn was initiated Cellulitis left hip-continue Zosyn and will add Vanco Decreased urine output Supratherapeutic INR Chronic A. fib-rate controlled Type 2 diabetes mellitus Hypertension History of seizures Bipolar disorder/schizophrenia Chronic lower extremity edema Hypomagnesemia Plan Continue to monitor closely in ICU Zosyn and vancomycin for cellulitis/possible pneumonia. Discontinue Levaquin because of history of seizures Repeat lab work tomorrow Replace magnesium IV One-time dose of Lasix to help with urine output, patient is chronically on Lasix Restart beta ness if blood pressure is stable Monitor Accu-Cheks and continue sliding scale insulin Hold metformin due to sepsis Greater than 1 hour of critical care time spent seeing and evaluating the patient and reviewing the chart, and determining care plan. 02/09/17 10:55 Plan Overall, the patient appears to be doing well and will transfer to the floor. DC IV fluids Keep Moffett catheter in place and diuresis as tolerated. Possible DC Moffett tomorrow.invn Replace potassium orally. DC Zosyn and start Invanz. Continue vancomycin. Repeat CBC and basic metabolic profile tomorrow IV Lasix today. Likely start oral Lasix tomorrow. Restart metoprolol 50 mg once daily and monitor blood pressure Restart Victoza and insulin with meals. Continue off of metformin due to recent sepsis.
[2017-02-09] MEDS: FUROSEMIDE 20 MG TABLET PO SCH (10:04)
[2017-02-09] MEDS: NS 1,000 ML IV SCH (10:37)
[2017-02-09] MEDS ORDERED: WARFARIN 1 MG TABLET PO SCH (12:00)
[2017-02-09] MEDS: GABAPENTIN 300 MG CAPSULE PO SCH ×2 (12:19→17:57)
[2017-02-09] MEDS: SALINE FLUSH 10ml SYRINGE IVF PRN ×2 (12:19→23:36)
[2017-02-09] MEDS: FUROSEMIDE 20 MG/2 ML INJECTION IVP SCH ×2 (12:19→21:28)
[2017-02-09] MEDS: INSULIN ASPART 100unit/ml INJECTION SQ SCH ×2 (12:20→17:56)
[2017-02-09] MEDS: INSULIN ASPART 100unit/ml INJECTION SQ PRN ×2 (12:25→14:17)
[2017-02-09] MEDS: ROPINIROLE 0.25 MG TABLET PO PRN (12:26)
[2017-02-09] MEDS: PSYLLIUM PACKET PO SCH (12:26)
[2017-02-09] MEDS: ERTAPENEM 1 G in NS 100 ML IV SCH (13:32)
[2017-02-09] MEDS: LACTOBACILLUS (15B cfu) CAPSULE PO SCH (17:56)
[2017-02-09] MEDS: LURASIDONE 40mg TABLET PO SCH (17:56)
[2017-02-09] MEDS: ROPINIROLE 0.25 MG TABLET PO SCH (21:22)
[2017-02-09] MEDS: SIMVASTATIN 20 MG TABLET PO SCH (21:22)
[2017-02-10] MEDS: ERTAPENEM 1 G in NS 100 ML IV SCH (08:43)
[2017-02-10] MEDS: GABAPENTIN 300 MG CAPSULE PO SCH ×3 (09:34→18:18)
[2017-02-10] MEDS: PSYLLIUM PACKET PO SCH (09:35)
[2017-02-10] MEDS: INSULIN ASPART 100unit/ml INJECTION SQ SCH ×3 (09:35→18:18)
[2017-02-10] MEDS: LACTOBACILLUS (15B cfu) CAPSULE PO SCH ×2 (09:35→18:18)
[2017-02-10] MEDS: LIRAGLUTIDE INJECTABLE PEN SQ SCH (09:36)
--- NOTE | 2017-02-10 10:23 | Pharmacy Consult-Antibiotics ---
Pharmacy Consult-Vancomycin - Laboratory Information WBC 6.6 T/MM3 (4.5-11.0) 02/10/17 08:19 BUN 9.0 MG/DL (9-20) 02/10/17 08:19 Creatinine 0.6 MG/DL (0.8-1.5) L 02/10/17 08:19 Procalcitonin 2.01 NG/ML 02/07/17 23:15 Vancomycin Trough 14.78 UG/ML (15-20) L 02/10/17 08:19 - Consult Information Will continue vancomycin 2000mg IV q12h. Thank you.
--- NOTE | 2017-02-10 10:41 | Pharmacy Consult ---
Pharmacy Consult-Warfarin - Laboratory Information 02/08/17 02/09/17 02/10/17 07:07 04:13 08:19 INR 4.06 H 3.34 H 1.91 H - Consult Information INR is now in target range. Will order warfarin 3mg po for noon today. Thank you.
[2017-02-10] MEDS ORDERED: WARFARIN 3 MG TABLET PO SCH (12:00)
--- NOTE | 2017-02-10 14:22 | Progress Note ---
- Date 02/10/17 Subjective: Malik is seen and examined today. He is resting comfortably in bed without complaints. He is somewhat tender to the left lateral hip and thigh area at site of the erythema. He otherwise has no complaints of dyspnea, chest pain, or GI concerns. He does question if this "skin infection" was caused from poor hygiene. Objective Vital signs: Temperature 98.5 F 02/10/17 12:00 Pulse Rate 70 02/10/17 12:00 Respiratory Rate 18 02/10/17 12:00 Blood Pressure 129/72 02/10/17 12:00 Pulse Oximetry 96 02/10/17 12:00 Height/Weight/BMI: Height 1.85 m Weight 161.8 kg Body Mass Index 45.8 - Constitutional Present: no acute distress, well nourished, well developed - Routine HEENT Exam Eye: Present: EOMI ENT: Present: mucous membranes moist, dentition normal - Routine Respiratory Exam Present: CTA bilaterally. Absent: wheezes - Routine Cardiovascular Exam Present: RRR. Absent: murmur - Routine Abdominal Exam Present: soft, normoactive bowel sounds, non distended. Absent: tenderness - Routine Extremities Exam Present: edema, normal capillary refill - Routine Skin Exam Present: intact, erythema (left lateral thigh/hip), dry, warm - Routine Neurological Exam Present: alert, oriented X3, CN II-XII intact - Routine Lymphatic Exam Lymphatic: Absent: adenopathy - Routine Psychiatric Exam Present: normal affect Results - Labs CBC & Chem 7: 02/10/17 08:19 02/10/17 08:19 Microbiology Results: Microbiology 02/08/17 01:45 Urine, Voided (Cc/notcc) Urine Culture - Final No Growth After 2 Days Assessment and Plan (1) Severe sepsis Current visit: No Status: Acute (2) Chronic a-fib Current visit: No Status: Chronic (3) Anticoagulated on Coumadin Current visit: No Status: Chronic (4) Essential hypertension Current visit: No Status: Chronic (5) Type II diabetes mellitus Current visit: No Status: Chronic (6) Bronchitis Current visit: Yes Status: Acute (7) Septic shock Current visit: Yes Status: Acute Assessment and Plan: 02/10/2017 Impression Septic shock based on elevated lactate-resolved Doubt pneumonia-chest x-ray negative 2 Cellulitis left hip and left low back-currently on day 2 of Zosyn and vancomycin Decreased urine output-resolved Supratherapeutic INR-improved Chronic A. fib-rate controlled Type 2 diabetes mellitus-bgm elevated 192-279 Hypertension History of seizures Bipolar disorder/schizophrenia Chronic lower extremity lymph edema-especially in the medial thighs Hypomagnesemia-resolved was IV magnesium Hypokalemia Plan Overall Malik feels that he is improving Continue with IV vancomycin and Invanz for antimicrobial coverage. Continued mild hypokalemia, replaced orally. Lasix has been on hold. Will plan to resume it tomorrow given edema. Replace potassium orally and continue to monitor Continue with Victoza and insulin with meals, Metformin remains on hold. Check CBC and BMP tomorrow morning to follow blood counts, renal function and electrolytes Case discussed with attending, Dr. Vasquez 02/10/2017-I reviewed this chart, the patient history, and the [employer]'s/PA's documented findings as above. We discussed and formulated the assessment and plan as above with the additions below.-Dr. Vasquez The patient states he's feeling well today. He denies any pain. He is eating and drinking well. He denies any nausea or vomiting. He does have a Moffett catheter in place and there are some small clots of blood present. He does complain of some mild diarrhea. On exam he is alert and oriented and in no acute distress. Chest is clear to auscultation. Cardiovascular reveals a regular rate and rhythm. Abdomen is soft , obese, nontender with positive bowel sounds. Extremities reveal decreased edema throughout. He continues to have lymphedema in the medial thighs bilaterally. The erythema and lymphedema of the right hip and low back continues to improve daily. The patient diuresed well yesterday with almost 6 L of urine output. So far today he's had 1.2 L out. Will resume his oral Lasix today. Yesterday he was given IV Lasix. Likely DC Moffett tomorrow. Blood sugars have been elevated today. We'll restart metformin. Continue current antibiotics. Possible dismissal on Sunday or Sunday next week. Check stool for C. difficile regarding diarrhea. - Physician Narrative Narrative: Date: 02/10/17 Time: 1413 Hospital Course Summary Disclaimer: The visit summary below is not to be considered part of the above Progress Note. Hospital Course: 02/08/2017 Impression Septic shock based on elevated lactate Possible pneumonia-he received a one-time dose of Levaquin and Zosyn was initiated Cellulitis left hip-continue Zosyn and will add Vanco Decreased urine output Supratherapeutic INR Chronic A. fib-rate controlled Type 2 diabetes mellitus Hypertension History of seizures Bipolar disorder/schizophrenia Chronic lower extremity edema Hypomagnesemia Plan Continue to monitor closely in ICU Zosyn and vancomycin for cellulitis/possible pneumonia. Discontinue Levaquin because of history of seizures Repeat lab work tomorrow Replace magnesium IV One-time dose of Lasix to help with urine output, patient is chronically on Lasix Restart beta ness if blood pressure is stable Monitor Accu-Cheks and continue sliding scale insulin Hold metformin due to sepsis Greater than 1 hour of critical care time spent seeing and evaluating the patient and reviewing the chart, and determining care plan. 02/09/17 10:55 Plan Overall, the patient appears to be doing well and will transfer to the floor. DC IV fluids Keep Moffett catheter in place and diuresis as tolerated. Possible DC Moffett tomorrow.invn Replace potassium orally. DC Zosyn and start Invanz. Continue vancomycin. Repeat CBC and basic metabolic profile tomorrow IV Lasix today. Likely start oral Lasix tomorrow. Restart metoprolol 50 mg once daily and monitor blood pressure Restart Victoza and insulin with meals. Continue off of metformin due to recent sepsis. 02/10/17 Plan Overall Malik feels that he is improving Continue with IV vancomycin and Invanz for antimicrobial coverage. Continued mild hypokalemia, replaced orally. Lasix has been on hold. Will plan to resume it tomorrow given edema. Replace potassium orally and continue to monitor Continue with Victoza and insulin with meals, Metformin remains on hold. Check CBC and BMP tomorrow morning to follow blood counts, renal function and electrolytes Case discussed with attending, Dr. Vasquez
[2017-02-10] MEDS: LURASIDONE 40mg TABLET PO SCH (18:18)
[2017-02-10] MEDS: ROPINIROLE 0.25 MG TABLET PO SCH (20:02)
[2017-02-10] MEDS: SIMVASTATIN 20 MG TABLET PO SCH (20:02)
[2017-02-11] MEDS ORDERED: LOPERAMIDE 2 MG CAPSULE PO PRN (07:20)
--- NOTE | 2017-02-11 09:49 | Pharmacy Consult ---
Pharmacy Consult-Warfarin - Laboratory Information 02/08/17 02/09/17 02/10/17 07:07 04:13 08:19 INR 4.06 H 3.34 H 1.91 H 02/11/17 05:01 INR 1.47 H - Consult Information Warfarin 4mg po ordered for noon today. Will continue to monitor. Thank you.
[2017-02-11] MEDS: INSULIN ASPART 100unit/ml INJECTION SQ SCH ×3 (10:42→17:32)
[2017-02-11] MEDS: LACTOBACILLUS (15B cfu) CAPSULE PO SCH ×2 (10:46→17:32)
[2017-02-11] MEDS: GABAPENTIN 300 MG CAPSULE PO SCH ×3 (10:46→17:32)
[2017-02-11] MEDS: ERTAPENEM 1 G in NS 100 ML IV SCH (10:47)
[2017-02-11] MEDS: ENOXAPARIN 40 MG/0.4 ML INJECTION SQ SCH (10:47)
[2017-02-11] MEDS: PSYLLIUM PACKET PO SCH (10:48)
[2017-02-11] MEDS: SALINE FLUSH 10ml SYRINGE IVF PRN ×3 (10:49→23:30)
[2017-02-11] MEDS: METFORMIN 500 MG TABLET PO SCH (10:58)
[2017-02-11] MEDS: LISINOPRIL 10 MG TABLET PO SCH (10:58)
[2017-02-11] MEDS: LIRAGLUTIDE INJECTABLE PEN SQ SCH (10:59)
[2017-02-11] MEDS: FUROSEMIDE 20 MG TABLET PO SCH (11:11)
[2017-02-11] MEDS ORDERED: WARFARIN 4 MG TABLET PO SCH (12:00)
[2017-02-11] MEDS: LURASIDONE 40mg TABLET PO SCH (17:33)
--- NOTE | 2017-02-11 17:55 | Progress Note ---
- Date 02/11/17 Subjective: The patient is seen this evening while he is eating supper. He states he is feeling well. He denies any pain. His appetite is good. He has had some diarrhea. C. difficile of the stool was negative yesterday. He can start Imodium as needed for diarrhea. He denies shortness of breath. He denies any pain. He has a Moffett catheter in place. He denies any pain on his left hip where he has cellulitis. Objective Vital signs: Temperature 97.1 F 02/11/17 15:41 Pulse Rate 71 02/11/17 15:41 Respiratory Rate 18 02/11/17 15:41 Blood Pressure 135/77 02/11/17 15:41 Pulse Oximetry 92 02/11/17 15:41 Height/Weight/BMI: Height 1.85 m Weight 162.6 kg Body Mass Index 45.8 Comments: GEN-alert, oriented, no acute distress HEENT-poor dentition, oropharynx is moist NECK-supple CV-irregularly irregular, rate controlled CHEST-clear to auscultation ABD-soft, nontender, obese, positive bowel sounds -Moffett in place with some mild hematuria EXT-+ pedal edema, patient continues to have edema of the medial thighs which is chronic. NEURO-no focal deficits Psychiatric-affect is normal and mood is good SKIN-warm and dry, the area of cellulitis with erythema on his left hip and low back continues to show decreased redness and firmness. It is not tender to touch. Overall is improving daily. Results - Labs CBC & Chem 7: 02/11/17 05:01 02/11/17 05:01 Labs: INR is subtherapeutic today at 1.47 Microbiology Results: Microbiology 02/08/17 01:45 Urine, Voided (Cc/notcc) Urine Culture - Final No Growth After 2 Days Assessment and Plan (1) Severe sepsis Current visit: No Status: Acute (2) Chronic a-fib Current visit: No Status: Chronic (3) Anticoagulated on Coumadin Current visit: No Status: Chronic (4) Essential hypertension Current visit: No Status: Chronic (5) Type II diabetes mellitus Current visit: No Status: Chronic (6) Bronchitis Current visit: Yes Status: Acute (7) Septic shock Current visit: Yes Status: Acute Assessment and Plan: 02/11/2017 Impression Septic shock based on elevated lactate-resolved Doubt pneumonia-chest x-ray negative 2 Cellulitis left hip and left low back-currently on day 3 of Invanz and day 4 vancomycin Decreased urine output-resolved Supratherapeutic INR-now subtherapeutic Chronic A. fib-rate controlled Type 2 diabetes mellitus-bgm elevated 192-279 Hypertension History of seizures Bipolar disorder/schizophrenia-mood is doing well Chronic lower extremity lymph edema-especially in the medial thighs Hypomagnesemia-resolved w/ IV magnesium Hypokalemia-resolved Plan Overall, the patient continues to improve. Continue with IV vancomycin and Invanz for antimicrobial coverage. C. difficile is negative. Can give Imodium as needed for diarrhea Resume patient's usual Lasix dose Continue with Victoza and insulin with meals, metformin restarted today. Blood sugars are improving Check BMP tomorrow morning to follow renal function and electrolytes while diuresing DC Moffett tomorrow morning Possible dismissal Sunday or Sunday next week DVT Prophylaxis: Lovenox, Coumadin Resuscitation Status: Full Code - Physician Narrative Narrative: Date: 02/11/17 Time: 1751 Hospital Course Summary Disclaimer: The visit summary below is not to be considered part of the above Progress Note. Hospital Course: 02/08/2017 Impression Septic shock based on elevated lactate Possible pneumonia-he received a one-time dose of Levaquin and Zosyn was initiated Cellulitis left hip-continue Zosyn and will add Vanco Decreased urine output Supratherapeutic INR Chronic A. fib-rate controlled Type 2 diabetes mellitus Hypertension History of seizures Bipolar disorder/schizophrenia Chronic lower extremity edema Hypomagnesemia Plan Continue to monitor closely in ICU Zosyn and vancomycin for cellulitis/possible pneumonia. Discontinue Levaquin because of history of seizures Repeat lab work tomorrow Replace magnesium IV One-time dose of Lasix to help with urine output, patient is chronically on Lasix Restart beta ness if blood pressure is stable Monitor Accu-Cheks and continue sliding scale insulin Hold metformin due to sepsis Greater than 1 hour of critical care time spent seeing and evaluating the patient and reviewing the chart, and determining care plan. 02/09/17 10:55 Plan Overall, the patient appears to be doing well and will transfer to the floor. DC IV fluids Keep Moffett catheter in place and diuresis as tolerated. Possible DC Moffett tomorrow.invn Replace potassium orally. DC Zosyn and start Invanz. Continue vancomycin. Repeat CBC and basic metabolic profile tomorrow IV Lasix today. Likely start oral Lasix tomorrow. Restart metoprolol 50 mg once daily and monitor blood pressure Restart Victoza and insulin with meals. Continue off of metformin due to recent sepsis. 02/10/17 Plan Overall Malik feels that he is improving Continue with IV vancomycin and Invanz for antimicrobial coverage. Continued mild hypokalemia, replaced orally. Lasix has been on hold. Will plan to resume it tomorrow given edema. Replace potassium orally and continue to monitor Continue with Victoza and insulin with meals, Metformin remains on hold. Check CBC and BMP tomorrow morning to follow blood counts, renal function and electrolytes Case discussed with attending, Dr. Vasquez
[2017-02-11] MEDS ORDERED: FUROSEMIDE 20 MG TABLET PO ONE (18:03)
[2017-02-11] MEDS: ROPINIROLE 0.25 MG TABLET PO SCH (20:31)
[2017-02-11] MEDS: SIMVASTATIN 20 MG TABLET PO SCH (20:32)
[2017-02-12] MEDS ORDERED: FALL RISK - PHARMACY CONSULT XX ONE (05:03)
--- NOTE | 2017-02-12 07:34 | Pharmacy Consult ---
Pharmacy Consult-Warfarin - Laboratory Information 02/08/17 02/09/17 02/10/17 07:07 04:13 08:19 INR 4.06 H 3.34 H 1.91 H 02/11/17 02/12/17 05:01 04:05 INR 1.47 H 1.44 H SB is 71yo M admitted from [facility] via ED with increased Lactate, fever, decreased energy. Being treated for bronchitis, sepsis. Hx also of T2DM, HTN, Bipolar Dis., A. Fib. Home dose of Warfarin reported as 4mg po daily. INR today = 1.44 Will increase Warfarin to 5mg today. On Enoxaparin 40mg SQ daily until INR back to therapeutic range. Thank you.
[2017-02-12] MEDS: PSYLLIUM PACKET PO SCH ×2 (08:23→08:38)
[2017-02-12] MEDS: INSULIN ASPART 100unit/ml INJECTION SQ SCH ×3 (08:23→17:17)
[2017-02-12] MEDS: ENOXAPARIN 40 MG/0.4 ML INJECTION SQ SCH (08:24)
[2017-02-12] MEDS: LIRAGLUTIDE INJECTABLE PEN SQ SCH (08:24)
[2017-02-12] MEDS: METFORMIN 500 MG TABLET PO SCH ×2 (08:25→08:34)
[2017-02-12] MEDS: LACTOBACILLUS (15B cfu) CAPSULE PO SCH ×2 (08:25→17:17)
[2017-02-12] MEDS: LISINOPRIL 10 MG TABLET PO SCH (08:25)
[2017-02-12] MEDS: GABAPENTIN 300 MG CAPSULE PO SCH ×3 (08:25→17:17)
[2017-02-12] MEDS: FUROSEMIDE 20 MG TABLET PO SCH ×2 (08:25→11:48)
[2017-02-12] MEDS: ERTAPENEM 1 G in NS 100 ML IV SCH (08:26)
[2017-02-12] MEDS ORDERED: WARFARIN 5 MG TABLET PO SCH (12:00)
--- NOTE | 2017-02-12 16:40 | Progress Note ---
- Date 02/12/17 Subjective: The patient states he's feeling well today. Moffett catheter was removed and he is urinating without difficulties. He is having normal bowel movements. He denies any pain in his hip where he has cellulitis. He is eating and drinking well. He denies any shortness of breath. He has been afebrile. Objective Vital signs: Temperature 96.7 F L 02/12/17 15:00 Pulse Rate 79 02/12/17 15:58 Respiratory Rate 16 02/12/17 15:00 Blood Pressure 133/72 02/12/17 15:00 Pulse Oximetry 93 02/12/17 15:00 Height/Weight/BMI: Height 1.85 m Weight 164.4 kg Body Mass Index 45.8 Comments: GEN-alert, oriented, no acute distress HEENT-poor dentition, oropharynx is moist NECK-supple CV-regular rate and rhythm CHEST-there to auscultation bilaterally ABD-soft, obese, nontender with positive bowel sounds -Moffett removed this morning EXT-no edema of the feet, trace edema in the calves, +1 lymph edema in the bilateral medial thighs which is chronic NEURO-no focal deficits SKIN-area of erythema, edema and induration in the left lateral hip/low back area continues to improve daily. There is no tenderness. Results - Labs CBC & Chem 7: 02/11/17 05:01 02/12/17 04:05 Labs: INR is 1.44 Microbiology Results: Microbiology 02/08/17 01:45 Urine, Voided (Cc/notcc) Urine Culture - Final No Growth After 2 Days Assessment and Plan (1) Severe sepsis Current visit: No Status: Acute (2) Chronic a-fib Current visit: No Status: Chronic (3) Anticoagulated on Coumadin Current visit: No Status: Chronic (4) Essential hypertension Current visit: No Status: Chronic (5) Type II diabetes mellitus Current visit: No Status: Chronic (6) Bronchitis Current visit: Yes Status: Acute (7) Septic shock Current visit: Yes Status: Acute Assessment and Plan: Impression Septic shock based on elevated lactate on admission-resolved Doubt pneumonia-chest x-ray negative 2 Cellulitis left hip and left low back-ertapenem started 02/09/2017 and vancomycin started 02/08/2017 Decreased urine output-resolved Supratherapeutic INR on admission-now subtherapeutic Chronic A. 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 difficile. Okay to give Imodium as needed for diarrhea Plan Cellulitis is improving daily. Patient is doing well overall. Continue with IV vancomycin and Invanz for antimicrobial coverage. Continue with Victoza and insulin with meals, metformin restarted 02/11. Blood sugars are improving Moffett catheter discontinued and the patient is doing well Possible dismissal in the next 1-2 days. DVT Prophylaxis: Lovenox, Coumadin Resuscitation Status: Full Code - Physician Narrative Narrative: Date: 02/12/17 Time: 1631 Hospital Course Summary Disclaimer: The visit summary below is not to be considered part of the above Progress Note. Hospital Course: 02/08/2017 Impression Septic shock based on elevated lactate Possible pneumonia-he received a one-time dose of Levaquin and Zosyn was initiated Cellulitis left hip-continue Zosyn and will add Vanco Decreased urine output Supratherapeutic INR Chronic A. fib-rate controlled Type 2 diabetes mellitus Hypertension History of seizures Bipolar disorder/schizophrenia Chronic lower extremity edema Hypomagnesemia Plan Continue to monitor closely in ICU Zosyn and vancomycin for cellulitis/possible pneumonia. Discontinue Levaquin because of history of seizures Repeat lab work tomorrow Replace magnesium IV One-time dose of Lasix to help with urine output, patient is chronically on Lasix Restart beta ness if blood pressure is stable Monitor Accu-Cheks and continue sliding scale insulin Hold metformin due to sepsis Greater than 1 hour of critical care time spent seeing and evaluating the patient and reviewing the chart, and determining care plan. 02/09/17 10:55 Plan Overall, the patient appears to be doing well and will transfer to the floor. DC IV fluids Keep Moffett catheter in place and diuresis as tolerated. Possible DC Moffett tomorrow.invn Replace potassium orally. DC Zosyn and start Invanz. Continue vancomycin. Repeat CBC and basic metabolic profile tomorrow IV Lasix today. Likely start oral Lasix tomorrow. Restart metoprolol 50 mg once daily and monitor blood pressure Restart Victoza and insulin with meals. Continue off of metformin due to recent sepsis. 02/10/17 Plan Overall Malik feels that he is improving Continue with IV vancomycin and Invanz for antimicrobial coverage. Continued mild hypokalemia, replaced orally. Lasix has been on hold. Will plan to resume it tomorrow given edema. Replace potassium orally and continue to monitor Continue with Victoza and insulin with meals, Metformin remains on hold. Check CBC and BMP tomorrow morning to follow blood counts, renal function and electrolytes Case discussed with attending, Dr. Vasquez 02/11/2017 Plan Overall, the patient continues to improve. Continue with IV vancomycin and Invanz for antimicrobial coverage. C. difficile is negative. Can give Imodium as needed for diarrhea Resume patient's usual Lasix dose Continue with Victoza and insulin with meals, metformin restarted today. Blood sugars are improving Check BMP tomorrow morning to follow renal function and electrolytes while diuresing DC Moffett tomorrow morning Possible dismissal Sunday or Sunday next week
[2017-02-12] MEDS: ROPINIROLE 0.25 MG TABLET PO PRN (17:16)
[2017-02-12] MEDS: LURASIDONE 40mg TABLET PO SCH (17:17)
[2017-02-12] MEDS: ROPINIROLE 0.25 MG TABLET PO SCH (21:36)
[2017-02-12] MEDS: SIMVASTATIN 20 MG TABLET PO SCH (21:36)
[2017-02-12] MEDS ORDERED: NS FLUSH BAG 500ml IV PRN (22:24)
[2017-02-13] MEDS: INSULIN ASPART 100unit/ml INJECTION SQ SCH ×3 (08:26→17:07)
[2017-02-13] MEDS: LIRAGLUTIDE INJECTABLE PEN SQ SCH (08:26)
[2017-02-13] MEDS: LACTOBACILLUS (15B cfu) CAPSULE PO SCH ×2 (08:45→17:11)
[2017-02-13] MEDS: FUROSEMIDE 20 MG TABLET PO SCH ×2 (08:46→12:31)
[2017-02-13] MEDS: GABAPENTIN 300 MG CAPSULE PO SCH ×3 (08:46→17:11)
[2017-02-13] MEDS: ROPINIROLE 0.25 MG TABLET PO PRN ×2 (08:46→17:21)
[2017-02-13] MEDS: LISINOPRIL 10 MG TABLET PO SCH (08:46)
[2017-02-13] MEDS: ERTAPENEM 1 G in NS 100 ML IV SCH (08:47)
[2017-02-13] MEDS: ENOXAPARIN 40 MG/0.4 ML INJECTION SQ SCH (08:47)
[2017-02-13] MEDS: METFORMIN 500 MG TABLET PO SCH (08:47)
[2017-02-13] MEDS: PSYLLIUM PACKET PO SCH (08:48)
--- NOTE | 2017-02-13 09:43 | Pharmacy Consult ---
Pharmacy Consult-Warfarin - Laboratory Information 02/08/17 02/09/17 02/10/17 07:07 04:13 08:19 INR 4.06 H 3.34 H 1.91 H 02/11/17 02/12/17 02/13/17 05:01 04:05 08:21 INR 1.47 H 1.44 H 1.59 H - Consult Information SB is 71yo M admitted from [facility] via ED with increased Lactate, fever, decreased energy. Being treated for bronchitis, sepsis. History also of T2DM, Hypertension, Bipolar Disorder, A. Fib. Home dose of Warfarin reported as 4mg p.o. daily. The INR today was 1.59. I continued the Warfarin 5mg today. We will continue the Enoxaparin 40mg SQ daily until INR back to therapeutic range (2.00/3.00). Thank you for the Warfarin Dosing Protocol, Jai Mcknight, Pharmacist.
[2017-02-13] MEDS ORDERED: WARFARIN 5 MG TABLET PO SCH (12:00)
--- NOTE | 2017-02-13 12:37 | Discharge Summary ---
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 difficile. Okay to give Imodium as needed for diarrhea ASSOCIATED CHRONIC CONDITIONS Chronic A. fib-rate controlled Type 2 diabetes mellitus-blood sugars well controlled Hypertension History of seizures Bipolar disorder/schizophrenia-mood is doing well Chronic lower extremity lymph edema-especially in the medial thighs - Procedures Procedures: Moffett catheter - discontinued on 02/12/17 - Laboratory Labs: 02/11/17 05:01 02/13/17 08:21 - Microbiology Microbiology 02/08/17 01:45 Urine, Voided (Cc/notcc) Urine Culture - Final No Growth After 2 Days - Radiology Radiology: CXR x2: stable without acute findings. History of Present Illness HPI: This is a 71 y/o male who has a history of bipolar disease. He is currently a resident at a local residential. The patient was noted to have a fever today with decreased energy. The patient is brought to the ED and a detailed evaluation demonstrated a LA elevated @ 3.8 but a benign appearing CXR and urine. The patient at this time gives no signs of meningeal symptoms but was definitely febrile with borderline blood pressure. The patient states that he has a chronic cough and has worsened over the past 2 days and is productive of a yellow sputum. he denies ross, he denies short of breath. he denies abdomen pain and had a bm yesterday that was normal without blood The patient states his arms and legs move okay just a little more weak. Objective Vital signs: Temperature 97.1 F 02/13/17 11:28 Pulse Rate 78 02/13/17 11:28 Respiratory Rate 16 02/13/17 11:28 Blood Pressure 169/84 H 02/13/17 11:28 Pulse Oximetry 92 02/13/17 11:28 Rhythm: Atrial Fibrillation with Normal Ventricular Rate Height/Weight/BMI: Height 1.85 m Weight 161.6 kg Body Mass Index 45.8 - Constitutional Present: no acute distress, well nourished, well developed, morbidly obese - Routine HEENT Exam Head: Present: normocephalic Eye: Absent: conjunctival icterus, scleral injection ENT: Absent: dentition normal (decay and missing teeth) - Routine Respiratory Exam Present: CTA bilaterally - Routine Cardiovascular Exam Present: irregularly irregular - Routine Abdominal Exam Present: soft, normoactive bowel sounds, non distended, non tender - Routine Extremities Exam Present: no edema, pulses intact - Routine Skin Exam Present: erythema (to left hip/lower back has nearly resolved & has faded significantly from the border drawn on his skin.), dry, warm - Routine Neurological Exam Present: alert, normal speech - Routine Psychiatric Exam Present: normal affect, normal thought process, cooperative Hospital Course This is a general summary of the patient's hospital course. For more details refer to the complete medical record. Hospital course: 02/08/2017 Impression Septic shock based on elevated lactate Possible pneumonia-he received a one-time dose of Levaquin and Zosyn was initiated Cellulitis left hip-continue Zosyn and will add Vanco Decreased urine output Supratherapeutic INR Chronic A. fib-rate controlled Type 2 diabetes mellitus Hypertension History of seizures Bipolar disorder/schizophrenia Chronic lower extremity edema Hypomagnesemia Plan Continue to monitor closely in ICU Zosyn and vancomycin for cellulitis/possible pneumonia. Discontinue Levaquin because of history of seizures Repeat lab work tomorrow Replace magnesium IV One-time dose of Lasix to help with urine output, patient is chronically on Lasix Restart beta ness if blood pressure is stable Monitor Accu-Cheks and continue sliding scale insulin Hold metformin due to sepsis Greater than 1 hour of critical care time spent seeing and evaluating the patient and reviewing the chart, and determining care plan. 02/09/17 10:55 Plan Overall, the patient appears to be doing well and will transfer to the floor. DC IV fluids Keep Moffett catheter in place and diuresis as tolerated. Possible DC Moffett tomorrow.invn Replace potassium orally. DC Zosyn and start Invanz. Continue vancomycin. Repeat CBC and basic metabolic profile tomorrow IV Lasix today. Likely start oral Lasix tomorrow. Restart metoprolol 50 mg once daily and monitor blood pressure Restart Victoza and insulin with meals. Continue off of metformin due to recent sepsis. Significant improvement was seen in his cellulitis between 02/10-02/13 and by , the erythema has nearly completed resolved. WBC rapidly decreased to normal range. He developed mild hypokalemia which was replaced orally. Because of initial borderline hypotension and septic shock, Lasix and Minipress were held. Lasix and metoprolol were resumed on 02/11 and Lisinopril and Minipress were resumed on day of discharge (BP was elevated). He had diarrhea, but this was negative for C. diff and Imodium was added to medication list. Blood sugars were monitored - Metformin was held initially d/t elevated lactate, and when this was re-introduced on 02/11/17 his blood sugar improved. Moffett catheter was discontinued prior to discharge. Pharmacy was consulted for Coumadin management , and his INR was variable, ranging from supratherapeutic (>4) to subtherapeutic (1.44) and was still low at 1.59 but climbing on day of discharge. PT/OT were consulted prior to discharge. Mr. Lee was medically stable for discharge on 02/13/17, and was discharged with Rx Keflex x 7 days. Recommend f/u with Dr. Stafford within 1 week. DVT Prophylaxis: Coumadin Discharge Plan - Discharge Disposition Discharge Date: 02/13/17 *Condition: Stable Reason For Visit (Visit label in EMR): Septic Shock - Discharge Medications *Discharge Medications: No Action Lisinopril 10 mg PO DAILY #0 LORazepam [Ativan] 0.5 mg PO Q6H PRN #0 tab PRN Reason: Anxiety Ketotifen Fumarate [Zaditor] 1 drop EACH EYE Q12H PRN 30 Days #0 PRN Reason: Allergy Symptoms Loperamide [Imodium] 2 mg PO QID PRN 30 Days #0 PRN Reason: Diarrhea Simvastatin 20 mg PO HS 30 Days #0 Divalproex ER [Depakote ER] 1,500 mg PO HS tab HydrOXYzine [Atarax] 100 mg PO HS tab Psyllium [Metamucil] 1 packet PO DAILY packet Lurasidone HCl [Latuda] 120 mg PO WS Ropinirole [Requip] 0.25 mg PO HS Furosemide [Lasix] 20 mg PO BIDBL #0 tab Dextran 70/Hypromellose [Artificial Tears] 1 drop RIGHT EYE TID PRN #0 bottle PRN Reason: DRY EYES Liraglutide [Victoza 3-Otto] 1.2 mg SQ DAILY 30 Days #0 Metoprolol Succinate 50 mg PO DAILY 30 Days #0 Prazosin HCl [Minipress] 2 mg PO HS 30 Days #0 Metformin [Glucophage] 500 mg PO QAM Insulin Aspart [Novolog Flexpen] 5 unit SQ TIDWM Gabapentin 300 mg PO TIDWM Divalproex ER [Depakote ER] 250 mg PO HS tab Hydrocodone/APAP 5/325 [[place] 5/325] 1 tab PO Q8H PRN #30 tab PRN Reason: Pain Nystatin Powder [Mycostatin] 1 applicatio TP TID bottle Warfarin [Coumadin] 4 mg PO 1700 Ropinirole [Requip] 0.25 mg PO Q8H PRN PRN Reason: Restless Legs - Referrals/Follow Up - Patient Handouts Patient Handouts: Sepsis (GEN) Physician Narrative - Narrative Attestation Narrative: Date: 02/13/17 Time: 1234
--- NOTE | 2017-02-13 12:57 | Progress Note ---
- Date 02/13/17 Subjective: Mr. Lee is doing well today and is without complaints. He specifically denies any trouble breathing, chest pain, abdominal pain, or GI complaints. He denies pain to his left hip area and nursing staff report visual improvement in the amount of redness. He has been eating well and had BM today. Objective Vital signs: Temperature 97.1 F 02/13/17 11:28 Pulse Rate 78 02/13/17 11:28 Respiratory Rate 16 02/13/17 11:28 Blood Pressure 169/84 H 02/13/17 11:28 Pulse Oximetry 92 02/13/17 11:28 Rhythm: Atrial Fibrillation with Normal Ventricular Rate Height/Weight/BMI: Height 1.85 m Weight 161.6 kg Body Mass Index 45.8 - Constitutional Present: no acute distress, well nourished, well developed, morbidly obese - Routine HEENT Exam Head: Present: normocephalic Eye: Absent: conjunctival icterus ENT: Absent: dentition normal (decay and missing teeth) - Routine Respiratory Exam Present: CTA bilaterally - Routine Cardiovascular Exam Present: RRR, S1, S2 - Routine Abdominal Exam Present: soft, normoactive bowel sounds, non distended, non tender - Routine Extremities Exam Present: no edema, pulses intact, normal capillary refill - Routine Skin Exam Present: erythema (cellulitis to left hip has faded significantly from the line drawn on his skin), dry, warm - Routine Neurological Exam Present: alert, normal speech - Routine Psychiatric Exam Present: normal affect, normal thought process, cooperative Results - Labs CBC & Chem 7: 02/11/17 05:01 02/13/17 08:21 Microbiology Results: Microbiology 02/08/17 01:45 Urine, Voided (Cc/notcc) Urine Culture - Final No Growth After 2 Days Assessment and Plan (1) Septic shock Current visit: Yes Status: Acute Assessment and Plan: Impression Septic shock based on elevated lactate on admission-resolved Doubt pneumonia-chest x-ray negative 2 Cellulitis left hip and left low back-ertapenem started 02/09/2017 and vancomycin started 02/08/2017 Decreased urine output-resolved Supratherapeutic INR on admission-now subtherapeutic Chronic A. 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 difficile. Okay to give Imodium as needed for diarrhea Plan Continues to improve on ertapenem + vanco. BP elevated - Minipress was restarted, starting tonight. PT/OT evaluation pending. D/W Dr. Vasquez and CM - likely discharge on 02/14/17 if remains stable. DC on PO Keflex x 7 days. 02/13/2017-I reviewed this chart, the patient history, and the MARKETING GRAPHICS SPECIALIST's/PA's documented findings as above. We discussed and formulated the assessment and plan as above with the additions below.-Dr. Vasquez Patient was seen earlier today. He is feeling well and has no complaints. He is eating and drinking well. He has no pain anywhere including on his left hip and low back where he has cellulitis. He has had no fevers. On exam he is alert and in no acute distress. Chest is clear to auscultation. Cardio vascular reveals a regular rate and rhythm. Abdomen is soft and nontender. Skin exam reveals the erythema of his left buttock and low back looks markedly improved. Impression and plan Overall, cellulitis is doing very well. We'll plan for discharge tomorrow on oral Keflex. Blood pressures are elevated today. Restart his home Minipress tonight. DVT Prophylaxis: Coumadin Resuscitation Status: Full Code - Physician Narrative Narrative: Date: 02/13/17 Time: 1253 Hospital Course Summary Disclaimer: The visit summary below is not to be considered part of the above Progress Note. Hospital Course: 02/08/2017 Impression Septic shock based on elevated lactate Possible pneumonia-he received a one-time dose of Levaquin and Zosyn was initiated Cellulitis left hip-continue Zosyn and will add Vanco Decreased urine output Supratherapeutic INR Chronic A. fib-rate controlled Type 2 diabetes mellitus Hypertension History of seizures Bipolar disorder/schizophrenia Chronic lower extremity edema Hypomagnesemia Plan Continue to monitor closely in ICU Zosyn and vancomycin for cellulitis/possible pneumonia. Discontinue Levaquin because of history of seizures Repeat lab work tomorrow Replace magnesium IV One-time dose of Lasix to help with urine output, patient is chronically on Lasix Restart beta ness if blood pressure is stable Monitor Accu-Cheks and continue sliding scale insulin Hold metformin due to sepsis Greater than 1 hour of critical care time spent seeing and evaluating the patient and reviewing the chart, and determining care plan. 02/09/17 10:55 Plan Overall, the patient appears to be doing well and will transfer to the floor. DC IV fluids Keep Moffett catheter in place and diuresis as tolerated. Possible DC Moffett tomorrow.invn Replace potassium orally. DC Zosyn and start Invanz. Continue vancomycin. Repeat CBC and basic metabolic profile tomorrow IV Lasix today. Likely start oral Lasix tomorrow. Restart metoprolol 50 mg once daily and monitor blood pressure Restart Victoza and insulin with meals. Continue off of metformin due to recent sepsis. Significant improvement was seen in his cellulitis between 02/10-02/13 and by , the erythema has nearly completed resolved. WBC rapidly decreased to normal range. He developed mild hypokalemia which was replaced orally. Because of initial borderline hypotension and septic shock, Lasix and Minipress were held. Lasix and metoprolol were resumed on 02/11 and Lisinopril and Minipress were resumed on day of discharge (BP was elevated). He had diarrhea, but this was negative for C. diff and Imodium was added to medication list. Blood sugars were monitored - Metformin was held initially d/t elevated lactate, and when this was re-introduced on 02/11/17 his blood sugar improved. Moffett catheter was discontinued prior to discharge. Pharmacy was consulted for Coumadin management , and his INR was variable, ranging from supratherapeutic (>4) to subtherapeutic (1.44) and was still low at 1.59 but climbing on day of discharge. PT/OT were consulted prior to discharge. Mr. Lee was medically stable for discharge on 02/13/17, and was discharged with Rx Keflex x 7 days. Recommend f/u with Dr. Stafford within 1 week. 02/13/17 Continues to improve on ertapenem + vanco. BP elevated - Minipress was restarted, starting tonight. PT/OT evaluation pending. D/W Dr. Vasquez and CM - likely discharge on 02/14/17 if remains stable. DC on PO Keflex x 7 days.
[2017-02-13] MEDS: LURASIDONE 40mg TABLET PO SCH (17:11)
[2017-02-13] MEDS ORDERED: PRAZOSIN 1 MG CAPSULE PO SCH (21:00)
[2017-02-13] MEDS: ROPINIROLE 0.25 MG TABLET PO SCH (21:37)
[2017-02-13] MEDS: SIMVASTATIN 20 MG TABLET PO SCH (21:37)
[2017-02-14] MEDS: ENOXAPARIN 40 MG/0.4 ML INJECTION SQ SCH (08:19)
[2017-02-14] MEDS: INSULIN ASPART 100unit/ml INJECTION SQ SCH ×2 (08:19→12:06)
[2017-02-14] MEDS: FUROSEMIDE 20 MG TABLET PO SCH ×2 (08:20→12:06)
[2017-02-14] MEDS: LISINOPRIL 10 MG TABLET PO SCH (08:20)
[2017-02-14] MEDS: GABAPENTIN 300 MG CAPSULE PO SCH ×2 (08:20→12:06)
[2017-02-14] MEDS: LIRAGLUTIDE INJECTABLE PEN SQ SCH (08:20)
[2017-02-14] MEDS: ERTAPENEM 1 G in NS 100 ML IV SCH (08:20)
[2017-02-14] MEDS: LACTOBACILLUS (15B cfu) CAPSULE PO SCH (08:20)
[2017-02-14] MEDS: PSYLLIUM PACKET PO SCH (08:21)
[2017-02-14] MEDS: METFORMIN 500 MG TABLET PO SCH (08:21)
--- NOTE | 2017-02-14 09:27 | Discharge Summary ---
Discharge Information Date of admission: 02/08/17 01:43 Anticipated date of discharge: 02/14/17 Attending Physician: Terri Vasquez MD Primary care physician: Bernie Stafford MD Consults: 02/08/17 09:32 Physician Consult [CONS] Routine Consulting Provider: Levar Chavira Reason For Exam: SNU VS [facility] Ordering Provider has Notified Drop Count Associate: Yes - Discharge Diagnosis (1) Septic shock Status: Resolved (2) Chronic a-fib Status: Chronic (3) Essential hypertension Status: Chronic (4) Type II diabetes mellitus Status: Chronic (5) Morbid obesity with BMI of 50.0-59.9, adult Status: Chronic (6) Bipolar disorder Status: Chronic Septic shock based on elevated lactate on admission-resolved Doubt pneumonia-chest x-ray negative 2 Cellulitis left hip and left low back-ertapenem started 02/09/2017 and vancomycin started 02/08/2017 Decreased urine output-resolved Supratherapeutic INR on admission-now subtherapeutic Chronic A. 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 difficile. Okay to give Imodium as needed for diarrhea. - Procedures Procedures: Moffett catether - discontinued on 02/12/17. - Laboratory Labs: 02/14/17 03:55 02/14/17 03:55 - Microbiology Microbiology 02/08/17 01:45 Urine, Voided (Cc/notcc) Urine Culture - Final No Growth After 2 Days 02/07/17 23:15 Peripheral/IV Start Blood Culture - Final No Growth After 5 Days - Radiology Radiology: Date of Exam: 02/07/17 Type of Exam(s): XR chest 1V Reason for Exam(s): Fever Findings: The lungs are stable in appearance without new focal airspace consolidation. There is no pleural effusion or pneumothorax. The heart size, pulmonary vascularity and mediastinal contours are unchanged. IMPRESSION: Stable appearance of the chest without acute cardiopulmonary disease. Date of Exam: 02/08/17 Type of Exam(s): XR chest 1V Reason for Exam(s): fever, rule out pneumonia Findings: Lungs are stable and grossly clear. No focal consolidative pneumonia, pleural effusion or pneumothorax. Cardiac silhouette is mildly enlarged but unchanged. Mediastinal contours are stable. Pulmonary vascularity is normal. Impression: Stable chest without focal pneumonia. History of Present Illness HPI: This is a 71 y/o male assisted patient who has a history of bipolar disease and is not a good historian at this time. He was transported to [facility] [place] on due to concerns of fever and decreased energy. He had a chronic cough that had recently worsened with yellow sputum. On questioning this morning, he only complains of being fatigued and also sad because it is Richard time and he won 't be with his family. He does not recall having an increased cough. He denies any headache, chest pain or abdominal pain. He does have some nausea. A detailed evaluation in the ED demonstrated an elevated lactate at 3.8 but a benign appearing CXR and urine. The patient at this time gives no signs of meningeal symptoms but was definitely febrile with borderline blood pressure. He denies abdomen pain and had a bowel movement yesterday that was normal without blood The patient states his arms and legs move okay just a little more weak. Objective Vital signs: Temperature 97.7 F 02/14/17 07:27 Pulse Rate 88 02/14/17 08:00 Respiratory Rate 15 02/14/17 07:27 Blood Pressure 128/72 02/14/17 07:27 Pulse Oximetry 94 02/14/17 07:27 Rhythm: Atrial Fibrillation with Normal Ventricular Rate Height/Weight/BMI: Height 6 ft 1 in Weight 350 lb 8.56 oz Body Mass Index 45.8 - Constitutional Present: no acute distress, well nourished, well developed, morbidly obese - Routine HEENT Exam Head: Present: normocephalic Eye: Absent: conjunctival icterus, scleral injection ENT: Absent: dentition normal (decay and missing teeth) - Routine Respiratory Exam Present: CTA bilaterally - Routine Cardiovascular Exam Present: irregularly irregular - Routine Abdominal Exam Present: soft, normoactive bowel sounds, non distended, non tender - Routine Extremities Exam Present: no edema, pulses intact - Routine Skin Exam Present: erythema (to let hip/lower back has nearly resolved and has faded significantly from the border drawn on his skin), dry, warm - Routine Neurological Exam Present: alert, normal speech - Routine Psychiatric Exam Present: normal affect, normal thought process, cooperative Hospital Course This is a general summary of the patient's hospital course. For more details refer to the complete medical record. Hospital course: Significant improvement was seen in his cellulitis between 02/10-02/13 and by , the erythema has nearly completely resolved. WBC rapidly to normal range. He developed mild hypokalemia which was replaced orally. Because of initial borderline hypotension and septic shock, Lasix and Minipress were held. Lasix was resumed on 02/11 and Minipress was resumed on 02/13 as blood pressure was elevated. He had diarrhea, but was negative for C. diff and Imodium was added to medication list. Blood sugars were monitored. Metformin was held initially due to elevated lactate and was re-introduced on 02/11 which resulted in improved blood sugars. Moffett catheter was discontinued prior to discharge. Pharmacy was consulted for Coumadin management and his INR was variable, ranging from supratherapeutic (>4) to subtherapeutic (1.44) but climbing on day of discharge. PT/OT were consulted prior to discharge. Mr. Lee was medically stable for discharge on 02/14 and was discharged with prescription for Keflex x 3 days. Recommended follow up with Dr. Stafford within 1 week. 02/14/2017-I reviewed this chart, the patient history, and the FILTERING MACHINE TENDER's/PA's documented findings as above. We discussed and formulated the assessment and plan as above with the additions below.-Dr. Vasquez On 02/14/2017, the patient was doing quite well. The area of cellulitis on his left hip is barely visible at this time. The induration and swelling has resolved. There is no tenderness. He never had any skin breakdown over this area. He is feeling well today. He is eating and drinking well. He denies any shortness of breath. He denies any pain. He feels ready for dismissal. On exam he is alert and oriented. Chest is clear to auscultation. Cardiovascular reveals a regular rate and rhythm. Abdomen is obese, soft and nontender with positive bowel sounds. Extremities reveal some pitting edema in the medial thighs. He has trace to +1 edema in his feet. Overall his edema has improved since admission. We'll dismissed back to the assisted on 3 more days of Keflex. I will call and notify his primary care physician of hospital findings and discharge plan. At discharge, the patient will be back on his usual Coumadin dose. He will have an INR checked on Sunday the and February 19 Time spent with patient: discharge greater than 30 minutes DVT Prophylaxis: Lovenox, Coumadin Discharge Plan - Discharge Disposition Discharge Date: 02/14/17 Disposition: 03 To SNU Not [facility] [place]) *Condition: Stable Reason For Visit (Visit label in EMR): Septic Shock - Discharge Medications *Discharge Medications: New Glucose Oral Gel 40% [Glutose 15] 37.5 gm PO PRN PRN #15 tube PRN Reason: Hypoglycemia LORazepam [Ativan] 0.5 mg PO Q6H PRN #30 tab PRN Reason: Anxiety Acidoph/L.bulg/Bif.b/S.thermop [Bacid Caplet] 2 cap PO BIDWM #60 tab CephALEXin [Keflex] 500 mg PO QID 5 Days #20 cap Continue Lisinopril 10 mg PO DAILY #0 LORazepam [Ativan] 0.5 mg PO Q6H PRN #0 tab PRN Reason: Anxiety Divalproex ER [Depakote ER] 1,500 mg PO HS #30 tab Divalproex ER [Depakote ER] 250 mg PO HS #30 tab Gabapentin 300 mg PO TIDWM #90 cap Hydrocodone/APAP 5/325 [Cameron 5/325] 1 tab PO Q8H PRN #30 tab PRN Reason: Pain HydrOXYzine [Atarax] 100 mg PO HS #60 tab Insulin Aspart [Novolog Flexpen] 5 unit SQ TIDWM #5 insuln.pen Ketotifen Fumarate [Zaditor] 1 drop EACH EYE Q12H PRN 30 Days #120 drops PRN Reason: Allergy Symptoms Loperamide [Imodium] 2 mg PO QID PRN 30 Days #30 cap PRN Reason: Diarrhea Lurasidone HCl [Latuda] 120 mg PO WS #30 tab Metoprolol Succinate 50 mg PO DAILY 30 Days #30 tab.er.24h Prazosin HCl [Minipress] 2 mg PO HS 30 Days #30 cap Psyllium [Metamucil] 1 packet PO DAILY #30 packet Ropinirole [Requip] 0.25 mg PO HS #30 tab Ropinirole [Requip] 0.25 mg PO Q8H PRN #30 tab PRN Reason: Restless Legs Warfarin [Coumadin] 4 mg PO 1700 #30 tab Furosemide [Lasix] 20 mg PO BIDBL #0 tab Dextran 70/Hypromellose [Artificial Tears] 1 drop RIGHT EYE TID PRN #0 bottle PRN Reason: DRY EYES Nystatin Powder [Mycostatin] 1 applicatio TP TID bottle Liraglutide [Victoza 3-Otto] 1.2 mg SQ DAILY 30 Days #2 pen.injctr Metformin [Glucophage] 500 mg PO QAM #30 tab Simvastatin 20 mg PO HS 30 Days #30 tab - Discharge Packet/Instructions *Diet: Soft, carb controlled with 2000 kcal. *Activity: as tolerated *Pain Management/Treatment: as prescribed *Wound Care: none Additional Instructions: Take coumadin 4mg daily as directed. Have PT/INR checked on 02/16/17 and again on 02/19/17 with results sent to Dr. Stafford. Take Keflex 500mg QID x 3 days startining on 02/15/17. Treatment course complete after all doses on 02/17/17. Invanz 1g IV given on 02/14/17 and discontinued prior to discharge. Monitor daiyl weight closely for signs of fluid retention - notify PCP if >5 pound weight gain in 1 week. Monitor blood sugars closely and take home medications as directed. *Expected Signs/Symptoms: gradual improvement *Notify Physician if: fever >101, difficulty breathing, chest pain, change, INR >3, worsening or additional questions or concerns. *During Business Hours Contact: Dr. Stafford at [phone]. *After Business Hours Contact: on-call physician for Dr. Stafford or [facility] emergency department at [phone] *Pending Lab/Results: No Pending Lab - Referrals/Follow Up *Referrals/Follow Up: Bernie Stafford MD [Family Provider] - 1 Week - Patient Handouts Patient Handouts: Sepsis (GEN) - Dismissal Complete Discharge Instructions are:: Complete Physician Narrative - Narrative Attestation Narrative: Date: 02/14/17 Time: 923
[2017-02-14] MEDS ORDERED: WARFARIN 4 MG TABLET PO ONE (11:00)
[2017-02-14 11:25] VITALS: BP 158/71; PULSE 82; RESP 18; TEMP 98.3; O2SAT 96
--- NOTE | 2017-02-14 13:46 | Extended Care Facility Orders ---
Admission Orders Admit to:: Long-Term Allergies/Adverse Reactions: Allergies No Known Allergies Allergy (Verified 02/07/17 23:01) ALLERGY VERIFIED Admitting Diagnosis: Septic Shock Admitting Physician: Terri Vasquez MD Attending Physician: Terri Vasquez MD Code Status: Full Code Anticiapted Length of Stay: 30 days or less Rehab Potential: fair Rehab Prognosis: fair Diet: 02/09/17 Lunch Consistent Carbohydrate Diet [DIET] Calorie Level: 2000 Food Consistency: SOFT Wound/Incision Care: No wounds. Please monitor the patient's left lateral hip, low back area where he did have cellulitis. May use Facility Protocol or Standing Orders: Yes May have flu vaccine: Yes Evaluations/Treatment: PT, OT Long-Term Certification: I certify that SNF services are required to be given on an Inpatient basis because of the patients need for long-term care on a continuing basis for the condition(s) for which he/she received inpatient hospital services prior to his/her transfer to the SNF. SNF inpatient care is necessary for the following reasons Indication for Long-Term: Wound Care/Assessment (monitoring of cellulitis on the hip), Med Admininistration, Assess Anticoagulation Therapy, Teach Diabetes Mellitus Management - Additional Information In Event of Arrest: Start CPR,call 911,send patient to the ER Resident is Aware of Diagnosis: Yes Laboratory/Radiology: INR on Sunday, February 16 and February 19 Referrals: Bernie Stafford MD [Family Provider] - 1 Week
== END 2017-02-14 14:35 | DRG 871 ==
LOC: ED 22:35 → CCU 02-08 01:43 → SUATTDRO 02-08 01:43 → CCU 02-08 03:10 → MED 02-09 15:10
PROVIDERS: ADMIT Emergency Medicine; ATTEND Internal Medicine